=== PATIENT | female | born 1950 | race Caucasian/White ===

== ENCOUNTER 2017-12-04 12:45 | Emergency (ER) | payer OTHER ==
--- OUTSIDE RECORDS SUMMARY | 2017-12-04 12:46 | XMS REPORT ---
:1950 Author Organization eClinicalWorks Care Team Providers Name Role Phone Deann Goodwin Provider Role Unavailable Allergies No Known Allergies Problems Problem Type Condition Code Onset Dates Condition Status Problem Vertigo R42 Active Problem Anxiety F41.9 Active Problem Osteopenia M85.80 Active Problem Hypertension, unspecified type I10 Active Problem Hyperlipidemia, mixed E78.2 Active Problem Restless legs syndrome G25.81 Active Problem Vitamin D insufficiency E55.9 Active Problem Hypertension I10 Active Problem Allergic rhinitis, seasonal J30.2 Active Problem Terminal insomnia F51.09 Active Assessment Restless legs syndrome G25.81 Active Problem Chronic constipation K59.00 Active Problem Gastro-esophageal reflux disease K21.9 Active without esophagitis Assessment Hypertension, unspecified type I10 Active Problem Restless leg syndrome G25.81 Active Problem Gastric ulcer K25.9 Active Problem Macular degeneration H35.30 Active Medications Medication Code Code Instructions Start End Status Dosage System Date Date Amlodipine ND 04504875948 10 MG Orally July 28, Active 1 tablet Besylate Once a day 2017 Ropinirole HCl ND 04564968336 1 MG Orally Once July 28, Active 1 tablet 1 a day 2017 to 3 hours before bedtime Losartan ND 50126979142 25 MG Orally July 28, Active 1 tablet Potassium Once a day 2017 Results No Known Results Summary Purpose eClinicalWorks Submission
--- OUTSIDE RECORDS SUMMARY | 2017-12-04 12:46 | XMS REPORT ---
:1950 Author Organization eClinicalWorks Care Team Providers Name Role Phone Deann Goodwin Provider Role Unavailable Allergies No Known Allergies Problems Problem Type Condition Code Onset Dates Condition Status Problem Gastro-esophageal reflux disease K21.9 Active without esophagitis Problem Macular degeneration H35.30 Active Problem Restless leg syndrome G25.81 Active Problem Restless legs syndrome G25.81 Active Problem Hypertension, unspecified type I10 Active Problem Sinusitis chronic, frontal J32.1 Active Problem Terminal insomnia F51.09 Active Problem Vitamin D insufficiency E55.9 Active Problem Hyperlipidemia, mixed E78.2 Active Problem Allergic rhinitis, seasonal J30.2 Active Problem Anxiety F41.9 Active Problem Hypertension I10 Active Problem Vertigo R42 Active Problem Gastric ulcer K25.9 Active Problem Osteopenia M85.80 Active Problem Chronic constipation K59.00 Active Medications Medication Code Code Instructions Start End Status Dosage System Date Date Atorvastatin [facility] 29265722181 40 MG Orally August 27, Active 1 tablet Calcium Once a day 2018 Results No Known Results Summary Purpose eClinicalWorks Submission
--- OUTSIDE RECORDS SUMMARY | 2017-12-04 12:46 | XMS REPORT ---
:1950 Author Organization eClinicalWorks Care Team Providers Name Role Phone Deann Goodwin Provider Role Unavailable Allergies, Adverse Reactions, Alerts Substance Reaction Event Type Motrin diarrha Drug Allergy Morphine Sulfate tachycardia Drug Allergy Lisinopril leg swelling Drug Allergy Erythromycin rash Drug Allergy Problems Problem Type Condition Code Onset Dates Condition Status Problem Hyperlipidemia, mixed E78.2 Active Problem Chronic constipation K59.00 Active Problem Gastric ulcer K25.9 Active Problem Anxiety F41.9 Active Problem Osteopenia M85.80 Active Problem Hypertension I10 Active Problem Restless leg syndrome G25.81 Active Problem Gastro-esophageal reflux disease K21.9 Active without esophagitis Problem Vertigo R42 Active Problem Macular degeneration H35.30 Active Assessment Foot pain, left M79.672 Active Problem Vitamin D insufficiency E55.9 Active Problem Terminal insomnia F51.09 Active Problem Allergic rhinitis, seasonal J30.2 Active Medications Medication Code Code Instructions Start End Status Dosage System Date Date Singulair [facility] 65028459791 10 MG Orally Active TAKE 1 Once a day TABLET BY MOUTH EVERY DAY Protonix [facility] 03534610882 40 MG Orally Active 1 tablet bid Amitriptyline [facility] 30164232594 25 MG Orally Active 1 tablet HCl Once a day Restasis [facility] 84550513362 0.05 % Active 1 drop into Ophthalmic affected Twice a day eye Losartan [facility] 37147027685 50 MG Orally Active 1 tablet Potassium Once a day Norvasc [facility] 92404928161 10 MG Orally Active 1 tablet Once a day Lipitor [facility] 96732506575 10 MG Orally Active 1 tablet Once a day Linzess [facility] 81189488881 145 MCG Orally Active 1 capsule Once a day Requip [facility] 43263403601 1 MG Orally Active 1 tablet 1 Once a day to 3 hours before bedtime Evoxac [facility] 56666474643 30 MG Orally Active 1 capsule Three times a day Flonase [facility] 19151877211 50 MCG/ACT Active 2 sprays in Nasally Once a each day nostril Pantoprazole [facility] 85858924051 40 MG Orally Jun 04, Active 1 tablet Sodium twice daily 2017 Docusate Sodium ND 36763194881 100 MG Orally Active 1 capsule bid as needed Zofran [facility] 76476801817 4 MG Active TAKE 1 TABLET BY MOUTH THREE TIMES DAILY. Naproxen [facility] 07991484063 500 MG Orally Active 1/2 tablet once a day with food or milk as needed Results No Known Results Summary Purpose eClinicalWorks Submission
--- OUTSIDE RECORDS SUMMARY | 2017-12-04 12:47 | XMS REPORT ---
:1950 Author Organization eClinicalWorks Care Team Providers Name Role Phone Deann Goodwin Provider Role Unavailable Allergies No Known Allergies Problems Problem Type Condition Code Onset Dates Condition Status Problem Macular degeneration H35.30 Active Problem Terminal insomnia F51.09 Active Problem Vitamin D insufficiency E55.9 Active Problem Acute non intractable tension-type G44.209 Active headache Assessment Anxiety F41.9 Active Problem Sinusitis chronic, frontal J32.1 Active Problem Osteoarthritis of cervical spine, M47.812 Active unspecified spinal osteoarthritis complication status Problem Hyperlipidemia, mixed E78.2 Active Problem Allergic rhinitis, seasonal J30.2 Active Problem Hypertension, unspecified type I10 Active Problem Restless legs syndrome G25.81 Active Problem Vertigo R42 Active Problem Osteopenia M85.80 Active Assessment Hypertension I10 Active Problem Gastric ulcer K25.9 Active Problem Chronic constipation K59.00 Active Problem Anxiety F41.9 Active Problem Gastro-esophageal reflux disease K21.9 Active without esophagitis Problem Hypertension I10 Active Problem Restless leg syndrome G25.81 Active Medications Medication Code Code Instructions Start End Status Dosage System Date Date Restasis [facility] 07989035593 0.05 % Active 1 drop into Ophthalmic affected Twice a day eye Naproxen [facility] 05904582526 500 MG Orally Active 1/2 tablet once a day with food or milk as needed Singulair [facility] 89729348077 10 MG Active TAKE 1 TABLET BY MOUTH EVERY DAY Amlodipine [facility] 46469831308 10 MG Orally Active 1 tablet Besylate Once a day HydrOXYzine HCl ND 47186808996 25 MG Orally Dec 02, Active 1 tablet as bid 2018 needed Docusate Sodium ND 66915922646 100 MG Orally Active 1 capsule bid as needed Amitriptyline ND 04749530191 25 MG Orally Active 1 tablet HCl Once a day Ropinirole HCl [facility] 65827708155 1 MG Orally Active 1 tablet 1 Once a day to 3 hours before bedtime Atorvastatin [facility] 29359708097 40 MG Orally August 27, Active 1 tablet Calcium Once a day 2018 Zofran [facility] 54301998222 4 MG Active TAKE 1 TABLET BY MOUTH THREE TIMES DAILY. Losartan [facility] 20423279735 50 MG Orally Active 1 tablet Potassium Once a day Evoxac [facility] 90433806018 30 MG Orally Active 1 capsule Three times a day Pantoprazole [facility] 27916430392 40 MG Orally Jun 04, Active 1 tablet Sodium twice daily 2017 Flonase [facility] 48224455340 50 MCG/ACT Active 2 sprays in Nasally Once a each day nostril Protonix [facility] 24165582160 40 MG Orally Active 1 tablet bid Linzess [facility] 06276449992 145 MCG Orally Active 1 capsule Once a day Results No Known Results Summary Purpose eClinicalWorks Submission
--- OUTSIDE RECORDS SUMMARY | 2017-12-04 12:47 | XMS REPORT ---
:1950 Author Organization eClinicalWorks Care Team Providers Name Role Phone Deann Goodwin Provider Role Unavailable Allergies, Adverse Reactions, Alerts Substance Reaction Event Type Motrin diarrha Drug Allergy Morphine Sulfate tachycardia Drug Allergy Lisinopril leg swelling Drug Allergy Erythromycin rash Drug Allergy Problems Problem Type Condition Code Onset Dates Condition Status Problem Restless leg syndrome G25.81 Active Problem Vitamin D insufficiency E55.9 Active Problem Macular degeneration H35.30 Active Problem Sinusitis chronic, frontal J32.1 Active Assessment Acute non intractable tension-type G44.209 Active headache Problem Hypertension, unspecified type I10 Active Problem Acute non intractable tension-type G44.209 Active headache Problem Allergic rhinitis, seasonal J30.2 Active Problem Terminal insomnia F51.09 Active Problem Restless legs syndrome G25.81 Active Problem Hyperlipidemia, mixed E78.2 Active Problem Vertigo R42 Active Assessment Gastro-esophageal reflux disease K21.9 Active without esophagitis Assessment Radiculopathy affecting upper M54.10 Active extremity Problem Hypertension I10 Active Problem Gastric ulcer K25.9 Active Problem Osteopenia M85.80 Active Problem Chronic constipation K59.00 Active Problem Anxiety F41.9 Active Problem Gastro-esophageal reflux disease K21.9 Active without esophagitis Medications Medication Code Code Instructions Start End Status Dosage System Date Date Docusate Sodium [facility] 70211424855 100 MG Orally Active 1 capsule bid as needed Naproxen [facility] 47507266451 500 MG Orally Active 1/2 tablet once a day with food or milk as needed Losartan [facility] 93685313100 25 MG Orally Active 1 tablet Potassium Once a day Ropinirole HCl [facility] 81775940108 1 MG Orally Active 1 tablet 1 Once a day to 3 hours before bedtime Amlodipine [facility] 42468250498 10 MG Orally Active 1 tablet Besylate Once a day Restasis [facility] 64363342404 0.05 % Active 1 drop into Ophthalmic affected Twice a day eye Amitriptyline [facility] 35403416254 25 MG Orally Active 1 tablet HCl Once a day Singulair [facility] 05196423367 10 MG Active TAKE 1 TABLET BY MOUTH EVERY DAY Linzess [facility] 29707878246 145 MCG Orally Active 1 capsule Once a day Zofran [facility] 24215205568 4 MG Active TAKE 1 TABLET BY MOUTH THREE TIMES DAILY. Atorvastatin [facility] 35049731033 40 MG Orally August 27, Active 1 tablet Calcium Once a day 2017 Pantoprazole [facility] 93758973907 40 MG Orally Jun 04, Active 1 tablet Sodium twice daily 2017 Protonix [facility] 60471874895 40 MG Orally Active 1 tablet bid Flonase [facility] 04897500644 50 MCG/ACT Active 2 sprays in Nasally Once a each day nostril Evoxac [facility] 40661678667 30 MG Orally Active 1 capsule Three times a day Results No Known Results Summary Purpose eClinicalWorks Submission
--- OUTSIDE RECORDS SUMMARY | 2017-12-04 12:47 | XMS REPORT ---
:1950 Author Organization eClinicalWorks Care Team Providers Name Role Phone Deann Goodwin Provider Role Unavailable Allergies No Known Allergies Problems Problem Type Condition Code Onset Dates Condition Status Problem Macular degeneration H35.30 Active Problem Terminal insomnia F51.09 Active Problem Vitamin D insufficiency E55.9 Active Problem Acute non intractable tension-type G44.209 Active headache Assessment Osteoarthritis of cervical spine, M47.812 Active unspecified spinal osteoarthritis complication status Problem Sinusitis chronic, frontal J32.1 Active Problem Osteoarthritis of cervical spine, M47.812 Active unspecified spinal osteoarthritis complication status Problem Hyperlipidemia, mixed E78.2 Active Problem Allergic rhinitis, seasonal J30.2 Active Problem Hypertension, unspecified type I10 Active Problem Restless legs syndrome G25.81 Active Problem Vertigo R42 Active Problem Osteopenia M85.80 Active Assessment Cervical radiculopathy M54.12 Active Problem Gastric ulcer K25.9 Active Problem Chronic constipation K59.00 Active Problem Anxiety F41.9 Active Problem Gastro-esophageal reflux disease K21.9 Active without esophagitis Problem Hypertension I10 Active Problem Restless leg syndrome G25.81 Active Medications No Known Medications Results No Known Results Summary Purpose eClinicalWorks Submission
--- OUTSIDE RECORDS SUMMARY | 2017-12-04 12:47 | XMS REPORT ---
[...] Active Problem Allergic rhinitis, seasonal J30.2 Active Assessment Sinusitis chronic, frontal J32.1 Active Problem Anxiety F41.9 Active Problem Hypertension I10 Active Problem Vertigo R42 Active Problem Gastric ulcer K25.9 Active Problem Osteopenia M85.80 Active Problem Chronic constipation K59.00 Active Medications Medication Code Code Instructions Start End Status Dosage System Date Date Singulair [facility] 71151816972 10 MG Orally Active TAKE 1 Once a day TABLET BY MOUTH EVERY DAY Zofran [facility] 66721042324 4 MG Active TAKE 1 TABLET BY MOUTH THREE TIMES DAILY. Cefdinir ND 62535125675 300 MG Orally August 24September 13, Active 1 capsule every 12 hrs 2017 2017 Naproxen ND 17828763994 500 MG Orally Active 1/2 tablet once a day with food or milk as needed Pantoprazole ND 99873938037 40 MG Orally Jun 04, Active 1 tablet Sodium twice daily 2017 Amitriptyline ND 33777306991 25 MG Orally Active 1 tablet HCl Once a day PredniSONE ND 06926069361 10 MG Orally August 24August 31, Active 1 tablet Once a day 2017 2017 Ropinirole HCl [facility] 35037794840 1 MG Orally July Active 1 tablet 1 Once a day 2017 to 3 hours before bedtime Protonix [facility] 79612399485 40 MG Orally Active 1 tablet bid Losartan [facility] 92192500497 25 MG Orally July Active 1 tablet Potassium Once a day 2017 Losartan [facility] 46515943489 50 MG Orally Active 1 tablet Potassium Once a day Linzess [facility] 06921308765 145 MCG Orally Active 1 capsule Once a day Lipitor [facility] 70294122710 10 MG Orally Active 1 tablet Once a day Norvasc [facility] 06962708965 10 MG Orally Active 1 tablet Once a day Docusate Sodium [facility] 30594556526 100 MG Orally Active 1 capsule bid as needed Requip [facility] 72249599510 1 MG Orally Active 1 tablet 1 Once a day to 3 hours before bedtime Amlodipine [facility] 08358015252 10 MG Orally July Active 1 tablet Besylate Once a day 2017 Flonase [facility] 89665021898 50 MCG/ACT Active 2 sprays in Nasally Once a each day nostril Restasis [facility] 37857377122 0.05 % Active 1 drop into Ophthalmic affected Twice a day eye Evoxac [facility] 20430021175 30 MG Orally Active 1 capsule Three times a day Results No Known Results Summary Purpose eClinicalWorks Submission
[2017-12-04] MEDS ORDERED: PHENYLEPHRINE 0.5% NOSE 15ML NAS ONE (13:28)
[2017-12-04] MEDS ORDERED: NA CHLORIDE 0.9% 1,000 ML ONE (13:59)
[2017-12-04 14:30] LABS: Hematocrit 40.7 % (36.0-45.0); MCH 31.2 pg (27.0-35.0); MCV 92.7 fL (80-100); MPV 9.1 fL (7.6-11.3); RBC Red Blood Cell Count 4.39 M/uL (3.86-4.86)
--- NOTE | 2017-12-04 14:59 | ER ---
Nurse's Notes [facility] Name: Daisy Mcfadden Age: 67 yrs Sex: Female : 1950 Arrival Date: 12/04/2017 Time: 12:46 Bed 15 Private MD: Diagnosis: Epistaxis;Syncope and collapse Presentation: 12/04 12:56 Presenting complaint: Patient states: nose bleed that began at 1200 today from left aa5 nare. Pt denies taking anticoagulants but reports she takes Naproxen. Pt states "It happened last week and they told me to put pressure and take Afrin if it happened again and I tried it but it didn't help". Transition of care: patient was not received from another setting of care. Onset of symptoms was December 04, 2017. Risk Assessment: Do you want to hurt yourself or someone else? Patient reports no desire to harm self or others. Initial Sepsis Screen: Does the patient meet any 2 criteria? No. Patient's initial sepsis screen is negative. Does the patient have a suspected source of infection? No. Patient's initial sepsis screen is negative. Care prior to arrival: Pt holding pressure to nose. 12:56 Method Of Arrival: Ambulatory aa5 12:56 Acuity: SILVANA 3 aa5 Triage Assessment: 13:03 General: Appears in no apparent distress. uncomfortable, Behavior is calm, cooperative, aj appropriate for age. Pain: Denies pain. EENT: Reports nasal discharge that is bloody. Neuro: Level of Consciousness is awake, alert, obeys commands, Oriented to person, place, time, situation, Appropriate for age. Respiratory: Airway is patent Respiratory effort is even, unlabored, Respiratory pattern is regular, symmetrical. Derm: Skin is intact, is healthy with good turgor, Skin is pink, warm \\T\\ dry. normal. Historical: - Allergies: 13:03 Erythromycin; aj 13:03 Ibuprofen; aj 13:03 Morphine; aj 13:03 Demerol; aj - Home Meds: 13:03 amlodipine 10 mg tab 1 tab once daily for Hypertension [Active]; losartan 50 mg oral aj tab 1 tab once daily [Active]; Singulair 10 mg Oral tab 1 tab once daily [Active]; Naproxen Oral [Active]; - PMHx: 13:03 Hypertension; Hyperlipidemia; aj - PSHx: 13:03 Tonsillectomy; Hysterectomy; Colostomy; aj - Immunization history:: Adult Immunizations up to date. - Social history:: Smoking status: Patient/guardian denies using tobacco. - Ebola Screening: : Patient negative for fever greater than or equal to 101.5 degrees Fahrenheit, and additional compatible Ebola Virus Disease symptoms Patient denies exposure to infectious person Patient denies travel to an Ebola-affected area in the 21 days before illness onset No symptoms or risks identified at this time. Screenin:22 Abuse screen: Denies threats or abuse. Nutritional screening: No deficits noted. tl3 Tuberculosis screening: No symptoms or risk factors identified. Fall Risk None identified. Assessment: 13:30 General: Appears uncomfortable, well groomed, well developed, emaciated, Behavior is tl3 calm, cooperative, appropriate for age. Pain: Denies pain. Neuro: Level of Consciousness is awake, alert, obeys commands, Oriented to person, place, time, situation, Appropriate for age. Cardiovascular: Heart tones S1 S2 present Patient's skin is warm and dry. Respiratory: Airway is patent Respiratory effort is even, unlabored, Respiratory pattern is regular, symmetrical. GI: No signs and/or symptoms were reported involving the gastrointestinal system. : No signs and/or symptoms were reported regarding the genitourinary system. EENT: Nares with drainage noted with bleeding noted on left. Derm: Skin is mottled. Musculoskeletal: No signs and/or symptoms reported regarding the musculoskeletal system. 13:35 Reassessment: Patient and/or family updated on plan of care and expected duration. Pain tl3 level reassessed. pt stating that she doesn't feel well, vital signs dropping to 95/58, RR 26, O2sat 90% on RA, assistance button pushed, Dr Ramos to bedside to re-evaluate pt, orders for fluids received. 14:59 Reassessment: Patient and/or family updated on plan of care and expected duration. Pain tl3 level reassessed. Patient is alert, oriented x 3, equal unlabored respirations, skin warm/dry/pink. Dr Ramos at bedside to discuss POC. Vital Signs: 13:03 BP 152 / 79; Pulse 105; Resp 16; Temp 98.1; Pulse Ox 100% on R/A; Weight 77.11 kg; aj Height 5 ft. 5 in. (165.10 cm); 13:30 BP 153 / 65; Pulse 91; Resp 20; Pulse Ox 100% on R/A; tl3 13:45 BP 106 / 65; Pulse 52; Resp 24; Pulse Ox 100% ; tl3 13:51 BP 95 / 58; Pulse 54; Resp 22; Pulse Ox 90% on R/A; tl3 14:00 BP 136 / 68; Pulse 63; Resp 16; Pulse Ox 100% 15 lpm ; tl3 14:35 BP 157 / 57; Pulse 81; Resp 21; Temp 97.6(O); Pulse Ox 100% on R/A; tl3 15:20 BP 138 / 59 Supine; Pulse 63; Resp 16; Pulse Ox 100% ; tl3 15:21 BP 149 / 67 Sitting; Pulse 72; Resp 16; Pulse Ox 100% on R/A; tl3 15:22 BP 145 / 63 Standing; Pulse 72; Resp 18; Pulse Ox 100% on R/A; tl3 13:03 Body Mass Index 28.29 (77.11 kg, 165.10 cm) ED Course: 12:46 Patient arrived in ED. mr 12:50 Arm band placed on Patient placed in an exam room, on a stretcher. aa5 13:00 Triage completed. aa5 13:03 [facility] Salguero F[facility]-C [facility] kb 13:03 Jarvis Ramos MD is Attending Physician. kb 13:03 Patient Nose clamp placed. aj 13:11 Jarvis Ramos MD is Attending Physician. gs 13:30 Inserted saline lock: 20 gauge 22 gauge in right in left antecubital area, using tl3 aseptic technique. wrist, using aseptic technique. Blood collected. 14:08 Deedee Mueller, RN is Primary Nurse. tl3 14:48 EKG done, by ED staff, reviewed by Jarvis Ramos MD. mh5 14:49 Patient has correct armband on for positive identification. Placed in gown. Bed in low mh5 position. Call light in reach. Side rails up X2. Adult w/ patient. Warm blanket given. Pillow given. night monitor on. Pulse ox on. NIBP on. 14:57 Josiane Jose MD is Referral Physician. gs 15:22 No provider procedures requiring assistance completed. IV discontinued, intact, tl3 bleeding controlled, No redness/swelling at site. Pressure dressing applied. Administered Medications: 10:00 Drug: NS 0.9% 1000 ml Route: IV; Rate: 1 bolus; Site: right wrist; Delivery: Primary tl3 tubing; 15:42 Follow up: IV Status: Completed infusion; IV Intake: 1000ml tl3 Intake: 15:42 IV: 1000ml; Total: 1000ml. tl3 Outcome: 14:58 Discharge ordered by MD. rocha 15:22 Discharged to home ambulatory. tl3 15:22 Condition: stable 15:22 Discharge instructions given to patient, family, Instructed on discharge instructions, follow up and referral plans. medication usage, pt ambulated to restroom without distress or dizziness, stated that she was feeling better 15:45 Patient left the ED. tl3 Signatures: Kitty Salguero, BEVELING MACHINE OPERATOR-C BEVELING MACHINE OPERATOR-Ckb Giovana Gunn, RN Shilpa Santamaria JuarezEusebia, RN Shilpa Almanzar Jarvis Alejo MD MD gs Lowrey, Tammy, RN RN tl3 Corrections: (The following items were deleted from the chart) 14:34 13:30 BP 106 / 65; Pulse 52bpm; Resp 24bpm; Pulse Ox 100%; tl3 tl3
--- NOTE | 2017-12-04 14:59 | EDPHYS ---
Physician Documentation [facility] Name: Daisy Mcfadden Age: 67 yrs Sex: Female : 1950 Arrival Date: 12/04/2017 Time: 12:46 Bed 15 Private MD: ED Physician Jarvis Ramos HPI: 12/04 14:46 This 67 yrs old Female presents to ER via Ambulatory with complaints of Nose gs Bleed. 14:46 The patient presents with a nose bleed, that is apparently anterior, that is apparently gs posterior, from the left nare. Onset: The symptoms/episode began/occurred acutely, today. Modifying factors: The symptoms are alleviated by nothing. the symptoms are aggravated by nothing. Associated signs and symptoms: Pertinent negatives: blurred vision, chest pain, lightheadedness. Severity of symptoms: At their worst the symptoms were severe in the emergency department the symptoms are unchanged. The patient has not experienced similar symptoms in the past. Historical: - Allergies: 13:03 Erythromycin; aj 13:03 Ibuprofen; aj 13:03 Morphine; aj 13:03 Demerol; aj - Home Meds: 13:03 amlodipine 10 mg tab 1 tab once daily for Hypertension [Active]; losartan 50 mg oral aj tab 1 tab once daily [Active]; Singulair 10 mg Oral tab 1 tab once daily [Active]; Naproxen Oral [Active]; - PMHx: 13:03 Hypertension; Hyperlipidemia; aj - PSHx: 13:03 Tonsillectomy; Hysterectomy; Colostomy; aj - Immunization history:: Adult Immunizations up to date. - Social history:: Smoking status: Patient/guardian denies using tobacco. - Ebola Screening: : Patient negative for fever greater than or equal to 101.5 degrees Fahrenheit, and additional compatible Ebola Virus Disease symptoms Patient denies exposure to infectious person Patient denies travel to an Ebola-affected area in the 21 days before illness onset No symptoms or risks identified at this time. ROS: 14:46 All other systems are negative. gs Exam: 14:46 Head/Face: Normocephalic, atraumatic. Eyes: Pupils equal round and reactive to light, gs extra-ocular motions intact. Lids and lashes normal. Conjunctiva and sclera are non-icteric and not injected. Cornea within normal limits. Periorbital areas with no swelling, redness, or edema. Neck: Trachea midline, no thyromegaly or masses palpated, and no cervical lymphadenopathy. Supple, full range of motion without nuchal rigidity, or vertebral point tenderness. No Meningismus. Chest/axilla: Normal chest wall appearance and motion. Nontender with no deformity. No lesions are appreciated. Cardiovascular: Regular rate and rhythm with a normal S1 and S2. No gallops, murmurs, or rubs. Normal PMI, no JVD. No pulse deficits. Respiratory: Lungs have equal breath sounds bilaterally, clear to auscultation and percussion. No rales, rhonchi or wheezes noted. No increased work of breathing, no retractions or nasal flaring. Abdomen/GI: Soft, non-tender, with normal bowel sounds. No distension or tympany. No guarding or rebound. No evidence of tenderness throughout. Skin: Warm, dry with normal turgor. Normal color with no rashes, no lesions, and no evidence of cellulitis. MS/ Extremity: Pulses equal, no cyanosis. Neurovascular intact. Full, normal range of motion. Neuro: Awake and alert, GCS 15, oriented to person, place, time, and situation. Cranial nerves II-XII grossly intact. Motor strength 5/5 in all extremities. Sensory grossly intact. Cerebellar exam normal. Normal gait. 14:46 Constitutional: The patient appears alert, awake. 14:46 ENT: Nose: bleeding, is seen from the left nare, and is moderate, clotted blood, posterior pharynx. Vital Signs: 13:03 BP 152 / 79; Pulse 105; Resp 16; Temp 98.1; Pulse Ox 100% on R/A; Weight 77.11 kg; aj Height 5 ft. 5 in. (165.10 cm); 13:30 BP 153 / 65; Pulse 91; Resp 20; Pulse Ox 100% on R/A; tl3 13:45 BP 106 / 65; Pulse 52; Resp 24; Pulse Ox 100% ; tl3 13:51 BP 95 / 58; Pulse 54; Resp 22; Pulse Ox 90% on R/A; tl3 14:00 BP 136 / 68; Pulse 63; Resp 16; Pulse Ox 100% 15 lpm ; tl3 14:35 BP 157 / 57; Pulse 81; Resp 21; Temp 97.6(O); Pulse Ox 100% on R/A; tl3 15:20 BP 138 / 59 Supine; Pulse 63; Resp 16; Pulse Ox 100% ; tl3 15:21 BP 149 / 67 Sitting; Pulse 72; Resp 16; Pulse Ox 100% on R/A; tl3 15:22 BP 145 / 63 Standing; Pulse 72; Resp 18; Pulse Ox 100% on R/A; tl3 13:03 Body Mass Index 28.29 (77.11 kg, 165.10 cm) Procedures: 14:46 Epistaxis treatment: A moderate amount of bleeding noted from Treated using Oxymetazoline sprays, direct pressure, anterior packing, Surgicel left, Bleeding stopped. MDM: 13:03 Patient medically screened. kb 14:46 Differential diagnosis: epistaxis r/t trauma, spontaneous epistaxis. Data reviewed: vital signs, nurses notes. Response to treatment: the patient's symptoms have resolved after treatment, and as a result, I will discharge patient. ED course: pt had near syncopal vasovagal response ekg stable, given fluids vs stabilized will discharge. 12/04 13:39 Order name: CBC w/o diff; Complete Time: 14:45 12/04 13:55 Order name: EKG; Complete Time: 13:56 12/04 13:55 Order name: EKG - Nurse/Tech; Complete Time: 14:15 Administered Medications: 10:00 Drug: NS 0.9% 1000 ml Route: IV; Rate: 1 bolus; Site: right wrist; Delivery: Primary tl3 tubing; 15:42 Follow up: IV Status: Completed infusion; IV Intake: 1000ml tl3 Disposition: 12/04/17 14:58 Discharged to Home. Impression: Epistaxis, Syncope and collapse. - Condition is Stable. - Discharge Instructions: Nosebleed, Adult, Vasovagal Syncope, Adult. - Prescriptions for Keflex 500 mg Oral Capsule - take 1 capsule by ORAL route every 12 hours for 5 days; 10 capsule. - Medication Reconciliation Form, Thank You Letter, Antibiotic Education, Prescription Opioid Use form. - Follow up: Josiane Jose MD; When: 2 - 3 days; Reason: Re-evaluation by your physician. Signatures: Dispatcher [employer] EDKitty Cr, FILLER SHREDDER HELPER-C FILLER SHREDDER HELPER-Giovana Conley RN RN Jarvis Field MD MD Deedee Mueller RN RN tl3 Corrections: (The following items were deleted from the chart) 15:45 14:58 12/04/2017 14:58 Discharged to Home. Impression: Epistaxis; Syncope and collapse. tl3 Condition is Stable. Forms are Medication Reconciliation Form, Thank You Letter, Antibiotic Education, Prescription Opioid Use. Follow up: Josiane Jose; When: 2 - 3 days; Reason: Re-evaluation by your physician. gs
[2017-12-04 16:00] VITALS: O2SAT 100
[2017-12-04 16:01] VITALS: TEMP 97.6
[2017-12-04 16:04] VITALS: BP 145/63
--- NOTE | 2017-12-05 07:47 | EKG ---
Test Date: 2017-12-04 Test Time: 14:01:27 Broadcast Supervisor: JERE MEASUREMENT RESULTS: Intervals: Rate: 62 MT: 138 QRSD: 78 QT: 428 QTc: 434 [place]: P: 42 MT: 138 QRS: 26 T: 73 INTERPRETIVE STATEMENTS: Normal sinus rhythm Nonspecific T wave abnormality Abnormal ECG Compared to ECG 11/26/2015 06:35:59 T-wave abnormality now present Electronically Signed On 12-05-17 07:45:21 CDT by Martín Wallace
== END 2017-12-04 15:45 | disposition home or self-care (01) ==
LOC: ER 12:45
PROC: 2Y41X5Z Packing of Nasal Region using Packing Material (ICD-10-PCS; principal; 2017-12-04)
DX: R04.0 Epistaxis (principal); Z88.6 Allergy status to analgesic agent; Z88.1 Allergy status to other antibiotic agents; Z88.5 Allergy status to narcotic agent; I10 Essential (primary) hypertension; E78.5 Hyperlipidemia, unspecified; R55 Syncope and collapse
CPT/HCPCS: 30901; 36415; 85027; 93005; J7030; 96360; 96361; 99284

== ENCOUNTER 2017-12-07 20:54 | Observation (INO) | payer OTHER ==
--- OUTSIDE RECORDS SUMMARY | 2017-12-07 20:57 | XMS REPORT ---
:1950 Author Organization eClinicalWorks Care Team Providers Name Role Phone Denan Goodwin Provider Role Unavailable Allergies No Known [...] End Status Dosage System Date Date Restasis [facility] 10710486026 0.05 % Active 1 drop into Ophthalmic affected Twice a day eye Naproxen [facility] 86343433045 500 MG Orally Active 1/2 tablet once a day with food or milk as needed Singulair [facility] 88271835669 10 MG Active TAKE 1 TABLET BY MOUTH EVERY DAY Amlodipine [facility] 29258584082 10 MG Orally Active 1 tablet Besylate Once a day HydrOXYzine HCl ND 62717456155 25 MG Orally Dec 02, Active 1 tablet as bid 2018 needed Docusate Sodium ND 29632494769 100 MG Orally Active 1 capsule bid as needed Amitriptyline ND 84299639150 25 MG Orally Active 1 tablet HCl Once a day Ropinirole HCl [facility] 05653874538 1 MG Orally Active 1 tablet 1 Once a day to 3 hours before bedtime Atorvastatin [facility] 22940480817 40 MG Orally August 27, Active 1 tablet Calcium Once a day 2018 Zofran [facility] 57660617649 4 MG Active TAKE 1 TABLET BY MOUTH THREE TIMES DAILY. Losartan [facility] 72958859962 50 MG Orally Active 1 tablet Potassium Once a day Evoxac [facility] 77569945806 30 MG Orally Active 1 capsule Three times a day Pantoprazole [facility] 75317667790 40 MG Orally Jun 04, Active 1 tablet Sodium twice daily 2017 Flonase [facility] 33267337470 50 MCG/ACT Active 2 sprays in Nasally Once a each day nostril Protonix [facility] 04061578225 40 MG Orally Active 1 tablet bid Linzess [facility] 10467118591 145 MCG Orally Active 1 capsule Once a day Results No Known Results Summary Purpose eClinicalWorks Submission
--- OUTSIDE RECORDS SUMMARY | 2017-12-07 20:57 | XMS REPORT ---
[...] End Status Dosage System Date Date Atorvastatin [facility] 99722714067 40 MG Orally August 27, Active 1 tablet Calcium Once a day 2018 Results No Known Results Summary Purpose eClinicalWorks Submission
--- OUTSIDE RECORDS SUMMARY | 2017-12-07 20:57 | XMS REPORT ---
[...] Status Dosage System Date Date Amlodipine ND 58185461307 10 MG Orally July 28, Active 1 tablet Besylate Once a day 2017 Ropinirole HCl ND 18416544089 1 MG Orally Once July 28, Active 1 tablet 1 a day 2017 to 3 hours before bedtime Losartan ND 45273667120 25 MG Orally July 28, Active 1 tablet Potassium Once a day 2017 Results No Known Results Summary Purpose eClinicalWorks Submission
--- OUTSIDE RECORDS SUMMARY | 2017-12-07 20:57 | XMS REPORT ---
[...] End Status Dosage System Date Date Singulair [facility] 76855753600 10 MG Orally Active TAKE 1 Once a day TABLET BY MOUTH EVERY DAY Protonix [facility] 38422211448 40 MG Orally Active 1 tablet bid Amitriptyline [facility] 93886927988 25 MG Orally Active 1 tablet HCl Once a day Restasis [facility] 56422934650 0.05 % Active 1 drop into Ophthalmic affected Twice a day eye Losartan [facility] 28770424490 50 MG Orally Active 1 tablet Potassium Once a day Norvasc [facility] 55546658515 10 MG Orally Active 1 tablet Once a day Lipitor [facility] 50305478297 10 MG Orally Active 1 tablet Once a day Linzess [facility] 90706616076 145 MCG Orally Active 1 capsule Once a day Requip [facility] 03442094403 1 MG Orally Active 1 tablet 1 Once a day to 3 hours before bedtime Evoxac [facility] 36450171285 30 MG Orally Active 1 capsule Three times a day Flonase [facility] 32510539816 50 MCG/ACT Active 2 sprays in Nasally Once a each day nostril Pantoprazole [facility] 27030646136 40 MG Orally Jun 04, Active 1 tablet Sodium twice daily 2017 Docusate Sodium ND 79959194729 100 MG Orally Active 1 capsule bid as needed Zofran [facility] 54570140765 4 MG Active TAKE 1 TABLET BY MOUTH THREE TIMES DAILY. Naproxen [facility] 91736595948 500 MG Orally Active 1/2 tablet once a day with food or milk as needed Results No Known Results Summary Purpose eClinicalWorks Submission
--- OUTSIDE RECORDS SUMMARY | 2017-12-07 20:57 | XMS REPORT ---
[...] End Status Dosage System Date Date Singulair [facility] 25473053455 10 MG Orally Active TAKE 1 Once a day TABLET BY MOUTH EVERY DAY Zofran [facility] 72211122976 4 MG Active TAKE 1 TABLET BY MOUTH THREE TIMES DAILY. Cefdinir ND 03207548971 300 MG Orally August 24September 13, Active 1 capsule every 12 hrs 2017 2017 Naproxen ND 10435782561 500 MG Orally Active 1/2 tablet once a day with food or milk as needed Pantoprazole ND 16752465235 40 MG Orally Jun 04, Active 1 tablet Sodium twice daily 2017 Amitriptyline ND 98650783819 25 MG Orally Active 1 tablet HCl Once a day PredniSONE ND 54882074416 10 MG Orally August 24August 31, Active 1 tablet Once a day [address] [facility] 10187020180 1 MG Orally July Active 1 tablet 1 Once a day 2017 to 3 hours before bedtime Protonix [facility] 20035508539 40 MG Orally Active [address] [facility] 90409493888 25 MG Orally July Active 1 tablet Potassium Once a day [address] [facility] 45688530686 50 MG Orally Active 1 tablet Potassium Once a day Linzess [facility] 75544917566 145 MCG Orally Active 1 capsule Once a day Lipitor [facility] 71347454501 10 MG Orally Active 1 tablet Once a day Norvasc [facility] 97938394267 10 MG Orally Active 1 tablet Once a day Docusate Sodium [facility] 84786219969 100 MG Orally Active 1 capsule bid as needed Requip [facility] 85274950706 1 MG Orally Active 1 tablet 1 Once a day to 3 hours before bedtime Aml[address]ip[address] [facility] 22160341571 10 MG Orally July Active 1 tablet Besylate Once a day [address] [facility] 25123924897 50 MCG/ACT Active 2 sprays in Nasally Once a each day nostril Restasis [facility] 40875848721 0.05 % Active 1 drop into Ophthalmic affected Twice a day eye Evoxac [facility] 21309677068 30 MG Orally Active 1 capsule Three times a day Results No Known Results Summary Purpose eClinicalWorks Submission
--- OUTSIDE RECORDS SUMMARY | 2017-12-07 20:57 | XMS REPORT ---
[...] Date Date Docusate Sodium [facility] 95458549836 100 MG Orally Active 1 capsule bid as needed Naproxen [facility] 46863029223 500 MG Orally Active 1/2 tablet once a day with food or milk as needed Losartan [facility] 02732117697 25 MG Orally Active 1 tablet Potassium Once a day Ropinirole HCl [facility] 74024957186 1 MG Orally Active 1 tablet 1 Once a day to 3 hours before bedtime Amlodipine [facility] 05298713065 10 MG Orally Active 1 tablet Besylate Once a day Restasis [facility] 61087542206 0.05 % Active 1 drop into Ophthalmic affected Twice a day eye Amitriptyline [facility] 02129425421 25 MG Orally Active 1 tablet HCl Once a day Singulair [facility] 76717503613 10 MG Active TAKE 1 TABLET BY MOUTH EVERY DAY Linzess [facility] 39456908841 145 MCG Orally Active 1 capsule Once a day Zofran [facility] 58037382263 4 MG Active TAKE 1 TABLET BY MOUTH THREE TIMES DAILY. Atorvastatin [facility] 23778036010 40 MG Orally August 27, Active 1 tablet Calcium Once a day 2017 Pantoprazole [facility] 61480188053 40 MG Orally Jun 04, Active 1 tablet Sodium twice daily 2017 Protonix [facility] 36296804302 40 MG Orally Active 1 tablet bid Flonase [facility] 10658570253 50 MCG/ACT Active 2 sprays in Nasally Once a each day nostril Evoxac [facility] 14285866545 30 MG Orally Active 1 capsule Three times a day Results No Known Results Summary Purpose eClinicalWorks Submission
--- OUTSIDE RECORDS SUMMARY | 2017-12-07 20:58 | XMS REPORT ---
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 Active [...] Start End Status Dosage System Date Date Ropinirole HCl [facility] 48779600202 1 MG Orally Active 1 tablet 1 Once a day to 3 hours before bedtime Amlodipine [facility] 64752860576 10 MG Orally Active 1 tablet Besylate Once a day Linzess ND 32190737896 145 MCG Orally Active 1 capsule Once a day Pantoprazole ND 54802866405 40 MG Orally Jun 04, Active 1 tablet Sodium twice daily 2017 Losartan ND 41152441276 50 MG Orally Active 1 tablet Potassium Once a day Amitriptyline ND 09758628389 25 MG Orally Active 1 tablet HCl Once a day Flonase ND 46187046305 50 MCG/ACT Active 2 sprays in Nasally Once a each day nostril Atorvastatin ND 67557776457 40 MG Orally August 27, Active 1 tablet Calcium Once a day 2017 Protonix [facility] 64853251566 40 MG Orally Active 1 tablet bid Docusate Sodium [facility] 04124968292 100 MG Orally Active 1 capsule bid as needed Naproxen [facility] 70564699167 500 MG Orally Active 1/2 tablet once a day with food or milk as needed Evoxac [facility] 18978615264 30 MG Orally Active 1 capsule Three times a day Singulair [facility] 40590385867 10 MG Active TAKE 1 TABLET BY MOUTH EVERY DAY Zofran [facility] 59629006525 4 MG Active TAKE 1 TABLET BY MOUTH THREE TIMES DAILY. Restasis [facility] 77764806192 0.05 % Active 1 drop into Ophthalmic affected Twice a day eye Results No Known Results Summary Purpose eClinicalWorks Submission
[2017-12-07 21:27] LABS: Absolute Lymphocytes (CBC) 2.7 K/uL (0.7-4.9); Absolute Monocytes 0.6 K/uL (0.1-1.3); Absolute Neutrophil 3.5 K/uL (1.8-8.0); Basophils % 0.8 % (0-1.3); Hematocrit 37.7 % (36.0-45.0); Lymphocytes % 37.4 % (15.3-44.8); MCH 31.8 pg (27.0-35.0); MCV 94.8 fL (80-100); MPV 8.7 fL (7.6-11.3); RBC Red Blood Cell Count 3.98 M/uL (3.86-4.86)
[2017-12-07] MEDS ORDERED: NITROGLYCERIN 1 GM PKT TD ONE (21:39)
[2017-12-07] MEDS ORDERED: ASPIRIN 81 MG CHEWABLE TABLET ONE (21:39)
[2017-12-07 21:40] LABS: Protime INR 0.87
[2017-12-07 21:47] LABS: ALT/SGPT 26 U/L (12-78); AST/SGOT 25 U/L (15-37); Albumin 3.6 g/dL (3.4-5.0); Alkaline Phosphatase 82 U/L (45-117); BUN Blood Urea Nitrogen 19 mg/dL (7-18); Bicarbonate 27 mmol/L (21-32); Bilirubin Direct < 0.1 mg/dL (0-0.2); Bilirubin Total 0.3 mg/dL (0.2-1.0); CKMB Creatine Kinase MB < 1.0 ng/mL (0.3-3.6); Creatine Phosphokinase 89 U/L (26-192); Glucose Level 124 mg/dL (74-106); Magnesium 2.5 mg/dL (1.8-2.4); NT PRO-BNP 38 pg/mL (<125); Potassium 3.6 mmol/L (3.5-5.1); Protein, Total 7.5 g/dL (6.4-8.2); Sodium Level 141 mmol/L (136-145)
--- NOTE | 2017-12-07 22:29 | ER ---
Nurse's Notes [facility] Name: Daisy Mcfadden Age: 67 yrs Sex: Female : 1950 Arrival Date: 12/07/2017 Time: 20:57 Bed 5 Private MD: Diagnosis: Chest pain, unspecified Presentation: 12/07 21:06 Presenting complaint: Patient states: Chest pain that began 2 hours ago, currently lp1 wearing haulter monitor; told by PCP that she was having runs of A-fib and tachycardia; complaint of shortness of breath and nausea. Transition of care: patient was not received from another setting of care. Onset of symptoms was December 07, 2017 at 19:00. Risk Assessment: Do you want to hurt yourself or someone else? Patient reports no desire to harm self or others. Initial Sepsis Screen: Does the patient meet any 2 criteria? No. Patient's initial sepsis screen is negative. Does the patient have a suspected source of infection? No. Patient's initial sepsis screen is negative. Care prior to arrival: None. 21:06 Method Of Arrival: Wheelchair lp1 21:06 Acuity: SILVANA 2 lp1 Historical: - Allergies: 21:19 Demerol; lp1 21:19 Erythromycin; lp1 21:19 Ibuprofen; lp1 21:19 Morphine; lp1 - Home Meds: 21:19 amlodipine 10 mg tab 1 tab once daily for Hypertension [Active]; losartan 50 mg Oral lp1 tab 1 tab once daily [Active]; Naproxen Oral [Active]; Singulair 10 mg Oral tab 1 tab once daily [Active]; 21:20 atorvastatin oral oral [Active]; Protonix Oral [Active]; lp1 - PMHx: 21:19 Hyperlipidemia; Hypertension; lp1 - PSHx: 21:19 Partial colectomy; Hysterectomy; Tonsillectomy; lp1 - Immunization history:: Adult Immunizations up to date. - Social history:: Smoking status: Patient/guardian denies using tobacco. - Ebola Screening: : No symptoms or risks identified at this time. Screenin:14 Abuse screen: Denies threats or abuse. Denies injuries from another. Nutritional lp1 screening: No deficits noted. Tuberculosis screening: No symptoms or risk factors identified. Fall Risk None identified. Assessment: 21:12 General: Appears in no apparent distress. uncomfortable, obese, Behavior is lp1 cooperative, appropriate for age, anxious. Pain: Complains of pain in chest Pain does not radiate. Pain began 2 hours ago. Neuro: Level of Consciousness is awake, alert, obeys commands, Oriented to person, place, time, situation, Appropriate for age. Cardiovascular: Reports chest pain. Respiratory: Airway is patent Respiratory effort is even, unlabored, Respiratory pattern is regular, symmetrical. GI: No signs and/or symptoms were reported involving the gastrointestinal system. : No signs and/or symptoms were reported regarding the genitourinary system. EENT: No deficits noted. Derm: No deficits noted. Musculoskeletal: Circulation, motion, and sensation intact. Range of motion: intact in all extremities. 21:45 Reassessment: ALL CURRENT ORDERS IN PROCESS, HALTER MONITOR STILL IN PLACE. RESULTS bp PENDING. Vital Signs: 21:07 BP 194 / 74; Pulse 81; Resp 20; Pulse Ox 100% on R/A; lp1 21:45 BP 157 / 87; Pulse 72; Resp 16; Pulse Ox 100% ; bp 22:08 BP 146 / 61; Pulse 72; Resp 14; Pulse Ox 97% ; bp 23:09 BP 152 / 69; Pulse 66; Resp 14; Pulse Ox 98% ; bp 12/08 00:00 BP 145 / 62; Pulse 65; Resp 16; Pulse Ox 97% ; bp ED Course: 12/07 20:57 Patient arrived in ED. al2 21:02 Polo Tan MD is Attending Physician. tw4 21:07 Triage completed. lp1 21:07 Arm band placed on left wrist. lp1 21:12 Layne Lazcano, RN is Primary Nurse. lp1 21:14 Patient has correct armband on for positive identification. Bed in low position. Call lp1 light in reach. Side rails up X2. Adult w/ patient. Pulse ox on. NIBP on. 21:20 Patient maintains SpO2 saturation greater than 95% on room air. lp1 21:24 X-ray completed. Portable x-ray completed in exam room. Patient tolerated procedure bb2 well. 21:25 XRAY Chest (1 view) In Process Unspecified. EDMS 22:28 Adrián Morales MD is Hospitalizing Provider. tw4 22:53 Missed attempt(s): 22 gauge in left antecubital area. mt 23:19 No provider procedures requiring assistance completed. Inserted saline lock: 22 gauge bp in left hand, using aseptic technique. Patient admitted, IV remains in place. Administered Medications: 21:40 Drug: Nitro-Bid Ointment 2 % 0.5 inches Route: Transdermal; Site: anterior chest wall; bp 21:40 Drug: Aspirin Chewable Tablet 324 mg Route: PO; bp 22:00 Follow up: Response: No adverse reaction bp Outcome: 22:28 Decision to Hospitalize by Provider. tw4 23:52 Admitted to Tele accompanied by tech, family with patient, via stretcher, room 430, bp with chart. 23:52 Condition: stable 23:52 Instructed on the need for admit. 12/08 00:27 Patient left the ED. bp Signatures: Dispatcher [employer] EDMS Layne Lazcano, RN RN lp1 Bhavesh, [facility] James Seo RN RN bp Awais, Melissa castillo2 Gabrielle, Polo Sanchez MD MD tw4 Corrections: (The following items were deleted from the chart) 12/07 22:53 22:53 Inserted saline lock: 22 gauge in left antecubital area, using aseptic technique. [facility] 12/08 00:09 12/07 23:52 Instructed on the need for admit, bp bp 12/08 00:09 12/07 23:52 Admitted to Tele accompanied by tech, family with patient, via stretcher, bp room 430, with chart, bp
--- NOTE | 2017-12-07 22:29 | EDPHYS ---
Physician Documentation [facility] Name: Daisy Mcfadden Age: 67 yrs Sex: Female : 1950 Arrival Date: 12/07/2017 Time: 20:57 Bed 5 Private MD: ED Physician Polo Tan HPI: 12/08 04:09 This 67 yrs old Female presents to ER via Wheelchair with complaints of Chest tw4 Pain. 04:09 The patient or guardian reports chest pain that is located primarily in the substernal tw4 area. Onset: today. The pain does not radiate. Associated signs and symptoms: The patient has no apparent associated signs or symptoms. The chest pain is described as dull. Duration: The patient or guardian reports a single episode. Modifying factors: The symptoms are alleviated by nothing. Severity of pain: At its worst the pain was moderate in the emergency department the pain. The patient has not experienced similar symptoms in the past. Historical: - Allergies: 12/07 21:19 Demerol; lp1 21:19 Erythromycin; lp1 21:19 Ibuprofen; lp1 21:19 Morphine; lp1 - Home Meds: 21:19 amlodipine 10 mg tab 1 tab once daily for Hypertension [Active]; losartan 50 mg Oral lp1 tab 1 tab once daily [Active]; Naproxen Oral [Active]; Singulair 10 mg Oral tab 1 tab once daily [Active]; 21:20 atorvastatin oral oral [Active]; Protonix Oral [Active]; lp1 - PMHx: 21:19 Hyperlipidemia; Hypertension; lp1 - PSHx: 21:19 Partial colectomy; Hysterectomy; Tonsillectomy; lp1 - Immunization history:: Adult Immunizations up to date. - Social history:: Smoking status: Patient/guardian denies using tobacco. - Ebola Screening: : No symptoms or risks identified at this time. ROS: 12/08 04:09 Constitutional: Negative for fever, chills, and weight loss, Respiratory: Negative for tw4 shortness of breath, cough, wheezing, and pleuritic chest pain, Abdomen/GI: Negative for abdominal pain, nausea, vomiting, diarrhea, and constipation, Back: Negative for injury and pain, MS/Extremity: Negative for injury and deformity, Skin: Negative for injury, rash, and discoloration, Neuro: Negative for headache, weakness, numbness, tingling, and seizure. Cardiovascular: Positive for chest pain, Negative for edema, orthopnea, palpitations, paroxysmal nocturnal dyspnea. Exam: 04:09 Constitutional: This is a well developed, well nourished patient who is awake, alert, tw4 and in no acute distress. Cardiovascular: Regular rate and rhythm with a normal S1 and S2. No gallops, murmurs, or rubs. Normal PMI, no JVD. No pulse deficits. Respiratory: Lungs have equal breath sounds bilaterally, clear to auscultation and percussion. No rales, rhonchi or wheezes noted. No increased work of breathing, no retractions or nasal flaring. Abdomen/GI: Soft, non-tender, with normal bowel sounds. No distension or tympany. No guarding or rebound. No evidence of tenderness throughout. Back: No spinal tenderness. No costovertebral tenderness. Full range of motion. MS/ Extremity: Pulses equal, no cyanosis. Neurovascular intact. Full, normal range of motion. Neuro: Awake and alert, GCS 15, oriented to person, place, time, and situation. Cranial nerves II-XII grossly intact. Motor strength 5/5 in all extremities. Sensory grossly intact. Cerebellar exam normal. Normal gait. Vital Signs: 12/07 21:07 BP 194 / 74; Pulse 81; Resp 20; Pulse Ox 100% on R/A; lp1 21:45 BP 157 / 87; Pulse 72; Resp 16; Pulse Ox 100% ; bp 22:08 BP 146 / 61; Pulse 72; Resp 14; Pulse Ox 97% ; bp 23:09 BP 152 / 69; Pulse 66; Resp 14; Pulse Ox 98% ; bp 12/08 00:00 BP 145 / 62; Pulse 65; Resp 16; Pulse Ox 97% ; bp MDM: 12/07 21:02 Patient medically screened. tw4 12/08 04:09 Differential diagnosis: pancreatitis, peptic ulcer disease, pulmonary embolus. Data tw4 reviewed: vital signs, nurses notes. Counseling: I had a detailed discussion with the patient and/or guardian regarding: the historical points, exam findings, and any diagnostic results supporting the discharge/admit diagnosis. Physician consultation: Adrián Morales MD was contacted at 22:40, regarding admission, to the telemetry unit. patient's condition, and will see patient in inpatient room. Admission orders: after a detailed discussion of the patient's condition and case, the admit orders are written by me. 12/07 21:03 Order name: Basic Metabolic Panel; Complete Time: :26 tw4 12/07 21:03 Order name: CBC with Diff; Complete Time: :26 tw4 12/07 21:03 Order name: Ckmb; Complete Time: 22: tw4 12/07 21:03 Order name: CPK; Complete Time: : tw4 12/07 21:03 Order name: LFT's; Complete Time: : tw4 12/07 21:03 Order name: Magnesium; Complete Time: : tw4 12/07 21:03 Order name: NT PRO-BNP; Complete Time: : tw4 12/07 21:03 Order name: PT-INR; Complete Time: :26 tw4 12/07 21:03 Order name: Ptt, Activated; Complete Time: : tw4 12/07 21:03 Order name: Troponin (emerg Dept Use Only); Complete Time: :26 tw4 12/07 23:34 Order name: Lipid Profile [facility] 12/07 23:34 Order name: Lipid Profile [facility] 12/07 23:36 Order name: CKMB Creatine Kinase MB [facility] 12/07 23:36 Order name: Creatine Phosphokinase [facility] 12/07 21:03 Order name: XRAY Chest (1 view) tw 12/07 21:03 Order name: EKG; Complete Time: 21:04 tw4 12/07 21:03 Order name: Cardiac monitoring; Complete Time: 21:08 tw4 12/07 21:03 Order name: EKG - Nurse/Tech; Complete Time: 21:08 tw4 12/07 21:03 Order name: IV Saline Lock; Complete Time: 21:08 tw4 12/07 21:03 Order name: Labs collected and sent; Complete Time: 21:08 tw4 12/07 21:03 Order name: O2 Per Protocol; Complete Time: 21:08 tw4 12/07 21:03 Order name: O2 Sat Monitoring; Complete Time: 21:08 tw4 Administered Medications: 12/07 21:40 Drug: Nitro-Bid Ointment 2 % 0.5 inches Route: Transdermal; Site: anterior chest wall; bp 21:40 Drug: Aspirin Chewable Tablet 324 mg Route: PO; bp 22:00 Follow up: Response: No adverse reaction bp Disposition: 12/08 04:09 Co-signature as Attending Physician, Polo Tan MD. Chart complete. tw4 Disposition: 12/07/17 22:28 Hospitalization ordered by Adrián Morales for Observation. Preliminary diagnosis is Chest pain, unspecified. - Bed requested for Telemetry/MedSurg (observation). - Status is Observation. bp - Condition is Stable. - Problem is new. - Symptoms have improved. UTI on Admission? No Signatures: Dispatcher [employer] EDMS Layne Lazcano RN RN lp1 Rosanne Peña RN RN cg James Seo RN RN Polo Douglas MD MD tw4 Corrections: (The following items were deleted from the chart) 12/07 23:49 22:28 Hospitalization Ordered by Adrián Morales MD for Observation. Preliminary diagnosis cg is Chest pain, unspecified. Bed requested for Telemetry/MedSurg (observation). Status is Observation. Condition is Stable. Problem is new. Symptoms have improved. UTI on Admission? No. tw4 12/08 00:27 12/07 23:49 12/07/2017 22:28 Hospitalization Ordered by Adrián Morales MD for bp Observation. Preliminary diagnosis is Chest pain, unspecified. Bed requested for Telemetry/MedSurg (observation). Status is Observation. Condition is Stable. Problem is new. Symptoms have improved. UTI on Admission? No. cg
[2017-12-08 00:42] VITALS: O2SAT 97
[2017-12-08 01:15] VITALS: BMI 28.8
[2017-12-08 01:18] LABS: CKMB Creatine Kinase MB < 1.0 ng/mL (0.3-3.6); Creatine Phosphokinase 76 U/L (26-192)
[2017-12-08] MEDS ORDERED: DIPHENHYDRAMINE 25 MG TAB/CAP PO ONE (02:22)
[2017-12-08] MEDS ORDERED: hydrOXYzine HCl 25 MG TAB PO PRN (06:04)
[2017-12-08] MEDS ORDERED: ROPINIROLE HCL 1 MG TAB PO SCH (06:06)
--- NOTE | 2017-12-08 06:31 | RAD REPORT ---
EXAM DESCRIPTION: RAD - Chest Single View - 12/07/2017 9:28 pm CLINICAL HISTORY: Chest pain COMPARISON: November 2015 TECHNIQUE: AP portable chest image was obtained 2122 hours . FINDINGS: Lungs are clear. Heart and vasculature are normal. No measurable pleural effusion and no p neumothorax. No gross bony abnormality seen. No acute aortic findings suspected. IMPRESSION: No acute cardiopulmonary process. No significant interval change.
--- NOTE | 2017-12-08 07:20 | EKG ---
Test Date: 2017-12-07 Test Time: 21:03:24 Fisher Mussel: ADRIANE MEASUREMENT RESULTS: Intervals: Rate: 76 MO: 140 QRSD: 78 QT: 374 QTc: 420 [place]: P: 78 MO: 140 QRS: 73 T: 71 INTERPRETIVE STATEMENTS: Normal sinus rhythm Normal ECG Compared to ECG 12/06/2017 12:22:47 T-wave abnormality no longer present Electronically Signed On 12-08-17 07:19:36 CDT by Pascual Samson
[2017-12-08] MEDS ORDERED: ONDANSETRON 4 MG (ODT) TAB PO PRN (08:39)
[2017-12-08] MEDS ORDERED: HOME MED 1 EA UNK (Linaclotide [Linzess] 290 MCG) PO SCH (09:00)
[2017-12-08] MEDS ORDERED: PANTOPRAZOLE 40MG TABLET PO SCH (09:00)
[2017-12-08] MEDS ORDERED: MONTELUKAST 10 MG TAB PO SCH (09:00)
[2017-12-08] MEDS ORDERED: NAPROXEN 250 MG TAB PO SCH (09:00)
[2017-12-08] MEDS ORDERED: LOSARTAN POTASSIUM 50 MG TABLET PO SCH (09:00)
[2017-12-08 09:17] VITALS: BP 184/78; TEMP 98.6
--- NOTE | 2017-12-08 09:30 | P.SSS ---
Patient History Date of Service: 12/08/17 Primary Care Provider: Buddy Reason for admission: atrial fib History of Present Illness: Patient of Dionne Goodwin. She has a history of htn, sjorens, restless leg. She was recently placed on a holtor monitor for elevated bp. The patient was found to have runs of atrial fib and svt's. She was called yesterday and told that an appoinment was set up with Dr. Samson on Wednesday. The patient was told to go to the ER if she has any chest pain. She then had chest pain and went to the ER. The patient has negative troponins and a normal sinus rhythm on EKG. Was admitted for observations. Allergies lisinopril Allergy (Intermediate, Verified 12/08/17 01:30) unkown meperidine [From Demerol] Allergy (Verified 12/08/17 01:30) Unknown morphine Adverse Reaction (Severe, Verified 12/08/17 01:30) palpitations ibuprofen Adverse Reaction (Mild, Verified 12/08/17 01:30) diarrhea Erythromycin Allergy (Uncoded 12/08/17 01:30) Itching/Hives/Rash Home Medications: RX: Pantoprazole [Protonix Tab*] 40 mg PO BID 02/01/13 RX: Ropinirole HCl [Requip*] 1 mg PO BEDTIME 02/01/13 Cevimeline 30 mg PO TID 02/07/13 Atorvastatin Calcium [Lipitor] 40 mg PO BEDTIME 12/08/17 Cyclosporine [Restasis] 1 drop EACH EYE BID 12/08/17 Linaclotide [Linzess] 290 mcg PO DAILY 12/08/17 Ondansetron [Zofran (Odt)*] 4 mg PO Q8H PRN 12/08/17 RX: Amlodipine [Norvasc*] 10 mg PO BEDTIME 12/08/17 RX: Aspirin 81 mg PO DAILY #90 tab.chew 12/08/17 RX: Carvedilol [Coreg*] 3.125 mg PO BID #60 tab 12/08/17 RX: Fluticasone [Flonase 50MCG Nasal Reading*] 1 spray .ROUTE DAILY 12/08/17 RX: Hydroxyzine HCl [Atarax] 25 mg PO BID PRN 12/08/17 RX: Losartan Potassium [Cozaar*] 50 mg PO DAILY 12/08/17 RX: Montelukast Sodium 10 mg PO DAILY 12/08/17 RX: Naproxen 250 mg PO DAILY 12/08/17 - Past Medical/Surgical History Has patient received pneumonia vaccine in the past: No Diabetic: No -: HTN -: High Cholesterol -: Sjogren's Syndrome -: GERD -: Osteoarthritis -: Sjogren's Syndrome -: Insomnia -: Restless Leg Syndrome -: Recent Colon resection due to Chronic constipation with post op Ileus. -: Depression with anxiety -: Tonsils -: Hysterectomy -: Right Breast [id number] -: Recent colonoscopy and flex. sig. -: Colectomy x2 Psychosocial/ Personal History: . - Family History Mother -: Other (see notes) Notes: Auto immune disorder Father -: Cancer Notes: Ulcers. Prostate CA - Social History Smoking Status: Never smoker Alcohol use: No CD- Drugs: No Caffeine use: Yes Place of Residence: Home Review of Systems 10-point ROS is otherwise unremarkable Cardiovascular: Palpitations Physical Examination - Vital Signs Temperature: 98.6 F Blood Pressure: 184/78 Pulse: 71 Respirations: 20 Pulse Ox (%): 97 - Physical Exam General: Alert, In no apparent distress HEENT: Atraumatic, PERRLA, Mucous membr. moist/pink, EOMI, Sclerae nonicteric Neck: Supple, 2+ carotid pulse no bruit, No LAD, Without JVD or thyroid abnormality Respiratory: Clear to auscultation bilaterally, Normal air movement Cardiovascular: Regular rate/rhythm, Normal S1 S2 Gastrointestinal: Normal bowel sounds, No tenderness Musculoskeletal: No tenderness Integumentary: No rashes Neurological: Normal gait, Normal speech, Normal strength at 5/5 x4 extr, Normal tone, Normal affect Lymphatics: No axilla or inguinal lymphadenopathy - Studies Laboratory Data (last 24 hrs) 12/07/17 21:15: PT 10.3, INR 0.87, APTT 21.0 L 12/07/17 21:15: WBC 7.1 D, Hgb 12.7, Hct 37.7, Plt Count 273 12/07/17 21:15: Sodium 141, Potassium 3.6, BUN 19 H, Creatinine 1.00, Glucose 124 H, Magnesium 2.5 H, Total Bilirubin 0.3, AST 25, ALT 26, Alkaline Phosphatase 82 - Diagnosis (Problem(s)) (1) Atrial fibrillation Current Visit: Yes Status: Acute Plan: Have discussed the patient with Dr. Wallace. She will be seen on Wednesday. Will start her on a coreg and a low dose asprin. We can do an outpatient work up. With an echo we can determine if she needs anticogulation. Will hold off for now as she recently had a severe nose bleed. Which required packing. She was seen by Dr. Jose for this last week. Qualifiers: Atrial fibrillation type: paroxysmal Qualified Code(s): I48.0 - Paroxysmal atrial fibrillation (2) Hypertensive disorder, systemic arterial Current Visit: No Status: Active Plan: Will restart her home medications. (3) Depressive disorder Current Visit: No Status: Active Plan: restart her hydralazine and requip (4) Sj gren's syndrome Current Visit: No Status: Active Plan: restart her home medications. Treatment Summary: Rolanda admitted acute coronary syndrome ruled out by negative troponins. She already has an office visit scheduled with Dr. Samson. Will have her work up completed at that time - Disposition Discharge Date: 12/08/17 Disposition: ROUTINE DISCHARGE Condition: GOOD Diet: AHA Activity: Ad rae Physician Review: Patient Assessed, Agree with Above Assessment and Plan Critical Care: No Time Spent Managing Pts Care (In Minutes): 45
[2017-12-08] MEDS ORDERED: ATORVASTATIN 40 MG TAB PO SCH (21:00)
[2017-12-08] MEDS ORDERED: AMLODIPINE 10 MG TAB PO SCH (21:00)
== END 2017-12-08 11:10 | disposition home or self-care (01) ==
LOC: ER 20:54 → 4TH 22:28
PROVIDERS: ADMIT Internal Medicine; ATTEND Internal Medicine
DX: I48.0 Paroxysmal atrial fibrillation (principal); I47.1 Supraventricular tachycardia; I10 Essential (primary) hypertension; M35.00 Sjogren syndrome, unspecified; G25.81 Restless legs syndrome; Z88.6 Allergy status to analgesic agent; Z88.1 Allergy status to other antibiotic agents; Z88.5 Allergy status to narcotic agent; Z88.8 Allergy status to other drugs, medicaments and biological substances; Z79.82 Long term (current) use of aspirin; E78.00 Pure hypercholesterolemia, unspecified; K21.9 Gastro-esophageal reflux disease without esophagitis; M19.90 Unspecified osteoarthritis, unspecified site; G47.00 Insomnia, unspecified; F41.8 Other specified anxiety disorders; Z90.49 Acquired absence of other specified parts of digestive tract
CPT/HCPCS: 36415 ×2; 71045; 80048; 80061; 80076; 82550 ×2; 82553 ×2; 83735; 83880; 84484; 85025; 85610; 85730; 93005; 99285; G0378 ×2

== ENCOUNTER 2017-12-10 23:46 | Emergency (ER) | payer OTHER ==
--- OUTSIDE RECORDS SUMMARY | 2017-12-10 23:48 | XMS REPORT ---
[...] End Status Dosage System Date Date Atorvastatin [facility] 97390189489 40 MG Orally August 27, Active 1 tablet Calcium Once a day 2018 Results No Known Results Summary Purpose eClinicalWorks Submission
--- OUTSIDE RECORDS SUMMARY | 2017-12-10 23:48 | XMS REPORT ---
[...] End Status Dosage System Date Date Singulair [facility] 44169399605 10 MG Orally Active TAKE 1 Once a day TABLET BY MOUTH EVERY DAY Protonix [facility] 03384177303 40 MG Orally Active 1 tablet bid Amitriptyline [facility] 56661508186 25 MG Orally Active 1 tablet HCl Once a day Restasis [facility] 66626008076 0.05 % Active 1 drop into Ophthalmic affected Twice a day eye Losartan [facility] 60230725922 50 MG Orally Active 1 tablet Potassium Once a day Norvasc [facility] 72372540178 10 MG Orally Active 1 tablet Once a day Lipitor [facility] 25976556316 10 MG Orally Active 1 tablet Once a day Linzess [facility] 18515562749 145 MCG Orally Active 1 capsule Once a day Requip [facility] 01956925722 1 MG Orally Active 1 tablet 1 Once a day to 3 hours before bedtime Evoxac [facility] 22996717013 30 MG Orally Active 1 capsule Three times a day Flonase [facility] 42768282282 50 MCG/ACT Active 2 sprays in Nasally Once a each day nostril Pantoprazole NDC 40248114884 40 MG Orally Jun 04, Active 1 tablet Sodium twice daily 2017 Docusate Sodium ND 56129367983 100 MG Orally Active 1 capsule bid as needed Zofran [facility] 40668362337 4 MG Active TAKE 1 TABLET BY MOUTH THREE TIMES DAILY. Naproxen [facility] 16721450046 500 MG Orally Active 1/2 tablet once a day with food or milk as needed Results No Known Results Summary Purpose eClinicalWorks Submission
--- OUTSIDE RECORDS SUMMARY | 2017-12-10 23:48 | XMS REPORT ---
[...] Status Dosage System Date Date Amlodipine ND 28349116028 10 MG Orally July 28, Active 1 tablet Besylate Once a day 2017 Ropinirole HCl ND 07729577753 1 MG Orally Once July 28, Active 1 tablet 1 a day 2017 to 3 hours before bedtime Losartan ND 94532278494 25 MG Orally July 28, Active 1 tablet Potassium Once a day 2017 Results No Known Results Summary Purpose eClinicalWorks Submission
--- OUTSIDE RECORDS SUMMARY | 2017-12-10 23:49 | XMS REPORT ---
[...] End Status Dosage System Date Date Restasis [facility] 02817937186 0.05 % Active 1 drop into Ophthalmic affected Twice a day eye Naproxen [facility] 56202082634 500 MG Orally Active 1/2 tablet once a day with food or milk as needed Singulair [facility] 04936438831 10 MG Active TAKE 1 TABLET BY MOUTH EVERY DAY Amlodipine [facility] 35261239646 10 MG Orally Active 1 tablet Besylate Once a day HydrOXYzine HCl ND 14592962945 25 MG Orally Dec 02, Active 1 tablet as bid 2018 needed Docusate Sodium ND 92161298786 100 MG Orally Active 1 capsule bid as needed Amitriptyline ND 96698692110 25 MG Orally Active 1 tablet HCl Once a day Ropinirole HCl [facility] 18281082529 1 MG Orally Active 1 tablet 1 Once a day to 3 hours before bedtime Atorvastatin [facility] 85308050946 40 MG Orally August 27, Active 1 tablet Calcium Once a day 2018 Zofran [facility] 29302949265 4 MG Active TAKE 1 TABLET BY MOUTH THREE TIMES DAILY. Losartan [facility] 75197485454 50 MG Orally Active 1 tablet Potassium Once a day Evoxac [facility] 53629629668 30 MG Orally Active 1 capsule Three times a day Pantoprazole [facility] 72641999764 40 MG Orally Jun 04, Active 1 tablet Sodium twice daily 2017 Flonase [facility] 04969887339 50 MCG/ACT Active 2 sprays in Nasally Once a each day nostril Protonix [facility] 71459070069 40 MG Orally Active 1 tablet bid Linzess [facility] 01523692515 145 MCG Orally Active 1 capsule Once a day Results No Known Results Summary Purpose eClinicalWorks Submission
--- OUTSIDE RECORDS SUMMARY | 2017-12-10 23:49 | XMS REPORT ---
[...] Status Dosage System Date Date Ropinirole HCl [facility] 18380312373 1 MG Orally Active 1 tablet 1 Once a day to 3 hours before bedtime Amlodipine [facility] 84679837733 10 MG Orally Active 1 tablet Besylate Once a day Linzess ND 20079319850 145 MCG Orally Active 1 capsule Once a day Pantoprazole ND 33956537183 40 MG Orally Jun 04, Active 1 tablet Sodium twice daily 2017 Losartan ND 31024476388 50 MG Orally Active 1 tablet Potassium Once a day Amitriptyline ND 26437587248 25 MG Orally Active 1 tablet HCl Once a day Flonase ND 34566813172 50 MCG/ACT Active 2 sprays in Nasally Once a each day nostril Atorvastatin ND 74794075482 40 MG Orally August 27, Active 1 tablet Calcium Once a day [address] [facility] 28295944800 40 MG Orally Active 1 tablet bid Docusate Sodium [facility] 79164228430 100 MG Orally Active 1 capsule bid as needed Naproxen [facility] 77124658423 500 MG Orally Active 1/2 tablet once a day with food or milk as needed Evoxac [facility] 76703583993 30 MG Orally Active 1 capsule Three times a day Singulair [facility] 55806477049 10 MG Active TAKE 1 TABLET BY MOUTH EVERY DAY Zofran [facility] 11178802494 4 MG Active TAKE 1 TABLET BY MOUTH THREE TIMES DAILY. Restasis [facility] 60872145840 0.05 % Active 1 drop into Ophthalmic affected Twice a day eye Results No Known Results Summary Purpose eClinicalWorks Submission
--- OUTSIDE RECORDS SUMMARY | 2017-12-10 23:49 | XMS REPORT ---
[...] End Status Dosage System Date Date Singulair [facility] 27915906540 10 MG Orally Active TAKE 1 Once a day TABLET BY MOUTH EVERY DAY Zofran [facility] 04597336938 4 MG Active TAKE 1 TABLET BY MOUTH THREE TIMES DAILY. Cefdinir ND 47479965068 300 MG Orally August 24September 13, Active 1 capsule every 12 hrs 2017 2017 Naproxen ND 84416053617 500 MG Orally Active 1/2 tablet once a day with food or milk as needed Pantoprazole ND 26062867881 40 MG Orally Jun 04, Active 1 tablet Sodium twice daily 2017 Amitriptyline ND 23236435567 25 MG Orally Active 1 tablet HCl Once a day PredniSONE ND 07860691885 10 MG Orally August 24August 31, Active 1 tablet Once a day 2017 2017 Ropinirole HCl [facility] 33475064461 1 MG Orally July Active 1 tablet 1 Once a day 2017 to 3 hours before bedtime Protonix [facility] 93657283820 40 MG Orally Active 1 tablet bid Losartan [facility] 50065645373 25 MG Orally July Active 1 tablet Potassium Once a day 2017 Losartan [facility] 07012572920 50 MG Orally Active 1 tablet Potassium Once a day Linzess [facility] 94230566794 145 MCG Orally Active 1 capsule Once a day Lipitor [facility] 97521913396 10 MG Orally Active 1 tablet Once a day Norvasc [facility] 09108621737 10 MG Orally Active 1 tablet Once a day Docusate Sodium [facility] 11029408885 100 MG Orally Active 1 capsule bid as needed Requip [facility] 86522520885 1 MG Orally Active 1 tablet 1 Once a day to 3 hours before bedtime Amlodipine [facility] 73065902994 10 MG Orally July Active 1 tablet Besylate Once a day 2017 Flonase [facility] 69296432526 50 MCG/ACT Active 2 sprays in Nasally Once a each day nostril Restasis [facility] 85085721100 0.05 % Active 1 drop into Ophthalmic affected Twice a day eye Evoxac [facility] 84157961384 30 MG Orally Active 1 capsule Three times a day Results No Known Results Summary Purpose eClinicalWorks Submission
--- OUTSIDE RECORDS SUMMARY | 2017-12-10 23:49 | XMS REPORT ---
[...] Status Dosage System Date Date Docusate Sodium [facility] 33211456863 100 MG Orally Active 1 capsule bid as needed Naproxen [facility] 93629722019 500 MG Orally Active 1/2 tablet once a day with food or milk as needed Losartan [facility] 62703045859 25 MG Orally Active 1 tablet Potassium Once a day Ropinirole HCl [facility] 72566899360 1 MG Orally Active 1 tablet 1 Once a day to 3 hours before bedtime Amlodipine [facility] 87629683989 10 MG Orally Active 1 tablet Besylate Once a day Restasis [facility] 34604212580 0.05 % Active 1 drop into Ophthalmic affected Twice a day eye Amitriptyline [facility] 31581602762 25 MG Orally Active 1 tablet HCl Once a day Singulair [facility] 71520519775 10 MG Active TAKE 1 TABLET BY MOUTH EVERY DAY Linzess [facility] 54067426502 145 MCG Orally Active 1 capsule Once a day Zofran [facility] 33905382671 4 MG Active TAKE 1 TABLET BY MOUTH THREE TIMES DAILY. Atorvastatin [facility] 57747151195 40 MG Orally August 27, Active 1 tablet Calcium Once a day 2017 Pantoprazole [facility] 48568613610 40 MG Orally Jun 04, Active 1 tablet Sodium twice daily 2017 Protonix [facility] 31987751702 40 MG Orally Active 1 tablet bid Flonase [facility] 64183496137 50 MCG/ACT Active 2 sprays in Nasally Once a each day nostril Evoxac [facility] 86218450267 30 MG Orally Active 1 capsule Three times a day Results No Known Results Summary Purpose eClinicalWorks Submission
--- OUTSIDE RECORDS SUMMARY | 2017-12-10 23:49 | XMS REPORT ---
:1950 Author Organization eClinicalWorks Care Team Providers Name Role Phone Deann Goodwin Provider Role Unavailable Allergies No Known Allergies Problems Problem Type Condition Code Onset Dates Condition Status Problem Macular degeneration H35.30 Active Problem Terminal insomnia F51.09 Active Problem Vitamin D insufficiency E55.9 Active Problem Acute non intractable tension-type G44.209 Active headache Problem Sinusitis chronic, frontal J32.1 Active Problem Osteoarthritis of cervical spine, M47.812 Active unspecified spinal osteoarthritis complication status Problem Hyperlipidemia, mixed E78.2 Active Problem Allergic rhinitis, seasonal J30.2 Active Problem Hypertension, unspecified type I10 Active Problem Restless legs syndrome G25.81 Active Problem Vertigo R42 Active Problem Osteopenia M85.80 Active Problem Gastric ulcer K25.9 Active Problem Chronic constipation K59.00 Active Problem Anxiety F41.9 Active Problem Gastro-esophageal reflux disease K21.9 Active without esophagitis Problem Hypertension I10 Active Problem Restless leg syndrome G25.81 Active Medications No Known Medications Results No Known Results Summary Purpose eClinicalWorks Submission
[2017-12-11 01:25] LABS: Absolute Lymphocytes (CBC) 2.1 K/uL (0.7-4.9); Absolute Monocytes 0.5 K/uL (0.1-1.3); Absolute Neutrophil 3.3 K/uL (1.8-8.0); Basophils % 0.7 % (0-1.3); Hematocrit 36.1 % (36.0-45.0); Lymphocytes % 33.3 % (15.3-44.8); MCH 31.4 pg (27.0-35.0); MCV 92.4 fL (80-100); MPV 8.8 fL (7.6-11.3); Monocytes % 7.8 % (3.3-12.3); RBC Red Blood Cell Count 3.91 M/uL (3.86-4.86)
[2017-12-11 01:29] LABS: Protime INR 0.88
[2017-12-11 01:35] LABS: Urine Blood NEGATIVE (NEG); Urine Glucose NEGATIVE (NEG); Urine Protein NEGATIVE (NEG); Urine pH 8.5 (5.0-7.0)
[2017-12-11 01:40] LABS: ALT/SGPT 28 U/L (12-78); AST/SGOT 27 U/L (15-37); Albumin 3.5 g/dL (3.4-5.0); Alkaline Phosphatase 87 U/L (45-117); BUN Blood Urea Nitrogen 17 mg/dL (7-18); Bicarbonate 26 mmol/L (21-32); Bilirubin Direct < 0.1 mg/dL (0-0.2); Bilirubin Total 0.2 mg/dL (0.2-1.0); CKMB Creatine Kinase MB 1.1 ng/mL (0.3-3.6); Creatine Phosphokinase 97 U/L (26-192); Glucose Level 116 mg/dL (74-106); Lipase 155 U/L (73-393); Magnesium 2.3 mg/dL (1.8-2.4); NT PRO-BNP 90 pg/mL (<125); Potassium 3.8 mmol/L (3.5-5.1); Sodium Level 142 mmol/L (136-145)
--- NOTE | 2017-12-11 02:28 | EDPHYS ---
Physician Documentation [facility] Name: Daisy Mcfadden Age: 67 yrs Sex: Female : 1950 Arrival Date: 12/10/2017 Time: 23:48 Bed 7 Private MD: Adrián Morales ED Physician Donnie Jackman HPI: 12/11 00:23 This 67 yrs old Female presents to ER via Ambulatory with complaints of High jason Blood Pressure. 00:23 The patient has elevated blood pressure and discovered this at home. Onset: The jason symptoms/episode began/occurred 2 day(s) ago. Modifying factors: The symptoms are aggravated by activity, The symptoms are alleviated by remaining still. Associated signs and symptoms: The patient has no apparent associated signs or symptoms. Severity of symptoms: At its worst the blood pressure was moderate, in the emergency department the blood pressure is unchanged. The patient has experienced similar episodes in the past, multiple times. Historical: - Allergies: 00:06 Demerol; tl2 00:06 Erythromycin; tl2 00:06 Ibuprofen; tl2 00:06 Morphine; tl2 - Home Meds: 00:06 amlodipine 10 mg tab 1 tab once daily for Hypertension [Active]; atorvastatin Oral tl2 [Active]; losartan 50 mg Oral tab 1 tab once daily [Active]; Naproxen Oral [Active]; Protonix Oral [Active]; Singulair 10 mg Oral tab 1 tab once daily [Active]; Coreg 3.125 mg Oral tab 1 tab 2 times per day [Active]; aspirin 81 mg Oral chew 1 tab once daily [Active]; Linzess 290 mcg oral cap 1 cap once daily [Active]; Flonase 50 mcg/actuation Nasal spsn 1 spray 2 times per day [Active]; ropinirole 1 mg oral tab 1 tab [Active]; hydroxyzine HCl 10 mg Oral tab as needed [Active]; - PMHx: 00:06 Hyperlipidemia; Hypertension; sjogrens; tl2 - Immunization history:: Adult Immunizations up to date. - Social history:: Smoking status: Patient/guardian denies using tobacco. - Ebola Screening: : No symptoms or risks identified at this time. - Family history:: not pertinent. ROS: 00:23 Constitutional: Negative for fever, chills, and weight loss, Eyes: Negative for injury, jason pain, redness, and discharge, ENT: Negative for injury, pain, and discharge, Neck: Negative for injury, pain, and swelling, Cardiovascular: Negative for chest pain, palpitations, and edema, Respiratory: Negative for shortness of breath, cough, wheezing, and pleuritic chest pain, Back: Negative for injury and pain, : Negative for injury, bleeding, discharge, and swelling, MS/Extremity: Negative for injury and deformity, Skin: Negative for injury, rash, and discoloration, Neuro: Negative for headache, weakness, numbness, tingling, and seizure, Psych: Negative for depression, anxiety, suicide ideation, homicidal ideation, and hallucinations, Allergy/Immunology: Negative for hives, rash, and allergies, Endocrine: Negative for neck swelling, polydipsia, polyuria, polyphagia, and marked weight changes, Hematologic/Lymphatic: Negative for swollen nodes, abnormal bleeding, and unusual bruising. 00:23 Abdomen/GI: Positive for Exam: 00:23 Constitutional: This is a well developed, well nourished patient who is awake, alert, jason and in no acute distress. Head/Face: Normocephalic, atraumatic. Eyes: Pupils equal round and reactive to light, extra-ocular motions intact. Lids and lashes normal. Conjunctiva and sclera are non-icteric and not injected. Cornea within normal limits. Periorbital areas with no swelling, redness, or edema. ENT: Nares patent. No nasal discharge, no septal abnormalities noted. Tympanic membranes are normal and external auditory canals are clear. Oropharynx with no redness, swelling, or masses, exudates, or evidence of obstruction, uvula midline. Mucous membranes moist. Neck: Trachea midline, no thyromegaly or masses palpated, and no cervical lymphadenopathy. Supple, full range of motion without nuchal rigidity, or vertebral point tenderness. No Meningismus. Chest/axilla: Normal chest wall appearance and motion. Nontender with no deformity. No lesions are appreciated. Cardiovascular: Regular rate and rhythm with a normal S1 and S2. No gallops, murmurs, or rubs. Normal PMI, no JVD. No pulse deficits. Respiratory: Lungs have equal breath sounds bilaterally, clear to auscultation and percussion. No rales, rhonchi or wheezes noted. No increased work of breathing, no retractions or nasal flaring. Abdomen/GI: Soft, non-tender, with normal bowel sounds. No distension or tympany. No guarding or rebound. No evidence of tenderness throughout. Back: No spinal tenderness. No costovertebral tenderness. Full range of motion. Skin: Warm, dry with normal turgor. Normal color with no rashes, no lesions, and no evidence of cellulitis. MS/ Extremity: Pulses equal, no cyanosis. Neurovascular intact. Full, normal range of motion. Neuro: Awake and alert, GCS 15, oriented to person, place, time, and situation. Cranial nerves II-XII grossly intact. Motor strength 5/5 in all extremities. Sensory grossly intact. Cerebellar exam normal. Normal gait. Psych: Awake, alert, with orientation to person, place and time. Behavior, mood, and affect are within normal limits. Vital Signs: 00:06 BP 182 / 96; Pulse 83; Resp 18; Temp 98.2; Pulse Ox 99% on R/A; Weight 77.11 kg; Height tl2 5 ft. 5 in. (165.10 cm); 00:14 BP 160 / 84; Pulse 70; Resp 16; Pulse Ox 97% on R/A; Pain 0/10; aa1 01:10 BP 138 / 67; Pulse 65; Resp 16; Pulse Ox 96% on R/A; Pain 0/10; aa1 02:14 BP 158 / 63; Pulse 61; Resp 16; Pulse Ox 97% on R/A; Pain 0/10; aa1 02:41 BP 137 / 62; Pulse 62; Resp 16; Pulse Ox 97% on R/A; Pain 0/10; aa1 00:06 Body Mass Index 28.29 (77.11 kg, 165.10 cm) tl2 MDM: 00:04 Patient medically screened. [facility] : Data reviewed: vital signs, nurses notes, lab test result(s), EKG, radiologic studies, jason plain films. 12/11 00:05 Order name: Basic Metabolic Panel; Complete Time: 02: [facility] 12/11 00:05 Order name: CBC with Diff; Complete Time: : [facility] 12/11 00:05 Order name: Ckmb; Complete Time: : [facility] 12/11 00:05 Order name: CPK; Complete Time: : [facility] 12/11 00:05 Order name: LFT's; Complete Time: : [facility] 12/11 00:05 Order name: Magnesium; Complete Time: : [facility] 12/11 00:05 Order name: NT PRO-BNP; Complete Time: : [facility] 12/11 00:05 Order name: PT-INR; Complete Time: : [facility] 12/11 00:05 Order name: Ptt, Activated; Complete Time: : [facility] 12/11 00:05 Order name: Troponin (emerg Dept Use Only); Complete Time: : [facility] 12/11 00:05 Order name: XRAY Chest (1 view) [facility] 12/11 01:18 Order name: Urine Dipstick--Ancillary (enter results); Complete Time: mw2 12/11 01:20 Order name: Lipase; Complete Time: EDMS 12/11 00:05 Order name: EKG; Complete Time: 00: [facility] 12/11 00:05 Order name: Cardiac monitoring; Complete Time: : [facility] 12/11 00:05 Order name: EKG - Nurse/Tech; Complete Time: : [facility] 12/11 00:05 Order name: IV Saline Lock; Complete Time: : [facility] 12/11 00:05 Order name: Labs collected and sent; Complete Time: : [facility] 12/11 00:05 Order name: O2 Per Protocol; Complete Time: : [facility] 12/11 00:05 Order name: O2 Sat Monitoring; Complete Time: : [facility] 12/11 00:05 Order name: Urine Dipstick-Ancillary (obtain specimen); Complete Time: 01:10 [facility] Administered Medications: No medications were administered Disposition: 12/11/17 02:28 Discharged to Home. Impression: Essential (primary) hypertension. - Condition is Stable. - Discharge Instructions: Hypertension, Hypertension, Unay-yu-Khnj, How to Take Your Blood Pressure, Cxfr-eh-Yehq, Aspirin and Your Heart, Managing Your Hypertension. - Prescriptions for Xanax 0.5 mg Oral Tablet - take 1 tablet by ORAL route every 8 hours As needed; 20 tablet. - Medication Reconciliation Form, Thank You Letter, Antibiotic Education, Prescription Opioid Use form. - Follow up: Adrián Morales; When: 2 - 3 days; Reason: Recheck today's complaints, Continuance of care, Re-evaluation by your physician. Follow up: Pascual Samson MD; When: 2 - 3 days; Reason: Recheck today's complaints, Re-evaluation by your physician. - Problem is new. - Symptoms have improved. Signatures: Dispatcher [employer] [facility] Gaby Oro RN RN aa1 Donnie Jackman MD MD cha Knox, Taylor RN RN tl2 Corrections: (The following items were deleted from the chart) 01:19 00:23 LIPASE+C.LAB.BRZ ordered. [facility] EDCA 02:43 02:28 12/11/2017 02:28 Discharged to Home. Impression: Essential (primary) aa1 hypertension. Condition is Stable. Discharge Instructions: Hypertension, Hypertension, Fhjl-dt-Eohn, How to Take Your Blood Pressure, Mgbc-cl-Rbrv, Aspirin and Your Heart, Managing Your Hypertension. Prescriptions for Xanax 0.5 mg Oral Tablet - take 1 tablet by ORAL route every 8 hours As needed; 20 tablet. and Forms are Medication Reconciliation Form, Thank You Letter, Antibiotic Education, Prescription Opioid Use. Follow up: Adrián Morales; When: 2 - 3 days; Reason: Recheck today's complaints, Continuance of care, Re-evaluation by your physician. Follow up: Pascual Samson; When: 2 - 3 days; Reason: Recheck today's complaints, Re-evaluation by your physician. Problem is new. Symptoms have improved. jason
--- NOTE | 2017-12-11 02:28 | ER ---
Nurse's Notes [facility] Name: Daisy Mcfadden Age: 67 yrs Sex: Female : 1950 Arrival Date: 12/10/2017 Time: 23:48 Bed 7 Private MD: Adrián Morales Diagnosis: Essential (primary) hypertension Presentation: 12/11 00:01 Presenting complaint: Patient states: "I was just discharged from the hospital tl2 yesterday morning for high BP and it was reading high again tonight." Pt also reports headache and shortness of breath. BP 182/96. Transition of care: patient was not received from another setting of care. Onset of symptoms was December 09, 2017. Risk Assessment: Do you want to hurt yourself or someone else? Patient reports no desire to harm self or others. Initial Sepsis Screen: Does the patient meet any 2 criteria? No. Patient's initial sepsis screen is negative. Does the patient have a suspected source of infection? No. Patient's initial sepsis screen is negative. Care prior to arrival: None. 00:01 Method Of Arrival: Ambulatory tl2 00:01 Acuity: SILVANA 3 tl2 Triage Assessment: 00:06 General: Appears in no apparent distress. uncomfortable, Behavior is cooperative, tl2 appropriate for age, anxious. Pain: Complains of pain in headache. Historical: - Allergies: 00:06 Demerol; tl2 00:06 Erythromycin; tl2 00:06 Ibuprofen; tl2 00:06 Morphine; tl2 - Home Meds: 00:06 amlodipine 10 mg tab 1 tab once daily for Hypertension [Active]; atorvastatin Oral tl2 [Active]; losartan 50 mg Oral tab 1 tab once daily [Active]; Naproxen Oral [Active]; Protonix Oral [Active]; Singulair 10 mg Oral tab 1 tab once daily [Active]; Coreg 3.125 mg Oral tab 1 tab 2 times per day [Active]; aspirin 81 mg Oral chew 1 tab once daily [Active]; Linzess 290 mcg oral cap 1 cap once daily [Active]; Flonase 50 mcg/actuation Nasal spsn 1 spray 2 times per day [Active]; ropinirole 1 mg oral tab 1 tab [Active]; hydroxyzine HCl 10 mg Oral tab as needed [Active]; - PMHx: 00:06 Hyperlipidemia; Hypertension; sjogrens; tl2 - Immunization history:: Adult Immunizations up to date. - Social history:: Smoking status: Patient/guardian denies using tobacco. - Ebola Screening: : No symptoms or risks identified at this time. - Family history:: not pertinent. Screenin:07 Abuse screen: Denies threats or abuse. Nutritional screening: No deficits noted. tl2 Tuberculosis screening: No symptoms or risk factors identified. Fall Risk None identified. Assessment: 00:10 General: Appears in no apparent distress. comfortable, Behavior is calm, cooperative, aa1 appropriate for age. Pain: Denies pain. Neuro: Level of Consciousness is awake, alert, obeys commands, Oriented to person, place, time, situation, Moves all extremities. Full function Gait is steady, Reports headache when laying down. Cardiovascular: Denies chest pain, diaphoresis, palpitations, Heart tones S1 S2 present Rhythm is regular. Respiratory: Airway is patent Respiratory effort is even, unlabored, Respiratory pattern is regular, symmetrical. GI: No signs and/or symptoms were reported involving the gastrointestinal system. : No signs and/or symptoms were reported regarding the genitourinary system. EENT: No signs and/or symptoms were reported regarding the EENT system. Derm: Skin is intact, is healthy with good turgor, Skin is pink, warm \\T\\ dry. Musculoskeletal: Circulation, motion, and sensation intact. Capillary refill < 3 seconds. 02:14 Reassessment: Patient appears in no apparent distress at this time. Patient and/or aa1 family updated on plan of care and expected duration. Pain level reassessed. Patient is alert, oriented x 3, equal unlabored respirations, skin warm/dry/pink. Awaiting provider reassessment. 02:41 Reassessment: Patient appears in no apparent distress at this time. Patient is alert, aa1 oriented x 3, equal unlabored respirations, skin warm/dry/pink. Discussed d/c \\T\\ f/u instructions with pt \\T\\ spouse; denies questions or concerns at this time Patient states feeling better. Vital Signs: 00:06 BP 182 / 96; Pulse 83; Resp 18; Temp 98.2; Pulse Ox 99% on R/A; Weight 77.11 kg; Height tl2 5 ft. 5 in. (165.10 cm); 00:14 BP 160 / 84; Pulse 70; Resp 16; Pulse Ox 97% on R/A; Pain 0/10; aa1 01:10 BP 138 / 67; Pulse 65; Resp 16; Pulse Ox 96% on R/A; Pain 0/10; aa1 02:14 BP 158 / 63; Pulse 61; Resp 16; Pulse Ox 97% on R/A; Pain 0/10; aa1 02:41 BP 137 / 62; Pulse 62; Resp 16; Pulse Ox 97% on R/A; Pain 0/10; aa1 00:06 Body Mass Index 28.29 (77.11 kg, 165.10 cm) tl2 ED Course: 12/10 23:48 Patient arrived in ED. es 23:50 Adrián Morales MD is Private Physician. es 12/11 00:02 Triage completed. tl2 00:04 Donnie Jackman MD is Attending Physician. jason 00:06 Arm band placed on right wrist. tl2 00:08 Patient has correct armband on for positive identification. Bed in low position. Call tl2 light in reach. Side rails up X 1. Adult w/ patient. 00:14 Gaby Oro, RN is Primary Nurse. aa1 00:25 Initial lab(s) drawn, by ED staff, sent to lab. EKG done, by ED staff, reviewed by [email or web address] Donnie Jackman MD. Inserted saline lock: 22 gauge in right forearm, using aseptic technique. ,using aseptic technique. by asiya Alejandro Blood collected. 00:26 X-ray completed. Portable x-ray completed in exam room. Patient tolerated procedure kw well. 00:27 XRAY Chest (1 view) In Process Unspecified. EDMS 02:27 Adrián Morales MD is Referral Physician. jason 02:27 Pascual Samson MD is Referral Physician. jason 02:41 No provider procedures requiring assistance completed. IV discontinued, intact, aa1 bleeding controlled, No redness/swelling at site. Pressure dressing applied. Administered Medications: No medications were administered Outcome: 02:28 Discharge ordered by . jason 02:41 Discharged to home ambulatory, with significant other. aa1 02:41 Condition: good 02:41 Discharge instructions given to patient, significant other, Instructed on discharge instructions, follow up and referral plans. medication usage, Demonstrated understanding of instructions, follow-up care, medications, Prescriptions given X 1. 02:43 Patient left the ED. aa1 Signatures: Dispatcher [employer] Gaby Morris RN RN aa1 Donnie Jackman MD MD cha Salyer, Edna es Whitley, Kimberlee kw Knox, Taylor, RN RN tl2
[2017-12-11 03:11] VITALS: TEMP 98.2
[2017-12-11 03:15] VITALS: O2SAT 97
[2017-12-11 03:16] VITALS: BP 137/62
--- NOTE | 2017-12-11 08:30 | EKG ---
Test Date: 2017-12-11 Test Time: 00:30:51 Voip Engineer: JOAN MEASUREMENT RESULTS: Intervals: Rate: 68 IN: 154 QRSD: 86 QT: 410 QTc: 435 [place]: P: 48 IN: 154 QRS: 17 T: 46 INTERPRETIVE STATEMENTS: Normal sinus rhythm Nonspecific T wave abnormality Abnormal ECG Compared to ECG 12/07/2017 21:03:24 T-wave abnormality now present Electronically Signed On 12-11-17 08:29:51 CDT by Pascual Sasmon
--- NOTE | 2017-12-11 09:52 | RAD REPORT ---
EXAM DESCRIPTION: [place] Single View12/11/2017 12:29 am CLINICAL HISTORY: cough COMPARISON: 2016 FINDINGS: The lungs appear clear of acute infiltrate. The heart is normal size IMPRESSION: No acute abnormalities displayed
== END 2017-12-11 02:43 | disposition home or self-care (01) ==
LOC: ER 23:46
DX: I10 Essential (primary) hypertension (principal); Z88.6 Allergy status to analgesic agent; Z88.1 Allergy status to other antibiotic agents; Z88.5 Allergy status to narcotic agent; Z79.82 Long term (current) use of aspirin; E78.5 Hyperlipidemia, unspecified; M35.00 Sjogren syndrome, unspecified
CPT/HCPCS: 36415; 71045; 80048; 80076; 81003; 82550; 82553; 83690; 83735; 83880; 84484; 85025; 85610; 85730; 93005; 99284

== ENCOUNTER 2019-07-13 18:29 | Emergency (ER) | payer OTHER ==
--- OUTSIDE RECORDS SUMMARY | 2019-07-13 18:31 | XMS REPORT ---
:1950 Author Organization [employer] Care Team Providers Name Role Phone Dionne Goodwin Provider Role Unavailable Allergies, Adverse Reactions, Alerts Substance Reaction Event Type Motrin diarrha Drug Allergy Morphine Sulfate tachycardia Drug Allergy Lisinopril leg swelling Drug Allergy Erythromycin rash Drug Allergy Problems Problem Type Condition Code Onset Dates Condition Status Problem Gastric ulcer K25.9 Active Problem Gastro-esophageal reflux disease K21.9 Active without esophagitis Problem Chronic constipation K59.00 Active Problem Seasonal allergic rhinitis due to J30.1 Active pollen Assessment Asymptomatic menopausal state Z78.0 Active Problem Osteoarthritis of cervical spine, M47.812 Active unspecified spinal osteoarthritis complication status Assessment Encounter for screening mammogram Z12.31 Active for malignant neoplasm of breast Problem Encounter for immunization Z23 Active Problem Macular degeneration H35.30 Active Problem Restless leg syndrome G25.81 Active Problem Acute non intractable tension-type G44.209 Active headache Problem Sinusitis chronic, frontal J32.1 Active Problem Vertigo R42 Active Problem Osteopenia M85.80 Active Assessment Medicare annual wellness visit, Z00.00 Active subsequent Problem Vitamin D insufficiency E55.9 Active Problem Terminal insomnia F51.09 Active Problem Anxiety F41.9 Active Problem Allergic rhinitis, seasonal J30.2 Active Problem Hypertension I10 Active Problem Hyperlipidemia, mixed E78.2 Active Medications Medication Code Code Instructions Start End Status Dosage System Date Date Co Q-10 Maximum ND 33775086231 400 MG Orally Active 1 capsule Strength Once a day with a meal Evoxac ND 19209046492 30 MG Orally Active 1 capsule Three times a day Zofran ND 81896765654 4 MG Active TAKE 1 TABLET BY MOUTH THREE TIMES DAILY. Acidophilus ND 41597379270 - Orally Active as directed Losartan ND 67618133424 50 MG Active TAKE 1 Potassium TABLET BY MOUTH EVERY DAY Ropinirole HCl ND 37212196724 1 MG Active 1 TABLET 1 TO 3 HOURS BEFORE BEDTIME ONCE A DAY ORALLY 30 Restasis ND 33551477339 0.05 % Active 1 drop Ophthalmic into Twice a day affected eye Naproxen [facility] 79105651723 500 MG Orally Active 1/2 tablet once a day with food or milk as needed Calcium NDC 0 75 MG Orally Active 1 tablet Once a day Garlic [facility] [address]-61 100 MG Orally Active as directed Flonase ND 14052799664 50 MCG/ACT Active 2 sprays Nasally Once a in each day nostril Linzess [facility] 20502855015 290 MCG Orally Active 1 capsule Once a day Protonix [facility] 62744066541 40 MG Orally Active 1 tablet bid Docusate Sodium ND 41889555980 100 MG Orally Active 1 capsule bid as needed Amlodipine [facility] 31401696863 10 MG Orally Active 1 tablet Besylate Once a day Fluticasone [facility] 48230604821 50 MCG/ACT Active USE 2 Propionate SPRAYS IN EVERY NOSTRIL DAILY Pantoprazole [facility] 19867667122 40 MG Active TAKE 1 Sodium TABLET BY MOUTH TWICE A DAY Biotin [facility] 72376645653 10 MG Orally Active 1 tablet Once a day HydrOXYzine HCl [facility] 91420311984 25 MG Orally Dec 02, Active 1 tablet bid 2018 as needed Amitriptyline ND 86284514213 25 MG Orally Active 1 tablet HCl Once a day Atorvastatin [facility] 04086047672 40 MG Orally Active 1 tablet Calcium Once a day Vitamin D3 [facility] 30062220296 1000 UNIT Active 1 tablet Orally Once a day Singulair [facility] 40664586834 10 MG Active TAKE 1 TABLET BY MOUTH EVERY DAY Metoprolol [facility] 64189296486 100 MG Orally Active 1 tablet Succinate ER Once a day Results No Known Results Summary Purpose eClinicalWorks Submission
[2019-07-13] MEDS ORDERED: AZITHROMYCIN 250 MG TAB ONE (19:50)
--- NOTE | 2019-07-13 19:56 | RAD REPORT ---
EXAM DESCRIPTION: RAD - Chest Single View - 07/13/2019 7:49 pm CLINICAL HISTORY: CHEST PAIN Chest pain. COMPARISON: Abdomen 1 View (KUB) dated 08/10/2018; Chest Single View dated 12/11/2017; Chest Single Vi ew dated 12/07/2017; Abdomen 1 View (KUB) dated 01/19/2017 FINDINGS: Portable technique limits examination quality. The lungs are grossly clear. The heart is normal in size. No displaced fractures. IMPRESSION: No acute intrathoracic process suspected.
[2019-07-13 20:02] LABS: Absolute Lymphocytes (CBC) 2.4 K/uL (0.7-4.9); Basophils % 0.9 % (0-1.3); Hematocrit 44.6 % (36.0-45.0); Lymphocytes % 31.6 % (15.3-44.8); MPV 9.2 fL (7.6-11.3); Protime INR 1.01; RBC Red Blood Cell Count 4.67 M/uL (3.86-4.86)
[2019-07-13 20:28] LABS: ALT/SGPT 99 U/L (12-78); AST/SGOT 48 U/L (15-37); Albumin 4.1 g/dL (3.4-5.0); Alkaline Phosphatase 83 U/L (45-117); BUN Blood Urea Nitrogen 21 mg/dL (7-18); Bicarbonate 26 mmol/L (21-32); Bilirubin Direct 0.1 mg/dL (0-0.2); Bilirubin Total 0.6 mg/dL (0.2-1.0); Glucose Level 110 mg/dL (74-106); Magnesium 2.5 mg/dL (1.8-2.4); NT PRO-BNP 118 pg/mL (<125); Potassium 4.2 mmol/L (3.5-5.1); Sodium Level 140 mmol/L (136-145); Troponin (Emerg Dept Use Only) < 0.02 ng/mL (0.0-0.045)
--- NOTE | 2019-07-13 20:38 | ER ---
Nurse's Notes [facility] Name: Daisy Mcfadden Age: 69 yrs Sex: Female : 1950 Arrival Date: 07/13/2019 Time: 18:31 Bed 15 Private MD: Diagnosis: Acute frontal sinusitis Presentation: 07/12 18:33 Chief complaint: Patient states: "Sore throat, headache, bodyaches since about 2 weeks ca1 ago. Went to [facility] urgent care on the , diagnosed with the Flu and Sinus infection. They started me on Tamiflu and Augmentin. Went to my provider today, said I was having allergies. But I am still having headaches, my throat stays sore, and I am having this chest tightness and it seems like I cannot take a deep breathe". Denies fever. Coronavirus screen: Surgical mask placed on patient. Patient moved to private room, placed in contact and droplet isolation with eye protection until further assessment. Patient reports a cough. Patient reports shortness of breath or difficulty breathing. Patient denies measured and/or subjective temperature greater than 100.4F. Patient denies travel on a cruise ship or to a country the [facility] currently lists as an affected area. Patient denies contact with known and/or suspected case of COVID-19. Ebola Screen: Patient negative for fever greater than or equal to 101.5 degrees Fahrenheit, and additional compatible Ebola Virus Disease symptoms Patient denies exposure to infectious person. Patient denies travel to an Ebola-affected area in the 21 days before illness onset. No symptoms or risks identified at this time. Initial Sepsis Screen: Does the patient meet any 2 criteria? No. Patient's initial sepsis screen is negative. Does the patient have a suspected source of infection? No. Patient's initial sepsis screen is negative. Risk Assessment: Do you want to hurt yourself or someone else? Patient reports no desire to harm self or others. Onset of symptoms was July 13, 2019. 18:33 Method Of Arrival: Ambulatory ca1 18:33 Acuity: SILVANA 3 ca1 Triage Assessment: 18:45 General: Appears in no apparent distress. uncomfortable, Behavior is calm, cooperative. ls4 18:45 Pain: Denies pain. EENT: Throat is clear Reports sore throat . Neuro: No deficits ls4 noted. Cardiovascular: Denies chest pain, diaphoresis, fatigue, lightheadedness, nausea, palpitations, shortness of breath, syncope, vomiting, Capillary refill < 3 seconds Patient's skin is warm and dry. Respiratory: Reports difficulty getting full breath, but denies shortness of breath Breath sounds are clear bilaterally. GI: No deficits noted. GI: No signs and/or symptoms were reported involving the gastrointestinal system. : No deficits noted. No signs and/or symptoms were reported regarding the genitourinary system. Derm: No deficits noted. No signs and/or symptoms reported regarding the dermatologic system. Musculoskeletal: No deficits noted. No signs and/or symptoms reported regarding the musculoskeletal system. Historical: - Allergies: 18:41 Demerol; ca1 18:41 Erythromycin; ca1 18:41 Ibuprofen; ca1 18:41 Morphine; ca1 - PMHx: 18:41 Hyperlipidemia; Hypertension; Sjogrens; ca1 - PSHx: 18:41 Tonsillectomy; Hysterectomy; Colectomy, colostomy and reversal of the colostomy; ca1 - Immunization history:: Adult Immunizations up to date, Pneumococcal vaccine is up to date, Flu vaccine is up to date. - Social history:: Smoking status: Patient denies any tobacco usage or history of. Patient/guardian denies using alcohol, street drugs, The patient lives with family. - Family history:: not pertinent. Screenin:35 Abuse screen: Denies threats or abuse. Denies injuries from another. Nutritional ls4 screening: No deficits noted. Tuberculosis screening: No symptoms or risk factors identified. Fall Risk None identified. Assessment: 18:45 General: see triage note . ls4 Vital Signs: 18:33 BP 170 / 77; Pulse 67; Resp 17 S; Temp 98.1(TE); Pulse Ox 100% on R/A; Weight 76.2 kg ca1 (R); Height 5 ft. 5 in. (165.10 cm) (R); 21:45 BP 155 / 78; Pulse 62; Resp 18; Temp 98.2(O); Pulse Ox 100% on R/A; Pain 0/10; ls4 18:33 Body Mass Index 27.96 (76.20 kg, 165.10 cm) ca1 ED Course: 18:31 Patient arrived in ED. ag5 18:35 Patient has correct armband on for positive identification. Bed in low position. Call ls4 light in reach. Side rails up X 1. conveyor monitor on. Pulse ox on. NIBP on. Warm blanket given. Verbal reassurance given. 18:35 No provider procedures requiring assistance completed. Inserted saline lock: 20 gauge ls4 in right antecubital area, using aseptic technique. Patient maintains SpO2 saturation greater than 95% on room air. 18:39 Triage completed. ca1 18:41 Arm band placed on right wrist. ca1 18:50 EKG completed in triage. Results shown to MD. ca1 19:02 Tracie Guerra MD is Attending Physician. ma2 19:07 Britta Quiroz, RN is Primary Nurse. ls4 19:52 XRAY Chest (1 view) In Process Unspecified. EDMS 21:20 IV discontinued, intact, bleeding controlled, No redness/swelling at site. Pressure ls4 dressing applied. Administered Medications: 20:10 Drug: AZITHromycin 500 mg Route: PO; ls4 20:40 Follow up: Response: No adverse reaction; Marked relief of symptoms ls4 Outcome: 20:37 Discharge ordered by . ma2 21:20 Patient left the ED. ls4 21:20 Discharged to home ambulatory. ls4 21:20 Condition: stable 21:20 Discharge instructions given to patient, Instructed on discharge instructions, follow up and referral plans. medication usage, safety practices, Demonstrated understanding of instructions, follow-up care, medications, Prescriptions given X 2. Signatures: Dispatcher [employer] EDMS Tracie Guerra MD MD ma2 Britta Quiroz, RN RN ls4 Zoë Castro RN RN ca1 Damien Todd ag5 Corrections: (The following items were deleted from the chart) 22:01 21:38 Patient left the ED. ls4 ls4
--- NOTE | 2019-07-13 20:38 | EDPHYS ---
Physician Documentation [facility] Name: Daisy Mcfadden Age: 69 yrs Sex: Female : 1950 Arrival Date: 07/13/2019 Time: 18:31 Bed 15 Private MD: ED Physician Tracie Guerra HPI: 07/12 20:35 This 69 yrs old Female presents to ER via Ambulatory with complaints of Chest ma2 Pressure, Sore Throat. 20:35 The patient or guardian reports chest pain that is located primarily in the chest ma2 diffusely. Onset: gradually, 1 week(s) ago. Associated signs and symptoms: Pertinent negatives: cough, lower extremity pain, lower extremity swelling, nausea. The chest pain is described as a heaviness. Severity of pain: in the emergency department the pain is unchanged has resolved is actually worse. The patient has not experienced similar symptoms in the past. patient is here with chest pain constant and sinusisitis . Historical: - Allergies: 18:41 Demerol; ca1 18:41 Erythromycin; ca1 18:41 Ibuprofen; ca1 18:41 Morphine; ca1 - PMHx: 18:41 Hyperlipidemia; Hypertension; Sjogrens; ca1 - PSHx: 18:41 Tonsillectomy; Hysterectomy; Colectomy, colostomy and reversal of the colostomy; ca1 - Immunization history:: Adult Immunizations up to date, Pneumococcal vaccine is up to date, Flu vaccine is up to date. - Social history:: Smoking status: Patient denies any tobacco usage or history of. Patient/guardian denies using alcohol, street drugs, The patient lives with family. - Family history:: not pertinent. ROS: 20:35 Constitutional: Negative for fever, chills, and weight loss. ma2 20:35 All other systems are negative. Exam: 20:35 Constitutional: This is a well developed, well nourished patient who is awake, alert, ma2 and in no acute distress. Head/Face: Normocephalic, atraumatic. Eyes: Pupils equal round and reactive to light, extra-ocular motions intact. Lids and lashes normal. Conjunctiva and sclera are non-icteric and not injected. Cornea within normal limits. Periorbital areas with no swelling, redness, or edema. ENT: Nares patent. No nasal discharge, no septal abnormalities noted. Tympanic membranes are normal and external auditory canals are clear. Oropharynx with no redness, swelling, or masses, exudates, or evidence of obstruction, uvula midline. Mucous membranes moist. Neck: Trachea midline, no thyromegaly or masses palpated, and no cervical lymphadenopathy. Supple, full range of motion without nuchal rigidity, or vertebral point tenderness. No Meningismus. Chest/axilla: Normal chest wall appearance and motion. Nontender with no deformity. No lesions are appreciated. Cardiovascular: Regular rate and rhythm with a normal S1 and S2. No gallops, murmurs, or rubs. Normal PMI, no JVD. No pulse deficits. Respiratory: Lungs have equal breath sounds bilaterally, clear to auscultation and percussion. No rales, rhonchi or wheezes noted. No increased work of breathing, no retractions or nasal flaring. Abdomen/GI: Soft, non-tender, with normal bowel sounds. No distension or tympany. No guarding or rebound. No evidence of tenderness throughout. Vital Signs: 18:33 BP 170 / 77; Pulse 67; Resp 17 S; Temp 98.1(TE); Pulse Ox 100% on R/A; Weight 76.2 kg ca1 (R); Height 5 ft. 5 in. (165.10 cm) (R); 21:45 BP 155 / 78; Pulse 62; Resp 18; Temp 98.2(O); Pulse Ox 100% on R/A; Pain 0/10; ls4 18:33 Body Mass Index 27.96 (76.20 kg, 165.10 cm) ca1 MDM: 19:02 Patient medically screened. ma2 20:35 Differential diagnosis: gastritis, gastroesophageal reflux disease (GERD), pneumonia. ma2 REINA Risk Score: not applicable. Data reviewed: vital signs, nurses notes. Counseling: I had a detailed discussion with the patient and/or guardian regarding: the historical points, exam findings, and any diagnostic results supporting the discharge/admit diagnosis, the presence of at least one elevated blood pressure reading (>120/80) during this emergency department visit, the need for outpatient follow up. Response to treatment: the patient's symptoms have mildly improved after treatment. 07/12 19:03 Order name: Basic Metabolic Panel; Complete Time: 20:31 ma2 07/12 19:03 Order name: CBC with Diff; Complete Time: 20:31 nm07/12 19:03 Order name: LFT's; Complete Time: 20:31 nm07/12 19:03 Order name: Magnesium; Complete Time: 20:31 07/12 19:03 Order name: NT PRO-BNP; Complete Time: 20:31 nm07/12 19:03 Order name: PT-INR; Complete Time: 20:31 nm07/12 18:50 Order name: EKG; Complete Time: 18:51 [facility] 07/12 18:50 Order name: EKG - Nurse/Tech; Complete Time: 18:50 [facility] 07/12 19:03 Order name: Troponin (emerg Dept Use Only); Complete Time: 20:31 nm07/12 19:03 Order name: XRAY Chest (1 view); Complete Time: 20:31 nm07/12 19:03 Order name: Cardiac monitoring; Complete Time: 21:38 nm07/12 19:03 Order name: IV Saline Lock; Complete Time: 21:38 nm07/12 19:03 Order name: Labs collected and sent; Complete Time: 21:38 07/12 19:03 Order name: O2 Per Protocol; Complete Time: 21:38 nm07/12 19:03 Order name: O2 Sat Monitoring; Complete Time: 21:38 ma2 Administered Medications: 20:10 Drug: AZITHromycin 500 mg Route: PO; ls4 20:40 Follow up: Response: No adverse reaction; Marked relief of symptoms ls4 Disposition: 07/13/19 20:37 Discharged to Home. Impression: Acute frontal sinusitis. - Condition is Stable. - Discharge Instructions: Sinusitis, Adult, [id number]. - Prescriptions for Zithromax Z- Abel 250 mg Oral Tablet - take 1 tablet by ORAL route as directed for 5 days Day 1 - take two (2) tablets one time. Day 2, 3, 4 , 5 take one (1) tablet once daily.; 6 tablet. Medrol (Abel) 4 mg Oral Tablets, Dose Pack - take 1 tablet by ORAL route as directed - follow package instructions; 1 packet. - Medication Reconciliation Form, Thank You Letter, Antibiotic Education, Prescription Opioid Use form. - Follow up: Private Physician; When: Tomorrow; Reason: Continuance of care. Signatures: Dispatcher [employer] EDTracie Oconnor MD MD ma2 Britta Quiroz, RN RN ls4 Zoë Castro RN RN ca1 Corrections: (The following items were deleted from the chart) 21:38 20:37 07/13/2019 20:37 Discharged to Home. Impression: Acute frontal sinusitis. ls4 Condition is Stable. Prescriptions for Zithromax Z-Abel 250 mg Oral Tablet - take 1 tablet by ORAL route as directed for 5 days Day 1 - take two (2) tablets one time. Day 2, 3, 4 , 5 take one (1) tablet once daily.; 6 tablet, Medrol (Abel) 4 mg Oral Tablets, Dose Pack - take 1 tablet by ORAL route as directed - follow package instructions; 1 packet. and Forms are Medication Reconciliation Form, Thank You Letter, Antibiotic Education, Prescription Opioid Use. Follow up: Private Physician; When: Tomorrow; Reason: Continuance of care. ma2
[2019-07-13 21:45] VITALS: BP 170/77; TEMP 98.1; O2SAT 100
--- NOTE | 2019-07-14 11:21 | EKG ---
Test Date: 2019-07-13 Test Time: 18:44:52 Glass Laminating Operator: JONATHAN MEASUREMENT RESULTS: Intervals: Rate: 65 LA: 148 QRSD: 82 QT: 392 QTc: 407 Cameron: P: 52 LA: 148 QRS: 44 T: 78 INTERPRETIVE STATEMENTS: Normal sinus rhythm Nonspecific T wave abnormality Abnormal ECG Compared to ECG 12/11/2017 00:30:51 No significant changes Electronically Signed On 07-14-19 11:20:17 CDT by Martín Wallace
== END 2019-07-13 21:38 | disposition home or self-care (01) ==
LOC: ER 18:29
DX: J01.10 Acute frontal sinusitis, unspecified (principal); I10 Essential (primary) hypertension; Z88.3 Allergy status to other anti-infective agents; Z88.5 Allergy status to narcotic agent; Z88.6 Allergy status to analgesic agent
CPT/HCPCS: 36415; 71045; 80048; 80076; 83735; 83880; 84484; 85025; 85610; 93005; 99285

== ENCOUNTER 2020-12-20 14:25 | Emergency (ER) | payer OTHER ==
--- OUTSIDE RECORDS SUMMARY | 2020-12-20 14:29 | XMS REPORT | Continuity of Care Document ---
:1950 Author Organization [facility] t Address [address] [place] [address] Dr. Hand. [address] [place] [address] Care Team Providers Name Role Phone Nikkie Basurto Primary Care Physician Alma Trimble MD Attending Clinician Sari MCNEAL Attending Clinician Unavailable Chung Smith DO Attending Clinician Marcos OSUNA, Juanjose Attending Clinician [phone] Alicia OSUNA EAlla Attending Clinician Tracie Garza MD Attending Clinician MD ALICIA E. Attending Clinician Unavailable MARCOS Admitting Clinician Unavailable MD JUANJOSE RODRÍGUEZ Admitting Clinician Unavailable Payers Payer Name Policy Type Policy Number Effective Date Expiration Date S ource Problems Condition Condition Condition Status Onset Resolution Last Treating Co mments Source Name Details Category Date Date Treatment Clinician Date Herpes Herpes Disease Active Methodi zoster zoster 12-27 with with 00:00: Hospita complicati complicati 00 l on on Other Other Disease Active Methodi constipati constipati 12-25 on on 00:00: Hospita 00 l Intractabl Intractabl Disease Active M ethodi e nausea e nausea 9-07 st and and 00:00: Hospita vomiting vomiting 00 l Allergies, Adverse Reactions, Alerts Allergy Allergy Status Severity Reaction(s) Onset Inactive Treating Comm ents Source Name Type Date Date Clinician Erythrom Propensi Active Rash 2018-04 Method i ycin ty to 0-28 st adverse 00:00: Hospita reaction 00 l s to drug Ibuprofe Propensi Active GI 2018-04 Method i n ty to Intolerance 0-28 st adverse 00:00: Hospita reaction 00 l s to drug Lisinopr Propensi Active Other (See 2018-04 Leg Me thodi il ty to Comments) 0-[address] adverse 00:00: Hospita reaction 00 l s to drug Morphine Propensi Active Palpitations 2018-04 Methodi Sulfate ty to 0-28 st adverse 00:00: Hospita reaction 00 l s to drug Motrin Adverse [facility] diarrha [facility] Morphine Adverse Active tachycardia [facility] Sulfate [facility] Lisinopr Adverse Active leg swelling [facility] il Reaction [facility] Erythrom Adverse Active rash [facility] Family History Family Member Diagnosis Comments Start Date Stop Date Source Natural father Dementia [facility] Natural mother Vasculitis [facility] Natural sister Heart disease [facility] Social History Social Habit Start Date Stop Date Quantity Comments Source History SDOR [facility] Alcohol Std Drinks Hospit al History SDOR [facility] Binge Hospital Tobacco use and 2019-12-28 2019-12-28 Never used Shinto exposure 00:00:00 00:00:00 Hospital Alcohol intake 2019-12-28 2019-12-28 Lifetime Shinto 00:00:00 00:00:00 non-drinker Hospital (finding) History SDOH 2019-12-28 2019-12-28 1 Shinto Alcohol Frequency 00:00:00 00:00:00 Hospita l Sex Assigned At [birth year] [facility] 00:00:00 00:00:00 Hospital Smoking Status Start Date Stop Date Source Never smoker [facility] Medications Ordered Filled Start Stop Current Ordering Indication Dosage Frequency Signature Comments Components Source Medication Medication Date Date Medication? Clinician (SIG) Name Name Pregabalin Pregabalin Yes Dionne [address] [facility] [place] [facility] biotin 10 2020-0 Yes 1 tablet Meth carlo mg tablet 12-26 st 21:34: Hospita 15 l coenzyme 2020-0 Yes 1 capsule Meth carlo Q10 (Co 12-[address] Q-10) 200 21:34: meal Hospita mg capsule 15 l rOPINIRole 2020-0 Yes 1 TABLET 1 M ethodi (REQUIP) 1 12-[address] MG tablet 21:34: BEFORE Hospit a 15 BEDTIME l ONCE A DAY ORALLY 30 pantoprazol 2020-0 Yes TAKE 1 Meth carlo e 12-[address] (PROTONIX) 21:34: MOUTH Hospit a 40 MG EC 15 TWICE A l tablet DAY ondansetron 2020-0 Yes TAKE 1 Meth carlo (ZOFRAN) 4 12-[address] MG tablet 21:34: MOUTH Hospita 15 THREE l TIMES DAILY. naproxen 2020-0 Yes 1/2 tablet Met hodi (NAPROSYN) 12-[address] 500 MG 21:34: or milk as Hospi ta tablet 15 needed l montelukast 2020-0 Yes TAKE 1 Meth carlo (SINGULAIR) 12-[address] 10 mg 21:34: MOUTH Hospita tablet 15 EVERY DAY l metoprolol 2020-0 Yes 1 tablet Met hodi succinate 12-26 st XL 21:34: Hospita (TOPROL-XL) 15 l 100 mg 24 hr tablet losartan 2020-0 Yes take 1 Methodi (COZAAR) 50 12-[address] MG tablet 21:34: mouth Hospita 15 every day l linaCLOtide 2020-0 Yes 1 capsule M ethodi (Linzess) 12-26 st 290 mcg 21:34: Hospita capsule 15 l fluticasone 2020-0 Yes USE 2 Metho di propionate 12-[address] (FLONASE) 21:34: EVERY Hospita 50 15 NOSTRIL l mcg/actuati DAILY on nasal spray atorvastati 2020-0 Yes 1 tablet Me thodi n (LIPITOR) 12-26 st 40 mg 21:34: Hospita tablet 15 l amLODIPine 2020-0 Yes 1 tablet Met hodi (NORVASC) 12-26 st 10 mg 21:34: Hospita tablet 15 l ALPRAZolam 2020-0 Yes (Schedule Me odi (XANAX) 1 12-26 IV Drug) st MG tablet 21:34: TAKE 1 Hospit a 15 TABLET (1 l MG) BY ORAL ROUTE DAILY AT BEDTIME NEEDED calcium 2020-0 Yes 2{tbl} Q2D Chew 2 Method i carbonate 12-[address] (TUMS) 200 21:34: every Hospit a mg calcium 15 other day. l (500 mg) chewable tablet therapeutic 2020-0 Yes 1{tbl} QD Take 1 Me thodi multivitami 12-[address] n 21:34: mouth Hospita (THERAGRAN) 15 daily. l tablet cholecalcif 2020-0 Yes 400U QD Take 400 Me thodi shorty, 12-26 Units by vitamin D3, 21:34: mouth Hospi ta 400 unit 15 daily. l tablet Lactobacill 2020-0 Yes 1{packe QD Take 1 M ethodi us 12-26 t} packet by acidoph-L.b 21:34: mouth Hospi ta ulgar 15 daily. l (LACTINEX) 100 million cell tablet aspirin 2020-0 Yes 81mg QD Take 81 mg Meth carlo (ECOTRIN) 12-[address] 81 MG 21:34: daily. Hospita enteric 15 l coated tablet dextrometho 2020-0 Yes 1{tbl} QD Take 1 Me thodi rphan-guaif 12-26 tablet by enesin 21:34: mouth Hospita (MUCINEX DM 15 daily. l REGULAR) 30-600 mg tablet extended release 12 hr cevimeline 2020-0 Yes 30mg Q.[id number] Take 30 mg Methodi (EVOXAC) 30 12-26 [id number] mouth [address] mg capsule 21:34: 3D (three) Hosp isabelle 15 times a l day. polyethylen 2020-0 2020- No 17g QD Take 17 g Methodi e glycol 12-26 10-[address] (MIRALAX) 00:00: 04:59 daily for Ho spita 17 gram 00 :00 30 days. l packet HYDROcodone 2020-0 2020- No [id number] 1{tbl} Q6H Take 1 Methodi -acetaminop 12-26 09-15 tablet by hen (NORCO) 00:00: 04:59 mouth Hosp isabelle 5-325 mg 00 :00 every 6 l per tablet (six) hours as needed for moderate pain for up to 5 days .acute pain. Max Daily Amount: 4 tablets Immunizations Ordered Filled Immunization Date Status Comments Sour e Immunization Name Name FLUZONE HIGH DOSE FLUZONE HIGH DOSE 2019-02-08 Completed [facility] - OVER 65 OVER 65 00:00:00 [facility] Pneumovax Pneumovax 2019-02-08 Completed [facility] - 00:00:00 [facility] Vital Signs Vital Name Observation Time Observation Value Comments Source Systolic blood 2019-12-28 21:09:00 142 mm[Hg] [facility] pressure Diastolic blood 2019-12-28 21:09:00 61 mm[Hg] [facility] pressure Heart rate 2019-12-28 21:09:00 55 /min [facility] Body temperature 2019-12-28 21:09:00 36.5 Elda [facility] Respiratory rate 2019-12-28 21:09:00 17 /min [facility] Oxygen saturation in 2019-12-28 21:09:00 100 /min [facility] Arterial blood by Pulse oximetry Body height 2019-12-28 18:20:00 165.1 cm [facility] Body weight 2019-12-28 18:20:00 77.111 kg [facility] BMI 2019-12-28 18:20:00 28.29 kg/m2 [facility] Procedures Procedure Date / Time Performing Clinician Source Performed XR ABDOMEN 1 VW 2019-12-27 15:41:22 Poly Garza [facility] XR ABDOMEN 2 VW AP W 2019-12-26 23:13:11 Aziza Peter [facility] UPRIGHT AND/OR DECUBITUS [facility] COMPLETE BLD COUNT 2019-12-26 11:34:00 Leonel Yousif [facility] W/AUTO DIFF COMPREHENSIVE METABOLIC 2019-12-26 10:03:00 [facility] PANEL MAGNESIUM LEVEL 2019-12-26 10:03:00 Lexi Bustamante [facility] ESTIMATED GFR 2019-12-26 10:03:00 Lexi Bustamante [facility] US RENAL 2019-12-26 01:33:59 Lexi Bustamante [facility] URINALYSIS SCREEN AND 2019-12-26 01:17:00 Lexi Bustamante [facility] MICROSCOPY, WITH REFLEX TO CULTURE COVID-19 QUALITATIVE 2019-12-25 21:49:00 Anjel Smith [facility] RT-PCR CT ABDOMEN PELVIS W 2019-12-25 20:53:04 Anjel Smith [facility] CONTRAST URINALYSIS 2019-12-25 19:35:00 [facility]OL[facility] 2019-12-25 19:35:00 Anjel [facility] PANEL ESTIMATED GFR 2019-12-25 19:35:00 [facility] HC COMPLETE BLD COUNT 2019-12-25 19:35:00 [facility]jel [facility] W/AUTO DIFF Plan of Care Planned Activity Planned Date Details Comments Source Future Scheduled Test COVID-19 VACCINE (1) [facility] [code = COVID-19 VACCINE (1)] Future Scheduled Test Hepatitis C screening [facility] (procedure) [code = 649363904] Future Scheduled Test BREAST CANCER SCREENING [facility] [code = BREAST CANCER SCREENING] Future Scheduled Test COLONOSCOPY SCREENING [facility] [code = COLONOSCOPY SCREENING] Future Scheduled Test SHINGLES VACCINES (#1) [facility] [code = SHINGLES VACCINES (#1)] Future Scheduled Test INFLUENZA VACCINE [code [facility] = INFLUENZA VACCINE] Encounters Start End Encounter Admission Attending Care Care Encounter Source Date/Time Date/Time Type Type Clinicians Facility Department ID 2020-12-12 2020-12-12 Outpatient [facility] [id number] [facility] 2020-12-12 2020-12-12 Outpatient [facility] [id number] [facility] 2020-11-07 2020-11-07 Outpatient [facility] [id number] [facility] 2020-07-23 2020-07-23 Outpatient [facility] [id number] [facility] 2020-07-16 2020-07-16 Out[facility] [id number] [facility] 2020-07-08 2020-07-08 Out[facility] [id number] [facility] 2020-07-04 2020-07-04 [facility] [id number] [facility] 2020-05-27 2020-05-27 Out[facility] [id number] [facility] 2020-02-02 2020-02-02 [facility] [id number] [facility] 2020-02-01 2020-02-01 [facility] [id number] [facility] 2020-01-09 2020-01-09 Out[facility] [id number] [facility] 2020-01-04 2020-01-04 [facility] [id number] [address] 17:58:00 17:58:00 [facility] l Medicine Outpati ent Clinics 2020-01-02 2020-01-02 [facility] [id number] 14:18:00 14:18:00 [facility] l Medicine Outpati ent Clinics 2020-01-02 2020-01-02 [facility] [id number] 10:40:00 10:40:[address] [facility] Medicine l Medicine Outpati ent Clinics 2019-12-28 2019-12-28 Emergency Atilio, 1.2.840.1 [id number] Methodi 16:08:46 16:10:[address] [facility] 3.430.2.7 Hospi ta .3.020385 l .8 2019-12-28 2019-12-28 Patient Kailee Guo 1.2.840.1 [id number] [facility]i 00:00:00 00:00:[id number] 3.430.2.7 Hospit a .3.781469 l .8 2019-12-28 2019-12-28 Travel 1.2.840.1 [id number] [facility] 00:00:00 00:00:[address] 3.430.2.7 0.2.7.3.698 Ho spita .3.714737 084.8 l .8 2019-12-28 2019-12-28 Emergency [place] [id number] 6[address] [place] 00:00:00 00:00:[address] PRAD[address] 2019-12-25 2019-12-27 Hospital Anjel Smith 1.2.840.1 [id number] Methodi 14:14:32 16:34:00 Encounter Dimitrios Rodríguez [id number] Leonel Yousif E. 3.430.2.7 Hospita Poly Garza .3.773066 l .8 2019-12-25 2019-12-27 Inpatient [place] [id number] [address] [place] 00:00:00 00:00:00 POLY [address] 2019-08-23 2019-08-23 [facility] [id number] 13:00:00 13:00:00 [facility] 2019-07-13 2019-07-13 [facility] [id number] 13:00:00 13:00:00 t [facility] 2019-07-12 2019-07-12 [facility] [id number] 15:58:00 15:58:00 t [facility] Medicine Outpati ent Clinics 2019-02-13 2019-02-13 [facility] [id number] 13:00:00 13:00:00 t [facility] Medicine Outpati ent Clinics 2019-02-08 2019-02-08 [facility] [id number] 13:00:00 13:00:00 t [facility] Medicine Outpati ent Clinics 2019-01-23 2019-01-23 [facility] [id number] 11:20:00 11:20:00 t [facility] Medicine Outpati ent Clinics 2018-08-11 2018-08-11 [facility] [id number] 09:01:00 09:01:00 [facility] Medicine Outpati ent Clinics 2018-08-10 2018-08-10 [facility] [id number] 13:00:00 13:00:00 [facility] Medicine Outpati ent Clinics 2018-06-21 2018-06-21 [facility] [id number] 10:00:00 10:00:00 [facility] Medicine Outpati ent Clinics 2018-05-24 2018-05-24 [facility] [id number] 14:30:00 14:30:00 t [facility] Medicine Medicine Outpati ent Clinics 2018-04-08 2018-04-08 [facility] [id number] 10:00:00 10:00:00 [facility] Medicine Outpati ent Clinics 2017-12-07 2017-12-07 [facility] [id number] 15:50:00 15:50:00 t [facility] Medicine Outpati ent Clinics 2017-12-02 2017-12-02 [facility] [id number] 14:00:00 14:00:00 [facility] Medicine Outpati ent Clinics 2017-12-01 2017-12-01 [facility] [id number] 10:15:00 10:15:00 t [facility] Medicine Outpati ent Clinics 2017-11-22 2017-11-22 [facility] [id number] 16:47:00 16:47:00 [facility] Medicine Outpati ent Clinics 2017-11-16 2017-11-16 [facility] [id number] 13:00:00 13:00:00 [facility] Medicine Outpati ent Clinics 2017-08-27 2017-08-27 [facility] [id number] 11:54:00 11:54:00 [facility] Medicine Outpati ent Clinics 2017-08-24 2017-08-24 [facility] [id number] 10:00:00 10:00:00 [facility] Medicine Outpati ent Clinics 2017-07-28 2017-07-28 [facility] [id number] 09:21:00 09:21:00 [facility] Outpati ent Clinics 2017-07-07 2017-07-07 [facility] [id number] 15:00:00 15:00:00 [facility] Out[facility]i ent Clinics Results Test Description Test Time Test Comments Results Result Sour e Comments XR Abdomen 1 Vw EXAM: XR ABDOMEN 1 VW Shinto 9 CLINICAL: Hospital 15:43:52 constipation COMPARISON: 12/26/2019 IMPRESSION: 1.Gaseous distention of loops of small bowel and colon similar to prior exam, nonspecific, possible ileus.2.Degenerative changes in the lower lumbar spine. [id number] Interface, Radiology Results Incoming - 12/27/2019 10:47 AM CDT EXAM: XR ABDOMEN 1 VWCLINICAL: constipationCOMPARISON : 12/26/2019IMPRESSION: 1.Gaseous distention of loops of small bowel and colon similar to prior exam, nonspecific, possible ileus.2.Degenerative changes in the lower lumbar spine.[id number] XR Abdomen 2 Vw EXAMINATION: XR Met hodist Ap W Upright 8 ABDOMEN 2 VW AP W Hospi sven And/Or Decubitus 23:18:30 UPRIGHT AND OR DECUBITUS CLINICAL HISTORY: 69 years Female constipation nausea hx obstruction COMPARISON: August 08, 2013 IMPRESSION: Loops of minimally distended air-filled small bowel in the left lower quadrant. Ileus cannot be excluded. Air is present in the colon. . There are no suspicious calcifications overlying the kidneys or expected course of the ureters The osseous structures are within normal limits The lung bases are clear . Interface, Radiology Results - 12/26/2019 6:21 PM CDT EXAMINATION: XR ABDOMEN 2 VW AP W UPRIGHT AND OR DECUBITUSCLINICAL HISTORY: 69 years Female constipation nausea hx obstructionCOMPARISON: August 08, 2013IMPRESSION: Loops of minimally distended air-filled small bowel in the left lower quadrant. Ileus cannot be excluded. Air is present in the colon. .There are no suspicious calcifications overlying the kidneys or expected course of the uretersThe osseous structures are within normal limitsThe lung bases are clear. SARS-CoV-2 (COVID-19) RNA [Presence] in Respiratory sp ecimen by 2019-12-26 03:05:35 NEHAL with probe detection Test Item Value Reference Range Interpretation Comme nts SARS-CoV-2 (COVID-19) RNA [Presence] in Respiratory Not detected No t-Detected specimen by NEHAL with probe detection (test code = 81354-8) [id number] 01:49:31EXAMINATION: US RENAL CLINICAL HISTORY: Flank pain stone disease suspected COMPARISON: CT dated 12/25/2019 IMPRESSION: 1. The right kidney measures 9.6 cm in length. 2. The left kidney measures 10.2 cm in length. 3. Cysts: No cysts are identified. 4. Hydronephrosis: There is no hydronephrosis. 5. Masses: No suspicious masses. 6. Calculi: No calculi visualized by ultrasound 7. Bladder: Limited distention of the bladder. No definite abnormalities. 8. Renal echogenicity: Within normal limits. 9. Other Findings:None [facility]-[id number], Radiology Results - 12/25/2019 8:52 PM CDT EXAMINATION: US RENALCLINICAL HISTORY: Flank pain stone disease suspectedCOMPARISON: CT dated 12/25/2019IMPRESSION:1. The right kidney measures 9.6 cm in length.2. The left kidney measures 10.2 cm in length.3. Cysts: No cysts are identified.4.Hydronephrosis: There is no hydronephrosis.5. Masses: No suspicious masses.6. Calculi: No calculi visualized by ultrasound7. Bladder: Limited distention of the bladder. No definite abnormalities.8. Renal echogenicity: Within normal limits.9. Other Findings:None[facility][id number] [id number] 21:01:55EXAMINATION: CT ABDOMEN PELVIS W CONTRAST CLINICAL HISTORY: 69 yearsFemale RLQ pain history of colectomy x 2 history of bowel obstruction TECHNIQUE: Multiple axial images of the abdomen and pelvis were obtained following intravenous administration of iodinated contrast. Sagittal and coronal computerized reformatted images were also obtained. CT imaging was performed with iterative reconstruction techniques and/or automated exposure control to reduce radiation dose. COMPARISON: CT abdomen pelvis06/24/2013 IMPRESSION: LUNG BASES:The lung bases are free of acute disease. ABDOMEN:Liver: Normal in size and contours. Segment 2 simple hypodensities with the largest measuring up to 1.8 cm with simple fluid attenuation. Additional smaller subcentimeter hypodensities throughout the lungs but likely simple cysts as well..Gallbladder/Biliary: The gallbladder is normal. There is no evidence of intra or extrahepatic biliary ductal dilatation.Spleen: The spleen is not enlarged.Pancreas: The pancreas is unr emarkable.Adrenal Glands: The adrenal glands are unremarkable.Kidneys: Normal in size and shape. No hydronephrosis. Streak contrast renal collecting system limits evaluation for calculi without discrete stone identified. A few subcentimeter hypodensities are too small characterize but favored represent simple cysts.Vascular: Abdominal aorta is nonaneurysmal scattered calcified plaques.Nodes: No retroperitoneal or mesenteric lymphadenopathy.Bowel: Status post sigmoid resection-and anastomotic changeswithout obstruction. Moderate to large stool burden throughout the colon compatible with constipation. No bowel inflammatory changes. Small sliding hiatal hernia. Mild wall thickening of the gastroduodenal junction favored to represent underdistention rather than gastroduodenitisPeritoneum: No ascitesor fluid collections. PELVIS:Urinary bladder is distended with layering excreted contrast. No focal wall thickening or discrete intraluminal stone. Uterus has been removed. Left ovary is not well delineated and right ovary is grossly normal in appearance on this limited exam. MUSCULOSKELETAL: No aggressive osseous lesions. Multilevel thoracolumbar degenerative disc disease. Suspected intraosseous hemangioma formation within the L1 vertebral body is similar appearance. SUMMARY: 1.Status post sigmoid resection-anastomotic changes without bowel obstruction.2.Moderate to large stool burden throughout the colon compatible constipation.3.Other findings as described above. [facility]-[id number] Interface, Radiology Results Incoming - 12/25/2019 4:04 PM CDTFormatting of this note might be differentfrom the original.EXAMINATION: CT ABDOMEN PELVIS W CONTRASTCLINICAL HISTORY: 69 yearsFemale RLQ pain history of colectomy x 2 history of bowel obstructionTECHNIQUE: Multiple axial images of the abdomen and pelvis were obtained following intravenous administration of iodinated contrast. Sagittal andcoronal computerized reformatted images were also obtained. CT imaging was performed with iterative reconstruction techniques and/or automated exposure control to reduce radiation dose. COMPARISON: CTabdomen pelvis 06/24/2013IMPRESSION:LUNG BASES:The lung bases are free of acute disease.ABDOMEN:Liver:Normal in size and contours. Segment 2 simple hypodensities with the largest measuring up to 1.8 cm with simple fluid attenuation. Additional smaller subcentimeter hypodensities throughout the lungs but likely simple cysts as well..Gallbladder/Biliary: The gallbladder is normal. There is no evidence of intra or extrahepatic biliary ductal dilatation.Spleen: The spleen is not enlarged.Pancreas: The pancreas is unremarkable.Adrenal Glands: The adrenal glands are unremarkable.Kidneys: Normal in size and shape. No hydronephrosis. Streak contrast renal collecting system limits evaluation for calculi without discrete stone identified. A few subcentimeter hypodensities are too small characterize but favored represent simple cysts.Vascular: Abdominal aorta is nonaneurysmal scattered calcified plaques.Nodes: No retroperitoneal or mesenteric lymphadenopathy.Bowel: Status post sigmoid resection-and anastomotic changes without obstruction. Moderate to large stool burden throughout the colon compatible withconstipation. No bowel inflammatory changes. Small sliding hiatal hernia. Mild wall thickening of the gastroduodenal junction favored to represent underdistention rather than gastroduodenitisPeritoneum: No ascites or fluid collections.PELVIS:Urinary bladder is distended with layering excreted contrast. No focal wall thickening or discrete intraluminal stone. Uterus has been removed. Left ovary is notwell delineated and right ovary is grossly normal in appearance on this limited exam.MUSCULOSKELETAL: No aggressive osseous lesions. Multilevel thoracolumbar degenerative disc disease. Suspected intraosseous hemangioma formation within the L1 vertebral body is similar appearance. SUMMARY:1.Status postsigmoid resection-anastomotic changes without bowel obstruction.2.Moderate to large stool burden throughout the colon compatible constipation.3.Other findings as described above. [id number]
[2020-12-20 15:38] LABS: SARS-COV-2 RT PCR NEGATIVE (NEGATIVE)
--- NOTE | 2020-12-20 15:56 | RAD REPORT ---
EXAM DESCRIPTION: Douglas Hernandez (2 Views)12/20/2020 3:27 pm CLINICAL HISTORY: Cough COMPARISON: 2019 FINDINGS: The lungs appear clear of acute infiltrate. The heart is normal size IMPRESSION: No acute abnormalities displayed
[2020-12-20] MEDS ORDERED: BENZONATATE 100 MG CAP PO ONE (17:56)
[2020-12-20 18:14] LABS: Absolute Lymphocytes (CBC) 1.7 K/uL (0.7-4.9); BUN Blood Urea Nitrogen 24 mg/dL (7-18); Basophils % 0.6 % (0-1.3); Bicarbonate 30 mmol/L (21-32); Glucose Level 89 mg/dL (74-106); Hematocrit 42.8 % (36.0-45.0); Lymphocytes % 23.8 % (15.3-44.8); MPV 8.9 fL (7.6-11.3); NT PRO-BNP 133 pg/mL (<125); Potassium 4.1 mmol/L (3.5-5.1); RBC Red Blood Cell Count 4.48 M/uL (3.86-4.86); Sodium Level 141 mmol/L (136-145); Troponin (Emerg Dept Use Only) < 0.02 ng/mL (0.0-0.045)
--- NOTE | 2020-12-20 20:33 | ER ---
Nurse's Notes [facility] Name: Daisy Mcfadden Age: 70 yrs Sex: Female : 1950 Arrival Date: 12/20/2020 Time: 14:28 Bed 9 Private MD: Diagnosis: Acute bronchitis, unspecified Presentation: 12/20 14:35 Chief complaint: Patient states: headache, sore throat, cough x 1 week ago. Pt reports aa5 she got prescribed "steroid pack, augmentin, and albuterol inhaler" via telemedicine. Also reports negative covid-19 1 week ago. Coronavirus screen: The client reports previous COVID testing was negative. Ebola Screen: Patient negative for fever greater than or equal to 101.5 degrees Fahrenheit, and additional compatible Ebola Virus Disease symptoms. Initial Sepsis Screen: Does the patient meet any 2 criteria? No. Patient's initial sepsis screen is negative. Does the patient have a suspected source of infection? No. Patient's initial sepsis screen is negative. Risk Assessment: Do you want to hurt yourself or someone else? Patient reports no desire to harm self or others. Onset of symptoms was November 2020. 14:35 Method Of Arrival: Ambulatory aa5 14:35 Acuity: SILVANA 3 aa5 Historical: - Allergies: 14:39 Erythromycin; aa5 14:39 Ibuprofen; aa5 14:39 Morphine; aa5 - PMHx: 14:39 Hyperlipidemia; Hypertension; Sjogrens; aa5 - Immunization history:: Client reports receiving the 2nd dose of the Covid vaccine. - Social history:: Smoking status: Patient denies any tobacco usage or history of. Assessment: 19:38 Reassessment: Patient is alert, oriented x 3, equal unlabored respirations, skin bb warm/dry/pink. pt seen by this RN at discharge, pt verbalized understanding of and agrees to plan of care discharge instructions given pt ambulated with steady gait to exit. Vital Signs: 14:35 BP 157 / 83; Pulse 65; Resp 16 S; Temp 98.5(O); Pulse Ox 100% on R/A; Weight 78.02 kg aa5 (R); Height 5 ft. 4 in. (162.56 cm) (R); 14:35 Body Mass Index 29.52 (78.02 kg, 162.56 cm) aa5 ED Course: 14:28 Patient arrived in ED. as 14:35 Arm band placed on. aa5 14:39 Triage completed. aa5 15:27 Chest Pa And Lat (2 Views) XRAY In Process Unspecified. EDMS 16:43 James Seo, RN is Primary Nurse. bp 16:44 Donnie Chang PA is PHCP. cp 16:44 Tracie Guerra MD is Attending Physician. cp 17:34 Venecia Beard, RN is Primary Nurse. kg 17:35 Troponin (Emerg Dept Use Only) Sent. kg 17:35 D-Dimer Sent. kg 17:35 BNP Sent. kg 17:35 BMP Sent. kg 17:35 CBC with Diff Sent. kg 19:38 No provider procedures requiring assistance completed. Patient did not have IV access bb during this emergency room visit. Administered Medications: 17:35 Drug: Tessalon Perle (benzonatate) 200 mg Route: PO; kg 18:06 Follow up: Response: No adverse reaction kg Outcome: 19:38 Discharged to home ambulatory. bb 19:38 Condition: stable 19:38 Discharge instructions given to patient, Instructed on discharge instructions, follow up and referral plans. medication usage, Demonstrated understanding of instructions, follow-up care, medications, Prescriptions given X 1. 20:31 Discharge ordered by MD. cp 20:33 Patient left the ED. bb Signatures: Dispatcher [employer] EDMS Yamel Win Brenda RN RN bb Eusebia Juarez RN RN aa5 Donnie Chang PA PA cp James Seo, RN FREDIS bp Venecia Beard, FREDIS RN kg Corrections: (The following items were deleted from the chart) 14:40 14:39 Allergies: Demerol; aa5 aa5 17:35 17:35 TROPONIN (EMERG DEPT USE ONLY)+C.LAB.BRZ drawn and sent. kg EDMS
--- NOTE | 2020-12-20 20:33 | EDPHYS ---
Physician Documentation [facility] Name: Daisy Mcfadden Age: 70 yrs Sex: Female : 1950 Arrival Date: 12/20/2020 Time: 14:28 Bed 9 Private MD: ED Physician Tracie Guerra HPI: 12/20 18:05 This 70 yrs old Female presents to ER via Ambulatory with complaints of cp Headache, Congestion, Sore Throat, Chest Pressure. 18:05 The patient complains of pain to the top of head. cp 18:05 The patient describes the headache as aching. Associated signs and symptoms: Pertinent cp positives: cough, congestion, chest pressure. Historical: - Allergies: 14:39 Erythromycin; aa5 14:39 Ibuprofen; aa5 14:39 Morphine; aa5 - PMHx: 14:39 Hyperlipidemia; Hypertension; Sjogrens; aa5 - Immunization history:: Client reports receiving the 2nd dose of the Covid vaccine. - Social history:: Smoking status: Patient denies any tobacco usage or history of. Exam: 18:03 ECG was reviewed by the Attending Physician. cp Vital Signs: 14:35 BP 157 / 83; Pulse 65; Resp 16 S; Temp 98.5(O); Pulse Ox 100% on R/A; Weight 78.02 kg aa5 (R); Height 5 ft. 4 in. (162.56 cm) (R); 14:35 Body Mass Index 29.52 (78.02 kg, 162.56 cm) aa5 MDM: 16:46 Patient medically screened. 12/20 14:41 Order name: Strep; Complete Time: 15:55 kb 12/20 15:23 Order name: Throat Culture EDIL 12/20 15:38 Order name: COVID-19/FLU A+B; Complete Time: 15:55 EDIL 12/20 14:41 Order name: Chest Pa And Lat (2 Views) XRAY; Complete Time: 16:47 kb 12/20 16:47 Interpretation: Report reviewed. 12/20 16:56 Order name: EKG; Complete Time: 16:56 12/20 16:56 Order name: CBC with Diff; Complete Time: 18:30 12/20 18:30 Interpretation: Normal except: EOSINOPHIL % 4.6. 12/20 16:56 Order name: BMP; Complete Time: 18:30 cp 12/20 18:30 Interpretation: Normal except: BUN 24; GFR 64. cp 12/20 16:56 Order name: BNP; Complete Time: 18:30 cp 12/20 16:56 Order name: D-Dimer; Complete Time: 18:30 cp 12/20 16:57 Order name: Troponin (Emerg Dept Use Only); Complete Time: 18:30 EDMS 12/20 16:56 Order name: EKG - Nurse/Tech; Complete Time: 18:06 cp 12/20 16:56 Order name: IV cp EC:03 Rate is 50 beats/min. Rhythm is regular. TX interval is normal. QRS interval is normal. cp QT interval is normal. T waves are Inverted in lead V2. Interpreted by me. Reviewed by me. Administered Medications: 17:35 Drug: Tessalon Perle (benzonatate) 200 mg Route: PO; kg 18:06 Follow up: Response: No adverse reaction kg Disposition Summary: 12/20/20 20:31 Discharge Ordered Location: Home cp Problem: an ongoing problem cp Symptoms: have improved cp Condition: Stable cp Diagnosis - Acute bronchitis, unspecified cp Followup: cp - With: Private Physician - When: 2 - 3 days - Reason: Worsening of condition Discharge Instructions: - Discharge Summary Sheet cp - Acute Bronchitis, Adult cp Forms: - Medication Reconciliation Form cp - Thank You Letter cp - Antibiotic Education cp - Prescription Opioid Use cp Prescriptions: - Tessalon Perles 100 mg Oral Capsule - take 2 capsules by ORAL route every 8 hours As needed; 30 capsule; Refills: 0, cp Product Selection Permitted Signatures: Dispatcher [employer] EDIL Kitty Salguero, ED PHYSICIANS-C ED PHYSICIANS-Eusebia Raines, RN RN aa5 Donnie Chang PA PA cp Venecia Beard, RN RN kg Corrections: (The following items were deleted from the chart) 14:40 14:39 Allergies: Demerol; aa5 aa5 14:59 14:42 CORONAVIRUS+MR.LAB.BRZ ordered. EDMS EDMS 15:00 14:42 Influenza Screen (A \T\ B)+BA.LAB.BRZ ordered. EDMS EDMS 17:35 16:57 TROPONIN (EMERG DEPT USE ONLY)+C.LAB.BRZ ordered. EDMS EDMS
[2020-12-20 21:21] VITALS: BP 157/83; TEMP 98.5; O2SAT 100
--- NOTE | 2020-12-21 15:12 | EKG ---
Test Date: 2020-12-20 Test Time: 17:55:04 Chief Controller Center: [facility] MEASUREMENT RESULTS: Intervals: Rate: 50 ME: 156 QRSD: 74 QT: 446 QTc: 406 [place]: P: 67 ME: 156 QRS: 60 T: 96 INTERPRETIVE STATEMENTS: Sinus bradycardia Nonspecific ST and T wave abnormality Abnormal ECG Compared to ECG 07/13/2019 18:44:52 ST (T wave) deviation now present Sinus rhythm no longer present T-wave abnormality no longer present Electronically Signed On 12-21-20 15:10:52 CDT by Martín Wallace
== END 2020-12-20 20:33 | disposition home or self-care (01) ==
LOC: ER 14:25
DX: J20.9 Acute bronchitis, unspecified (principal); I10 Essential (primary) hypertension; E78.5 Hyperlipidemia, unspecified; Z88.1 Allergy status to other antibiotic agents; Z88.5 Allergy status to narcotic agent; Z88.6 Allergy status to analgesic agent; Z20.822 Contact with and (suspected) exposure to COVID-19
CPT/HCPCS: 93005; 87070; 85025; 80048; 36415; 85379; 87081; 84484; 83880; 0240U; 71046; 99284

== ENCOUNTER 2021-10-04 17:02 | Emergency (ER) | payer OTHER ==
--- OUTSIDE RECORDS SUMMARY | 2021-10-04 17:05 | XMS REPORT | Continuity of Care Document ---
:1950 Author Organization [facility] t Address [address] [place] [address] [address]. [address] [place] [address] Care Team Providers Name Role Phone Nikkie Goodwin Primary Care Physician Buddy Attending Clinician Unavailable Therapy, Covid Infusion Attending Clinician Unavailable Kyle Riojas MD Attending Clinician Alma Trimble MD Attending Clinician Sari MCNEAL Attending Clinician Unavailable Chung Smith DO Attending Clinician Penelope Rodríguez MD Attending Clinician [phone] Rich Olson MD Attending Clinician Tracie Garza MD Attending Clinician NIEL Admitting Clinician Unavailable Payers Payer Name Policy [...] Hospita reaction 00 l s to drug Erythrom Propensi Active Rash 2018-04 Univer s ycin ty to 0-28 ity of adverse 00:00: [place] reaction 00 [facility] Ibuprofe Propensi Active Nausea 2018-04 Univer s n ty to and/or 0-28 ity of adverse Vomiting 00:00: [place] reaction 00 [facility] Morphine Propensi Active Palpitations 2018-04 Univers Sulfate ty to 0-28 ity of adverse 00:00: [place] reaction 00 [facility] Motrin Adverse Active diarrha Common Reaction [facility] Morphine Adverse Active tachycardia Co mmon Sulfate Reaction [facility] Lisinopr Adverse Active leg swelling C ommon il Reaction [facility] Erythrom Adverse Active rash Common ycin Reaction [facility] Family History Family Member Diagnosis Comments Start Date Stop Date Source Natural mother Vasculitis [facility] Natural sister Heart disease [facility] Natural father Dementia [facility] Social History Social Habit Start Date Stop Date Quantity Comments Source History [facility] Alcohol Std Drinks [facility] Alcohol Binge Tobacco use and 2019-12-28 2019-12-28 Never used [facility] exposure 00:00:00 00:00:00 Alcohol intake 2019-12-28 2019-12-28 Lifetime [facility] 00:00:00 00:00:00 non-drinker (finding) History [facility] 2019-12-28 2019-12-28 1 [facility] Alcohol Frequency 00:00:00 00:00:00 Sex Assigned At [address] [facility] y of 00:00:00 00:00:00 [facility] Smoking Status Start Date Stop Date Source Unknown if ever smoked [facility] Never smoker [facility] Medications Ordered Filled Start Stop Current Ordering Indication Dosage Frequency Signature Comments Components Source Medication Medication Date Date Medication? Clinician (SIG) Name Name Pregabalin Pregabalin 2020-0 Yes Dionne 1 capsule Common 01-03 [facility] 00:00: - [facility] 00 [facility] biotin 10 2020-0 Yes 1 tablet Meth [...] 15 l ALPRAZolam 2020-0 Yes (Schedule Me [facility] (XANAX) 1 12-26 IV Drug) st MG [...] 1 Me thodi multivitami 12-26 tablet by n 21:34: mouth Hospita (THERAGRAN) 15 daily. [...] release 12 hr cevimeline 2020-0 Yes 30mg Q.[id number] Take 30 mg [facility] (EVOXAC) 30 12-26 [id number] mouth [address] mg capsule 21:34: 3D (three) [facility]osp [facility] 15 times a l day. polyethylen 2020-0 2020- No 17g QD Take 17 g [facility] e glycol 12-[address] (MIRALAX) 00:00: 04:59 daily for Ho spita 17 gram 00 :00 30 days. l packet HYDROcodone 2019- No [id number] 1{tbl} Q6H Take 1 [facility] -acetaminop 12-[address] hen (NORCO) 00:00: 04:59 mouth [facility] 5-325 mg 00 :00 every 6 l per tablet (six) hours as needed for moderate pain for up to 5 days .acute pain. Max Daily Amount: 4 tablets Immunizations Ordered Filled Immunization Date Status Comments Sour e Immunization Name Name JAY 2021-09-27 Completed [facility] f 00:00:00 [facility] FLUZONE HIGH DOSE FLUZONE HIGH DOSE 2019-02-08 Completed [facility] - OVER 65 OVER 65 00:00:00 [facility] Pneumovax Pneumovax 2019-02-08 Completed [facility] - 00:00:00 [facility] Vital Signs Vital Name Observation Time Observation Value Comments Source Diastolic blood 2021-09-27 14:31:00 48 mm[Hg] [facility] Heart rate 2021-09-27 14:31:00 60 /min [facility] Body temperature 2021-09-27 14:31:00 36.56 Elda [facility] Oxygen saturation in 2021-09-27 14:31:00 97 /min [facility] Arterial blood by [facility] Pulse oximetry Branch Systolic blood 2021-09-27 14:31:00 133 mm[Hg] [facility] height 2021-09-27 13:27:00 161.3 cm [facility] Body weight 2021-09-27 13:27:00 77.111 kg [facility] BMI 2021-09-27 13:27:00 29.64 kg/m2 [facility] Systolic blood 2019-12-28 21:09:00 142 mm[Hg] [facility] pressure Diastolic blood 2019-12-28 21:09:00 61 mm[Hg] [facility] pressure Heart rate 2019-12-28 21:09:00 55 /min [facility] Body temperature 2019-12-28 21:09:00 36.5 Elda [facility] Respiratory rate 2019-12-28 21:09:00 17 /min [facility] Oxygen saturation in 2019-12-28 21:09:00 100 /min [facility] Arterial blood by Pulse oximetry Body height 2019-12-28 18:20:00 165.1 cm [facility] Body weight 2019-12-28 18:20:00 77.111 kg [facility] BMI 2019-12-28 18:20:00 28.29 kg/m2 [facility] Procedures Procedure Date / Time Performing Clinician Source Performed XR ABDOMEN 1 VW 2019-12-27 15:41:22 Poly Garza [facility] XR ABDOMEN 2 VW AP W 2019-12-26 23:13:11 Aziza Peter [facility] UPRIGHT AND/OR DECUBITUS [facility] COMPLETE BLD COUNT 2019-12-26 11:34:00 Leonel Yousif [facility] W/AUTO DIFF MAGNESIUM LEVEL 2019-12-26 10:03:00 [facility] ESTIMATED GFR 2019-12-26 10:03:00 [facility] METABOLIC 2019-12-26 10:03:00 [facility] PANEL US RENAL 2019-12-26 01:33:59 [facility] URINALYSIS SCREEN AND 2019-12-26 01:17:00 [facility] MICROSCOPY, WITH REFLEX TO CULTURE COVID-19 QUALITATIVE 2019-12-25 21:49:00 Anjel Smith [facility] RT-PCR CT ABDOMEN PELVIS W 2019-12-25 20:53:04 Anjel Smith [facility] CONTRAST URINALYSIS 2019-12-25 19:35:[address] [facility] METABOLIC 2019-12-25 19:35:00 Anjel Smith [facility] PANEL ESTIMATED GFR 2019-12-25 19:35:00 Anjel Smith [facility] HC COMPLETE BLD COUNT 2019-12-25 19:35:00 Anjel Smith [facility] W/AUTO DIFF Plan of Care Planned Activity Planned Date Details Comments Source Future Scheduled Test COVID-19 VACCINE (1) [facility] [code = COVID-19 VACCINE (1)] Future Scheduled Test Hepatitis C screening [facility] (procedure) [code = 107041820] Future Scheduled Test BREAST CANCER SCREENING [facility] [code = BREAST CANCER SCREENING] Future Scheduled Test COLONOSCOPY SCREENING [facility] [code = COLONOSCOPY SCREENING] Future Scheduled Test SHINGLES VACCINES (#1) [facility] [code = SHINGLES VACCINES (#1)] Future Scheduled Test INFLUENZA VACCINE [code [facility] = INFLUENZA VACCINE] Encounters Start End Encounter Admission Attending Care Care Encounter Source Date/Time Date/Time Type Type Clinicians Facility Department ID 2021-07-30 Outpatient [facility] [id number] [place] 12:20:24 [id number] [facility] 2021-05-14 Outpatient Buddy, STLMLC STLMLC [id number] Common 14:26:43 Dionne 01852 [facility] 2021-05-14 Outpatient Buddy, STLMLC STLMLC [id number] Common 13:46:40 Dionne [id number] [facility] 2021-09-30 2021-09-30 ambulatory STLMLC STLMLC [id number] Common 00:00:00 00:00:00 [facility] 2021-09-27 2021-09-27 Nurse Therapy, Adc Covid Infusion [facility] [id number] [facility] 08:00:00 09:00:00 Visit Wan [id number] [facility] [id number] [facility] s SURGICAL [id number] [facility] CENTER [address] 2021-06-30 2021-06-30 ambulatory STLMLC STLMLC [id number] Common 00:00:00 00:00:00 [facility] 2021-05-07 2021-05-07 ambulatory STLMLC STLMLC [id number] Common 00:00:00 00:00:00 [facility] 2021-05-06 2021-05-06 ambulatory STLMLC STLMLC [id number] Common 00:00:00 00:00:00 [facility] 2021-04-10 2021-04-10 ambulatory STLMLC STLMLC [id number] Common 00:00:00 00:00:00 [facility] 2021-04-09 2021-04-09 ambulatory STLMLC STLMLC [id number] Common 00:00:00 00:00:00 [facility] 2021-04-04 2021-04-04 ambulatory STLMLC STLMLC [id number] Common 00:00:00 00:00:00 [facility] 2021-04-02 2021-04-02 ambulatory STLMLC STLMLC [id number] Common 00:00:00 00:00:00 [facility] 2021-02-19 2021-02-19 ambulatory STLMLC STLMLC [id number] Common 00:00:00 00:00:00 [facility] 2021-01-08 2021-01-08 Outpatient STLMLC STLMLC [id number] Common 00:00:00 00:00:00 [facility] 2021-01-02 2021-01-02 Outpatient STLMLC STLMLC [id number] Common 00:00:00 00:00:00 [facility] 2020-12-27 2020-12-27 Outpatient STLMLC STLMLC [id number] Common 00:00:00 00:00:00 [facility] 2020-12-19 2020-12-19 Outpatient STLMLC STLMLC [id number] Common 00:00:00 00:00:00 [facility] 2020-12-17 2020-12-17 Outpatient STLMLC STLMLC [id number] Common 00:00:00 00:00:00 [facility] 2020-12-12 2020-12-12 Outpatient STLMLC STLMLC [id number] Common 00:00:00 00:00:00 [facility] 2020-12-12 2020-12-12 Outpatient STLMLC STLMLC [id number] Common 00:00:00 00:00:00 [facility] 2020-11-07 2020-11-07 Outpatient STLMLC STLMLC [id number] Common 00:00:00 00:00:00 [facility] 2020-07-23 2020-07-23 Outpatient STLMLC STLMLC [id number] Common 00:00:00 00:00:00 [facility] 2020-07-16 2020-07-16 Outpatient STLMLC STLMLC [id number] Common 00:00:00 00:00:00 [facility] 2020-07-08 2020-07-08 Outpatient STLMLC STLMLC [id number] Common 00:00:00 00:00:00 [facility] 2020-07-04 2020-07-04 Outpatient STLMLC STLMLC [id number] Common 00:00:00 00:00:00 [facility] 2020-05-27 2020-05-27 Outpatient STLMLC STLMLC [id number] Common 00:00:00 00:00:00 [facility] 2020-02-02 2020-02-02 Outpatient STLMLC STLMLC [id number] Common 00:00:00 00:00:00 [facility] 2020-02-01 2020-02-01 Outpatient STLMLC STLMLC [id number] Common 00:00:00 00:00:00 [facility] 2020-01-09 2020-01-09 Outpatient STLMLC STLMLC [id number] Common 00:00:00 00:00:00 [facility] 2020-01-04 2020-01-04 [facility] [id number] Common 17:58:00 17:58:00 [facility] it Road [facility] 2020-01-02 2020-01-02 [facility] [id number] Common 14:18:00 14:18:00 [facility] it Road [facility] 2020-01-02 2020-01-02 [facility] [id number] Common 10:40:00 10:40:00 [facility] it Road [facility] 2019-12-28 2019-12-28 Emergency Atilio, 1.2.840.1 [id number] [facility] 16:08:46 16:10:00 Maria G [id number] [place]ma 3.430.2.7 Hospi ta .3.479825 l .8 2019-12-28 2019-12-28 Patient Kailee Guo 1.2.840.1 [id number] [facility] 00:00:00 00:00:[id number] 3.430.2.7 Hospit a .3.081643 l .8 2019-12-28 2019-12-28 Travel 1.2.840.1 [id number] [facility] 00:00:00 00:00:[address] 3.430.2.7 0.2.7.3.698 [facility] sp[facility] .3.496474 084.8 l .8 2019-12-25 2019-12-27 Hospital [facility]othy Anjel Chung 1.2.840.1 [id number] [facility] 14:14:32 16:34:00 Encounter Dimitrios Rodríguez [id number] BenjaKikeLeonel E. 3.430.2.7 Hospita Poly Garza .3.153076 l .8 2019-08-23 2019-08-23 [facility] [id number] Common 13:00:00 13:00:00 [facility] it Road [facility] 2019-07-13 2019-07-13 [facility] [id number] Common 13:00:00 13:00:00 [facility] [address] [facility] 2019-07-12 2019-07-12 [facility] [id number] Common 15:58:00 15:58:00 [address] [facility] [address] [facility] 2019-02-13 2019-02-13 [facility] [id number] Common 13:00:00 13:00:00 [address] [facility] 2019-02-08 2019-02-08 [facility] [id number] Common 13:00:00 13:00:00 t [address] [facility] 2019-01-23 2019-01-23 [facility] [id number] Common 11:20:00 11:20:00 t [address] [facility] 2018-08-11 2018-08-11 [facility] [id number] Common 09:01:00 09:01:00 t [address] [facility] 2018-08-10 2018-08-10 [facility] [id number] Common 13:00:00 13:00:00 t [address] [facility] 2018-06-21 2018-06-21 [facility] [id number] Common 10:00:00 10:00:00 [address] [facility] 2018-05-24 2018-05-24 [facility] [id number] Common 14:30:00 14:30:00 [address] [facility] 2018-04-08 2018-04-08 [facility] [id number] Common 10:00:00 10:00:00 [address] [facility] 2017-12-07 2017-12-07 [facility] [id number] Common 15:50:00 15:50:00 [address] [facility] 2017-12-02 2017-12-02 [facility] [id number] Common 14:00:00 14:00:00 [address] [facility] 2017-12-01 2017-12-01 [facility] [id number] Common 10:15:00 10:15:00 [address] [facility] 2017-11-22 2017-11-22 [facility] [id number] Common 16:47:00 16:47:00 [address] [facility] 2017-11-16 2017-11-16 [facility] [id number] Common 13:00:00 13:00:00 [address] [facility] 2017-08-27 2017-08-27 [facility] [id number] Common 11:54:00 11:54:00 [address] [facility] 2017-08-24 2017-08-24 [facility] [id number] Common 10:00:00 10:00:00 [address] [facility] 2017-07-28 2017-07-28 [facility] [id number] Common 09:21:00 09:21:00 [address] [facility] 2017-07-07 2017-07-07 [facility] [id number] Common 15:00:00 15:00:[address] [facility] [address] [facility] Results Test Description Test Time Test Comments Results Result Sour e Comments XR Abdomen 1 Vw EXAM: XR ABDOMEN 1 VW [facility] 9 CLINICAL: Hospital 15:43:52 constipation COMPARISON: 12/26/2019 IMPRESSION: 1.Gaseous distention of loops of small bowel and colon similar to prior exam, nonspecific, possible ileus.2.Degenerative changes in the lower lumbar spine. [id number] Interface, Radiology Results - 12/27/2019 10:47 AM CDT EXAM: XR ABDOMEN 1 VWCLINICAL: constipationCOMPARISON : 12/26/2019IMPRESSION: 1.Gaseous distention of loops of small bowel and colon similar to prior exam, nonspecific, possible ileus.2.Degenerative changes in the lower lumbar spine.[id number] XR Abdomen 2 Vw EXAMINATION: XR Met [...] bases are clear . Interface, Radiology Results 12/26/2019 6:21 PM CDT EXAMINATION: XR ABDOMEN [...] within normal limitsThe lung bases are clear. US Renal EXAMINATION: US RENAL Me thodist 8 CLINICAL HISTORY: Hospita l 01:49:31 Flank pain stone disease suspected COMPARISON: CT [...] echogenicity: Within normal limits. 9. Other Findings:None [facility]-[id number] Interface, Radiology Results 12/25/2019 8:52 PM CDT EXAMINATION: US RENALCLINICAL HISTORY: Flank pain stone disease suspectedCOMPARISON: CT dated 12/25/2019IMPRESSION:1. The right kidney measures 9.6 cm in length.2. The left kidney measures 10.2 cm in length.3. Cysts: No cysts are identified.4. Hydronephrosis: There is no hydronephrosis.5. Masses: No suspicious masses.6. Calculi: No calculi visualized by ultrasound7. Bladder: Limited distention of the bladder. No definite abnormalities.8. Renal echogenicity: Within normal limits.9. Other Findings:[facility][id number] CT Abdomen EXAMINATION: CT Methodis t Pelvis W 7 ABDOMEN PELVIS W Hospital Contrast 21:01:55 CONTRAST CLINICAL HISTORY: 69 yearsFemale RLQ pain history of colectomy x 2 history of bowel obstruction TECHNIQUE: Multiple axial images of the abdomen and pelvis were obtained following intravenous administration of iodinated contrast. Sagittal and coronal computerized reformatted images were also obtained. CT imaging was performed with iterative reconstruction techniques and/or automated exposure control to reduce radiation dose. COMPARISON: CT abdomen pelvis 06/24/2013 IMPRESSION: LUNG BASES:The lung bases are free of acute disease. ABDOMEN:Liver: Normal in size and contours. Segment 2 simple hypodensities with the largest measuring up to 1.8 cm with simple fluid attenuation. Additional smaller subcentimeter hypodensities throughout the lungs but likely simple cysts as well..Gallbladder/Bili siena: The gallbladder is normal. There is no [...] junction favored to represent underdistention rather than gastroduodenitisPerito neum: No ascites or fluid collections. PELVIS:Urinary bladder is distended with [...] colon compatible constipation.3.Other findings as described above. [facility]-[id number] Interface, Radiology Results Incoming - 12/25/2019 4:04 PM CDT EXAMINATION: CT ABDOMEN PELVIS W CONTRASTCLINICAL HISTORY: 69 yearsFemale RLQ pain history of colectomy x 2 history of bowel obstructionTECHNIQUE: Multiple axial images of the abdomen and pelvis were obtained following intravenous administration of iodinated contrast. Sagittal and coronal computerized reformatted images were also obtained. CT imaging was performed with iterative reconstruction techniques and/or automated exposure control to reduce radiation dose. COMPARISON: CT abdomen pelvis 06/24/2013IMPRESSION:ROOPA G BASES:The lung bases are free of acute disease.ABDOMEN:Liver: Normal in size and contours. Segment 2 simple hypodensities with the largest measuring up to 1.8 cm with simple fluid attenuation. Additional smaller subcentimeter hypodensities throughout the lungs but likely simple cysts as well..Gallbladder/Bili siena: The gallbladder is normal. There is no [...] junction favored to represent underdistention rather than gastroduodenitisPerito neum: No ascites or fluid collections.PELVIS:Uri nary bladder is distended with layering excreted contrast. No focal wall thickening or discrete intraluminal stone. Uterus has been removed. Left ovary is not well delineated and right ovary is grossly normal in appearance on this limited exam.MUSCULOSKELETAL: No aggressive osseous lesions. Multilevel thoracolumbar degenerative disc disease. Suspected intraosseous hemangioma formation within the L1 vertebral body is similar appearance. SUMMARY:1.Status post sigmoid resection-anastomotic changes without bowel obstruction.2.Moderate to large stool burden throughout the colon compatible constipation.3.Other findings as described above. [facility]-[id number]
--- NOTE | 2021-10-04 18:06 | RAD REPORT ---
EXAM DESCRIPTION: RAD - Chest Single View - 10/04/2021 6:00 pm CLINICAL HISTORY: SOB Chest pain. COMPARISON: Chest Pa And Lat (2 Views) dated 12/20/2020; Chest Single View dated 07/13/2019; Abdomen 1 View (KUB) dated 08/10/2018; Chest Single View dated 12/11/2017 FINDINGS: Portable technique limits examination quality. The lungs are mildly emphysematous but grossly clear. The heart is normal in size. No displaced fract ures. IMPRESSION: No acute intrathoracic process suspected.
[2021-10-04] MEDS ORDERED: dexAMETHasone 10 MG/ML VIAL ONE ×2 (18:08→20:52)
[2021-10-04] MEDS ORDERED: LEVALBUTEROL 1.25 MG/3 ML NEB ONE (18:09)
[2021-10-04] MEDS ORDERED: Magnesium Sulfate 2gm IVPB 2 G/50 ML BAG IV ONE (18:20)
[2021-10-04 18:43] LABS: Absolute Lymphocytes (CBC) 2.3 K/uL (0.7-4.9); Hematocrit 42.7 % (36.0-45.0); Lymphocytes % 29.7 % (15.3-44.8); MPV 8.5 fL (7.6-11.3); RBC Red Blood Cell Count 4.55 M/uL (3.86-4.86)
[2021-10-04 19:06] LABS: Potassium 4.1 mmol/L (3.5-5.1)
--- NOTE | 2021-10-04 20:44 | ER ---
Nurse's Notes [facility] Name: Daisy Mcfadden Age: 71 yrs Sex: Female : 1950 Arrival Date: 10/04/2021 Time: 17:04 Bed 4 Private MD: Diagnosis: Coronavirus infection, unspecified Presentation: 10/04 17:22 Chief complaint: Patient states: "I was seen at [facility] last Wednesday 1 week ago and I aa5 tested positive for COVID-19 and this I tested negative but I am still having a hard time breathing and coughing". Onset of symptoms was September 2021. 17:22 Acuity: SILVANA 3 aa5 17:23 Coronavirus screen: congestion, cough unrelated to allergies, shortness of breath. aa5 Ebola Screen: No symptoms or risks identified at this time. Initial Sepsis Screen: Does the patient meet any 2 criteria? No. Patient's initial sepsis screen is negative. Does the patient have a suspected source of infection? Yes:. Risk Assessment: Do you want to hurt yourself or someone else? Patient reports no desire to harm self or others. 17:23 Method Of Arrival: Ambulatory aa5 Triage Assessment: 19:31 General: Appears uncomfortable. Respiratory: Reports shortness of breath cough that is kd3 Onset: The symptoms/episode began/occurred the patient has moderate shortness of breath. Historical: - Allergies: 17:23 Erythromycin; aa5 17:23 Ibuprofen; aa5 17:23 Morphine; aa5 - Home Meds: 19:31 amlodipine 10 mg tab 1 tab once daily for Hypertension [Active]; aspirin 81 mg Oral kd3 chew 1 tab once daily [Active]; atorvastatin Oral [Active]; Coreg 3.125 mg Oral tab 1 tab 2 times per day [Active]; Flonase 50 mcg/actuation Nasal spsn 1 spray 2 times per day [Active]; hydroxyzine HCl 10 mg Oral tab as needed [Active]; Linzess 290 mcg Oral cap 1 cap once daily [Active]; losartan 50 mg Oral tab 1 tab once daily [Active]; Naproxen Oral [Active]; Protonix Oral [Active]; ropinirole 1 mg Oral tab 1 tab [Active]; Singulair 10 mg Oral tab 1 tab once daily [Active]; - PMHx: 17:23 Hyperlipidemia; Hypertension; Sjogrens; aa5 - Immunization history:: Adult Immunizations unknown. - Social history:: Smoking status: Patient denies any tobacco usage or history of. Screenin:31 Abuse screen: Denies threats or abuse. Denies injuries from another. Nutritional kd3 screening: No deficits noted. Tuberculosis screening: No symptoms or risk factors identified. Fall Risk IV access (20 points). Assessment: 19:27 General: Appears uncomfortable, Behavior is calm, cooperative. Pain: Complains of pain kd3 in chest aching due to congestion. Neuro: Level of Consciousness is awake, alert, obeys commands, Oriented to person, place, time, situation. Cardiovascular: Rhythm is regular. Respiratory: Airway is patent Trachea midline Respiratory effort is even, unlabored, Respiratory pattern is regular, symmetrical, Breath sounds are clear. 19:30 Reassessment: pt complaining of trembling. likely due to breathing treatment. will kd3 notify provider. Vital Signs: 17:23 BP 151 / 68; Pulse 68; Resp 18 S; Temp 98.5(O); Pulse Ox 100% on R/A; Weight 77.11 kg aa5 (R); Height 5 ft. 3 in. (160.02 cm) (R); 19:32 Pulse 92; Pulse Ox 100% ; kd3 20:39 BP 134 / 68; Pulse 83; Resp 18; Pulse Ox 100% on R/A; kd3 21:17 BP 127 / 57; Pulse 82; Resp 18; Pulse Ox 100% on R/A; kd3 17:23 Body Mass Index 30.11 (77.11 kg, 160.02 cm) aa5 ED Course: 17:04 Patient arrived in ED. mr 17:22 Arm band placed on. aa5 17:23 Triage completed. aa5 17:26 Nba Joshua PA is PHCP. [facility] 17:26 Tracie Guerra MD is Attending Physician. jmm 17:55 Mae Degroot, RN is Primary Nurse. lynn 18:02 XRAY Chest (1 view) In Process Unspecified. EDMS 19:09 Primary Nurse role handed off by Mae Degroot, FREDIS as6 19:09 Marbin Doshi, FREDIS is Primary Nurse. as6 19:31 Patient has correct armband on for positive identification. kd3 19:31 No provider procedures requiring assistance completed. kd3 21:17 IV discontinued, intact, bleeding controlled, No redness/swelling at site. Pressure kd3 dressing applied. Administered Medications: 18:33 Drug: Xopenex (levalbuterol) (3) 1.25 mg Route: Inhalation; lynn 20:48 Follow up: Response: No adverse reaction as6 21:18 Follow up: Response: No adverse reaction kd3 18:33 Not Given (Patient Refused): Decadron - Dexamethasone 10 mg IVP once lynn 20:45 Drug: Decadron - Dexamethasone 10 mg Route: IVP; Site: right hand; kd3 20:49 Follow up: Response: No adverse reaction as6 21:18 Follow up: Response: No adverse reaction kd3 20:54 Drug: Zofran (Ondansetron) 4 mg Route: IVP; Site: right hand; kd3 21:18 Follow up: Response: No adverse reaction; Nausea is decreased kd3 Medication: 19:32 VIS not applicable for this client. kd3 Outcome: 20:44 Discharge ordered by . rodrick 21:17 Discharged to home ambulatory, with family. kd3 21:17 Condition: stable 21:17 Discharge instructions given to patient, family, Instructed on discharge instructions, follow up and referral plans. medication usage, Demonstrated understanding of instructions, follow-up care, medications, Prescriptions given X 1. 21:33 Patient left the ED. kd3 Signatures: Dispatcher [employer] EDMS Nba Joshua PA PA jmm RiveraChristy mr JuarezEusbeia RN RN aa5 Marbin Doshi RN RN as6 Yuni Chappell RN RN kd3 Mae Degroot RN RN lynn Corrections: (The following items were deleted from the chart) 17:25 17:23 Pulse 68bpm; Resp 18bpm; Spontaneous; Pulse Ox 100% RA; Temp 98.5F Oral; 77.11 kg aa5 Reported; Height 5 ft. 3 in. Reported; BMI: 30.1; aa5
--- NOTE | 2021-10-04 20:45 | EDPHYS ---
Physician Documentation [facility] Name: Daisy Mcfadden Age: 71 yrs Sex: Female : 1950 Arrival Date: 10/04/2021 Time: 17:04 Bed 4 Private MD: ED Physician Tracie Guerra HPI: 10/04 17:52 This 71 yrs old Female presents to ER via Ambulatory with complaints of Chest jmm Congestion, Shortness Of Breath. 17:52 This is a 71-year-old female with a history of hyperlipidemia, hypertension, Sjogren's jmm the presents emerged department with complaints of progressive worsening shortness of breath, cough and wheezing symptoms initially began approximately 9 days ago when the patient was diagnosed with COVID. Patient was given injection of monoclonal antibodies. Patient did not take Paxlovidshe was prescribed. Historical: - Allergies: 17:23 Erythromycin; aa5 17:23 Ibuprofen; aa5 17:23 Morphine; aa5 - Home Meds: 19:31 amlodipine 10 mg tab 1 tab once daily for Hypertension [Active]; aspirin 81 mg Oral kd3 chew 1 tab once daily [Active]; atorvastatin Oral [Active]; Coreg 3.125 mg Oral tab 1 tab 2 times per day [Active]; Flonase 50 mcg/actuation Nasal spsn 1 spray 2 times per day [Active]; hydroxyzine HCl 10 mg Oral tab as needed [Active]; Linzess 290 mcg Oral cap 1 cap once daily [Active]; losartan 50 mg Oral tab 1 tab once daily [Active]; Naproxen Oral [Active]; Protonix Oral [Active]; ropinirole 1 mg Oral tab 1 tab [Active]; Singulair 10 mg Oral tab 1 tab once daily [Active]; - PMHx: 17:23 Hyperlipidemia; Hypertension; Sjogrens; aa5 - Immunization history:: Adult Immunizations unknown. - Social history:: Smoking status: Patient denies any tobacco usage or history of. ROS: 17:52 Constitutional: Positive for body aches, chills. jmm 17:52 Respiratory: Positive for cough, wheezing. 17:52 All other systems are negative. Exam: 17:52 Constitutional: This is a well developed, well nourished patient who is awake, alert, jmm and in no acute distress. Head/Face: atraumatic. Eyes: EOMI, no conjunctival erythema appreciated ENT: Moist Mucus Membranes Neck: Trachea midline, Supple Chest/axilla: Normal chest wall appearance and motion. Cardiovascular: Regular rate and rhythm. No edema appreciated 17:52 Back: Normal ROM Skin: General appearance color normal MS/ Extremity: Moves all extremities, no obvious deformities appreciated, no edema noted to the lower extremities Neuro: Awake and alert Psych: Behavior is normal, Mood is normal, Patient is cooperative and pleasant 17:52 Respiratory: the patient does not display signs of respiratory distress, Respirations: normal, Breath sounds: wheezing: that is moderate, is heard diffusely. Vital Signs: 17:23 BP 151 / 68; Pulse 68; Resp 18 S; Temp 98.5(O); Pulse Ox 100% on R/A; Weight 77.11 kg aa5 (R); Height 5 ft. 3 in. (160.02 cm) (R); 19:32 Pulse 92; Pulse Ox 100% ; kd3 20:39 BP 134 / 68; Pulse 83; Resp 18; Pulse Ox 100% on R/A; kd3 21:17 BP 127 / 57; Pulse 82; Resp 18; Pulse Ox 100% on R/A; kd3 17:23 Body Mass Index 30.11 (77.11 kg, 160.02 cm) aa5 MDM: 17:42 Patient medically screened. [facility] 20:43 Data reviewed: vital signs, nurses notes. Counseling: I had a detailed discussion with rodrick the patient and/or guardian regarding: the historical points, exam findings, and any diagnostic results supporting the discharge/admit diagnosis, lab results, radiology results, the need for outpatient follow up, to return to the emergency department if symptoms worsen or persist or if there are any questions or concerns that arise at home. ED course: No wheezing on reevaluation. Patient states feeling much better. Patient vies follow-up PCP and otherwise given strict return precautions. Patient understood and agrees to plan of care.. 10/04 17:43 Order name: Basic Metabolic Panel; Complete Time: 19:[address] [facility] 10/04 17:43 Order name: CBC with Diff; Complete Time: 18:[address] [facility] 10/04 17:43 Order name: Troponin HS; Complete Time: 19:[address] [facility] 10/04 17:43 Order name: XRAY Chest (1 view); Complete Time: 18:[address] [facility] 10/04 17:45 Order name: SARS-COV-2 RT PCR (Document "Date of Onset" if Symptomatic); Complete Time: [facility] 20:10/04 17:43 Order name: EKG; Complete Time: 17:[address] [facility] 10/04 17:43 Order name: IV Saline Lock; Complete Time: 18:[address] [facility] 10/04 17:43 Order name: Labs collected and sent; Complete Time: 18:[address] [facility] 10/04 17:43 Order name: O2 Per Protocol; Complete Time: 18:[address] [facility] 10/04 17:43 Order name: O2 Sat Monitoring; Complete Time: 18:[address] [facility] Administered Medications: 18:33 Drug: Xopenex (levalbuterol) (3) 1.25 mg Route: Inhalation; lynn 20:48 Follow up: Response: No adverse reaction as6 21:18 Follow up: Response: No adverse reaction kd3 18:33 Not Given (Patient Refused): Decadron - Dexamethasone 10 mg IVP once lynn 20:45 Drug: Decadron - Dexamethasone 10 mg Route: IVP; Site: right hand; kd3 20:49 Follow up: Response: No adverse reaction as6 21:18 Follow up: Response: No adverse reaction kd3 20:54 Drug: Zofran (Ondansetron) 4 mg Route: IVP; Site: right hand; kd3 21:18 Follow up: Response: No adverse reaction; Nausea is decreased kd3 Disposition Summary: 10/04/21 20:44 Discharge Ordered Location: Home [facility] Condition: Stable [facility] Diagnosis - Coronavirus infection, unspecified [facility] Followup: [facility] - With: Private Physician - When: 2 - 3 days - Reason: Recheck today's complaints, Continuance of care, Re-evaluation by your physician Discharge Instructions: - Discharge Summary Sheet [facility] - COVID-[address] [facility] Forms: - Medication Reconciliation Form [facility] - Thank You Letter [facility] - Antibiotic Education [facility] - Prescription Opioid Use [facility] Prescriptions: - Advair Diskus 500-50 mcg/Dose Inhalation Disk with Device - inhale 1 puff by INHALATION route every 12 hours; 1 packet; Refills: 0, Product [facility] Selection Permitted Signatures: Dispatcher [employer] EDNba Crane PA PA jmm Calderon, Eusebia, RN RN aa5 Yuni Chappell, RN RN kd3 Mae Degroot RN RN lynn Marbin Doshi RN as6
[2021-10-04] MEDS ORDERED: ONDANSETRON 4 MG/2 ML VIAL ONE (20:58)
[2021-10-04 21:55] VITALS: TEMP 98.5; O2SAT 100
[2021-10-04 21:59] VITALS: BP 127/57
== END 2021-10-04 21:33 | disposition home or self-care (01) ==
LOC: ER 17:02
DX: U07.1 COVID-19 (principal); Z88.6 Allergy status to analgesic agent; Z88.3 Allergy status to other anti-infective agents; E78.5 Hyperlipidemia, unspecified; I10 Essential (primary) hypertension; M35.00 Sjogren syndrome, unspecified
CPT/HCPCS: 85025; 80048; 36415; 84484; 71045; 96375; 96374; 99284; U0003; J1100 ×2; J3475; J2405

== ENCOUNTER 2021-10-26 14:00 | Emergency (ER) | payer OTHER ==
[2021-10-26 15:02] LABS: Urine Blood Negative (Negative); Urine Glucose Negative (Negative); Urine Protein Negative (Negative); Urine pH 6.5 (5.0-7.0)
[2021-10-26 15:25] LABS: Urine Bacteria <20 /HPF (<20); Urine RBC NONE SEEN /HPF (NONE SEEN)
--- NOTE | 2021-10-26 15:33 | RAD REPORT ---
EXAM DESCRIPTION: RAD - Chest Single View - 10/26/2021 3:07 pm CLINICAL HISTORY: subjective sob Chest pain. COMPARISON: Chest Single View dated 10/04/2021; Chest Pa And Lat (2 Views) dated 12/20/2020; Chest Sing le View dated 07/13/2019; Abdomen 1 View (KUB) dated 08/10/2018 FINDINGS: Portable technique limits examination quality. The lungs are grossly clear. The heart is normal in size. No displaced fractures. IMPRESSION: No acute intrathoracic process suspected.
[2021-10-26 15:34] LABS: Absolute Lymphocytes (CBC) 2.1 K/uL (0.7-4.9); Hematocrit 40.4 % (36.0-45.0); Lymphocytes % 25.9 % (15.3-44.8); MCV 95.3 fL (80-100); MPV 8.9 fL (7.6-11.3); RBC Red Blood Cell Count 4.23 M/uL (3.86-4.86)
[2021-10-26] MEDS ORDERED: ONDANSETRON 4 MG/2 ML VIAL ONE (15:38)
[2021-10-26] MEDS ORDERED: NA CHLORIDE 0.9% 500 ML ONE (15:38)
[2021-10-26 15:44] LABS: Albumin 3.8 g/dL (3.4-5.0); Bilirubin Total 0.9 mg/dL (0.2-1.0); Potassium 3.4 mmol/L (3.5-5.1); Protein, Total 7.1 g/dL (6.4-8.2); Troponin High Sensitivity 4.7 pg/mL (<58.9)
--- NOTE | 2021-10-26 17:02 | RAD REPORT ---
EXAM DESCRIPTION: CT - Head Brain Wo Cont - 10/26/2021 4:54 pm CLINICAL HISTORY: dizzy, near syncope Headache, drowsiness COMPARISON: Sinus Wo Cont dated 09/03/2021; HEAD BRAIN W O CONTRAST dated 07/20/2013 TECHNIQUE: All CT scans are performed using dose optimization technique as appropriate and may inclu de automated exposure control or mA/KV adjustment according to patient size. FINDINGS: No intracranial hemorrhage, hydrocephalus or extra-axial fluid collection.Mild generalized brain atrophy is present with moderate periventricular and deep white matter chronic microvascular i schemic changes.No areas of brain edema or evidence of midline shift. The paranasal sinuses and mastoids are clear. The calvarium is intact. IMPRESSION: No acute intracranial abnormality.
--- NOTE | 2021-10-26 17:16 | RAD REPORT ---
EXAM DESCRIPTION: CT - Abdomen Pelvis Wo Contrast - 10/26/2021 5:03 pm CLINICAL HISTORY: Abdominal pain. nausea, hx of bowel obstruction COMPARISON: Sinus Wo Cont dated 09/03/2021; Abdomen Pelvis W Contrast dated 01/08/2017 TECHNIQUE: CT imaging of the abdomen and pelvis was performed without contrast. Solid organ, bowel a nd vascular assessment is limited due to lack of IV and oral contrast. All CT scans are performed using dose optimization technique as appropriate and may include automated exposure control or mA/KV adjustment according to patient size. FINDINGS: The lower lung diaz are clear. The liver, spleen, pancreas, adrenal glands and kidneys are within normal limits for a limited non-co ntrast examination. No bowel obstruction, free air, free fluid or abscess. Moderate stool is present throughout the colon . Appendectomy. The osseous structures are within normal limits. IMPRESSION: No acute intra-abdominal or pelvic findings. Moderate stool retention. A limited non-contrast examination was performed as detailed.
[2021-10-26] MEDS ORDERED: ACETAMINOPHEN 500 MG TAB ONE (17:58)
--- NOTE | 2021-10-26 18:03 | EDPHYS ---
Physician Documentation [facility] Name: Daisy Mcfadden Age: 71 yrs Sex: Female : 1950 Arrival Date: 10/26/2021 Time: 14:01 Bed 20 Private MD: Dionne Goodwin ED Physician Yoni Denise HPI: 10/26 15:19 This 71 yrs old Female presents to ER via Ambulatory with complaints of Near Syncope, rn lightheaded. 15:19 The patient has experienced near-syncope. Onset: The symptoms/episode began/occurred rn today. Duration: This was a single episode. Context: occurred at home, occurred while the patient was at rest, standing. Associated injury: The patient did not suffer any apparent associated injury. Current symptoms: nausea. The patient has not experienced similar symptoms in the past. The patient has been recently seen by a physician:. Pt reports generalized weakness, malaise, fatigue. Earlier felt near syncope, no fall or LOC. Reports diagnosed with COVID last month and doesn't feel like weakness ever completely improved. Has not been eating or drinking normal for last month due to GI symptoms, her PCP thinks may be gastroparesis, started her on reglan recently. No vomiting or diarrhea. NO blood in stool. NO cough or sob. . Historical: - Allergies: 14:25 Erythromycin; iw 14:25 Ibuprofen; iw 14:25 Morphine; iw - Home Meds: 14:25 amlodipine 10 mg tab 1 tab once daily for Hypertension [Active]; aspirin 81 mg Oral iw chew 1 tab once daily [Active]; atorvastatin Oral [Active]; Coreg 3.125 mg Oral tab 1 tab 2 times per day [Active]; Flonase 50 mcg/actuation Nasal spsn 1 spray 2 times per day [Active]; hydroxyzine HCl 10 mg Oral tab as needed [Active]; Linzess 290 mcg Oral cap 1 cap once daily [Active]; losartan 50 mg Oral tab 1 tab once daily [Active]; Naproxen Oral [Active]; Protonix Oral [Active]; ropinirole 1 mg Oral tab 1 tab [Active]; Singulair 10 mg Oral tab 1 tab once daily [Active]; - PMHx: 14:25 Hyperlipidemia; Hypertension; Sjogrens; iw - Immunization history:: Adult Immunizations. - Family history:: not pertinent. - Social history:: Smoking status: . - Hospitalizations: : No recent hospitalization is reported. ROS: 15:19 Constitutional: Negative for fever, chills, and weight loss, Eyes: Negative for injury, rn pain, redness, and discharge, ENT: Negative for injury, pain, and discharge, Neck: Negative for injury, pain, and swelling, Cardiovascular: Negative for chest pain, palpitations, and edema, Respiratory: Negative for shortness of breath, cough, wheezing, and pleuritic chest pain, Abdomen/GI: Negative for abdominal pain, vomiting, diarrhea, and constipation, Back: Negative for injury and pain, MS/Extremity: Negative for injury and deformity, Skin: Negative for injury, rash, and discoloration, Neuro: Negative for headache, numbness, tingling, and seizure. Exam: 15:19 Constitutional: This is a well developed, well nourished patient who is awake, alert, rn and in no acute distress. Ambulatory to triage without assistance. Head/Face: Normocephalic, atraumatic. Eyes: Periorbital areas with no swelling, redness, or edema. ENT: dry MM Cardiovascular: Regular rate and rhythm. No pulse deficits. Respiratory: No increased work of breathing, no retractions or nasal flaring. Abdomen/GI: Soft, non-tender, no masses Skin: Warm, dry MS/ Extremity: Pulses equal, no cyanosis. Neurovascular intact. Full, normal range of motion. Equal circumference. Neuro: Awake and alert, GCS 15, oriented to person, place, time, and situation. Cranial nerves II-XII grossly intact. Motor strength 5/5 in all extremities. Sensory grossly intact. Cerebellar exam normal. Normal gait. Vital Signs: 14:21 BP 153 / 67; Pulse 59; Resp 16; Temp 97.9; Pulse Ox 100% on R/A; iw 17:55 BP 140 / 55; Pulse 56; Resp 17; Pulse Ox 100% on R/A; tw2 MDM: 14:27 Patient medically screened. rn 18:01 Differential Diagnosis: cardiac arrhythmia, anemia, viral syndrome, dehydration, UTI, rn COVID sequela. Data reviewed: vital signs, nurses notes, lab test result(s), EKG, radiologic studies, CT scan, plain films, and as a result, I will discharge patient. Counseling: I had a detailed discussion with the patient and/or guardian regarding: the historical points, exam findings, and any diagnostic results supporting the discharge/admit diagnosis, lab results, radiology results, the need for outpatient follow up, to return to the emergency department if symptoms worsen or persist or if there are any questions or concerns that arise at home. Response to treatment: the patient's symptoms have mildly improved after treatment, and as a result, I will discharge patient. Special discussion: I discussed with the patient/guardian in detail that at this point there is no indication for admission to the hospital. It is understood, however, that if the symptoms persist or worsen the patient needs to return immediately for re-evaluation. 10/26 14:39 Order name: CBC with Diff; Complete Time: 15:48 10/26 14:39 Order name: CMP; Complete Time: 15:48 10/26 14:39 Order name: Troponin High Sensitivity; Complete Time: 15:48 10/26 14:39 Order name: Lipase; Complete Time: 15:48 10/26 14:39 Order name: Urine Microscopic Only; Complete Time: 15:48 10/26 15:02 Order name: Urine Dipstick-Ancillary; Complete Time: 15:48 EDAZ 10/26 14:39 Order name: XRAY Chest (1 view); Complete Time: 15:48 10/26 14:42 Order name: CT Head Brain wo Cont; Complete Time: 18:00 10/26 14:42 Order name: CT Abd/Pelvis - IV Contrast Only 10/26 16:47 Order name: Abdomen ; Complete Time: 18:00 [facility] 10/26 14:39 Order name: IV Start; Complete Time: 15:19 10/26 14:39 Order name: EKG; Complete Time: 14:39 10/26 14:39 Order name: EKG - Nurse/Tech; Complete Time: 18:02 10/26 14:39 Order name: Urine Dipstick-Ancillary (obtain specimen); Complete Time: 15:02 rn Administered Medications: 15:30 Drug: Zofran (Ondansetron) 4 mg Route: IVP; Site: left antecubital; iw 16:00 Follow up: Response: No adverse reaction; Nausea is decreased tw2 17:54 Drug: Tylenol 500 mg Route: PO; tw2 18:10 Follow up: Response: No adverse reaction tw2 17:55 Not Given (if infiltratedd): NS 0.9% 500 ml IV at bolus once tw2 Disposition Summary: 10/26/21 18:02 Discharge Ordered Location: Home rn Problem: new rn Symptoms: have improved rn Condition: Stable rn Diagnosis - Other malaise and fatigue rn - Dizziness and giddiness rn - Dehydration rn Followup: rn - With: Private Physician - When: As needed - Reason: Recheck today's complaints, Re-evaluation by your physician Discharge Instructions: - Discharge Summary Sheet rn - Dehydration, Adult rn - Dizziness rn Forms: - Medication Reconciliation Form rn - Thank You Letter rn - Antibiotic metal 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 [facility] ELSIAZ
--- NOTE | 2021-10-26 18:03 | ER ---
Nurse's Notes [facility] Name: Daisy Mcfadden Age: 71 yrs Sex: Female : 1950 Arrival Date: 10/26/2021 Time: 14:01 Bed 20 Private MD: Dionne Goodwin Diagnosis: Other malaise and fatigue;Dizziness and giddiness;Dehydration Presentation: 10/26 14:21 Chief complaint: Patient states: today she felt faint, flushed, got dizzy , has been iw dealing with nausea and cramping after she eats for about a month, her doctor thinks it might be gastroparesis, has changed her eating habits and was started on Reglan on , has been on zofran for past month. Coronavirus screen: Client presents with at least one sign or symptom that may indicate coronavirus-19. At this time, the client does not indicate any symptoms associated with coronavirus-19. Ebola Screen: Patient negative for fever greater than or equal to 101.5 degrees Fahrenheit, and additional compatible Ebola Virus Disease symptoms Patient denies exposure to infectious person. Patient denies travel to an Ebola-affected area in the 21 days before illness onset. No symptoms or risks identified at this time. Initial Sepsis Screen: Does the patient meet any 2 criteria? No. Patient's initial sepsis screen is negative. Does the patient have a suspected source of infection? No. Patient's initial sepsis screen is negative. Risk Assessment: Do you want to hurt yourself or someone else? Patient reports no desire to harm self or others. Onset of symptoms was October 26, 2021. 14:21 Method Of Arrival: Ambulatory iw 14:21 Acuity: SILVANA 3 iw 14:26 Chief complaint: Patient states: is currently on clindamycin for sinus infection, is iw due to have sinus surgery. Historical: - Allergies: 14:25 Erythromycin; iw 14:25 Ibuprofen; iw 14:25 Morphine; iw - Home Meds: 14:25 amlodipine 10 mg tab 1 tab once daily for Hypertension [Active]; aspirin 81 mg Oral iw chew 1 tab once daily [Active]; atorvastatin Oral [Active]; Coreg 3.125 mg Oral tab 1 tab 2 times per day [Active]; Flonase 50 mcg/actuation Nasal spsn 1 spray 2 times per day [Active]; hydroxyzine HCl 10 mg Oral tab as needed [Active]; Linzess 290 mcg Oral cap 1 cap once daily [Active]; losartan 50 mg Oral tab 1 tab once daily [Active]; Naproxen Oral [Active]; Protonix Oral [Active]; ropinirole 1 mg Oral tab 1 tab [Active]; Singulair 10 mg Oral tab 1 tab once daily [Active]; - PMHx: 14:25 Hyperlipidemia; Hypertension; Sjogrens; iw - Immunization history:: Adult Immunizations. - Family history:: not pertinent. - Social history:: Smoking status: . - Hospitalizations: : No recent hospitalization is reported. Screenin:19 Abuse screen: Denies threats or abuse. Denies injuries from another. Nutritional iw screening: No deficits noted. Tuberculosis screening: No symptoms or risk factors identified. Fall Risk IV access (20 points). Assessment: 15:19 Reassessment: Patient appears in no apparent distress at this time. Patient and/or iw family updated on plan of care and expected duration. Pain level reassessed. Patient is alert, oriented x 3, equal unlabored respirations, skin warm/dry/pink. 16:09 Reassessment: notified FREDIS Carrilloconveyor line battery charger nurse of need for IV, FREDIS Ramirez at bedside at tw2 this time attempting IV. 16:42 Reassessment: Dr. Denise notified of unsuccessful attempts x3 US guided iv's at this tw2 time. Dr. Denise to change study to non contrast study. Jose Stein at [place] notified of change. 17:47 Reassessment: Patient appears in no apparent distress at this time. Patient and/or tw2 family updated on plan of care and expected duration. Pain level reassessed. pt c/o "headache" requesting "tylenol" at this time. provider notified. 18:05 Reassessment: provider at bedside at this time going over results. tw2 18:10 Reassessment: Patient appears in no apparent distress at this time. Patient and/or tw2 family updated on plan of care and expected duration. Pain level reassessed. Patient is alert, oriented x 3, equal unlabored respirations, skin warm/dry/pink. Vital Signs: 14:21 BP 153 / 67; Pulse 59; Resp 16; Temp 97.9; Pulse Ox 100% on R/A; iw 17:55 BP 140 / 55; Pulse 56; Resp 17; Pulse Ox 100% on R/A; tw2 ED Course: 14:01 Patient arrived in ED. am2 14:02 Dionne Goodwin FNP-C is Private Physician. am2 14:24 Triage completed. iw 14:27 Yoni Denise MD is Attending Physician. rn 14:27 Arm band placed on. iw 15:02 Urine Microscopic Only Sent. mb7 15:09 XRAY Chest (1 view) In Process Unspecified. EDMS 15:19 Initial lab(s) drawn, by al, sent to lab. Inserted saline lock: 22 gauge in left iw antecubital area, using aseptic technique. Blood collected. 15:35 Aleksandra Bingham RN is Primary Nurse. tw2 15:35 Bed in low position. Call light in reach. tw2 16:00 IV discontinued, intact, bleeding controlled, Pressure dressing applied, infiltration tw2 and swelling noted to LEFT ac. IV fluids discontinued at this time. iv attempts in process. 16:08 Missed attempt(s): 22 gauge in right antecubital area. Bleeding controlled, band aid tw2 applied, catheter tip intact. 16:35 Missed attempt(s): 20 gauge in right upper arm. by FREDIS Ramirez using US guided technique tw2 x2., Dr. Denise notified of unsuccessful attempts.. Bleeding controlled, band aid applied, catheter tip intact. 16:55 CT Head Brain wo Cont In Process Unspecified. EDMS 17:05 Abdomen In Process Unspecified. EDMS 18:05 No provider procedures requiring assistance completed. tw2 Administered Medications: 15:30 Drug: Zofran (Ondansetron) 4 mg Route: IVP; Site: left antecubital; iw 16:00 Follow up: Response: No adverse reaction; Nausea is decreased tw2 17:54 Drug: Tylenol 500 mg Route: PO; tw2 18:10 Follow up: Response: No adverse reaction tw2 17:55 Not Given (if infiltratedd): NS 0.9% 500 ml IV at bolus once tw2 Medication: 18:05 VIS not applicable for this client. tw2 Outcome: 18:02 Discharge ordered by . rn 18:10 Discharged to home ambulatory. tw2 18:10 Condition: stable 18:10 Discharge instructions given to patient, Instructed on discharge instructions, follow up and referral plans. Demonstrated understanding of instructions, follow-up care. 18:16 Patient left the ED. tw2 Signatures: Dispatcher [employer] Lorena Mata RN RN iw Nieto, Roman, MD MD rn Wise, Tara, RN RN 2 Giovana Kelly am Christy Arnett 7
[2021-10-26 18:37] VITALS: TEMP 97.9; O2SAT 100
[2021-10-26 18:42] VITALS: BP 140/55
--- NOTE | 2021-10-27 13:48 | EKG ---
Test Date: 2021-10-26 Test Time: 16:00:49 Churn Operator Margarine: JILLIAN MEASUREMENT RESULTS: Intervals: Rate: 61 [place]: 150 QRSD: 84 QT: 426 QTc: 428 [place]: P: 51 [place]: 150 QRS: 26 T: 32 INTERPRETIVE STATEMENTS: Normal sinus rhythm Normal ECG Compared to ECG 12/20/2020 17:55:04 Sinus bradycardia no longer present ST (T wave) deviation no longer present Electronically Signed On 10-27-21 13:45:47 CDT by Ashwin Araujo
== END 2021-10-26 18:16 | disposition home or self-care (01) ==
LOC: ER 14:00
DX: E86.0 Dehydration (principal); R53.81 Other malaise; R53.83 Other fatigue; R11.0 Nausea; Z86.16 Personal history of COVID-19; I10 Essential (primary) hypertension; E78.5 Hyperlipidemia, unspecified; M35.00 Sjogren syndrome, unspecified; Z79.82 Long term (current) use of aspirin; Z88.3 Allergy status to other anti-infective agents; Z88.5 Allergy status to narcotic agent; Z88.6 Allergy status to analgesic agent
CPT/HCPCS: 93005; 85025; 36415; 84484; 83690; 80053; 70450; 74176; 71045; J7040; J2405; 81003; 81015; 96374; 99284

== ENCOUNTER 2022-08-12 10:05 | Observation (INO) | payer OTHER ==
--- OUTSIDE RECORDS SUMMARY | 2022-08-12 10:14 | XMS REPORT | Continuity of Care Document ---
:1950 Author Organization [facility] t Address [address] [place] [address] [place] [id number] Care Team Providers Name Role Phone Dionne Goodwin Primary Care Physician Dionne Goodwin Attending Clinician Unavailable Jose D OSUNA, Levi Vaughn Attending Clinician [phone] Stefanie De Jesus Attending Clinician Unavailable Josiane Hidalgo MA Attending Clinician Unavailable Dane OSUNA, Nehemias Dent Attending Clinician Fam OSUNA, Herb Springer Attending Clinician Marcos OSUNA, Lauren Bauman Attending Clinician Juliana Graf MD Attending Clinician Kathy Benedict MD Attending Clinician Therapy, [facility] Attending Clinician Unavailable Wan Riojas MD Attending Clinician WAN RIOJAS Attending Clinician Unavailable Doctor Unassigned, [place] Attending Clinician Unavailable EDDIE HI Attending Clinician Unavailable Maria G Trimble MD Attending Clinician [phone] Sari MCNEAL, Kailee Attending Clinician Unavailable Anjel Smith DO Attending Clinician Benja OSUNA, Leonel Villanueva Attending Clinician Kayla OSUNA, Poly Hodges Attending Clinician KATHY BENEDICT Admitting Clinician Unavailable MD LAUREN RODRÍGUEZ Admitting Clinician Unavailable Payers Payer Name Policy Type Policy Number Effective Date Expiration Date S narciso MEDICARE MB [id number] 2013 [facility] NOVITAS 00:00:00 [facility] AETNA C1 [id number] [facility] MEDICARE MB [id number] 2013 [facility] NOVITAS 00:00:00 [facility] AETNA C1 [id number] [facility] MEDICARE MB [id number] 2013 [facility] NOVITAS 00:00:00 [facility] AETNA C1 [id number] [facility] MEDICARE MB [id number] 2013 [facility] NOVITAS 00:00:00 [facility] AETNA C1 [id number] [facility] AETNA C1 [id number] [facility] MEDICARE MB [id number] 2013 [facility] NOVITAS 00:00:00 [facility] AETNA C1 [id number] [facility] MEDICARE MB [id number] 2013 [facility] NOVITAS 00:00:00 [facility] MEDICARE MB [id number] 2013 [facility] NOVITAS 00:00:00 [facility] AETNA C1 [id number] [facility] AETNA C1 [id number] [facility] MEDICARE MB [id number] 2013 [facility] NOVITAS 00:00:00 - [facility] Problems Condition Condition Condition Status Onset Resolution Last Treating Co mments Source Name Details Category Date Date Treatment Clinician Date Colitis Colitis Disease Active Methodi 12-08 [facility] 00:00: Hospita 00 l Epigastric Epigastric Disease Active M ethodi pain pain 12-07 00:00: Hospita 00 l Herpes Herpes Disease Active [facility] zoster zoster 12-27 with with 00:00: Hospita complicati complicati 00 l on on Other Other Disease Active Methodi constipati constipati 12-25 on on 00:00: Hospita 00 l Intractabl Intractabl Disease Active M ethodi e nausea e nausea 12-24 and and 00:00: Hospita vomiting vomiting 00 l [id number] Bronchitis Problem Com mon [facility] [id number] Slow Problem Common transit [facility] constipati - [facility] on [facility] [id number] Sjogren Problem Common syndrome [facility] with - [facility] dental [facility] [id number] Nondiabeti Problem Com mon c [facility] gastropare - [facility] sis [facility] [id number] Post Problem 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 Terminal Terminal Problem Commo n insomnia insomnia Spirit [facility] Anxiety Anxiety Problem [facility] Osteopenia Osteopenia Problem C ommon [facility] Seasonal Allergic Problem Commo n allergic rhinitis, Spiri t rhinitis seasonal - [facility] Hypertensi Hypertensi Problem C ommon on on Spirit [facility] Gastro-eso Gastro-eso Problem C ommon phageal phageal Spirit reflux reflux - CHI disease disease [facility] Rest[facility] Problem Commo n legs leg Spirit syndrome syndrome - [facility] Degenerati Macular Problem Comm on ve degenerati Spirit disorder on - [facility]I of macula [facility] [id number] Abnormal Problem Comm on laboratory [facility] test - [facility] result [facility] [id number] Nausea Problem Common alone Spirit [facility] Chronic Chronic Problem Common constipati constipati Sp tung on on - CHI [facility] [id number] Other Problem Common chronic [facility] pain - [facility] Mixed Hyperlipid Problem Commo n hyperlipid emia, Spirit emia mixed - [facility] [id number] Sinusitis Problem Comm on chronic, [facility] frontal [facility] [id number] Osteoarthr Problem Co mmon itis of [facility] cervical [facility] itis complicati on status [id number] Seasonal Problem Commo n allergic [facility] rhinitis - [facility]I due to [facility] [id number] Disseminat Problem Com mon ed herpes [facility] zoster [facility] Allergies, Adverse Reactions, Alerts Allergy Allergy Status Severity Reaction(s) Onset Inactive Treating Comm ents Source Name Type Date Date Clinician Metoclop Propensi Active Palpitations Methodi ramide ty to 8 st Hcl adverse 00:00: Hospita reaction 00 l s to drug Erythrom Propensi Active Rash 2018-04 Method i [...] 00:00: [place] reaction 00 [facility] erythrom erythrom Active rash Common ycin ycin [facility] 6335 Drug Active diarrha Common allergy [facility] morphine morphine Active tachycardia C ommon [facility] 8102 Drug Active leg swelling Comm on allergy [facility] Family History Family Member Diagnosis Comments Start Date Stop Date Source Natural father Dementia [facility] Natural mother Vasculitis [facility] Natural sister Heart disease [facility] Social History Social Habit Start Date Stop Date Quantity Comments Source [facility] Sexual orientation [facility] History SDOH [facility] al History SDOH [facility] History of Tobacco Common [facility] - Use [facility] Alcohol intake 2022-08-04 2022-08-04 Lifetime [facility] 00:00:00 00:00:00 non-drinker Hospital (finding) History of Social 2022-08-04 2022-08-[address] function 00:00:00 00:00:00 Hospital Tobacco use and 2021-12-07 2021-12-07 Smokeless [facility] exposure 00:00:00 00:00:00 tobacco non-user Hospital History [facility] 2019-12-28 2019-12-28 1 [facility] Alcohol Frequency 00:00:00 00:00:00 Hospita l Sex Assigned At [birth year] [facility] 00[facility]00 Hospital Smoking Status Start Date Stop Date Source Unknown if ever smoked [facility] Never Smoker [facility] Ex-smoker 2021-12-07 00:00:00 2021-12[facility] Ordered Filled Start Stop Current Ordering Indication Dosage Frequency Signature Comments Components Source Medication Medication Date Date Medication? Clinician (SIG) Name Name coenzyme Yes 1 capsule Meth carlo Q10 200 mg 4-[address] capsule 09:50: meal Hospita 48 l pantoprazol Yes TAKE 1 Meth carlo e 4-[address] (PROTONIX) 09:50: MOUTH Hospit a 40 MG EC 48 TWICE A l tablet DAY ondansetron Yes Q8H every 8 Met hodi (ZOFRAN) 4 4-18 (eight) st MG tablet 09:50: hours as Hosp isabelle 48 needed. l naproxen 0 Yes 500mg 1 tablet Meth carlo (NAPROSYN) 4-18 ([address] 500 MG 09:50: total). Hospita tablet 48 l montelukast Yes TAKE 1 Meth carlo (SINGULAIR) 4-[address] 10 mg 09:50: MOUTH Hospita tablet 48 EVERY DAY l metoprolol 0 Yes 1 tablet Met hodi succinate 4-18 st XL 09:50: Hospita (TOPROL-XL) 48 l 100 mg 24 hr tablet losartan Yes take 1 Methodi (COZAAR) 50 4-[address] MG tablet 09:50: mouth Hospita 48 every day l fluticasone Yes USE 2 Metho di propionate 4-[address] (FLONASE) 09:50: EVERY Hospita 50 48 NOSTRIL l mcg/actuati DAILY on nasal spray atorvastati Yes 10mg QD 1 tablet Me thodi n (LIPITOR) 4-18 ([address] 10 mg 09:50: total) Hospita tablet 48 daily. l amLODIPine Yes 1 tablet Met hodi (NORVASC) 4-18 st 10 mg 09:50: Hospita tablet 48 l ALPRAZolam Yes (Schedule Me thodi (XANAX) 1 4-18 IV Drug) st MG tablet 09:50: TAKE 1 Hospit a 48 TABLET (1 l MG) BY ORAL ROUTE DAILY AT BEDTIME NEEDED calcium 0 Yes Q2D Chew 2 Methodi carbonate 4-[address] (TUMS) 200 09:50: (1,000 mg Ho spita mg calcium 48 of Calcium l (500 mg) Carbonate chewable total) tablet every other day. Alternate days of 1 pill then 2 pills daily therapeutic Yes 1{tbl} QD Take 1 Me thodi multivitami 4-[address] n 09:50: mouth Hospita (THERAGRAN) 48 daily. l tablet cholecalcif 0 Yes 1000U QD Take 1 Met hodi shorty, 4-[address] vitamin D3, 09:50: (1,000 Hosp isabelle 25 mcg 48 Units l (1,000 total) by unit) mouth capsule daily. aspirin 0 Yes 81mg QD Take 1 Methodi (ECOTRIN) 4-18 tablet (81 st 81 MG 09:50: mg total) Hospita enteric 48 by mouth l coated daily. tablet dextrometho 0 Yes 1{tbl} QD Take 1 Me thodi rphan-guaif 4-[address] enesin 09:50: mouth Hospita (MUCINEX DM 48 daily. l REGULAR) 30-600 mg tablet extended release 12 hr cevimeline 0 Yes 30mg Q.[id number] Take 1 Methodi (EVOXAC) 30 -[id number] mg capsule 09:50: 3D (30 mg Hospi ta 48 total) by l mouth 3 (three) times a day. vit 2022-0 Yes Q.5D Take by Methodi C/E/Zn/chino -[address] r/lutein/ze 09:50: (two) Hospi ta axan 48 times a l (PRESERVISI day. ON AREDS-2 ORAL) rOPINIRole 0 Yes 1mg Take 1 Metho di (REQUIP) 1 18 tablet (1 st MG tablet 09:50: mg total) Hos sara 48 by mouth l as needed. Lactobacill 2022-0 2022- No 1g QD Take 1 Met hodi us 08-[address] acidoph-L.b 09:42: 00:00 mouth Hosp isabelle ulgar 42 :00 daily. l (LACTINEX) 100 million cell tablet garlic 2022-0 202- No 2000mg QD Take 2,000 Me thodi 1,000 mg 18 04-[address] capsule 09:42: 00:00 mouth Hospita 38 :00 daily. l sulfamethox 2022-0 202- Yes [id number] 1{tbl} Q.5D Take 1 Methodi azole-trime -18 -[address] thoprim 00:00: 04:59 mouth 2 Hospit a (Bactrim 00 :00 (two) l DS) 800-160 times a mg per day for 10 tablet days. riFAXimin 2022-0 2022- No [id number] 550mg Q.51416961 Take 1 Methodi (XIFAXAN) 3-06 03-21 [id number] tablet s t 550 mg 00:00: 04:59 3D (550 mg Hospita tablet 00 :00 total) by l mouth 3 (three) times a day for 14 days. sodium,pota 2022- No [id number] Use as Methodi ssium,mag 12 04-[address] sulfates 00:00: 00:00 Hospita (Suprep 00 :00 l Bowel Prep Kit) 17.5-3.13-1 .6 gram recon soln linaCLOtide Yes QD daily. Meth carlo (Linzess) 12-12 st 290 mcg 15:18: Hospita capsule 44 l sucralfate 2021- No 1g Q.25D Take 1 Met hodi (CARAFATE) 12-12 tablet (1 st 1 gram 00:00: 04:59 g total) Hospit a tablet 00 :00 by mouth 4 l (four) times a day with meals and nightly for 30 days. ondansetron 2021- No 4mg Q8H Take 1 Met hodi (Zofran) 4 12-12 tablet (4 st MG tablet 00:00: 04:59 mg total) Ho spita 00 :00 by mouth l every 8 (eight) hours as needed for nausea or vomiting for up to 30 days. ciprofloxac 2021- No 500mg Q.5D Take 1 Me thodi in (Cipro) 12-[address] 500 MG 00:00: 04:59 (500 mg Hospita tablet 00 :00 total) by l mouth 2 (two) times a day for 5 days. metroNIDAZO 2021- No 500mg Q.[id number] Take 1 Methodi LE (FlagyL) 12-[id number] 500 MG 00:00: 04:59 3D (500 mg Hospita tablet 00 :00 total) by l mouth 3 (three) times a day for 5 days. ALPRAZolam 2021- No .5mg Q.[id number] Take 1 Methodi (Xanax) 0.5 12-[id number] MG tablet 00:00: 04:59 3D (0.5 mg Hosp isabelle 00 :00 total) by l mouth 3 (three) times a day as needed for anxiety for up to 5 days. rOPINIRole 2021- No 1 TABLET 1 Methodi (REQUIP) 1 12-[address] MG tablet 09:48: 00:00 BEFORE Hospi ta 11 :00 BEDTIME l ONCE A DAY ORALLY 30 biotin 10 2021- No 1 tablet Met hodi mg tablet 12-07 st 09:46: 00:00 Hospita 38 :00 l Metoclopram Metoclopram 0 No 1{table TID Metoclopra gennaro HCl 5 gennaro HCl 5 7-07 t_befor mide HCl 5 MG MG 00:00: e_meals MG 00 } Metoclopram Metoclopram 0 No 1{table TID Metoclopra gennaro HCl 5 gennaro HCl 5 7-07 t_befor mide HCl 5 MG MG 00:00: e_meals MG 00 } Metoclopram Metoclopram 2021-0 No 1{table TID Metoclopra gennaro HCl 5 gennaro HCl 5 7-07 t_befor mide HCl 5 MG MG 00:00: e_meals MG 00 } Metoclopram Metoclopram 2021-0 No 1{table TID Metoclopra gennaro HCl 5 gennaro HCl 5 7-07 t_befor mide HCl 5 MG MG 00:00: e_meals MG 00 } Metoclopram Metoclopram 2021-0 No 1{table TID Metoclopra gennaro HCl 5 gennaro HCl 5 7-07 t_befor mide HCl 5 MG MG 00:00: e_meals MG 00 } Amoxicillin Amoxicillin 2021- No 1{table BID Amoxicilli -Pot -Pot 05-07 t} n-Pot Clavulanate Clavulanate 00:00: 00:00 Clavulanat 875-125 MG 875-125 MG 00 :00 e 875-125 MG Amoxicillin Amoxicillin 2021- No 1{table BID Amoxicilli -Pot -Pot 05-07 t} n-Pot Clavulanate Clavulanate 00:00: 00:00 Clavulanat 875-125 MG 875-125 MG 00 :00 e 875-125 MG Ipratropium Ipratropium 0 No 3{ml_as QID Ipratropiu -Albuterol -Albuterol 9-10 _needed m-Albutero 0.5-2.5 (3) 0.5-2.5 (3) 00:00: } l 0.5-2.5 MG/3ML MG/3ML 00 (3) MG/3ML Albuterol Albuterol No 1{puff_ 6xD Albuterol Sulfate HFA Sulfate HFA 8-26 as_need Sulfate 108 (90 108 (90 00:00: ed} HFA 108 Base) Base) 00 (90 Base) MCG/ACT MCG/ACT MCG/ACT Albuterol Albuterol No 1{puff_ 6xD Albuterol Sulfate HFA Sulfate HFA 8-26 as_need Sulfate 108 ( 108 ( 00:00: ed} HFA 108 Base) Base) 00 (90 Base) MCG/ACT MCG/ACT MCG/ACT Albuterol Albuterol No 1{puff_ 6xD Albuterol Sulfate HFA Sulfate HFA 8-26 as_need Sulfate 108 (90 108 (90 00:00: ed} HFA 108 Base) Base) 00 (90 Base) MCG/ACT MCG/ACT MCG/ACT Albuterol Albuterol 0 No 1{puff_ 6xD Albuterol Sulfate HFA Sulfate HFA 8-26 as_need Sulfate 108 (90 108 ( 00:00: ed} HFA 108 Base) Base) 00 (90 Base) MCG/ACT MCG/ACT MCG/ACT Albuterol Albuterol 0 No 1{puff_ 6xD Albuterol Sulfate HFA Sulfate HFA 8-26 as_need Sulfate 108 ( 108 ( 00:00: ed} HFA 108 Base) Base) 00 (90 Base) MCG/ACT MCG/ACT MCG/ACT Albuterol Albuterol 0 No 1{puff_ 6xD Albuterol Sulfate HFA Sulfate HFA 8-26 as_need Sulfate 108 (90 108 ( 00:00: ed} HFA 108 Base) Base) 00 (90 Base) MCG/ACT MCG/ACT MCG/ACT Amoxicillin Amoxicillin 2020- No 1{table BID Amoxicilli -Pot -Pot 12-12 t} n-Pot Clavulanate Clavulanate 00:00: 00:00 Clavulanat 875-125 MG 875-125 MG 00 :00 e 875-125 MG Amoxicillin Amoxicillin 2020- No 1{table BID Amoxicilli -Pot -Pot 12-12 t} n-Pot Clavulanate Clavulanate 00:00: 00:00 Clavulanat 875-125 MG 875-125 MG 00 :00 e 875-125 MG methylPREDN methylPREDN 2020- No methylPRED ISolone 4 ISolone 4 12-12 NISolone 4 MG MG 00:00: 00:00 MG 00 :00 methylPREDN methylPREDN 2020- No methylPRED ISolone 4 ISolone 4 12-12 NISolone 4 MG MG 00:00: 00:00 MG 00 :00 Pregabalin Pregabalin 2020-0 Yes Dionne 1 capsule Common 01-03 [place] [facility] 00:00: - [facility] 00 [facility] biotin 10 2019-0 Yes 1 tablet Meth carlo mg tablet [...] 15 TWICE A l tablet DAY ondansetron 2019-0 Yes TAKE 1 Meth carlo (ZOFRAN) 4 [...] 2020-0 Yes 1{tbl} QD Take 1 Me nahomy ovideo-ernieaif 12-[address] enesin 21:34: mouth Hospita (MUCINEX DM 15 daily. l REGULAR) 30-600 mg tablet extended release 12 hr cevimeline 2019-0 Yes 30mg Q.[id number] Take 30 mg Methodi (EVOXAC) 30 12-26 [id number] by mouth [address] mg capsule 21:34: 3D (three) Hosp isabelle 15 times a l day. polyethylen 2019-0 2020- No 17g QD Take 17 g Methodi e glycol 12-[address] (MIRALAX) 00:00: 04:59 daily for Ho spita 17 gram 00 :00 30 days. l packet HYDROcodone 0 2020- No [id number] 1{tbl} Q6H Take 1 Methodi -acetaminop 12-[address] hen (NORCO) 00:00: 04:59 mouth Hosp isabelle 5-325 mg 00 :00 every 6 l per tablet (six) hours as needed for moderate pain for up to 5 days .acute pain. Max Daily Amount: 4 tablets rOPINIRole rOPINIRole No rOPINIRole HCl 1 MG HCl 1 MG HCl 1 MG amLODIPine amLODIPine No 1{table QD amLODIPine Besylate 10 Besylate 10 t} Besylate MG MG 10 MG ALPRAZolam ALPRAZolam No ALPRAZolam 1 MG 1 MG 1 MG Garlic 100 Garlic 100 No Garlic 100 MG MG MG Linzess 290 Linzess 290 No 1{capsu QD Linzess MCG MCG le} 290 MCG Mucinex 600 Mucinex 600 No 1{table BID Mucinex MG MG t_as_ne 600 MG eded} Losartan Losartan No Losartan Potassium Potassium Potassium 50 MG 50 MG 50 MG Singulair Singulair No Singulair 10 MG 10 MG 10 MG Vitamin D3 Vitamin D3 No 1{table QD Vitamin D3 1000 UNIT 1000 UNIT t} 1000 UNIT Zofran 4 MG Zofran 4 MG No Zofran 4 MG Metoprolol Metoprolol No 1{table QD Metoprolol Succinate Succinate t} Succinate ER 100 MG ER 100 MG ER 100 MG Atorvastati Atorvastati No 1{table QD Atorvastat n Calcium n Calcium t} in Calcium 40 MG 40 MG 40 MG amLODIPine amLODIPine No 1{table QD amLODIPine Besylate 10 Besylate 10 t} Besylate MG MG 10 MG Singulair Singulair No Singulair 10 MG 10 MG 10 MG Aspir-81 Aspir-81 No Aspir-81 Garlic 100 Garlic 100 No Garlic 100 MG MG MG Mucinex 600 Mucinex 600 No 1{table BID Mucinex MG MG t_as_ne 600 MG eded} rOPINIRole rOPINIRole No rOPINIRole HCl 1 MG HCl 1 MG HCl 1 MG Co Q-10 200 Co Q-10 200 No 1{capsu QD Co Q-10 MG MG le_with 200 MG _a_meal } Docusate Docusate No 1{capsu BID Docusate Sodium 100 Sodium 100 le_as_n Sodium 100 MG MG eeded} MG Evoxac 30 Evoxac 30 No 1{capsu TID Evoxac 30 MG MG le} MG Fluticasone Fluticasone No Fluticason Propionate Propionate e 50 MCG/ACT 50 MCG/ACT Propionate 50 MCG/ACT Acidophilus Acidophilus No Acidophilu - - s - Pantoprazol Pantoprazol No Pantoprazo e Sodium 40 e Sodium 40 le Sodium MG MG 40 MG ALPRAZolam ALPRAZolam No ALPRAZolam 1 MG 1 MG 1 MG Vitamin D3 Vitamin D3 No 1{table QD Vitamin D3 1000 UNIT 1000 UNIT t} 1000 UNIT Losartan Losartan No Losartan Potassium Potassium Potassium 50 MG 50 MG 50 MG Linzess 290 Linzess 290 No 1{capsu QD Linzess MCG MCG le} 290 MCG Mucinex 600 Mucinex 600 No 1{table BID Mucinex MG MG t_as_ne 600 MG eded} Pantoprazol Pantoprazol No Pantoprazo e Sodium 40 e Sodium 40 le Sodium MG MG 40 MG Aspir-81 Aspir-81 No Aspir-81 Atorvastati Atorvastati No 1{table QD Atorvastat n Calcium n Calcium t} in Calcium 40 MG 40 MG 40 MG Docusate Docusate No 1{capsu BID Docusate Sodium 100 Sodium 100 le_as_n Sodium 100 MG MG eeded} MG ALPRAZolam ALPRAZolam No ALPRAZolam 1 MG 1 MG 1 MG Metoprolol Metoprolol No 1{table QD Metoprolol Succinate Succinate t} Succinate ER 100 MG ER 100 MG ER 100 MG Zofran 4 MG Zofran 4 MG No Zofran 4 MG Linzess 290 Linzess 290 No 1{capsu QD Linzess MCG MCG le} 290 MCG rOPINIRole rOPINIRole No rOPINIRole HCl 1 MG HCl 1 MG HCl 1 MG Garlic 100 Garlic 100 No Garlic 100 MG MG MG Fluticasone Fluticasone No Fluticason Propionate Propionate e 50 MCG/ACT 50 MCG/ACT Propionate 50 MCG/ACT Singulair Singulair No Singulair 10 MG 10 MG 10 MG Losartan Losartan No Losartan Potassium Potassium Potassium 50 MG 50 MG 50 MG Vitamin D3 Vitamin D3 No 1{table QD Vitamin D3 1000 UNIT 1000 UNIT t} 1000 UNIT Acidophilus Acidophilus No Acidophilu - - s - Evoxac 30 Evoxac 30 No 1{capsu TID Evoxac 30 MG MG le} MG amLODIPine amLODIPine No amLODIPine Besylate 10 Besylate 10 Besylate MG MG 10 MG Co Q-10 200 Co Q-10 200 No 1{capsu QD Co Q-10 MG MG le_with 200 MG _a_meal } Docusate Docusate No 1{capsu BID Docusate Sodium 100 Sodium 100 le_as_n Sodium 100 MG MG eeded} MG Mucinex 600 Mucinex 600 No 1{table BID Mucinex MG MG t_as_ne 600 MG eded} Garlic 100 Garlic 100 No Garlic 100 MG MG MG Aspir-81 Aspir-81 No Aspir-81 ALPRAZolam ALPRAZolam No ALPRAZolam 1 MG 1 MG 1 MG Metoprolol Metoprolol No 1{table QD Metoprolol Succinate Succinate t} Succinate ER 100 MG ER 100 MG ER 100 MG Zofran 4 MG Zofran 4 MG No Zofran 4 MG Linzess 290 Linzess 290 No 1{capsu QD Linzess MCG MCG le} 290 MCG Acidophilus Acidophilus No Acidophilu - - s - rOPINIRole rOPINIRole No rOPINIRole HCl 1 MG HCl 1 MG HCl 1 MG amLODIPine amLODIPine No amLODIPine Besylate 10 Besylate 10 Besylate MG MG 10 MG Co Q-10 200 Co Q-10 200 No 1{capsu QD Co Q-10 MG MG le_with 200 MG _a_meal } Fluticasone Fluticasone No Fluticason Propionate Propionate e 50 MCG/ACT 50 MCG/ACT Propionate 50 MCG/ACT Atorvastati Atorvastati No 1{table QD Atorvastat n Calcium n Calcium t} in Calcium 40 MG 40 MG 40 MG Singulair Singulair No Singulair 10 MG 10 MG 10 MG Losartan Losartan No Losartan Potassium Potassium Potassium 50 MG 50 MG 50 MG Evoxac 30 Evoxac 30 No 1{capsu TID Evoxac 30 MG MG le} MG Vitamin D3 Vitamin D3 No 1{table QD Vitamin D3 1000 UNIT 1000 UNIT t} 1000 UNIT Pantoprazol Pantoprazol No Pantoprazo e Sodium 40 e Sodium 40 le Sodium MG MG 40 MG Linzess 290 Linzess 290 No 1{capsu QD Linzess MCG MCG le} 290 MCG Losartan Losartan No Losartan Potassium Potassium Potassium 50 MG 50 MG 50 MG Singulair Singulair No Singulair 10 MG 10 MG 10 MG Aspir-81 Aspir-81 No Aspir-81 Metoprolol Metoprolol No 1{table QD Metoprolol Succinate Succinate t} Succinate ER 100 MG ER 100 MG ER 100 MG Docusate Docusate No 1{capsu BID Docusate Sodium 100 Sodium 100 le_as_n Sodium 100 MG MG eeded} MG amLODIPine amLODIPine No amLODIPine Besylate 10 Besylate 10 Besylate MG MG 10 MG rOPINIRole rOPINIRole No rOPINIRole HCl 1 MG HCl 1 MG HCl 1 MG ALPRAZolam ALPRAZolam No ALPRAZolam 1 MG 1 MG 1 MG Mucinex 600 Mucinex 600 No 1{table BID Mucinex MG MG t_as_ne 600 MG eded} Garlic 100 Garlic 100 No Garlic 100 MG MG MG Evoxac 30 Evoxac 30 No 1{capsu TID Evoxac 30 MG MG le} MG Vitamin D3 Vitamin D3 No 1{table QD Vitamin D3 1000 UNIT 1000 UNIT t} 1000 UNIT Acidophilus Acidophilus No Acidophilu - - s - Atorvastati Atorvastati No 1{table QD Atorvastat n Calcium n Calcium t} in Calcium 40 MG 40 MG 40 MG Zofran 4 MG Zofran 4 MG No Zofran 4 MG Co Q-10 200 Co Q-10 200 No 1{capsu QD Co Q-10 MG MG le_with 200 MG _a_meal } Fluticasone Fluticasone No Fluticason Propionate Propionate e 50 MCG/ACT 50 MCG/ACT Propionate 50 MCG/ACT Pantoprazol Pantoprazol No Pantoprazo e Sodium 40 e Sodium 40 le Sodium MG MG 40 MG Zofran 4 MG Zofran 4 MG No Zofran 4 MG Losartan Losartan No Losartan Potassium Potassium Potassium 50 MG 50 MG 50 MG Atorvastati Atorvastati No 1{table QD Atorvastat n Calcium n Calcium t} in Calcium 40 MG 40 MG 40 MG Vitamin D3 Vitamin D3 No 1{table QD Vitamin D3 1000 UNIT 1000 UNIT t} 1000 UNIT Evoxac 30 Evoxac 30 No 1{capsu TID Evoxac 30 MG MG le} MG Mucinex 600 Mucinex 600 No 1{table BID Mucinex MG MG t_as_ne 600 MG eded} Aspir-81 Aspir-81 No Aspir-81 Ipratropium Ipratropium No 2.5{ml} TID Ipratropiu Wautoma Wautoma m Wautoma 0.02 % 0.02 % 0.02 % Co Q-10 200 Co Q-10 200 No 1{capsu QD Co Q-10 MG MG le_with 200 MG _a_meal } Fluticasone Fluticasone No Fluticason Propionate Propionate e 50 MCG/ACT 50 MCG/ACT Propionate 50 MCG/ACT Pantoprazol Pantoprazol No Pantoprazo e Sodium 40 e Sodium 40 le Sodium MG MG 40 MG Metoprolol Metoprolol No 1{table QD Metoprolol Succinate Succinate t} Succinate ER 100 MG ER 100 MG ER 100 MG Garlic 100 Garlic 100 No Garlic 100 MG MG MG rOPINIRole rOPINIRole No rOPINIRole HCl 1 MG HCl 1 MG HCl 1 MG Linzess 290 Linzess 290 No 1{capsu QD Linzess MCG MCG le} 290 MCG ALPRAZolam ALPRAZolam No ALPRAZolam 1 MG 1 MG 1 MG amLODIPine amLODIPine No amLODIPine Besylate 10 Besylate 10 Besylate MG MG 10 MG Docusate Docusate No 1{capsu BID Docusate Sodium 100 Sodium 100 le_as_n Sodium 100 MG MG eeded} MG Acidophilus Acidophilus No Acidophilu - - s - Singulair Singulair No Singulair 10 MG 10 MG 10 MG Pantoprazol Pantoprazol No Pantoprazo e Sodium 40 e Sodium 40 le Sodium MG MG 40 MG amLODIPine amLODIPine No amLODIPine Besylate 10 Besylate 10 Besylate MG MG 10 MG Ondansetron Ondansetron No Ondansetro HCl 4 MG HCl 4 MG n HCl 4 MG Garlic 100 Garlic 100 No Garlic 100 MG MG MG Singulair Singulair No Singulair 10 MG 10 MG 10 MG Albuterol Albuterol No Albuterol Sulfate HFA Sulfate HFA Sulfate 108 (90 108 (90 HFA 108 Base) Base) (90 Base) MCG/ACT MCG/ACT MCG/ACT Evoxac 30 Evoxac 30 No 1{capsu TID Evoxac 30 MG MG le} MG Docusate Docusate No 1{capsu BID Docusate Sodium 100 Sodium 100 le_as_n Sodium 100 MG MG eeded} MG Fluticasone Fluticasone No Fluticason Propionate Propionate e 50 MCG/ACT 50 MCG/ACT Propionate 50 MCG/ACT rOPINIRole rOPINIRole No rOPINIRole HCl 1 MG HCl 1 MG HCl 1 MG ALPRAZolam ALPRAZolam No ALPRAZolam 1 MG 1 MG 1 MG Acidophilus Acidophilus No Acidophilu - - s - Losartan Losartan No 1{table QD Losartan Potassium Potassium t} Potassium 50 MG 50 MG 50 MG Metoprolol Metoprolol No 1{table QD Metoprolol Succinate Succinate t} Succinate ER 100 MG ER 100 MG ER 100 MG Linzess 290 Linzess 290 No 1{capsu QD Linzess MCG MCG le} 290 MCG Mucinex 600 Mucinex 600 No 1{table BID Mucinex MG MG t_as_ne 600 MG eded} Vitamin D3 Vitamin D3 No 1{table QD Vitamin D3 1000 UNIT 1000 UNIT t} 1000 UNIT Aspir-81 Aspir-81 No Aspir-81 Ipratropium Ipratropium No Ipratropiu -Albuterol -Albuterol m-Albutero 0.5-2.5 (3) 0.5-2.5 (3) l 0.5-2.5 MG/3ML MG/3ML (3) MG/3ML Co Q-10 200 Co Q-10 200 No 1{capsu QD Co Q-10 MG MG le_with 200 MG _a_meal } Atorvastati Atorvastati No Atorvastat n Calcium n Calcium in Calcium 40 MG 40 MG 40 MG ALPRAZolam ALPRAZolam No ALPRAZolam 1 MG 1 MG 1 MG Ondansetron Ondansetron No QD Ondansetro HCl 4 MG HCl 4 MG n HCl 4 MG Fluticasone Fluticasone No Fluticason Propionate Propionate e 50 MCG/ACT 50 MCG/ACT Propionate 50 MCG/ACT Ipratropium Ipratropium No Ipratropiu -Albuterol -Albuterol m-Albutero 0.5-2.5 (3) 0.5-2.5 (3) l 0.5-2.5 MG/3ML MG/3ML (3) MG/3ML Metoprolol Metoprolol No 1{table QD Metoprolol Succinate Succinate t} Succinate ER 100 MG ER 100 MG ER 100 MG Pantoprazol Pantoprazol No Pantoprazo e Sodium 40 e Sodium 40 le Sodium MG MG 40 MG Evoxac 30 Evoxac 30 No 1{capsu TID Evoxac 30 MG MG le} MG Atorvastati Atorvastati No Atorvastat n Calcium n Calcium in Calcium 40 MG 40 MG 40 MG Mucinex 600 Mucinex 600 No 1{table BID Mucinex MG MG t_as_ne 600 MG eded} Aspir-81 Aspir-81 No Aspir-81 Albuterol Albuterol No Albuterol Sulfate HFA Sulfate HFA Sulfate 108 (90 108 (90 HFA 108 Base) Base) (90 Base) MCG/ACT MCG/ACT MCG/ACT Garlic 100 Garlic 100 No Garlic 100 MG MG MG Co Q-10 200 Co Q-10 200 No 1{capsu QD Co Q-10 MG MG le_with 200 MG _a_meal } Losartan Losartan No 1{table QD Losartan Potassium Potassium t} Potassium 50 MG 50 MG 50 MG Singulair Singulair No Singulair 10 MG 10 MG 10 MG Acidophilus Acidophilus No Acidophilu - - s - Vitamin D3 Vitamin D3 No 1{table QD Vitamin D3 1000 UNIT 1000 UNIT t} 1000 UNIT amLODIPine amLODIPine No amLODIPine Besylate 10 Besylate 10 Besylate MG MG 10 MG Linzess 290 Linzess 290 No 1{capsu QD Linzess MCG MCG le} 290 MCG rOPINIRole rOPINIRole No rOPINIRole HCl 1 MG HCl 1 MG HCl 1 MG Docusate Docusate No 1{capsu BID Docusate Sodium 100 Sodium 100 le_as_n Sodium 100 MG MG eeded} MG Linzess 290 Linzess 290 No Linzess MCG MCG 290 MCG amLODIPine amLODIPine No amLODIPine Besylate 10 Besylate 10 Besylate MG MG 10 MG ALPRAZolam ALPRAZolam No ALPRAZolam 1 MG 1 MG 1 MG Ipratropium Ipratropium No Ipratropiu -Albuterol -Albuterol m-Albutero 0.5-2.5 (3) 0.5-2.5 (3) l 0.5-2.5 MG/3ML MG/3ML (3) MG/3ML Ondansetron Ondansetron No QD Ondansetro HCl 4 MG HCl 4 MG n HCl 4 MG Pantoprazol Pantoprazol No Pantoprazo e Sodium 40 e Sodium 40 le Sodium MG MG 40 MG Metoprolol Metoprolol No 1{table QD Metoprolol Succinate Succinate t} Succinate ER 100 MG ER 100 MG ER 100 MG Losartan Losartan No Losartan Potassium Potassium Potassium 50 MG 50 MG 50 MG Mucinex 600 Mucinex 600 No 1{table BID Mucinex MG MG t_as_ne 600 MG eded} Atorvastati Atorvastati No Atorvastat n Calcium n Calcium in Calcium 40 MG 40 MG 40 MG Albuterol Albuterol No Albuterol Sulfate HFA Sulfate HFA Sulfate 108 (90 108 (90 HFA 108 Base) Base) (90 Base) MCG/ACT MCG/ACT MCG/ACT Garlic 100 Garlic 100 No Garlic 100 MG MG MG Co Q-10 200 Co Q-10 200 No 1{capsu QD Co Q-10 MG MG le_with 200 MG _a_meal } Docusate Docusate No 1{capsu BID Docusate Sodium 100 Sodium 100 le_as_n Sodium 100 MG MG eeded} MG Singulair Singulair No Singulair 10 MG 10 MG 10 MG Acidophilus Acidophilus No Acidophilu - - s - Vitamin D3 Vitamin D3 No 1{table QD Vitamin D3 1000 UNIT 1000 UNIT t} 1000 UNIT Evoxac 30 Evoxac 30 No 1{capsu TID Evoxac 30 MG MG le} MG Aspir-81 Aspir-81 No Aspir-81 rOPINIRole rOPINIRole No rOPINIRole HCl 1 MG HCl 1 MG HCl 1 MG Fluticasone Fluticasone No Fluticason Propionate Propionate e 50 MCG/ACT 50 MCG/ACT Propionate 50 MCG/ACT Linzess 290 Linzess 290 No Linzess MCG MCG 290 MCG amLODIPine amLODIPine No amLODIPine Besylate 10 Besylate 10 Besylate MG MG 10 MG ALPRAZolam ALPRAZolam No ALPRAZolam 1 MG 1 MG 1 MG Ipratropium Ipratropium No Ipratropiu -Albuterol -Albuterol m-Albutero 0.5-2.5 (3) 0.5-2.5 (3) l 0.5-2.5 MG/3ML MG/3ML (3) MG/3ML Ondansetron Ondansetron No QD Ondansetro HCl 4 MG HCl 4 MG n HCl 4 MG Pantoprazol Pantoprazol No Pantoprazo e Sodium 40 e Sodium 40 le Sodium MG MG 40 MG Metoprolol Metoprolol No 1{table QD Metoprolol Succinate Succinate t} Succinate ER 100 MG ER 100 MG ER 100 MG Losartan Losartan No Losartan Potassium Potassium Potassium 50 MG 50 MG 50 MG Mucinex 600 Mucinex 600 No 1{table BID Mucinex MG MG t_as_ne 600 MG eded} Atorvastati Atorvastati No Atorvastat n Calcium n Calcium in Calcium 40 MG 40 MG 40 MG Albuterol Albuterol No Albuterol Sulfate HFA Sulfate HFA Sulfate 108 (90 108 (90 HFA 108 Base) Base) (90 Base) MCG/ACT MCG/ACT MCG/ACT Garlic 100 Garlic 100 No Garlic 100 MG MG MG Co Q-10 200 Co Q-10 200 No 1{capsu QD Co Q-10 MG MG le_with 200 MG _a_meal } Docusate Docusate No 1{capsu BID Docusate Sodium 100 Sodium 100 le_as_n Sodium 100 MG MG eeded} MG Singulair Singulair No Singulair 10 MG 10 MG 10 MG Acidophilus Acidophilus No Acidophilu - - s - Vitamin D3 Vitamin D3 No 1{table QD Vitamin D3 1000 UNIT 1000 UNIT t} 1000 UNIT Evoxac 30 Evoxac 30 No 1{capsu TID Evoxac 30 MG MG le} MG Aspir-81 Aspir-81 No Aspir-81 rOPINIRole rOPINIRole No rOPINIRole HCl 1 MG HCl 1 MG HCl 1 MG Fluticasone Fluticasone No Fluticason Propionate Propionate e 50 MCG/ACT 50 MCG/ACT Propionate 50 MCG/ACT Ondansetron Ondansetron No QD Ondansetro HCl 4 MG HCl 4 MG n HCl 4 MG Albuterol Albuterol No Albuterol Sulfate HFA Sulfate HFA Sulfate 108 (90 108 (90 HFA 108 Base) Base) (90 Base) MCG/ACT MCG/ACT MCG/ACT ALPRAZolam ALPRAZolam No ALPRAZolam 1 MG 1 MG 1 MG Pantoprazol Pantoprazol No Pantoprazo e Sodium 40 e Sodium 40 le Sodium MG MG 40 MG Docusate Docusate No 1{capsu BID Docusate Sodium 100 Sodium 100 le_as_n Sodium 100 MG MG eeded} MG Singulair Singulair No Singulair 10 MG 10 MG 10 MG rOPINIRole rOPINIRole No rOPINIRole HCl 1 MG HCl 1 MG HCl 1 MG Mucinex 600 Mucinex 600 No 1{table BID Mucinex MG MG t_as_ne 600 MG eded} Linzess 290 Linzess 290 No Linzess MCG MCG 290 MCG Losartan Losartan No Losartan Potassium Potassium Potassium 50 MG 50 MG 50 MG amLODIPine amLODIPine No amLODIPine Besylate 10 Besylate 10 Besylate MG MG 10 MG Co Q-10 200 Co Q-10 200 No 1{capsu QD Co Q-10 MG MG le_with 200 MG _a_meal } Garlic 100 Garlic 100 No Garlic 100 MG MG MG Fluticasone Fluticasone No Fluticason Propionate Propionate e 50 MCG/ACT 50 MCG/ACT Propionate 50 MCG/ACT Ipratropium Ipratropium No Ipratropiu -Albuterol -Albuterol m-Albutero 0.5-2.5 (3) 0.5-2.5 (3) l 0.5-2.5 MG/3ML MG/3ML (3) MG/3ML Vitamin D3 Vitamin D3 No 1{table QD Vitamin D3 1000 UNIT 1000 UNIT t} 1000 UNIT Acidophilus Acidophilus No Acidophilu - - s - Metoprolol Metoprolol No 1{table QD Metoprolol Succinate Succinate t} Succinate ER 100 MG ER 100 MG ER 100 MG Aspir-81 Aspir-81 No Aspir-81 Atorvastati Atorvastati No Atorvastat n Calcium n Calcium in Calcium 40 MG 40 MG 40 MG Evoxac 30 Evoxac 30 No 1{capsu TID Evoxac 30 MG MG le} MG Ondansetron Ondansetron No QD HCl 4 MG HCl 4 MG Albuterol Albuterol No Sulfate HFA Sulfate HFA 108 (90 108 (90 Base) Base) MCG/ACT MCG/ACT ALPRAZolam ALPRAZolam No 1 MG 1 MG Pantoprazol Pantoprazol No e Sodium 40 e Sodium 40 MG MG Docusate Docusate No 1{capsu BID Sodium 100 Sodium 100 le_as_n MG MG eeded} Singulair Singulair No 10 MG 10 MG rOPINIRole rOPINIRole No HCl 1 MG HCl 1 MG Mucinex 600 Mucinex 600 No 1{table BID MG MG t_as_ne eded} Linzess 290 Linzess 290 No MCG MCG Losartan Losartan No Potassium Potassium 50 MG 50 MG amLODIPine amLODIPine No Besylate 10 Besylate 10 MG MG Co Q-10 200 Co Q-10 200 No 1{capsu QD MG MG le_with _a_meal } Garlic 100 Garlic 100 No MG MG Fluticasone Fluticasone No Propionate Propionate 50 MCG/ACT 50 MCG/ACT Ipratropium Ipratropium No -Albuterol -Albuterol 0.5-2.5 (3) 0.5-2.5 (3) MG/3ML MG/3ML Vitamin D3 Vitamin D3 No 1{table QD 1000 UNIT 1000 UNIT t} Acidophilus Acidophilus No - - Metoprolol Metoprolol No 1{table QD Succinate Succinate t} ER 100 MG ER 100 MG Aspir-81 Aspir-81 No Atorvastati Atorvastati No n Calcium n Calcium 40 MG 40 MG Evoxac 30 Evoxac 30 No 1{capsu TID MG MG le} Pantoprazol Pantoprazol No Pantoprazo e Sodium 40 e Sodium 40 le Sodium MG MG 40 MG Montelukast Montelukast No Montelukas Sodium 10 Sodium 10 t Sodium MG MG 10 MG Linzess 290 Linzess 290 No Linzess MCG MCG 290 MCG Aspir-81 Aspir-81 No Aspir-81 Fluticasone Fluticasone No Fluticason Propionate Propionate e 50 MCG/ACT 50 MCG/ACT Propionate 50 MCG/ACT Docusate Docusate No 1{capsu BID Docusate Sodium 100 Sodium 100 le_as_n Sodium 100 MG MG eeded} MG rOPINIRole rOPINIRole No rOPINIRole HCl 1 MG HCl 1 MG HCl 1 MG ALPRAZolam ALPRAZolam No ALPRAZolam 1 MG 1 MG 1 MG Metoprolol Metoprolol No 1{table QD Metoprolol Succinate Succinate t} Succinate ER 100 MG ER 100 MG ER 100 MG Losartan Losartan No Losartan Potassium Potassium Potassium 50 MG 50 MG 50 MG Acidophilus Acidophilus No Acidophilu - - s - Vitamin D3 Vitamin D3 No 1{table QD Vitamin D3 1000 UNIT 1000 UNIT t} 1000 UNIT Atorvastati Atorvastati No Atorvastat n Calcium n Calcium in Calcium 40 MG 40 MG 40 MG Albuterol Albuterol No Albuterol Sulfate HFA Sulfate HFA Sulfate 108 (90 108 (90 HFA 108 Base) Base) (90 Base) MCG/ACT MCG/ACT MCG/ACT Garlic 100 Garlic 100 No Garlic 100 MG MG MG Co Q-10 200 Co Q-10 200 No 1{capsu QD Co Q-10 MG MG le_with 200 MG _a_meal } Ondansetron Ondansetron No QD Ondansetro HCl 4 MG HCl 4 MG n HCl 4 MG Evoxac 30 Evoxac 30 No 1{capsu TID Evoxac 30 MG MG le} MG Ipratropium Ipratropium No Ipratropiu -Albuterol -Albuterol m-Albutero 0.5-2.5 (3) 0.5-2.5 (3) l 0.5-2.5 MG/3ML MG/3ML (3) MG/3ML amLODIPine amLODIPine No amLODIPine Besylate 10 Besylate 10 Besylate MG MG 10 MG Mucinex 600 Mucinex 600 No 1{table BID Mucinex MG MG t_as_ne 600 MG eded} Pantoprazol Pantoprazol No Pantoprazo e Sodium 40 e Sodium 40 le Sodium MG MG 40 MG Montelukast Montelukast No Montelukas Sodium 10 Sodium 10 t Sodium MG MG 10 MG Linzess 290 Linzess 290 No Linzess MCG MCG 290 MCG Aspir-81 Aspir-81 No Aspir-81 Fluticasone Fluticasone No Fluticason Propionate Propionate e 50 MCG/ACT 50 MCG/ACT Propionate 50 MCG/ACT Docusate Docusate No 1{capsu BID Docusate Sodium 100 Sodium 100 le_as_n Sodium 100 MG MG eeded} MG rOPINIRole rOPINIRole No rOPINIRole HCl 1 MG HCl 1 MG HCl 1 MG ALPRAZolam ALPRAZolam No ALPRAZolam 1 MG 1 MG 1 MG Metoprolol Metoprolol No 1{table QD Metoprolol Succinate Succinate t} Succinate ER 100 MG ER 100 MG ER 100 MG Losartan Losartan No Losartan Potassium Potassium Potassium 50 MG 50 MG 50 MG Acidophilus Acidophilus No Acidophilu - - s - Vitamin D3 Vitamin D3 No 1{table QD Vitamin D3 1000 UNIT 1000 UNIT t} 1000 UNIT Atorvastati Atorvastati No Atorvastat n Calcium n Calcium in Calcium 40 MG 40 MG 40 MG Albuterol Albuterol No Albuterol Sulfate HFA Sulfate HFA Sulfate 108 (90 108 (90 HFA 108 Base) Base) (90 Base) MCG/ACT MCG/ACT MCG/ACT Garlic 100 Garlic 100 No Garlic 100 MG MG MG Co Q-10 200 Co Q-10 200 No 1{capsu QD Co Q-10 MG MG le_with 200 MG _a_meal } Ondansetron Ondansetron No QD Ondansetro HCl 4 MG HCl 4 MG n HCl 4 MG Evoxac 30 Evoxac 30 No 1{capsu TID Evoxac 30 MG MG le} MG Ipratropium Ipratropium No Ipratropiu -Albuterol -Albuterol m-Albutero 0.5-2.5 (3) 0.5-2.5 (3) l 0.5-2.5 MG/3ML MG/3ML (3) MG/3ML amLODIPine amLODIPine No amLODIPine Besylate 10 Besylate 10 Besylate MG MG 10 MG Mucinex 600 Mucinex 600 No 1{table BID Mucinex MG MG t_as_ne 600 MG eded} Co Q-10 200 Co Q-10 200 No 1{capsu QD Co Q-10 MG MG le_with 200 MG _a_meal } Ondansetron Ondansetron No Ondansetro HCl 4 MG HCl 4 MG n HCl 4 MG Losartan Losartan No Losartan Potassium Potassium Potassium 50 MG 50 MG 50 MG Aspir-81 Aspir-81 No Aspir-81 Garlic 100 Garlic 100 No Garlic 100 MG MG MG Evoxac 30 Evoxac 30 No 1{capsu TID Evoxac 30 MG MG le} MG Acidophilus Acidophilus No Acidophilu - - s - Vitamin D3 Vitamin D3 No 1{table QD Vitamin D3 1000 UNIT 1000 UNIT t} 1000 UNIT Linzess 290 Linzess 290 No Linzess MCG MCG 290 MCG rOPINIRole rOPINIRole No rOPINIRole HCl 1 MG HCl 1 MG HCl 1 MG Docusate Docusate No 1{capsu BID Docusate Sodium 100 Sodium 100 le_as_n Sodium 100 MG MG eeded} MG amLODIPine amLODIPine No QD amLODIPine Besylate 10 Besylate 10 Besylate MG MG 10 MG Albuterol Albuterol No Albuterol Sulfate HFA Sulfate HFA Sulfate 108 (90 108 (90 HFA 108 Base) Base) (90 Base) MCG/ACT MCG/ACT MCG/ACT Montelukast Montelukast No Montelukas Sodium 10 Sodium 10 t Sodium MG MG 10 MG Pantoprazol Pantoprazol No Pantoprazo e Sodium 40 e Sodium 40 le Sodium MG MG 40 MG Ipratropium Ipratropium No Ipratropiu -Albuterol -Albuterol m-Albutero 0.5-2.5 (3) 0.5-2.5 (3) l 0.5-2.5 MG/3ML MG/3ML (3) MG/3ML Fluticasone Fluticasone No Fluticason Propionate Propionate e 50 MCG/ACT 50 MCG/ACT Propionate 50 MCG/ACT Atorvastati Atorvastati No Atorvastat n Calcium n Calcium in Calcium 40 MG 40 MG 40 MG ALPRAZolam ALPRAZolam No ALPRAZolam 1 MG 1 MG 1 MG Metoprolol Metoprolol No 1{table QD Metoprolol Succinate Succinate t} Succinate ER 100 MG ER 100 MG ER 100 MG Mucinex 600 Mucinex 600 No 1{table BID Mucinex MG MG t_as_ne 600 MG eded} Co Q-10 200 Co Q-10 200 No 1{capsu QD Co Q-10 MG MG le_with 200 MG _a_meal } amLODIPine amLODIPine No 1{table QD amLODIPine Besylate 10 Besylate 10 t} Besylate MG MG 10 MG Acidophilus Acidophilus No Acidophilu - - s - Aspir-81 Aspir-81 No Aspir-81 Garlic 100 Garlic 100 No Garlic 100 MG MG MG Evoxac 30 Evoxac 30 No 1{capsu TID Evoxac 30 MG MG le} MG Atorvastati Atorvastati No Atorvastat n Calcium n Calcium in Calcium 40 MG 40 MG 40 MG Vitamin D3 Vitamin D3 No 1{table QD Vitamin D3 1000 UNIT 1000 UNIT t} 1000 UNIT Linzess 290 Linzess 290 No Linzess MCG MCG 290 MCG rOPINIRole rOPINIRole No rOPINIRole HCl 1 MG HCl 1 MG HCl 1 MG Ondansetron Ondansetron No QD Ondansetro HCl 4 MG HCl 4 MG n HCl 4 MG Docusate Docusate No 1{capsu BID Docusate Sodium 100 Sodium 100 le_as_n Sodium 100 MG MG eeded} MG Albuterol Albuterol No Albuterol Sulfate HFA Sulfate HFA Sulfate 108 (90 108 (90 HFA 108 Base) Base) (90 Base) MCG/ACT MCG/ACT MCG/ACT Mucinex 600 Mucinex 600 No 1{table BID Mucinex MG MG t_as_ne 600 MG eded} Losartan Losartan No Losartan Potassium Potassium Potassium 50 MG 50 MG 50 MG Ipratropium Ipratropium No Ipratropiu -Albuterol -Albuterol m-Albutero 0.5-2.5 (3) 0.5-2.5 (3) l 0.5-2.5 MG/3ML MG/3ML (3) MG/3ML Montelukast Montelukast No Montelukas Sodium 10 Sodium 10 t Sodium MG MG 10 MG Pantoprazol Pantoprazol No Pantoprazo e Sodium 40 e Sodium 40 le Sodium MG MG 40 MG Fluticasone Fluticasone No Fluticason Propionate Propionate e 50 MCG/ACT 50 MCG/ACT Propionate 50 MCG/ACT ALPRAZolam ALPRAZolam No ALPRAZolam 1 MG 1 MG 1 MG Metoprolol Metoprolol No 1{table QD Metoprolol Succinate Succinate t} Succinate ER 100 MG ER 100 MG ER 100 MG Naproxen Naproxen No Naproxen 500 MG 500 MG 500 MG Co Q-10 200 Co Q-10 200 No 1{capsu QD Co Q-10 MG MG le_with 200 MG _a_meal } amLODIPine amLODIPine No 1{table QD amLODIPine Besylate 10 Besylate 10 t} Besylate MG MG 10 MG Acidophilus Acidophilus No Acidophilu - - s - Aspir-81 Aspir-81 No Aspir-81 Garlic 100 Garlic 100 No Garlic 100 MG MG MG Evoxac 30 Evoxac 30 No 1{capsu TID Evoxac 30 MG MG le} MG Atorvastati Atorvastati No Atorvastat n Calcium n Calcium in Calcium 40 MG 40 MG 40 MG Vitamin D3 Vitamin D3 No 1{table QD Vitamin D3 1000 UNIT 1000 UNIT t} 1000 UNIT Linzess 290 Linzess 290 No Linzess MCG MCG 290 MCG rOPINIRole rOPINIRole No rOPINIRole HCl 1 MG HCl 1 MG HCl 1 MG Ondansetron Ondansetron No QD Ondansetro HCl 4 MG HCl 4 MG n HCl 4 MG Docusate Docusate No 1{capsu BID Docusate Sodium 100 Sodium 100 le_as_n Sodium 100 MG MG eeded} MG Albuterol Albuterol No Albuterol Sulfate HFA Sulfate HFA Sulfate 108 (90 108 (90 HFA 108 Base) Base) (90 Base) MCG/ACT MCG/ACT MCG/ACT Mucinex 600 Mucinex 600 No 1{table BID Mucinex MG MG t_as_ne 600 MG eded} Losartan Losartan No Losartan Potassium Potassium Potassium 50 MG 50 MG 50 MG Ipratropium Ipratropium No Ipratropiu -Albuterol -Albuterol m-Albutero 0.5-2.5 (3) 0.5-2.5 (3) l 0.5-2.5 MG/3ML MG/3ML (3) MG/3ML Montelukast Montelukast No Montelukas Sodium 10 Sodium 10 t Sodium MG MG 10 MG Pantoprazol Pantoprazol No Pantoprazo e Sodium 40 e Sodium 40 le Sodium MG MG 40 MG Fluticasone Fluticasone No Fluticason Propionate Propionate e 50 MCG/ACT 50 MCG/ACT Propionate 50 MCG/ACT ALPRAZolam ALPRAZolam No ALPRAZolam 1 MG 1 MG 1 MG Metoprolol Metoprolol No 1{table QD Metoprolol Succinate Succinate t} Succinate ER 100 MG ER 100 MG ER 100 MG Naproxen Naproxen No Naproxen 500 MG 500 MG 500 MG Naproxen Naproxen No Naproxen 500 MG 500 MG 500 MG Aspir-81 Aspir-81 No Aspir-81 Ondansetron Ondansetron No 1{table QD Ondansetro HCl 4 MG HCl 4 MG t} n HCl 4 MG Montelukast Montelukast No Montelukas Sodium 10 Sodium 10 t Sodium MG MG 10 MG Mucinex 600 Mucinex 600 No 1{table BID Mucinex MG MG t_as_ne 600 MG eded} Albuterol Albuterol No Albuterol Sulfate HFA Sulfate HFA Sulfate 108 (90 108 (90 HFA 108 Base) Base) (90 Base) MCG/ACT MCG/ACT MCG/ACT Acidophilus Acidophilus No Acidophilu - - s - Evoxac 30 Evoxac 30 No 1{capsu TID Evoxac 30 MG MG le} MG ALPRAZolam ALPRAZolam No ALPRAZolam 1 MG 1 MG 1 MG Linzess 290 Linzess 290 No Linzess MCG MCG 290 MCG Pantoprazol Pantoprazol No Pantoprazo e Sodium 40 e Sodium 40 le Sodium MG MG 40 MG Losartan Losartan No Losartan Potassium Potassium Potassium 50 MG 50 MG 50 MG amLODIPine amLODIPine No 1{table QD amLODIPine Besylate 10 Besylate 10 t} Besylate MG MG 10 MG Fluticasone Fluticasone No Fluticason Propionate Propionate e 50 MCG/ACT 50 MCG/ACT Propionate 50 MCG/ACT rOPINIRole rOPINIRole No rOPINIRole HCl 1 MG HCl 1 MG HCl 1 MG Atorvastati Atorvastati No Atorvastat n Calcium n Calcium in Calcium 40 MG 40 MG 40 MG Co Q-10 200 Co Q-10 200 No 1{capsu QD Co Q-10 MG MG le_with 200 MG _a_meal } Metoprolol Metoprolol No 1{table QD Metoprolol Succinate Succinate t} Succinate ER 100 MG ER 100 MG ER 100 MG Ipratropium Ipratropium No Ipratropiu -Albuterol -Albuterol m-Albutero 0.5-2.5 (3) 0.5-2.5 (3) l 0.5-2.5 MG/3ML MG/3ML (3) MG/3ML Vitamin D3 Vitamin D3 No 1{table QD Vitamin D3 1000 UNIT 1000 UNIT t} 1000 UNIT Garlic 100 Garlic 100 No Garlic 100 MG MG MG Docusate Docusate No 1{capsu BID Docusate Sodium 100 Sodium 100 le_as_n Sodium 100 MG MG eeded} MG Metoprolol Metoprolol No 1{table QD Metoprolol Succinate Succinate t} Succinate ER 100 MG ER 100 MG ER 100 MG Ondansetron Ondansetron No 1{table QD Ondansetro HCl 4 MG HCl 4 MG t} n HCl 4 MG Metoclopram Metoclopram No 1{table TID Metoclopra gennaro HCl 5 gennaro HCl 5 t_befor mide HCl 5 MG MG e_meals MG } ALPRAZolam ALPRAZolam No ALPRAZolam 1 MG 1 MG 1 MG Naproxen Naproxen No Naproxen 500 MG 500 MG 500 MG rOPINIRole rOPINIRole No rOPINIRole HCl 1 MG HCl 1 MG HCl 1 MG Fluticasone Fluticasone No Fluticason Propionate Propionate e 50 MCG/ACT 50 MCG/ACT Propionate 50 MCG/ACT Linzess 290 Linzess 290 No Linzess MCG MCG 290 MCG amLODIPine amLODIPine No 1{table QD amLODIPine Besylate 10 Besylate 10 t} Besylate MG MG 10 MG Co Q-10 200 Co Q-10 200 No 1{capsu QD Co Q-10 MG MG le_with 200 MG _a_meal } Acidophilus Acidophilus No Acidophilu - - s - Evoxac 30 Evoxac 30 No 1{capsu TID Evoxac 30 MG MG le} MG Docusate Docusate No 1{capsu BID Docusate Sodium 100 Sodium 100 le_as_n Sodium 100 MG MG eeded} MG Mucinex 600 Mucinex 600 No 1{table BID Mucinex MG MG t_as_ne 600 MG eded} Montelukast Montelukast No Montelukas Sodium 10 Sodium 10 t Sodium MG MG 10 MG Pantoprazol Pantoprazol No Pantoprazo e Sodium 40 e Sodium 40 le Sodium MG MG 40 MG Aspir-81 Aspir-81 No Aspir-81 Albuterol Albuterol No Albuterol Sulfate HFA Sulfate HFA Sulfate 108 (90 108 (90 HFA 108 Base) Base) (90 Base) MCG/ACT MCG/ACT MCG/ACT Vitamin D3 Vitamin D3 No 1{table QD Vitamin D3 1000 UNIT 1000 UNIT t} 1000 UNIT Garlic 100 Garlic 100 No Garlic 100 MG MG MG Atorvastati Atorvastati No Atorvastat n Calcium n Calcium in Calcium 40 MG 40 MG 40 MG Losartan Losartan No Losartan Potassium Potassium Potassium 50 MG 50 MG 50 MG Ipratropium Ipratropium No Ipratropiu -Albuterol -Albuterol m-Albutero 0.5-2.5 (3) 0.5-2.5 (3) l 0.5-2.5 MG/3ML MG/3ML (3) MG/3ML Metoprolol Metoprolol No 1{table QD Metoprolol Succinate Succinate t} Succinate ER 100 MG ER 100 MG ER 100 MG Ondansetron Ondansetron No 1{table QD Ondansetro HCl 4 MG HCl 4 MG t} n HCl 4 MG Metoclopram Metoclopram No 1{table TID Metoclopra gennaro HCl 5 gennaro HCl 5 t_befor mide HCl 5 MG MG e_meals MG } ALPRAZolam ALPRAZolam No ALPRAZolam 1 MG 1 MG 1 MG Naproxen Naproxen No Naproxen 500 MG 500 MG 500 MG rOPINIRole rOPINIRole No rOPINIRole HCl 1 MG HCl 1 MG HCl 1 MG Fluticasone Fluticasone No Fluticason Propionate Propionate e 50 MCG/ACT 50 MCG/ACT Propionate 50 MCG/ACT Linzess 290 Linzess 290 No Linzess MCG MCG 290 MCG amLODIPine amLODIPine No 1{table QD amLODIPine Besylate 10 Besylate 10 t} Besylate MG MG 10 MG Co Q-10 200 Co Q-10 200 No 1{capsu QD Co Q-10 MG MG le_with 200 MG _a_meal } Acidophilus Acidophilus No Acidophilu - - s - Evoxac 30 Evoxac 30 No 1{capsu TID Evoxac 30 MG MG le} MG Docusate Docusate No 1{capsu BID Docusate Sodium 100 Sodium 100 le_as_n Sodium 100 MG MG eeded} MG Mucinex 600 Mucinex 600 No 1{table BID Mucinex MG MG t_as_ne 600 MG eded} Montelukast Montelukast No Montelukas Sodium 10 Sodium 10 t Sodium MG MG 10 MG Pantoprazol Pantoprazol No Pantoprazo e Sodium 40 e Sodium 40 le Sodium MG MG 40 MG Aspir-81 Aspir-81 No Aspir-81 Albuterol Albuterol No Albuterol Sulfate HFA Sulfate HFA Sulfate 108 (90 108 (90 HFA 108 Base) Base) (90 Base) MCG/ACT MCG/ACT MCG/ACT Vitamin D3 Vitamin D3 No 1{table QD Vitamin D3 1000 UNIT 1000 UNIT t} 1000 UNIT Garlic 100 Garlic 100 No Garlic 100 MG MG MG Atorvastati Atorvastati No Atorvastat n Calcium n Calcium in Calcium 40 MG 40 MG 40 MG Losartan Losartan No Losartan Potassium Potassium Potassium 50 MG 50 MG 50 MG Ipratropium Ipratropium No Ipratropiu -Albuterol -Albuterol m-Albutero 0.5-2.5 (3) 0.5-2.5 (3) l 0.5-2.5 MG/3ML MG/3ML (3) MG/3ML Metoprolol Metoprolol No 1{table QD Metoprolol Succinate Succinate t} Succinate ER 100 MG ER 100 MG ER 100 MG Ondansetron Ondansetron No 1{table QD Ondansetro HCl 4 MG HCl 4 MG t} n HCl 4 MG Garlic 100 Garlic 100 No Garlic 100 MG MG MG Naproxen Naproxen No Naproxen 500 MG 500 MG 500 MG rOPINIRole rOPINIRole No rOPINIRole HCl 1 MG HCl 1 MG HCl 1 MG Fluticasone Fluticasone No Fluticason Propionate Propionate e 50 MCG/ACT 50 MCG/ACT Propionate 50 MCG/ACT ALPRAZolam ALPRAZolam No ALPRAZolam 1 MG 1 MG 1 MG amLODIPine amLODIPine No 1{table QD amLODIPine Besylate 10 Besylate 10 t} Besylate MG MG 10 MG Co Q-10 200 Co Q-10 200 No 1{capsu QD Co Q-10 MG MG le_with 200 MG _a_meal } Acidophilus Acidophilus No Acidophilu - - s - Evoxac 30 Evoxac 30 No 1{capsu TID Evoxac 30 MG MG le} MG Docusate Docusate No 1{capsu BID Docusate Sodium 100 Sodium 100 le_as_n Sodium 100 MG MG eeded} MG Mucinex 600 Mucinex 600 No 1{table BID Mucinex MG MG t_as_ne 600 MG eded} Montelukast Montelukast No Montelukas Sodium 10 Sodium 10 t Sodium MG MG 10 MG Vitamin D3 Vitamin D3 No 1{table QD Vitamin D3 1000 UNIT 1000 UNIT t} 1000 UNIT Aspir-81 Aspir-81 No Aspir-81 Albuterol Albuterol No Albuterol Sulfate HFA Sulfate HFA Sulfate 108 (90 108 (90 HFA 108 Base) Base) (90 Base) MCG/ACT MCG/ACT MCG/ACT Linzess 290 Linzess 290 No Linzess MCG MCG 290 MCG Pantoprazol Pantoprazol No Pantoprazo e Sodium 40 e Sodium 40 le Sodium MG MG 40 MG Atorvastati Atorvastati No Atorvastat n Calcium n Calcium in Calcium 40 MG 40 MG 40 MG Losartan Losartan No Losartan Potassium Potassium Potassium 50 MG 50 MG 50 MG Ipratropium Ipratropium No Ipratropiu -Albuterol -Albuterol m-Albutero 0.5-2.5 (3) 0.5-2.5 (3) l 0.5-2.5 MG/3ML MG/3ML (3) MG/3ML Albuterol Albuterol No Albuterol Sulfate HFA Sulfate HFA Sulfate 108 (90 108 (90 HFA 108 Base) Base) (90 Base) MCG/ACT MCG/ACT MCG/ACT Ipratropium Ipratropium No Ipratropiu -Albuterol -Albuterol m-Albutero 0.5-2.5 (3) 0.5-2.5 (3) l 0.5-2.5 MG/3ML MG/3ML (3) MG/3ML Fluticasone Fluticasone No Fluticason Propionate Propionate e 50 MCG/ACT 50 MCG/ACT Propionate 50 MCG/ACT Docusate Docusate No 1{capsu BID Docusate Sodium 100 Sodium 100 le_as_n Sodium 100 MG MG eeded} MG Vitamin D3 Vitamin D3 No 1{table QD Vitamin D3 1000 UNIT 1000 UNIT t} 1000 UNIT Ondansetron Ondansetron No 1{table QD Ondansetro HCl 4 MG HCl 4 MG t} n HCl 4 MG Pantoprazol Pantoprazol No 1{table BID Pantoprazo e Sodium 40 e Sodium 40 t} le Sodium MG MG 40 MG Aspir-81 Aspir-81 No Aspir-81 amLODIPine amLODIPine No 1{table QD amLODIPine Besylate 10 Besylate 10 t} Besylate MG MG 10 MG Losartan Losartan No QD Losartan Potassium Potassium Potassium 50 MG 50 MG 50 MG Montelukast Montelukast No Montelukas Sodium 10 Sodium 10 t Sodium MG MG 10 MG ALPRAZolam ALPRAZolam No ALPRAZolam 1 MG 1 MG 1 MG rOPINIRole rOPINIRole No rOPINIRole HCl 1 MG HCl 1 MG HCl 1 MG Co Q-10 200 Co Q-10 200 No 1{capsu QD Co Q-10 MG MG le_with 200 MG _a_meal } Linzess 290 Linzess 290 No Linzess MCG MCG 290 MCG Metoprolol Metoprolol No 1{table QD Metoprolol Succinate Succinate t} Succinate ER 100 MG ER 100 MG ER 100 MG Mucinex 600 Mucinex 600 No 1{table BID Mucinex MG MG t_as_ne 600 MG eded} Acidophilus Acidophilus No Acidophilu - - s - Atorvastati Atorvastati No 1{table QD Atorvastat n Calcium n Calcium t} in Calcium 40 MG 40 MG 40 MG Garlic 100 Garlic 100 No Garlic 100 MG MG MG Evoxac 30 Evoxac 30 No 1{capsu TID Evoxac 30 MG MG le} MG Ipratropium Ipratropium No Ipratropiu -Albuterol -Albuterol m-Albutero 0.5-2.5 (3) 0.5-2.5 (3) l 0.5-2.5 MG/3ML MG/3ML (3) MG/3ML Evoxac 30 Evoxac 30 No 1{capsu TID Evoxac 30 MG MG le} MG Acidophilus Acidophilus No Acidophilu - - s - Ondansetron Ondansetron No 1{table QD Ondansetro HCl 4 MG HCl 4 MG t} n HCl 4 MG Linzess 290 Linzess 290 No Linzess MCG MCG 290 MCG Albuterol Albuterol No Albuterol Sulfate HFA Sulfate HFA Sulfate 108 (90 108 (90 HFA 108 Base) Base) (90 Base) MCG/ACT MCG/ACT MCG/ACT Pantoprazol Pantoprazol No 1{table BID Pantoprazo e Sodium 40 e Sodium 40 t} le Sodium MG MG 40 MG Docusate Docusate No 1{capsu BID Docusate Sodium 100 Sodium 100 le_as_n Sodium 100 MG MG eeded} MG amLODIPine amLODIPine No 1{table QD amLODIPine Besylate 10 Besylate 10 t} Besylate MG MG 10 MG Losartan Losartan No QD Losartan Potassium Potassium Potassium 50 MG 50 MG 50 MG Montelukast Montelukast No Montelukas Sodium 10 Sodium 10 t Sodium MG MG 10 MG Vitamin D3 Vitamin D3 No 1{table QD Vitamin D3 1000 UNIT 1000 UNIT t} 1000 UNIT ALPRAZolam ALPRAZolam No ALPRAZolam 1 MG 1 MG 1 MG Metoprolol Metoprolol No 1{table QD Metoprolol Succinate Succinate t} Succinate ER 100 MG ER 100 MG ER 100 MG Mucinex 600 Mucinex 600 No 1{table BID Mucinex MG MG t_as_ne 600 MG eded} Garlic 100 Garlic 100 No Garlic 100 MG MG MG Aspir-81 Aspir-81 No Aspir-81 Co Q-10 200 Co Q-10 200 No 1{capsu QD Co Q-10 MG MG le_with 200 MG _a_meal } Atorvastati Atorvastati No 1{table QD Atorvastat n Calcium n Calcium t} in Calcium 40 MG 40 MG 40 MG Fluticasone Fluticasone No Fluticason Propionate Propionate e 50 MCG/ACT 50 MCG/ACT Propionate 50 MCG/ACT rOPINIRole rOPINIRole No rOPINIRole HCl 1 MG HCl 1 MG HCl 1 MG Garlic 100 Garlic 100 No Garlic 100 MG MG MG Evoxac 30 Evoxac 30 No 1{capsu TID Evoxac 30 MG MG le} MG Montelukast Montelukast No Montelukas Sodium 10 Sodium 10 t Sodium MG MG 10 MG rOPINIRole rOPINIRole No rOPINIRole HCl 1 MG HCl 1 MG HCl 1 MG Fluticasone Fluticasone No Fluticason Propionate Propionate e 50 MCG/ACT 50 MCG/ACT Propionate 50 MCG/ACT Losartan Losartan No QD Losartan Potassium Potassium Potassium 50 MG 50 MG 50 MG Ondansetron Ondansetron No 1{table QD Ondansetro HCl 4 MG HCl 4 MG t} n HCl 4 MG Atorvastati Atorvastati No 1{table QD Atorvastat n Calcium n Calcium t} in Calcium 40 MG 40 MG 40 MG Vitamin D3 Vitamin D3 No 1{table QD Vitamin D3 1000 UNIT 1000 UNIT t} 1000 UNIT Metoprolol Metoprolol No 1{table QD Metoprolol Succinate Succinate t} Succinate ER 100 MG ER 100 MG ER 100 MG Mucinex 600 Mucinex 600 No 1{table BID Mucinex MG MG t_as_ne 600 MG eded} Aspir-81 Aspir-81 No Aspir-81 Albuterol Albuterol No Albuterol Sulfate HFA Sulfate HFA Sulfate 108 (90 108 (90 HFA 108 Base) Base) (90 Base) MCG/ACT MCG/ACT MCG/ACT Ipratropium Ipratropium No Ipratropiu -Albuterol -Albuterol m-Albutero 0.5-2.5 (3) 0.5-2.5 (3) l 0.5-2.5 MG/3ML MG/3ML (3) MG/3ML Famotidine Famotidine No 1{table QD Famotidine 20 MG 20 MG t_at_be 20 MG dtime_a s_neede d} amLODIPine amLODIPine No 1{table QD amLODIPine Besylate 10 Besylate 10 t} Besylate MG MG 10 MG Pantoprazol Pantoprazol No 1{table BID Pantoprazo e Sodium 40 e Sodium 40 t} le Sodium MG MG 40 MG Co Q-10 200 Co Q-10 200 No 1{capsu QD Co Q-10 MG MG le_with 200 MG _a_meal } Acidophilus Acidophilus No Acidophilu - - s - Linzess 290 Linzess 290 No Linzess MCG MCG 290 MCG ALPRAZolam ALPRAZolam No ALPRAZolam 1 MG 1 MG 1 MG Docusate Docusate No 1{capsu BID Docusate Sodium 100 Sodium 100 le_as_n Sodium 100 MG MG eeded} MG Atorvastati Atorvastati No 1{table QD Atorvastat n Calcium n Calcium t} in Calcium 40 MG 40 MG 40 MG Pantoprazol Pantoprazol No Pantoprazo e Sodium 40 e Sodium 40 le Sodium MG MG 40 MG Docusate Docusate No 1{capsu BID Docusate Sodium 100 Sodium 100 le_as_n Sodium 100 MG MG eeded} MG Fluticasone Fluticasone No Fluticason Propionate Propionate e 50 MCG/ACT 50 MCG/ACT Propionate 50 MCG/ACT Aspir-81 Aspir-81 No Aspir-81 Co Q-10 200 Co Q-10 200 No 1{capsu QD Co Q-10 MG MG le_with 200 MG _a_meal } Evoxac 30 Evoxac 30 No 1{capsu TID Evoxac 30 MG MG le} MG Zofran 4 MG Zofran 4 MG No Zofran 4 MG Metoprolol Metoprolol No 1{table QD Metoprolol Succinate Succinate t} Succinate ER 100 MG ER 100 MG ER 100 MG Acidophilus Acidophilus No Acidophilu - - s - Naproxen Naproxen 2022- No QD Naproxen 500 MG 500 MG 07-28 500 MG 00:00 :00 Naproxen Naproxen 2022- No QD Naproxen 500 MG 500 MG 07-28 500 MG 00:00 :00 Naproxen Naproxen 2022- No QD Naproxen 500 MG 500 MG 07-28 500 MG 00:00 :00 Naproxen Naproxen 2020- No QD Naproxen 500 MG 500 MG 12-31 500 MG 00:00 :00 Naproxen Naproxen 2020- No QD Naproxen 500 MG 500 MG 12-31 500 MG 00:00 :00 Naproxen Naproxen 2020- No QD Naproxen 500 MG 500 MG 12-31 500 MG 00:00 :00 Naproxen Naproxen 2020- No QD Naproxen 500 MG 500 MG 12-31 500 MG 00:00 :00 Naproxen Naproxen 2020- No QD Naproxen 500 MG 500 MG 12-31 500 MG 00:00 :00 Immunizations Ordered Immunization Filled Immunization Date Status Commen ts Source Name Name FLUZONE HIGH DOSE FLUZONE HIGH DOSE 2022-01-29 Completed [facility] - OVER 65 OVER 65 15:08:00 [facility] FLUZONE HIGH DOSE FLUZONE HIGH DOSE 2022-01-29 Completed [facility] - OVER 65 OVER 65 15:08:00 [facility] FLUZONE HIGH DOSE FLUZONE HIGH DOSE 2022-01-29 Completed [facility] - OVER 65 OVER 65 15:08:00 [facility] Bebtelovimab 2021-09-27 [facility] 2021-09-27 [facility] BEBTELOVIMAB 2021-09-27 [facility] FLUZONE HIGH DOSE FLUZONE HIGH DOSE 2021-06-30 Completed [facility] - OVER 65 OVER 65 14:47:00 [facility] FLUZONE HIGH DOSE FLUZONE HIGH DOSE 2021-06-30 Completed [facility] - OVER 65 OVER 65 14:47:00 [facility] FLUZONE HIGH DOSE FLUZONE HIGH DOSE 2021-06-30 Completed [facility] - OVER 65 OVER 65 14:47:00 [facility] FLUZONE HIGH DOSE FLUZONE HIGH DOSE 2021-06-30 Completed [facility] - OVER 65 OVER 65 14:47:00 [facility] FLUZONE HIGH DOSE FLUZONE HIGH DOSE 2021-06-30 Completed [facility] - OVER 65 OVER 65 14:47:00 [facility] FLUZONE HIGH DOSE FLUZONE HIGH DOSE 2021-06-30 Completed [facility] - OVER 65 OVER 65 14:47:00 [facility] FLUZONE HIGH DOSE FLUZONE HIGH DOSE 2021-06-30 Completed [facility] - OVER 65 OVER 65 14:47:00 [facility] FLUZONE HIGH DOSE FLUZONE HIGH DOSE 2021-06-30 Completed [facility] - OVER 65 OVER 65 14:47:00 [facility] FLUZONE HIGH DOSE FLUZONE HIGH DOSE 2021-06-30 Completed [facility] - OVER 65 OVER 65 14:47:00 [facility] FLUZONE HIGH DOSE FLUZONE HIGH DOSE 2021-06-30 Completed [facility] - OVER 65 OVER 65 14:47:00 [facility] FLUZONE HIGH-DOSE PF 2021-06-30 Completed [facility] COVID-19 MRNA 2021-02-21 Completed [facility]:00 [facility] Zoster Vaccine 2020-09-07 [facility] Prevnar 13 (PCV13) Prevnar 13 (PCV13) 2020-07-08 Completed [facility] - 10:18:00 [facility] Prevnar 13 (PCV13) Prevnar 13 (PCV13) 2020-07-08 Completed [facility] - 10:18:00 [facility] Prevnar 13 (PCV13) Prevnar 13 (PCV13) 2020-07-08 Completed [facility] - 10:18:00 [facility] Prevnar 13 (PCV13) Prevnar 13 (PCV13) 2020-07-08 Completed [facility] - 10:18:00 [facility] Prevnar 13 (PCV13) Prevnar 13 (PCV13) 2020-07-08 Completed [facility] - 10:18:00 [facility] Prevnar 13 (PCV13) Prevnar 13 (PCV13) 2020-07-08 Completed [facility] - 10:18:00 [facility] Prevnar 13 (PCV13) Prevnar 13 (PCV13) 2020-07-08 Completed [facility] - 10:18:00 [facility] Prevnar 13 (PCV13) Prevnar 13 (PCV13) 2020-07-08 Completed [facility] - 10:18:00 [facility] Prevnar 13 (PCV13) Prevnar 13 (PCV13) 2020-07-08 Completed [facility] - 10:18:00 [facility] Prevnar 13 (PCV13) Prevnar 13 (PCV13) 2020-07-08 Completed [facility] - 10:18:00 [facility] Prevnar 13 (PCV13) Prevnar 13 (PCV13) 2020-07-08 Completed [facility] - 10:18:00 [facility] Prevnar 13 (PCV13) Prevnar 13 (PCV13) 2020-07-08 Completed [facility] - 10:18:00 [facility] Prevnar 13 (PCV13) Prevnar 13 (PCV13) 2020-07-08 Completed [facility] - 10:18:00 [facility] Prevnar 13 (PCV13) Prevnar 13 (PCV13) 2020-07-08 Completed [facility] - 10:18:00 [facility] Prevnar 13 (PCV13) Prevnar 13 (PCV13) 2020-07-08 Completed [facility] - 10:18:00 [facility] Prevnar 13 (PCV13) Prevnar 13 (PCV13) 2020-07-08 Completed [facility] - 10:18:00 [facility] Prevnar 13 (PCV13) Prevnar 13 (PCV13) 2020-07-08 Completed [facility] - 10:18:00 [facility] Prevnar 13 (PCV13) Prevnar 13 (PCV13) 2020-07-08 Completed [facility] - 10:18:00 [facility] Prevnar 13 (PCV13) Prevnar 13 (PCV13) 2020-07-08 Completed [facility] - 10:18:00 [facility] Prevnar 13 (PCV13) Prevnar 13 (PCV13) 2020-07-08 Completed [facility] - 10:18:00 [facility] Prevnar 13 (PCV13) Prevnar 13 (PCV13) 2020-07-08 Completed [facility] - 10:18:00 [facility] Prevnar 13 (PCV13) Prevnar 13 (PCV13) 2020-07-08 Completed [facility] - 10:18:00 [facility] Prevnar 13 (PCV13) Prevnar 13 (PCV13) 2020-07-08 Completed [facility] - 10:18:00 [facility] Prevnar 13 (PCV13) Prevnar 13 (PCV13) 2020-07-08 Completed [facility] 10:18:00 [facility] Pneumococcal 2020-07-08 Completed [facility] Conjug[facility] 13-Valent 00:00:00 [facility] Moderna COVID-19 Moderna COVID-19 2020-05-28 [facility] 13:15:00 [facility] Moderna COVID-19 Moderna COVID-19 2020-05-28 Completed [facility] Vacc[facility] 13:15:00 [facility] Moderna COVID-19 Moderna COVID-19 2020-05-28 Completed [facility] 13:15:00 [facility] Moderna COVID-19 Moderna COVID-19 2020-05-28 Completed [facility] Vacc[facility] 13:15:00 [facility] Moderna COVID-19 Moderna COVID-19 2020-05-28 Completed [facility] 13:15:00 [facility] Moderna COVID-19 Moderna COVID-19 2020-05-28 Completed [facility] Vacc[facility] 13:15:00 [facility] Moderna COVID-19 Moderna COVID-19 2020-05-28 Completed [facility] 13:15:00 [facility] Moderna COVID-19 Moderna COVID-19 2020-05-28 Completed [facility] Vacc[facility] 13:15:00 [facility] Moderna COVID-19 Moderna COVID-19 2020-05-28 Completed [facility] Vacc[facility] 13:15:00 [facility] Moderna COVID-19 Moderna COVID-19 2020-05-28 Completed [facility] Vacc[facility] 13:15:00 [facility] Moderna COVID-19 Moderna COVID-19 2020-05-28 Completed [facility] Vaccine 13:15:00 [facility] Moderna COVID-19 Moderna COVID-19 2020-05-28 Completed [facility] Vacc[facility] 13:15:00 [facility] Moderna COVID-19 Moderna COVID-19 2020-05-28 Completed [facility] Vacc[facility] 13:15:00 [facility] Moderna COVID-19 Moderna COVID-19 2020-05-28 Completed [facility] 13:15:00 [facility] Moderna COVID-19 Moderna COVID-19 2020-05-28 Completed [facility] Vacc[facility] 13:15:00 [facility] Moderna COVID-19 Moderna COVID-19 2020-05-28 Completed [facility] Vaccine 13:15:00 [facility] Moderna COVID-19 Moderna COVID-19 2020-05-28 Completed [facility] Vaccine 13:15:00 [facility] Moderna COVID-19 Moderna COVID-19 2020-05-28 Completed [facility] Vacc[facility] 13:15:00 [facility] Moderna COVID-19 Moderna COVID-19 2020-05-28 Completed [facility] 13:15:00 [facility] Moderna COVID-19 Moderna COVID-19 2020-05-28 Completed [facility] Vacc[facility] 13:15:00 [facility] Moderna COVID-19 Moderna COVID-19 2020-05-28 Completed [facility] Vaccine 13:15:00 [facility] Moderna COVID-19 Moderna COVID-19 2020-05-28 Completed [facility] Vaccine 13:15:00 [facility] Moderna COVID-19 Moderna COVID-19 2020-05-28 Completed [facility] Vaccine 13:15:00 [facility] Moderna COVID-19 Moderna COVID-19 2020-05-28 Completed [facility] 13:15:00 [facility] MODERNA COVID-19 MRNA 2020-05-28 Completed [facility] 00:00:00 [facility] Shingrix Shingrix 2020-05-20 Completed [facility] - 15:33:00 [facility] Shingrix Shingrix 2020-05-20 Completed [facility] - 15:33:00 [facility] Shingrix Shingrix 2020-05-20 Completed [facility] - 15:33:00 [facility] Shingrix Shingrix 2020-05-20 Completed [facility] - 15:33:00 [facility] Shingrix Shingrix 2020-05-20 Completed [facility] - 15:33:00 [facility] Shingrix Shingrix 2020-05-20 Completed [facility] - 15:33:00 [facility] Shingrix Shingrix 2020-05-20 Completed [facility] - 15:33:00 [facility] Shingrix Shingrix 2020-05-20 Completed [facility] - 15:33:00 [facility] Shingrix Shingrix 2020-05-20 Completed [facility] - 15:33:00 [facility] Shingrix Shingrix 2020-05-20 Completed [facility] - 15:33:00 [facility] Shingrix Shingrix 2020-05-20 Completed [facility] - 15:33:00 [facility] Shingrix Shingrix 2020-05-20 Completed [facility] - 15:33:00 [facility] Shingrix Shingrix 2020-05-20 Completed [facility] - 15:33:00 [facility] Shingrix Shingrix 2020-05-20 Completed [facility] - 15:33:00 [facility] Zoster Vaccine 2020-05-20 Completed [facility]:00 [facility] Moderna COVID-19 Moderna COVID-19 2020-05-01 Completed [facility] Vacc[facility] 13:15:00 [facility] Moderna COVID-19 Moderna COVID-19 2020-05-01 Completed [facility] Vacc[facility] 13:15:00 [facility] Moderna COVID-19 Moderna COVID-19 2020-05-01 Completed [facility] Vacc[facility] 13:15:00 [facility] Moderna COVID-19 Moderna COVID-19 2020-05-01 Completed [facility] Vacc[facility] 13:15:00 [facility] Moderna COVID-19 Moderna COVID-19 2020-05-01 Completed [facility] Vacc[facility] 13:15:00 [facility] Moderna COVID-19 Moderna COVID-19 2020-05-01 Completed [facility] Vaccine 13:15:00 [facility] Moderna COVID-19 Moderna COVID-19 2020-05-01 Completed [facility] Vaccine 13:15:00 [facility] Moderna COVID-19 Moderna COVID-19 2020-05-01 Completed [facility] Vaccine 13:15:00 [facility] Moderna COVID-19 Moderna COVID-19 2020-05-01 Completed [facility] Vaccine 13:15:00 [facility] Moderna COVID-19 Moderna COVID-19 2020-05-01 Completed [facility] Vaccine 13:15:00 [facility] Moderna COVID-19 Moderna COVID-19 2020-05-01 Completed [facility] Vaccine 13:15:00 [facility] Moderna COVID-19 Moderna COVID-19 2020-05-01 Completed [facility] Vaccine 13:15:00 [facility] Moderna COVID-19 Moderna COVID-19 2020-05-01 Completed [facility] Vacc[facility] 13:15:00 [facility] Moderna COVID-19 Moderna COVID-19 2020-05-01 Completed [facility] Vaccine 13:15:00 [facility] Moderna COVID-19 Moderna COVID-19 2020-05-01 Completed [facility] Vaccine 13:15:00 [facility] Moderna COVID-19 Moderna COVID-19 2020-05-01 Completed [facility] Vaccine 13:15:00 [facility] Moderna COVID-19 Moderna COVID-19 2020-05-01 Completed [facility] Vaccine 13:15:00 [facility] Moderna COVID-19 Moderna COVID-19 2020-05-01 Completed [facility] Vacc[facility] Vaccine 13:15:00 [facility] Moderna COVID-19 Moderna COVID-19 2020-05-01 Completed [facility] - Vacc[facility] Vaccine 13:15:00 [facility] Moderna COVID-19 Moderna COVID-19 2020-05-01 Completed [facility] Vaccine 13:15:00 [facility] Moderna COVID-19 Moderna COVID-19 2020-05-01 Completed [facility] Vacc[facility] Vaccine 13:15:00 [facility] Moderna COVID-19 Moderna COVID-19 2020-05-01 Completed [facility] Vaccine 13:15:00 [facility] Moderna COVID-19 Moderna COVID-19 2020-05-01 Completed [facility] Vaccine 13:15:00 [facility] Moderna COVID-19 Moderna COVID-19 2020-05-01 Completed [facility] 13:15:00 [facility] MODERNA COVID-19 MRNA 2020-05-01 Completed [facility]:00 Hospital Pneumovax (PPSV23) Pneumovax (PPSV23) 2019-02-08 Completed [facility] - 13:50:00 [facility] FLUZONE HIGH DOSE FLUZONE HIGH DOSE 2019-02-08 Completed [facility] - OVER 65 OVER 65 13:50:00 [facility] Pneumovax (PPSV23) Pneumovax (PPSV23) 2019-02-08 Completed [facility] - 13:50:00 [facility] FLUZONE HIGH DOSE FLUZONE HIGH DOSE 2019-02-08 Completed [facility] - OVER 65 OVER 65 13:50:00 [facility] Pneumovax (PPSV23) Pneumovax (PPSV23) 2019-02-08 Completed [facility] - 13:50:00 [facility] FLUZONE HIGH DOSE FLUZONE HIGH DOSE 2019-02-08 Completed [facility] - OVER 65 OVER 65 13:50:00 [facility] Pneumovax (PPSV23) Pneumovax (PPSV23) 2019-02-08 Completed [facility] - 13:50:00 [facility] FLUZONE HIGH DOSE FLUZONE HIGH DOSE 2019-02-08 Completed [facility] - OVER 65 OVER 65 13:50:00 [facility] Pneumovax (PPSV23) Pneumovax (PPSV23) 2019-02-08 Completed [facility] - 13:50:00 [facility] FLUZONE HIGH DOSE FLUZONE HIGH DOSE 2019-02-08 Completed [facility] - OVER 65 OVER 65 13:50:00 [facility] Pneumovax (PPSV23) Pneumovax (PPSV23) 2019-02-08 Completed [facility] - 13:50:00 [facility] FLUZONE HIGH DOSE FLUZONE HIGH DOSE 2019-02-08 Completed [facility] - OVER 65 OVER 65 13:50:00 [facility] Pneumovax (PPSV23) Pneumovax (PPSV23) 2019-02-08 Completed [facility] - 13:50:00 [facility] FLUZONE HIGH DOSE FLUZONE HIGH DOSE 2019-02-08 Completed [facility] - OVER 65 OVER 65 13:50:00 [facility] Pneumovax (PPSV23) Pneumovax (PPSV23) 2019-02-08 Completed [facility] - 13:50:00 [facility] FLUZONE HIGH DOSE FLUZONE HIGH DOSE 2019-02-08 Completed [facility] - OVER 65 OVER 65 13:50:00 [facility] Pneumovax (PPSV23) Pneumovax (PPSV23) 2019-02-08 Completed [facility] - 13:50:00 [facility] FLUZONE HIGH DOSE FLUZONE HIGH DOSE 2019-02-08 Completed [facility] - OVER 65 OVER 65 13:50:00 [facility] Pneumovax (PPSV23) Pneumovax (PPSV23) 2019-02-08 Completed [facility] - 13:50:00 [facility] FLUZONE HIGH DOSE FLUZONE HIGH DOSE 2019-02-08 Completed [facility] - OVER 65 OVER 65 13:50:00 [facility] Pneumovax (PPSV23) Pneumovax (PPSV23) 2019-02-08 Completed [facility] - 13:50:00 [facility] FLUZONE HIGH DOSE FLUZONE HIGH DOSE 2019-02-08 Completed [facility] - OVER 65 OVER 65 13:50:00 [facility] Pneumovax (PPSV23) Pneumovax (PPSV23) 2019-02-08 Completed [facility] - 13:50:00 [facility] FLUZONE HIGH DOSE FLUZONE HIGH DOSE 2019-02-08 Completed [facility] - OVER 65 OVER 65 13:50:00 [facility] Pneumovax (PPSV23) Pneumovax (PPSV23) 2019-02-08 Completed [facility] - 13:50:00 [facility] FLUZONE HIGH DOSE FLUZONE HIGH DOSE 2019-02-08 Completed [facility] - OVER 65 OVER 65 13:50:00 [facility] Pneumovax (PPSV23) Pneumovax (PPSV23) 2019-02-08 Completed [facility] - 13:50:00 [facility] FLUZONE HIGH DOSE FLUZONE HIGH DOSE 2019-02-08 Completed [facility] - OVER 65 OVER 65 13:50:00 [facility] Pneumovax (PPSV23) Pneumovax (PPSV23) 2019-02-08 Completed [facility] - 13:50:00 [facility] FLUZONE HIGH DOSE FLUZONE HIGH DOSE 2019-02-08 Completed [facility] - OVER 65 OVER 65 13:50:00 [facility] Pneumovax (PPSV23) Pneumovax (PPSV23) 2019-02-08 Completed [facility] - 13:50:00 [facility] FLUZONE HIGH DOSE FLUZONE HIGH DOSE 2019-02-08 Completed [facility] - OVER 65 OVER 65 13:50:00 [facility] Pneumovax (PPSV23) Pneumovax (PPSV23) 2019-02-08 Completed [facility] - 13:50:00 [facility] FLUZONE HIGH DOSE FLUZONE HIGH DOSE 2019-02-08 Completed [facility] - OVER 65 OVER 65 13:50:00 [facility] Pneumovax (PPSV23) Pneumovax (PPSV23) 2019-02-08 Completed [facility] - 13:50:00 [facility] FLUZONE HIGH DOSE FLUZONE HIGH DOSE 2019-02-08 Completed [facility] - OVER 65 OVER 65 13:50:00 [facility] Pneumovax (PPSV23) Pneumovax (PPSV23) 2019-02-08 Completed [facility] - 13:50:00 [facility] FLUZONE HIGH DOSE FLUZONE HIGH DOSE 2019-02-08 Completed [facility] - OVER 65 OVER 65 13:50:00 [facility] Pneumovax (PPSV23) Pneumovax (PPSV23) 2019-02-08 Completed [facility] - 13:50:00 [facility] FLUZONE HIGH DOSE FLUZONE HIGH DOSE 2019-02-08 Completed [facility] - OVER 65 OVER 65 13:50:00 [facility] Pneumovax (PPSV23) Pneumovax (PPSV23) 2019-02-08 Completed [facility] - 13:50:00 [facility] FLUZONE HIGH DOSE FLUZONE HIGH DOSE 2019-02-08 Completed [facility] - OVER 65 OVER 65 13:50:00 [facility] Pneumovax (PPSV23) Pneumovax (PPSV23) 2019-02-08 Completed [facility] - 13:50:00 [facility] FLUZONE HIGH DOSE FLUZONE HIGH DOSE 2019-02-08 Completed [facility] - OVER 65 OVER 65 13:50:00 [facility] Pneumovax (PPSV23) Pneumovax (PPSV23) 2019-02-08 Completed [facility] - 13:50:00 [facility] FLUZONE HIGH DOSE FLUZONE HIGH DOSE 2019-02-08 Completed [facility] - OVER 65 OVER 65 13:50:00 [facility] Pneumovax (PPSV23) Pneumovax (PPSV23) 2019-02-08 Completed [facility] - 13:50:00 [facility] FLUZONE HIGH DOSE FLUZONE HIGH DOSE 2019-02-08 Completed [facility] Spirit - OVER 65 OVER 65 13:50:00 [facility] FLUZONE HIGH DOSE FLUZONE HIGH DOSE 2019-02-08 Completed [facility] - OVER 65 OVER 65 00:00:00 [facility] Pneumovax Pneumovax 2019-02-08 Completed [facility] - 00:00:00 [facility] FLUZONE HIGH-DOSE PF 2019-02-08 Completed Meth odist 00:00:00 Hospital Pneumococcal 2019-02-08 Completed [facility] Vital Signs Vital Name Observation Time Observation Value Comments Source height 2022-04-27 13:00:00 63.5 [in_i] Common S pirit - [facility] weight 2022-04-27 13:00:00 159.6 [lb_av] [facility] - [facility] temperature 2022-04-27 13:00:00 98.0 [degF] Common S pirit - [facility] bmi 2022-04-27 13:00:00 27.83 kg/m2 Common [facility] oximetry 2022-04-27 13:00:00 99 % [facility] respiratory rate 2022-04-27 13:00:00 16 /min Comm on [facility] blood pressure 2022-04-27 13:00:00 138 mm[Hg] Common [facility] - systolic [facility] blood pressure 2022-04-27 13:00:00 58 mm[Hg] Common [facility] - diastolic [facility] height 2022-01-29 14:40:00 63.5 [in_i] Common [facility] weight 2022-01-29 14:40:00 161.2 [lb_av] [facility] temperature 2022-01-29 14:40:00 97.2 [degF] [facility] bmi 2022-01-29 14:40:00 28.1 kg/m2 [facility] oximetry 2022-01-29 14:40:00 98 % [facility] respiratory rate 2022-01-29 14:40:00 16 /min Comm on [facility] blood pressure 2022-01-29 14:40:00 130 mm[Hg] Common [facility] - systolic [facility] blood pressure 2022-01-29 14:40:00 60 mm[Hg] Common [facility] - diastolic [facility] height 2021-10-30 14:20:00 63.5 [in_i] Common [facility] weight 2021-10-30 14:20:00 171.6 [lb_av] [facility] temperature 2021-10-30 14:20:00 98.6 [degF] [facility] bmi 2021-10-30 14:20:00 29.92 kg/m2 [facility] oximetry 2021-10-30 14:20:00 98 % [facility] respiratory rate 2021-10-30 14:20:00 16 /min Comm on [facility] blood pressure 2021-10-30 14:20:00 136 mm[Hg] Common [facility] - systolic [facility] blood pressure 2021-10-30 14:20:00 63 mm[Hg] Common [facility] - diastolic [facility] height 2021-10-23 11:00:00 63.5 [in_i] [facility] weight 2021-10-23 11:00:00 172.6 [lb_av] [facility] temperature 2021-10-23 11:00:00 97.2 [degF] [facility] bmi 2021-10-23 11:00:00 30.09 kg/m2 [facility] oximetry 2021-10-23 11:00:00 99 % [facility] blood pressure 2021-10-23 11:00:00 138 mm[Hg] Common [facility] - systolic [facility] blood pressure 2021-10-23 11:00:00 58 mm[Hg] Common [facility] - diastolic [facility] Systolic blood 2021-09-27 14:31:00 133 mm[Hg] [facility] Diastolic blood 2021-09-27 14:31:00 48 mm[Hg] [facility] Heart rate 2021-09-27 14:31:00 60 /min [facility] Body temperature 2021-09-27 14:31:00 36.56 [facility] in 2021-09-27 14:31:00 97 /min [facility] Arterial blood by [facility] Pulse oximetry Branch Body height 2021-09-27 13:27:00 161.3 cm [facility] Body weight 2021-09-27 13:27:00 77.111 kg [facility] BMI 2021-09-27 13:27:00 29.64 kg/m2 [facility] height 2021-06-30 14:00:00 63.5 [in_i] [facility] weight 2021-06-30 14:00:00 178 [lb_av] [facility] temperature 2021-06-30 14:00:00 97.2 [degF] [facility] bmi 2021-06-30 14:00:00 31.03 kg/m2 [facility] oximetry 2021-06-30 14:00:00 98 % [facility] respiratory rate 2021-06-30 14:00:00 16 /min Comm on Spirit [facility] blood pressure 2021-06-30 14:00:00 136 mm[Hg] [facility] - systolic [facility] blood pressure 2021-06-30 14:00:00 73 mm[Hg] [facility] - diastolic [facility] height 2021-05-07 14:20:00 63.5 [in_i] Common [facility] weight 2021-05-07 14:20:00 165 [lb_av] [facility] temperature 2021-05-07 14:20:00 97.1 [degF] [facility] bmi 2021-05-07 14:20:00 28.77 kg/m2 [facility] height 2021-04-09 13:00:00 63.5 [in_i] Common S pirit [facility] weight 2021-04-09 13:00:00 165 [lb_av] Common S [facility] bmi 2021-04-09 13:00:00 28.77 kg/m2 [facility] pirit [facility] height 2021-02-19 16:20:00 63.5 [in_i] Common pirit [facility] weight 2021-02-19 16:20:00 173 [lb_av] [facility] pirit [facility] bmi 2021-02-19 16:20:00 30.16 kg/m2 [facility] height 2021-01-02 13:00:00 63.5 [in_i] [facility] weight 2021-01-02 13:00:00 177.2 [lb_av] [facility] temperature 2021-01-02 13:00:00 97.0 [degF] [facility] bmi 2021-01-02 13:00:00 30.89 kg/m2 [facility] oximetry 2021-01-02 13:00:00 97 % [facility] respiratory rate 2021-01-02 13:00:00 16 /min Comm on [facility] blood pressure 2021-01-02 13:00:00 139 mm[Hg] [facility] - systolic [facility] blood pressure 2021-01-02 13:00:00 56 mm[Hg] [facility] diastolic [facility] height 2020-12-12 15:00:00 63.5 [in_i] [facility] weight 2020-12-12 15:00:00 170 [lb_av] [facility] temperature 2020-12-12 15:00:00 96.8 [degF] [facility] bmi 2020-12-12 15:00:00 29.64 kg/m2 [facility] Systolic blood 2022-08-04 14:48:00 152 mm[Hg] Method [facility] pressure Diastolic blood 2022-08-04 14:48:00 83 mm[Hg] [facility] pressure Heart rate 2022-08-04 14:48:00 53 /min [facility] Body temperature 2022-08-04 14:48:00 36.72 Elda [facility] Respiratory rate 2022-08-04 14:48:00 12 /min [facility] Body height 2022-08-04 14:48:00 160 cm [facility] Body weight 2022-08-04 14:48:00 73.029 kg [facility] BMI 2022-08-04 14:48:00 28.52 kg/m2 [facility] Oxygen saturation in 2021-12-12 11:00:00 97 /min [facility] Arterial blood by Pulse oximetry Systolic blood 2019-12-28 21:09:00 142 mm[Hg] [facility] pressure Diastolic blood 2019-12-28 21:09:00 61 mm[Hg] [facility] pressure Heart rate 2019-12-28 21:09:00 55 /min [facility] Body temperature 2019-12-28 21:09:00 36.5 Elda [facility] Respiratory rate 2019-12-28 21:09:00 17 /min [facility] Oxygen saturation in 2019-12-28 21:09:00 100 /min [facility] Arterial blood by Pulse oximetry Body height 2019-12-28 18:20:00 165.1 cm [facility] Body weight 2019-12-28 18:20:00 77.111 kg [facility] BMI 2019-12-28 18:20:00 28.29 kg/m2 [facility] Procedures Procedure Date / Time Performing Clinician Source Performed SURGICAL PATHOLOGY 2022-05-18 21:04:00 Levi Jeffery [facility] REQUEST Johana COLONOSCOPY AND EGD 2022-05-18 20:07:29 [facility] Johana BASIC METABOLIC PANEL 2021-12-11 09:07[facility] WITH PLATELET AND 2021-12-11 09:07:00 [facility] DIFFERENTIAL ESTIMATED GFR 2021-12-11 09:07:00 Markel Balderas Ho spital CBC WITH PLATELET AND 2021-12-10 09:06:00 [facility] DIFFERENTIAL BASIC METABOLIC PANEL 2021-12-10 09:06:00 Juliana Graf [facility] ESTIMATED GFR 2021-12-10 09:06:00 Juliana Graf Ho spital MAGNESIUM LEVEL 2021-12-09 14:56:00 Kathy Benedict Ho spital ZZCOVID-19 ANTI-SPIKE 2021-12-09 08:56:00 Konstantin Lancaster [facility] IGG ANTIBODY TITER Alexys CBC WITH PLATELET AND 2021-12-09 08:56:00 [facility] DIFFERENTIAL BASIC METABOLIC PANEL 2021-12-09 08:56:00 [facility] ZZCOVID-19 SEROLOGY 2021-12-09 08:56:[address] [facility] [place] PATIENT SURVEILLANCE Alexys ESTIMATED GFR 2021-12-09 08:56:00 [facility] VENIPUNC NEED PHYS 2021-12-08 23:57:47 Deondre Agee [facility] SKILL,DX OR RX CBC WITH PLATELET AND 2021-12-08 11:34:00 [facility] DIFFERENTIAL BASIC METABOLIC PANEL 2021-12-08 11:34:00 [facility] ESTIMATED GFR 2021-12-08 11:34:00 Juliana Graf spital BLOOD CULTURE, AEROBIC & 2021-12-08 11:32:00 [facility] ANAEROBIC OCCULT BLOOD, STOOL 2021-12-08 08:44:00 [facility] BLOOD CULTURE, AEROBIC & 2021-12-08 00:53:00 [facility] ANAEROBIC COVID-19 QUALITATIVE 2021-12-07 17:58:00 [facility] ABDOMEN PELVIS W 2021-12-07 15:35:35 [facility] CONTRAST CBC WITH PLATELET AND 2021-12-07 14:48:00 [facility] Herb [facility] DIFFERENTIAL COMPREHENSIVE METABOLIC 2021-12-07 14:48:[address] [facility] PANEL URINALYSIS 2021-12-07 14:48:00 [facility] ESTIMATED GFR 2021-12-07 14:48:00 [facility] CONSENT/REFUSAL FOR 2021-09-27 05:01:00 [facility]igned, [facility] Name Medical Branch XR ABDOMEN 1 VW 2019-12-27 15:41:22 Kayla Polyranulfo Hodges [facility] XR ABDOMEN 2 VW AP W 2019-12-26 23:13:11 Aziza Peter [facility] UPRIGHT AND/OR DECUBITUS [facility] COMPLETE BLD COUNT 2019-12-26 11:34:00 Leonel Yousif [facility] W/AUTO DIFF COMPREHENSIVE METABOLIC 2019-12-26 10:03:00 [facility] PANEL MAGNESIUM LEVEL 2019-12-26 10:03:00 [facility] ESTIMATED GFR 2019-12-26 10:03:00 [facility] US RENAL 2019-12-26 01:33:59 [facility] URINALYSIS SCREEN AND 2019-12-26 01:17:00 [facility] MICROSCOPY, WITH REFLEX TO CULTURE COVID-19 QUALITATIVE 2019-12-25 21:49:00 Anjel Smith [facility] RT-PCR CT ABDOMEN PELVIS W 2019-12-25 20:53:04 Anjel Smith [facility] CONTRAST URINALYSIS 2019-12-25 19:35:00 Anjel Smith [facility] 2019-12-25 19:35:[address] [facility] PANEL ESTIMATED GFR 2019-12-25 19:35:00 Anjel Smith [facility] HC COMPLETE BLD COUNT 2019-12-25 19:35:00 Anjel Smith [facility] W/AUTO DIFF Plan of Care Planned Activity Planned Date Details Comments Source Future Scheduled 2022-08-[address] [facility] Test 10:08:23 (procedure) [code = 304479211] Future Scheduled 2022-08-12 BREAST CANCER [facility] Test 10:08:23 SCREENING [code = BREAST CANCER SCREENING] Future Scheduled 2022-08-[address] [facility] Test 10:08:23 [code = COLONOSCOPY SCREENING] Future Scheduled 2022-08-12 COVID-19 VACCINE (4 - [facility] Test 10:08:23 Booster for Moderna series) [code = COVID-19 VACCINE (4 - Booster for Moderna series)] Future Scheduled 2022-08-12 [facility]ZA [facility]ACCINE [facility] 10:08:23 [code = INFLUENZA VACCINE] Future Scheduled COVID-19 VACCINE (1) [facility] Test [code = COVID-19 VACCINE (1)] Future Scheduled Hepatitis C screening [facility] Test (procedure) [code = 520690721] Future Scheduled BREAST CANC[facility] Test SCREENING [code = BREAST CANCER SCREENING] Future Scheduled COLONOSCOPY SCREENING [facility] Test [code = COLONOSCOPY SCREENING] Future Scheduled SHINGLES VACCINES [facility] (#1) [code = SHINGLES VACCINES (#1)] Future Scheduled INFLUENZA VACCINE [facility] Test [code = INFLUENZA VACCINE] Encounters Start End Encounter Admission Attending Care Care Encounter Source Date/Time Date/Time Type Type Clinicians Facility Department ID 2022-01-27 [facility] [id number] Common 09:50:01 Dionne [id number] [facility] 2021-12-29 Outpatient Buddy, [facility] [id number] Common 11:41:00 Dionne [id number] [facility] 2021-07-30 Outpatient [facility] [id number] [place] 12:20:24 [id number] [facility] 2021-05-[address] [facility] [id number] Common 14:26:43 Dionne 23212 [facility] 2021-05-14 Outpatient Buddy, [facility] [id number] Common 13:46:40 Dionne [id number] [facility] 2022-08-10 2022-08-10 Telephone Schamieser, 1.2.840.1 [id number] Methodi 00:00:00 00:00:00 Levi Vaughn 03915.1.1 943 3.430.2.7 Hospit a .3.333751 l .8 2022-08-04 2022-08-04 Office Jose D, 1.2.840.1 [id number] Methodi 09:45:00 10:19:12 Visit Levi Vaughn 84506.1.[address] 3.430.2.7 Hospit a .3.747390 l .8 2022-08-04 2022-08-04 Travel 1.2.840.1 1.2.441.234 [id number] Methodi 00:00:00 00:00:[address] 3.430.2.7 0.2.7.3.698 Ho spita .3.515010 084.8 l .8 2022-08-04 2022-08-04 [facility] [id number] [place] 00:00:00 00:00:00 LEVI Garcia[address] [facility] 2022-06-23 2022-06-23 Telephone Jose D, 1.2.840.1 [id number] Methodi 00:00:00 00:00:00 Levi Vaughn 06189.1.[address] 3.430.2.7 Hospit a .3.339999 l .8 2022-06-22 2022-06-22 Telephone De Jesus, 1.2.840.1 [id number] Methodi 00:00:00 00:00:[address] 3.430.2.7 Hospit a .3.310819 l .8 2022-06-22 2022-06-22 Orders Rocky, 1.2.840.1 [id number] Methodi 00:00:00 00:00:00 Only Josiane 38917.1.[address] 3.430.2.7 Hospit a .3.476329 l .8 2022-06-12 2022-06-12 Office Dane, 1.2.840.1 [id number] Methodi 08:30:00 12:43:07 Visit Nehemias Dent 59075.1.[address] 3.430.2.7 Hospit a .3.331266 l .8 2022-06-12 2022-06-12 Travel 1.2.840.1 1.2.242.765 [id number] Methodi 00:00:00 00:00:[address] 3.430.2.7 0.2.7.3.698 Ho spita .3.719464 084.8 l .8 2022-06-12 2022-06-12 Outpatient [facility] [id number] [place] 00:00:00 00:00:[address] 2022-05-18 2022-05-18 Lab Schiesser, 1.2.840.1 [id number] Methodi 14:55:00 15:00:00 Levi Vaughn 27396.1.[address] 3.430.2.7 Hospit a .3.125986 l .8 2022-05-18 2022-05-18 [facility] [id number] [place] 00:00:00 00:00:00 LEVI Garcia [facility] 2022-05-08 2022-05-08 Telephone Schiesser, 1.2.840.1 [id number] Methodi 00:00:00 00:00:00 Levi Vaughn [address]117.1.[address] 3.430.2.7 Hospit a .3.938813 l .8 2022-05-06 2022-05-06 Telephone Schiesser, 1.2.840.1 [id number] 2 [id number] Methodi 00:00:00 00:00:00 Levi Vaughn [address]265.1.[address] 3.430.2.7 Hospit a .3.592416 l .8 2022-04-30 2022-04-30 Office Schiesser, 1.2.840.1 [id number] Methodi 14:45:00 15:58:52 Visit Levi Vaughn 96713.1.[address] 3.430.2.7 Hospit a .3.878062 l .8 2022-04-30 2022-04-30 Travel 1.2.840.1 1.2.404.503 [id number] Methodi 00:00:00 00:00:[address] 3.430.2.7 0.2.7.3.698 aminta .3.345286 084.8 l .8 2022-04-30 2022-04-30 Outpatient JOSE D [facility] [id number] [place] 00:00:00 00:00:00 LEVI Pierre[address] [facility] [address] 2022-04-27 2022-04-27 SUB ANNUAL STLMLC STLMLC [id number] Common 00:00:00 00:00:00 MCR Spirit WELLNESS - CHI VISIT [facility] 2022-04-07 2022-04-07 (TEL) STLMLC STLMLC [id number] Co mmon 00:00:00 00:00:00 Spirit - [facility] 2022-01-29 2022-01-29 OFFICE STLMLC STLMLC [id number] Co mmon 00:00:00 00:00:00 VISIT Spirit ESTAB PT - CHI LEVEL 4 [facility] 2021-12-07 2021-12-12 [facility]. 1.2.840.1 [id number] Methodi 09:28:00 15:18:00 Encounter Lauren Rodríguez 22033.1.[address] Juliana Graf 3.430.2.7 Hospita Kathy Benedict .3.429403 l .8 2021-12-07 2021-12-12 Inpatient JANEY CHANNINGDEVIN [facility] [id number] [place] 00:00:00 00:00:[address] 2021-11-05 2021-11-05 (TEL) STLMLC STLMLC [id number] Co mmon 00:00:00 00:00:00 Spirit - [facility] 2021-10-30 2021-10-30 OFFICE STLMLC STLMLC [id number] Co mmon 00:00:00 00:00:00 VISIT EST Spir it PT LEVEL 3 - CHI [facility] 2021-10-23 2021-10-23 OFFICE STLMLC STLMLC [id number] Co mmon 00:00:00 00:00:00 VISIT EST Spir it PT LEVEL 3 - CHI [facility] 2021-10-21 2021-10-21 (TEL) STLMLC STLMLC [id number] Co mmon 00:00:00 00:00:00 Spirit - [facility] 2021-10-13 2021-10-13 (TEL) STLMLC STLMLC [id number] Co mmon 00:00:00 00:00:00 Spirit - [facility] 2021-09-30 2021-09-30 (TEL) STLMLC STLMLC [id number] Co mmon 00:00:00 00:00:00 [facility] 2021-09-27 2021-09-27 Nurse Therapy, Adc Covid Infusion [facility] 1.2.840.114 [id number] Univers 08:00:00 09:00:00 Visit Wan Riojas 350.1.13.10 ity [facility] 4.2.7.2.[phone] [place] [address] Branch 2021-09-27 2021-09-27 Outpatient Brian RIOJAS [facility] [id number] Univers 08:00:00 08:00:00 WAN hennessy [facility] 2021-09-27 2021-09-27 Orders Doctor GARY 1.2.840.114 [id number] Univers 00:00:00 00:00:00 Only Unassigned, VON 350.1.13.10 ity of [place] [facility] 4.2.7.2.686 Jesse as [id number] [address] 2021-09-09 2021-09-09 Outpatient Brian HI [facility] [id number] Univers 13:30:00 13:30:00 EDDIE hennessy [facility] 2021-06-30 2021-06-30 OFFICE STLMLC STLMLC [id number] Co mmon 00:00:00 00:00:00 VISIT Spirit ESTAB PT - CHI LEVEL 4 [facility] 2021-05-07 2021-05-07 OFFICE STLMLC STLMLC [id number] Co mmon 00:00:00 00:00:00 VISIT EST Spir it PT LEVEL 3 - CHI [facility] 2021-05-06 2021-05-06 (TEL) STLMLC STLMLC [id number] Co mmon 00:00:00 00:00:00 [facility] 2021-04-10 2021-04-10 (TEL) STLMLC STLMLC [id number] Co mmon 00:00:00 00:00:00 [facility] 2021-04-09 2021-04-09 SUB ANNUAL STLMLC STLMLC [id number] Common 00:00:00 00:00:00 MCR [facility] VISIT [facility] 2021-04-04 2021-04-04 (TEL) STLMLC STLMLC [id number] Co mmon 00:00:00 00:00:00 [facility] 2021-04-02 2021-04-02 (TEL) STLMLC STLMLC [id number] Co mmon 00:00:00 00:00:00 [facility] 2021-02-19 2021-02-19 OFFICE STLMLC STLMLC [id number] Co mmon 00:00:00 00:00:00 VISIT EST Spir it PT LEVEL 3 - [facility] 2021-01-08 2021-01-08 (TEL) STLMLC STLMLC [id number] Co mmon 00:00:00 00:00:00 [facility] 2021-01-02 2021-01-02 OFFICE STLMLC STLMLC [id number] Co mmon 00:00:00 00:00:00 VISIT [facility] ESTAB PT - CHI LEVEL 4 [facility] 2020-12-27 2020-12-27 (TEL) STLMLC STLMLC [id number] Co mmon 00:00:00 00:00:00 [facility] 2020-12-19 2020-12-19 OFFICE STLMLC STLMLC [id number] Co mmon 00:00:00 00:00:00 VISIT Spirit ESTAB PT - CHI LEVEL 1 [facility] 2020-12-17 2020-12-17 (TEL) STLMLC STLMLC [id number] Co mmon 00:00:00 00:00:00 [facility] 2020-12-12 2020-12-12 (TEL) STLMLC STLMLC [id number] Co mmon 00:00:00 00:00:00 [facility] 2020-12-12 2020-12-12 OFFICE STLMLC STLMLC [id number] Co mmon 00:00:00 00:00:00 VISIT EST Spir it PT LEVEL 3 [facility] 2020-11-07 2020-11-07 Outpatient STLMLC STLMLC [id number] Common 00:00:00 00:00:00 [facility] 2020-07-23 2020-07-23 Outpatient STLMLC STLMLC [id number] Common 00:00:00 00:00:00 [facility] 2020-07-16 2020-07-16 Outpatient STLMLC STLMLC [id number] Common 00:00:00 00:00:00 [facility] 2020-07-08 2020-07-08 Outpatient STLMLC STLMLC [id number] Common 00:00:00 00:00:00 [facility] 2020-07-04 2020-07-04 Outpatient STLMLC STLMLC [id number] Common 00:00:00 00:00:00 [facility] 2020-05-27 2020-05-27 Outpatient STLMLC STLMLC [id number] Common 00:00:00 00:00:00 [facility] 2020-02-02 2020-02-02 Outpatient STLMLC STLMLC [id number] Common 00:00:00 00:00:00 [facility] 2020-02-01 2020-02-01 Outpatient STLMLC STLMLC [id number] Common 00:00:00 00:00:00 [facility] 2020-01-09 2020-01-09 Outpatient STLMLC STLMLC [id number] Common 00:00:00 00:00:00 [facility] 2020-01-04 2020-01-04 Out[facility] [id number] Common 17:58:00 17:58:00 [address] [facility] 2020-01-02 2020-01-02 Outpatient [facility] [id number] Common 14:18:00 14:18:00 t [facility] Spir [address] Road [facility] 2020-01-02 2020-01-02 Outpatient [facility] [id number] Common 10:40:00 10:40:00 t [facility] Spir [address] [facility] 2019-12-28 2019-12-28 Emergency Atilio, 1.2.840.1 [id number] Methodi 16:08:46 16:10:00 Maria G 93613.1.[address] [facility] 3.430.2.7 Hospi ta .3.411180 l .8 2019-12-28 2019-12-28 Patient Kailee Guo 1.2.840.1 [id number] Methodi 00:00:00 00:00:[address] 3.430.2.7 Hospit a .3.268190 l .8 2019-12-28 2019-12-28 Travel 1.2.840.1 1.2.988.052 [id number] Methodi 00:00:00 00:00:[address] 3.430.2.7 0.2.7.3.698 Ho spita .3.544072 084.8 l .8 2019-12-25 2019-12-27 [facility] Anjel Smith 1.2.840.1 2020 [id number] Methodi 14:14:32 16:34:00 Encounter Lauren Rodríguez 61809.1.[address] Benja, Leonel E. 3.430.2.7 Hospita Poly Garza .3.689363 l .8 2019-08-23 2019-08-23 Outpatient [facility] [id number] Common 13:00:00 13:00:00 t [facility] Spir [address] [facility] 2019-07-13 2019-07-13 Outpatient [facility] [id number] Common 13:00:00 13:00:00 t [address] Sp[address] Road [facility] 2019-07-12 2019-07-12 Outpatient [facility] [id number] Common 15:58:00 15:58:00 t [address] Sp[address] Road [facility] 2019-02-13 2019-02-13 Outpatient [facility] [id number] Common 13:00:00 13:00:00 [address] [facility] 2019-02-08 2019-02-08 [facility] [id number] Common 13:00:00 13:00:00 [address] [facility] 2019-01-23 2019-01-23 [facility] [id number] Common 11:20:00 11:20:00 [address] [facility] 2018-08-11 2018-08-11 [facility] [id number] Common 09:01:00 09:01:00 [address] [place] [facility]10 2018-08-10 [id number] Common 13:00:00 13:00:00 [address] [facility] 2018-06-21 2018-06-21 [facility] [id number] Common 10:00:00 10:00:00 [address] [facility] 2018-05-24 2018-05-24 [facility] [id number] Common 14:30:00 14:30:00 [address] [facility] 2018-04-08 2018-04-08 [facility] [id number] Common 10:00:00 10:00:00 [address] [facility] 2017-12-07 2017-12-07 [facility] [id number] Common 15:50:00 15:50:00 [address] [facility] 2017-12-02 2017-12-02 [facility] [id number] Common 14:00:00 14:00:00 [address] [facility] 2017-12-01 2017-12-01 [facility] [id number] Common 10:15:00 10:15:00 [address] [facility] 2017-11-22 2017-11-22 [facility] [id number] Common 16:47:00 16:47:00 [address] [facility] 2017-11-16 2017-11-16 [facility] [id number] Common 13:00:00 13:00:00 [address] [facility] 2017-08-27 2017-08-27 [facility] [id number] Common 11:54:00 11:54:00 [address] [facility] 2017-08-24 2017-08-24 [facility] [id number] Common 10:00:00 10:00:00 [address] [facility] 2017-07-28 2017-07-28 [facility] [id number] Common 09:21:00 09:21:00 [address] [facility] 2017-07-07 2017-07-07 [facility] [id number] Common 15:00:00 15:00:00 [address] [facility] Results Test Description Test Time Test Comments Results Result Comments Source Surgical pathology request 2022-05-20 01:03:44 Test Item Value Reference Range Interpretation Comme nts Case number (test code = 6410526) [id number] Surgical pathology report (test code = See link below for PDF Lab R eport 7928) Result status (test code = 0164994) This is Final Report for [id number] 3809-2 [facility] NwogxruzXELA-KcN-1 (COVID-19) RNA [Presence] in Respiratory specimen by NEHAL with probe [id number] 19:11:48 Test Item Value Reference Range Interpretation Comments SARS-CoV-2 (COVID-19) RNA Not detected [Presence] in Respiratory specimen by NEHAL with probe detection (test code = 29492-8) Whether patient is employed in a Unknown healthcare setting (test code = 84597-2) Whether the patient has symptoms Unknown related to condition of interest (test code = 78572-0) Whether the patient was Unknown hospitalized for condition of interest (test code = 39271-0) Whether the patient was admitted Unknown to intensive care unit (ICU) for condition of interest (test code = 91029-1) Whether patient resides in a Unknown congregate care setting (test code = 53928-1) status (test code = Unknown 91227-4) Date and time of symptom onset Unknown (test code = 98415-0) Miguelangel Wu [facility]-COV-2(COVID19),[id number] 00:00:00 Test Item Value Reference Range Interpretation Comments SARS-CoV-2 INTERPRETATION (test NEGATIVE SEE NOTE code = 67279-3) SOURCE (test code = 52614-9) NOT SPECIFIED XR Abdomen 1 [id number] 15:43:52EXAM: XR ABDOMEN 1 VW CLINICAL: constipation COMPARISON: 12/26/2019 IMPRESSION: 1.Gaseous distention of loops of small bowel and colon similar to prior exam, nonspecific, possible ileus.2.Degenerative jason nges in the lower lumbar spine. [facility]-[id number] Interface, Radiology Results Incoming - 12/27/201910:47 AM CDT EXAM: XR ABDOMEN 1 VWCLINICAL: constipationCOMPARISON: 12/26/2019IMPRESSION: 1.Gaseous distention of loops of small bowel and colon similar to prior exam, nonspecific, possible ileus.2.Degenerative changes in the lower lumbar spine.[id number] HospitalXR Abdomen 2 Vw Ap W Upright And/Or [id number] 23:18:30EXAMINATION: XR ABDOMEN 2 VW AP W UPRIGHT AND OR DECUBITUS CLINICAL HISTORY: 69 [...] normal limits The lung bases are clear .[facility], Radiology ResultsIncoming 12/26/2019 6:21 PM CDT EXAMINATION: XR ABDOMEN 2 VW AP W UPRIGHT AND OR DECUBITUSCLINICAL HISTORY: 69 years Female constipation nausea hx obstructionCOMPARISON: August 08, 2013IMPRESSION: Loops of minimally distended air-filled small bowel in the left lower quadrant. Ileus cannot be excluded. Air is present in the colon. .There areno suspicious calcifications overlying the kidneys or expected course of the uretersThe osseous structures are within normal limitsThe lung bases are clear.[facility] [id number] 01:49:31EXAMINATION: US RENAL CLINICAL HISTORY: Flank pain [...] echogenicity: Within normal limits. 9. Other Findings:None [facility]-[id number] [facility], Radiology Results Incoming 12/25/2019 8:52 PM CDT EXAMINATION: US RENALCLINICAL HISTORY: Flank painstone disease suspectedCOMPARISON: CT dated 12/25/2019IMPRESSION:1. The right kidney measures 9.6 cm in length.2. The left kidney measures 10.2 cm in length.3. Cysts: No cysts are identified.4. Hydronephrosis: There is no hydronephrosis.5. Masses: No suspicious masses.6. Calculi: No calculi visualized by ultrasound7. Bladder: Limited distention of the bladder. No definite abnormalities.8. Renal echogenicity: Within normal limits.9. Other Findings:None[facility]-[id number] HospitalCT Abdomen Pelvis W [id number] 21:01:55EXAMINATION: CT ABDOMEN PELVIS W CONTRAST CLINICAL [...] measuring up to 1.8 cm with simple fluidattenuation. Additional smaller subcentimeter hypodensities throughout the lungs [...] burden throughout the colon compatible with constipation. Nobowel inflammatory changes. Small sliding hiatal hernia. Mild wall thickening of the gastroduodenal junction favored to represent underdistention rather than gastroduodenitisPeritoneum: No ascites or fluid collections. PELVIS:Urinary bladder is distended with layering excreted contrast. No focal wall thickening or discrete intraluminal stone. Uterus has been removed. Left ovary is not well delineatedand right ovary is grossly normal in appearance on this limited exam. MUSCULOSKELETAL: No aggressiveosseous lesions. Multilevel thoracolumbar degenerative disc disease. Suspected intraosseous hemangioma formation within the L1 vertebral body is similar appearance. SUMMARY: 1.Status post sigmoid resection-anastomotic changes without bowel obstruction.2.Moderate to large stool burden throughout the colon compatible constipation.3.Other findings as described above. [facility]-[id number] Interface, Radiology Results Incoming - 12/25/2019 4:04 PM CDT EXAMINATION: CT ABDOMEN PELVIS W CONTRASTCLINICAL HISTORY: 69 yearsFemale RLQ pain history of colectomy x 2 history of bowel obstructionTECHNIQUE: Multiple axial images of the abdomen and pelvis were obtained following intravenous administration of iodinated contrast. Sagittal and coronal computerizedreformatted images were also obtained. CT imaging was performed with iterative reconstruction techniques and/or automated exposure control to reduce radiation dose. COMPARISON: CT abdomen pelvis 4IMPRESSION:LUNG BASES:The lung bases are free of acute [...] aorta is nonaneurysmal scattered calcified plaques.Nodes: No retroperitonealor mesenteric lymphadenopathy.Bowel: Status post sigmoid resection-and anastomotic [...] to large stool burden throughout the colon ksenia tible constipation.3.Other findings as described above. [facility]-[id number] HospitalARS-COV 2 AntigenSARS-COV 2 Antigen
[2022-08-12] MEDS ORDERED: NA CHLORIDE 0.9% 1,000 ML ONE (11:15)
[2022-08-12] MEDS ORDERED: ONDANSETRON 4 MG/2 ML VIAL ONE (11:15)
[2022-08-12 12:06] LABS: Absolute Lymphocytes (CBC) 2.1 K/uL (0.7-4.9); Hematocrit 41.8 % (36.0-45.0); Lymphocytes % 24.3 % (15.3-44.8); MCV 94.4 fL (80-100); MPV 8.8 fL (7.6-11.3); RBC Red Blood Cell Count 4.43 M/uL (3.86-4.86)
[2022-08-12 12:35] LABS: Bilirubin Total 1.1 mg/dL (0.2-1.0); Potassium 4.2 mEq/L (3.5-5.1); Protein, Total 7.7 g/dL (6.4-8.2)
--- NOTE | 2022-08-12 13:08 | RAD REPORT ---
EXAM DESCRIPTION: CT - Abdomen Pelvis W Contrast - 08/12/2022 12:50 pm CLINICAL HISTORY: Abdominal pain COMPARISON: none. TECHNIQUE: Computed axial tomography of the abdomen pelvis was obtained. 100 cc Isovue-300 was admin istered intravenously. Oral contrast was not requested which limits evaluation of bowel and appendix All CT scans are performed using dose optimization technique as appropriate and may include automated exposure control or mA/KV adjustment according to patient size. FINDINGS: The liver, spleen, pancreas, adrenal and kidneys appear unremarkable. Sigmoidectomy. Mild rectal distention. Mild dilatation of ascending, transverse and descending colon. No evidence diverticulitis. Hysterectomy. No adnexal mass IMPRESSION: Mild colonic dilatation containing moderate to large amount of stool. A mechanical obstr uction not visualized.
[2022-08-12 14:02] LABS: Specific Gravity 1.016 (1.005-1.030); Urine Bacteria <20 /HPF (<20); Urine Bilirubin NEGATIVE (Negative); Urine Blood Negative (Negative); Urine Clarity Clear (Clear); Urine Color Colorless (Yellow); Urine Glucose NEGATIVE (Negative); Urine Mucus Slight /HPF (None Seen); Urine Protein NEGATIVE (Negative); Urine RBC <5 /HPF (None Seen); Urine Urobilinogen Normal (Normal)
--- NOTE | 2022-08-12 14:08 | EDPHYS ---
Physician Documentation [facility] Name: Daisy Mcfadden Age: 72 yrs Sex: Female : 1950 Arrival Date: 08/12/2022 Time: 10:05 Bed 8 Private MD: Dionne Goodwin ED Physician Yoni Denise HPI: 08/12 12:43 This 72 yrs old Female presents to ER via Ambulatory with complaints of Abdominal Pain. rn 12:43 The patient presents with abdominal pain in the left lower quadrant. Onset: The rn symptoms/episode began/occurred 3 day(s) ago. The symptoms do not radiate. Associated signs and symptoms: Pertinent positives: nausea, Pertinent negatives: blood in stools, chest pain, constipation, diarrhea, dysuria, fever. The symptoms are described as intermittent, sharp, stabbing. 12:44 Modifying factors: The symptoms are alleviated by nothing, the symptoms are aggravated rn by touching the area. Severity of pain: At its worst the pain was moderate in the emergency department the pain is unchanged. The patient has not experienced similar symptoms in the past. Historical: - Allergies: 10:26 Erythromycin; ap3 10:26 Ibuprofen; ap3 10:26 Morphine; ap3 10:26 Reglan; ap3 - PMHx: 10:26 Hyperlipidemia; Hypertension; Sjogrens; ap3 - Immunization history:: Client reports receiving the 2nd dose of the Covid vaccine. - Social history:: Smoking status: Patient denies any tobacco usage or history of. - Family history:: not pertinent. - Hospitalizations: : No recent hospitalization is reported. ROS: 12:44 Constitutional: Negative for fever, chills, and weight loss, Cardiovascular: Negative rn for chest pain, palpitations, and edema, Respiratory: Negative for shortness of breath, cough, wheezing, and pleuritic chest pain, Abdomen/GI: Negative for vomiting, diarrhea, and constipation, Back: Negative for injury MS/Extremity: Negative for injury and deformity, Skin: Negative for injury, rash, and discoloration, Neuro: Negative for headache, weakness, numbness, tingling, and seizure. Exam: 12:47 Constitutional: This is a well developed, well nourished patient who is awake, alert, rn appears anxious and in pain Head/Face: Normocephalic, atraumatic. Cardiovascular: Bradycardic. No pulse deficits. Respiratory: No increased work of breathing, no retractions or nasal flaring. Abdomen/GI: Soft, + mild LLQ tenderness, no rebound Back: No spinal tenderness. No costovertebral tenderness. Full range of motion. Skin: Warm, dry MS/ Extremity: Pulses equal, no cyanosis. Neuro: Awake and alert, GCS 15 Vital Signs: 10:22 BP 129 / 62; Pulse 61; Resp 17; Temp 97.8; Pulse Ox 100% ; Weight 71.67 kg; Pain 7/10; ap3 11:32 BP 131 / 108; Pulse 56; Resp 18; Pulse Ox 100% on R/A; Pain 9/10; ld1 12:22 Pulse 52; Resp 18; Pulse Ox 100% on R/A; Pain 8/10; ld1 13:31 BP 117 / 47; Pulse 55; Resp 18; Pulse Ox 99% on R/A; ld1 16:45 BP 144 / 78; Pulse 59; Resp 18; Pulse Ox 99% on R/A; ld1 19:46 BP 137 / 66; Pulse 68; Resp 17 S; Pulse Ox 98% on R/A; lg3 10:22 Pain Scale: Adult ap3 11:32 Pain Scale: Adult ld1 12:22 Pain Scale: Adult ld1 MDM: 10:26 Patient medically screened. rn 14:04 Differential diagnosis: bowel obstruction, diverticulitis, non-specific abd pain, rn Ureterolithiasis, urinary tract infection, colitis. Data reviewed: vital signs, nurses notes, lab test result(s), radiologic studies, CT scan, and as a result, I will discharge patient. Counseling: I had a detailed discussion with the patient and/or guardian regarding: the historical points, exam findings, and any diagnostic results supporting the discharge/admit diagnosis, lab results, radiology results, the need for outpatient follow up, to return to the emergency department if symptoms worsen or persist or if there are any questions or concerns that arise at home. Response to treatment: There is no appreciated change of the patient's symptoms at this time, and as a result, I will admit patient. 08/12 10:35 Order name: CBC with Diff; Complete Time: 12:43 rn 08/12 10:35 Order name: CMP; Complete Time: 12:43 rn 08/12 10:35 Order name: Lipase; Complete Time: 12:43 rn 08/12 13:21 Order name: Urinalysis w/ reflexes; Complete Time: 14:03 db 08/12 14:04 Order name: Stool Culture rn 08/12 14:04 Order name: CDIFF rn 08/12 16:32 Order name: Magnesium EDCT 08/12 16:32 Order name: NT PRO-BNP EDCT 08/12 16:32 Order name: Phosphorus EDCT 08/12 16:32 Order name: T4 Free [facility] 08/12 16:32 Order name: Thyroid Stimulating Hormone [facility] 08/12 16:32 Order name: Urinalysis w/ reflexes EDCT 08/12 16:32 Order name: CBC with Automated Diff EDCT 08/12 16:32 Order name: CBC with Automated Diff [facility] 08/12 16:32 Order name: Comprehensive Metabolic Panel [facility] 08/12 16:32 Order name: Comprehensive Metabolic Panel [facility] 08/12 10:35 Order name: CT Abd/Pelvis - IV Contrast Only; Complete Time: 13:09 rn 08/12 16:32 Order name: Clear Liquid [facility] 08/12 10:35 Order name: IV Saline Lock; Complete Time: 12:22 rn 08/12 10:35 Order name: Labs collected and sent; Complete Time: 12:22 rn Administered Medications: 12:22 Drug: NS 0.9% IV 1000 ml Route: IV; Rate: 1 bolus; Site: left antecubital; ld1 12:22 Drug: Ondansetron IVP 4 mg Route: IVP; Site: left antecubital; ld1 Disposition Summary: 08/12/22 14:07 Hospitalization Ordered Hospitalization Status: Observation rn Provider: Bg Man rn Location: Telemetry/MedSurg (observation)(08/12/22 14:07) rn Condition: Stable(08/12/22 14:07) rn Problem: new(08/12/22 14:07) rn Symptoms: are unchanged(08/12/22 14:07) rn Bed/Room Type: Standard rn Room Assignment: 229(08/12/22 21:02) eb1 Diagnosis - Dilatation of colon rn - Constipation rn - Abdominal pain, unspecified rn Forms: - Medication Reconciliation Form rn - SBAR form rn Signatures: Dispatcher [employer] EDYoni Olivarez MD MD rn Philip, Giovana, RN RN ap3 Christine Mckee, RN RN eb1 Maria G Rubio, RN RN ld1 Corrections: (The following items were deleted from the chart) 14: Home rn rn 14: new rn rn 14: are unchanged rn rn 14: Stable rn rn 14: Constipation, unspecified rn rn 14: Abdominal pain, Generalized rn rn 14: Colonic dilatation rn rn 21:02 14: rn eb1
--- NOTE | 2022-08-12 14:08 | ER ---
Nurse's Notes [facility] Name: Daisy Mcfadden Age: 72 yrs Sex: Female : 1950 Arrival Date: 08/12/2022 Time: 10:05 Bed 8 Private MD: Dionne Goodwin Diagnosis: Dilatation of colon;Constipation;Abdominal pain, unspecified Presentation: 08/12 10:22 Chief complaint: Patient states: she started having abdominal pain this morning that ap3 made her sweaty, and she was able to have a normal bowel movement. patient states that after her BM she started having left lower quadrant pain. patient rates her pain between a 7-10 on the pain scale at this time. Patient also reports nausea associated with the abdominal pain. Coronavirus screen: At this time, the client does not indicate any symptoms associated with coronavirus-19. Ebola Screen: No symptoms or risks identified at this time. Initial Sepsis Screen: Does the patient meet any 2 criteria? No. Patient's initial sepsis screen is negative. Does the patient have a suspected source of infection? Yes: Acute abdominal pain. Risk Assessment: Do you want to hurt yourself or someone else? Patient reports no desire to harm self or others. Onset of symptoms is unknown. 10:22 Method Of Arrival: Ambulatory ap3 10:22 Acuity: SILVANA 3 ap3 Triage Assessment: 10:27 General: Appears uncomfortable, Behavior is calm, cooperative, appropriate for age. ap3 Pain: Complains of pain in left lower quadrant Pain currently is 7 out of 10 on a pain scale. at worst was 10 out of 10 on a pain scale. Also complains of nausea. Neuro: Level of Consciousness is awake, alert, obeys commands, Oriented to person, place, time, situation, Speech is normal. Cardiovascular: Patient's skin is warm and dry. Respiratory: Airway is patent Respiratory effort is even, unlabored. GI: Reports lower abdominal pain, nausea. Historical: - Allergies: 10:26 Erythromycin; ap3 10:26 Ibuprofen; ap3 10:26 Morphine; ap3 10:26 Reglan; ap3 - PMHx: 10:26 Hyperlipidemia; Hypertension; Sjogrens; ap3 - Immunization history:: Client reports receiving the 2nd dose of the Covid vaccine. - Social history:: Smoking status: Patient denies any tobacco usage or history of. - Family history:: not pertinent. - Hospitalizations: : No recent hospitalization is reported. Screenin:27 Abuse screen: Denies threats or abuse. Nutritional screening: No deficits noted. ap3 Tuberculosis screening: No symptoms or risk factors identified. 11:[address] [facility] ED Fall Risk Assessment (Adult) History of falling in the last 3 months, ld1 including since admission No falls in past 3 months (0 pts). Assessment: 11:32 General: Appears in no apparent distress. uncomfortable, Behavior is calm, cooperative, ld1 appropriate for age. Pain: Complains of pain in abdomen and left lower quadrant Pain does not radiate. Pain currently is 9 out of 10 on a pain scale. Quality of pain is described as sharp, shooting, throbbing, Is continuous. Neuro: Level of Consciousness is awake, alert, obeys commands, Oriented to person, place, time, situation. Cardiovascular: Capillary refill < 3 seconds Patient's skin is warm and dry. Rhythm is sinus rhythm. Respiratory: Airway is patent Respiratory effort is even, unlabored. GI: Abdomen is round non-distended, Bowel sounds present X 4 quads. Abd is soft Abdomen is tender to palpation in left lower quadrant. : No signs and/or symptoms were reported regarding the genitourinary system. EENT: No signs and/or symptoms were reported regarding the EENT system. Derm: No signs and/or symptoms reported regarding the dermatologic system. Musculoskeletal: No signs and/or symptoms reported regarding the musculoskeletal system. 12:22 Reassessment: Patient appears in no apparent distress at this time. No changes from ld1 previously documented assessment. Patient and/or family updated on plan of care and expected duration. Pain level reassessed. Patient is alert, oriented x 3, equal unlabored respirations, skin warm/dry/pink. 13:15 Reassessment: patient assisted to the restroom via wheelchair. db 15:30 Reassessment: Patient appears in no apparent distress at this time. No changes from ld1 previously documented assessment. Patient and/or family updated on plan of care and expected duration. Pain level reassessed. Patient is alert, oriented x 3, equal unlabored respirations, skin warm/dry/pink. 16:45 Reassessment: No changes from previously documented assessment. Patient and/or family ld1 updated on plan of care and expected duration. Pain level reassessed. 18:43 Reassessment: Daughter to patient - Darlene - [phone]. ld1 19:53 General: Appears in no apparent distress. comfortable, Behavior is calm, cooperative. lg3 Pain: Complains of pain in abdomen Pain currently is 3 out of 10 on a pain scale. Neuro: No deficits noted. Level of Consciousness is awake, alert, obeys commands, Oriented to person, place, time, situation. Cardiovascular: No deficits noted. Capillary refill < 3 seconds Clubbing of nail beds is absent Patient's skin is warm and dry. Respiratory: No deficits noted. Airway is patent Respiratory effort is even, unlabored, Respiratory pattern is regular, symmetrical. GI: Abdomen is round non-distended, Bowel sounds present X 4 quads. Abd is soft X 4 quads Abdomen is tender to palpation in left lower quadrant. : No deficits noted. No signs and/or symptoms were reported regarding the genitourinary system. EENT: No deficits noted. No signs and/or symptoms were reported regarding the EENT system. Derm: No deficits noted. No signs and/or symptoms reported regarding the dermatologic system. Skin is intact, is healthy with good turgor, Skin is dry, Skin is normal, Skin temperature is warm. Musculoskeletal: No deficits noted. No signs and/or symptoms reported regarding the musculoskeletal system. Circulation, motion, and sensation intact. Range of motion: intact in all extremities. Vital Signs: 10:22 BP 129 / 62; Pulse 61; Resp 17; Temp 97.8; Pulse Ox 100% ; Weight 71.67 kg; Pain 7/10; ap3 11:32 BP 131 / 108; Pulse 56; Resp 18; Pulse Ox 100% on R/A; Pain 9/10; ld1 12:22 Pulse 52; Resp 18; Pulse Ox 100% on R/A; Pain 8/10; ld1 13:31 BP 117 / 47; Pulse 55; Resp 18; Pulse Ox 99% on R/A; ld1 16:45 BP 144 / 78; Pulse 59; Resp 18; Pulse Ox 99% on R/A; ld1 19:46 BP 137 / 66; Pulse 68; Resp 17 S; Pulse Ox 98% on R/A; lg3 10:22 Pain Scale: Adult ap3 11:32 Pain Scale: Adult ld1 12:22 Pain Scale: Adult ld1 ED Course: 10:09 Patient arrived in ED. mr 10:09 Dionne Goodwin is Private Physician. mr 10:26 Yoni Denise MD is Attending Physician. rn 10:26 Triage completed. ap3 10:28 Arm band placed on left wrist. ap3 11:06 Maria G Rubio RN is Primary Nurse. ld1 11:32 Patient has correct armband on for positive identification. Placed in gown. Bed in low ld1 position. Call light in reach. Side rails up X2. media monitor on. Pulse ox on. NIBP on. Door closed. Noise minimized. Warm blanket given. 11:32 No provider procedures requiring assistance completed. ld1 12:22 Inserted saline lock: 20 gauge in left antecubital area, using aseptic technique. Blood ld1 collected. 12:51 CT Abd/Pelvis - IV Contrast Only In Process Unspecified. EDMS 14:06 Bg Man MD is Hospitalizing Provider. rn 15:09 Primary Nurse role handed off by Maria G Rubio RN ld1 17:42 Stool Culture Sent. os 17:42 CDIFF Sent. os 18:54 Maria G Rubio RN is Primary Nurse. ld1 19:18 Primary Nurse role handed off by Maria G Rubio RN em1 21:12 Patient admitted, IV remains in place. intact, No redness/swelling at site. lg3 Administered Medications: 12:22 Drug: NS 0.9% IV 1000 ml Route: IV; Rate: 1 bolus; Site: left antecubital; ld1 12:22 Drug: Ondansetron IVP 4 mg Route: IVP; Site: left antecubital; ld1 Medication: 21:12 VIS not applicable for this client. lg3 Outcome: 14:06 Discharge ordered by . rn 14:07 Decision to Hospitalize by Provider. rn 21:12 Admitted to Med/surg accompanied by nurse, via wheelchair, room 229, with chart, Report lg3 called to Tawanna 21:12 Condition: stable 21:12 Instructed on the need for admit, Demonstrated understanding of instructions. 22:40 Patient left the ED. lg3 Signatures: Dispatcher [employer] [facility] Christy Lee mr Yoni Denise MD MD rn Martinez, Eric em1 Giovana Palacios, RN RN ap3 Bethany Velazquez, RN RN lg3 Maria G Rubio, RN RN ld1 Lynda Hinton, RN RN db Carolyn Andrade, RN RN os
[2022-08-12] MEDS ORDERED: ACETAMINOPHEN 325 MG TABLET PO PRN ×2 (16:25→16:37)
[2022-08-12] MEDS ORDERED: ONDANSETRON 4 MG/2 ML VIAL IV PRN (16:27)
--- NOTE | 2022-08-12 16:38 | P.HP ---
Certification for Inpatient Patient admitted to: Observation With expected LOS: <2 Midnights Patient will require the following post-hospital care: None Practitioner: I am a practitioner with admitting privileges, knowledge of patient current condition, hospital course, and medical plan of care. Services: Services provided to patient in accordance with Admission requirements found in Title 42 Section 412.3 of the Code of Federal Regulations Patient History Date of Service: 08/12/22 Reason for admission: Abdominal pain History of Present Illness: Patient is a 72-year-old female with a past medical history significant for HLD, hypertension, Sojourn's syndrome who presents with complaint of abdominal pain located in the left lower quadrant that has been ongoing for the past 3 days. Patient rated pain as 10/10 in severity and described pain as throbbing in quality. Patient reported associated signs and symptoms of nausea, headache, abdominal distention, poor appetite and generalized malaise. Patient denies any other signs and symptoms. Symptoms are aggravated or relieved by nothing. Patient decided to present to the hospital due to worsening symptoms. Allergies lisinopril Allergy (Verified 11/04/21 12:13) Leg Swelling ibuprofen Adverse Reaction (Verified 11/04/21 12:13) diarrhea metoclopramide [From Reglan] Adverse Reaction (Verified 11/04/21 12:13) Nervous/Tremors/Fatigue morphine Adverse Reaction (Verified 11/04/21 12:13) Flushed/Dizziness/Palpitations Erythromycin Allergy (Uncoded 11/04/21 12:13) Redness all over Home Medications: ALPRAZolam [Xanax] 1 mg PO BEDTIME 11/04/21 Acetaminophen [Tylenol Extra Strength] 500 mg PO PRN PRN 11/04/21 Amlodipine Besylate 10 mg PO BEDTIME 11/04/21 Aspirin [Aspirin EC 81 MG] 81 mg PO DAILY 11/04/21 Atorvastatin Calcium [Lipitor] 10 mg PO BEDTIME 11/04/21 Calcium Carbonate [Tums Regular] 1,000 mg PO TIDP PRN 11/04/21 Cevimeline HCl 30 mg PO TID 11/04/21 Cholecalciferol (Vitamin D3) [Vitamin D3] 25 mcg PO DAILY 11/04/21 Docusate [Colace Cap] 100 mg PO DAILY 11/04/21 Famotidine [Pepcid] 20 mg PO BEDTIME 11/04/21 Fluticasone [Flonase 50mcg Nasal Gaines] 2 sprays NS DAILY 11/04/21 Garlic 2,000 mg PO DAILY 11/04/21 Guaifenesin [Mucinex] 600 mg PO DAILY 11/04/21 Lactobacillus Acidophilus [Acidophilus Probiotic] 1 each PO DAILY 11/04/21 Linaclotide [Linzess] 290 mcg PO DAILY 11/04/21 Losartan Potassium [Cozaar] 50 mg PO DAILY 11/04/21 Metoclopramide [Reglan] 2.5 mg PO BID 11/04/21 Metoprolol Succinate [Toprol Xl] 100 mg PO BEDTIME 11/04/21 Montelukast [Singulair] 10 mg PO DAILY 11/04/21 Multivitamin 1 each PO DAILY 11/04/21 Naproxen 250 mg PO DAILY 11/04/21 Ondansetron [Zofran] 4 mg PO Q6H PRN 11/04/21 Pantoprazole [Protonix Tab] 40 mg PO BID 11/04/21 Ropinirole HCl [Requip] 1 mg PO PRN PRN 11/04/21 Simethicone [Gas-X] 125 mg PO PRN PRN 11/04/21 Ubidecarenone [Co Q-10] 200 mg PO DAILY 11/04/21 Vit C/E/Zn/Coppr/Lutein/Zeaxan [Preservision Areds 2 Softgel] 1 each PO DAILY 11/04/21 - Past Medical/Surgical History Diabetic: No -: HTN -: High Cholesterol -: Sjogren's Syndrome -: GERD -: Osteoarthritis -: Sjogren's Syndrome -: Insomnia -: Restless Leg Syndrome -: Recent Colon resection due to Chronic constipation with post op Ileus. -: Depression with anxiety -: Tonsils -: Hysterectomy -: Right Breast [id number] -: Recent colonoscopy and flex. sig. -: Colectomy x2 Psychosocial/ Personal History: . - Family History Mother -: Other (see notes) Notes: Auto immune disorder Father -: Cancer Notes: Ulcers. Prostate CA - Social History Smoking Status: Never smoker Alcohol use: No CD- Drugs: No Caffeine use: Yes Place of Residence: Home Review of Systems General: Malaise, Other (Poor appetite ) Eyes: Unremarkable ENT: Unremarkable Respiratory: Unremarkable Cardiovascular: Unremarkable Gastrointestinal: Nausea, Abdominal Pain, Distention, Constipation Genitourinary: Unremarkable Musculoskeletal: Unremarkable Integumentary: Unremarkable Neurological: Other (GELLER) Lymphatics: Unremarkable Physical Examination - Physical Exam General: Alert, Oriented x3, Mild distress HEENT: Atraumatic, PERRLA, Mucous membr. moist/pink, EOMI, Sclerae nonicteric Neck: Supple, 2+ carotid pulse no bruit, No LAD, Without JVD or thyroid abnormality Respiratory: Clear to auscultation bilaterally, Normal air movement Cardiovascular: No edema, Regular rate/rhythm, Normal S1 S2 Capillary refill: <2 Seconds Gastrointestinal: Normal bowel sounds, Distended, Tenderness Musculoskeletal: No clubbing, No tenderness Integumentary: No rashes, No breakdown Neurological: Normal gait, Normal speech, Normal strength at 5/5 x4 extr, Normal tone, Normal affect Lymphatics: No axilla or inguinal lymphadenopathy - Studies Laboratory Data (last 24 hrs) 08/12/22 11:45: Sodium 132 L, Potassium 4.2, BUN 24 H, Creatinine 1.35 H, Glucose 108 H, Total Bilirubin 1.1 H, AST 41 H, ALT 44, Alkaline Phosphatase 101, Lipase 39 08/12/22 11:45: WBC 8.80, Hgb 14.4, Hct 41.8, Plt Count 228 Assessment and Plan - Plan --Constipation. CT imaging indicates "Mild colonic dilatation containing moderate to large amount of stool. A mechanical obstruction not visualized." Gastroenterology consulted. Patient has a history of constipationOn home laxatives. Patient placed on laxatives. Will await further recommendation. --Acute pain\\OA. We will manage pain with current pain medication regimen. --History of Sjogren's syndrome. Stable. Continue supportive care. -- Headache. Tylenol as needed. --Nausea. Antiemetics on board. --LIZY. Likely prerenal secondary to dehydration. Continue IV hydration. We will continue to monitor renal functions. --Anxiety disorder. Continue home medications. --Hyperlipidemia. Continue statin. --Hypertension. Stable. Continue home medications. --RLS. Continue home medication. --GERD. Continue home medications. -- DVT prophylaxis with Lovenox subQ. Discharge Plan: Home Plan to discharge in: 48 Hours - Advance Directives Does patient have a Living Will: Yes Does patient have a Durable POA for Healthcare: Yes - Code Status/Comfort Care Code Status Assessed: Yes Physician Review: Patient Assessed, Agree with Above Assessment and Plan Critical Care: No
[2022-08-12] MEDS ORDERED: ACETAMINOPHEN 325 MG TABLET ONE (17:30)
[2022-08-12 17:49] LABS: Magnesium 2.2 mg/dL (1.6-2.4); Phosphorus 3.2 mg/dL (2.5-4.9); Thyroid Stimulating Hormone 1.38 uIU/mL (0.358-3.740)
[2022-08-12] MEDS: DOCUSATE NA 100 MG CAP PO SCH ×2 (21:00→23:36)
[2022-08-12 23:08] VITALS: BMI 27.4
[2022-08-12] MEDS ORDERED: ALPRAZOLAM 1 MG TABLET PO ONE (23:14)
[2022-08-12] MEDS: POLYETHYL GLY 3350 17 GM/DOSE PO SCH (23:36)
[2022-08-12] MEDS: ENOXAPARIN 40 MG/0.4 ML SQ SCH (23:36)
[2022-08-13 02:57] LABS: Hematocrit 38.1 % (36.0-45.0); MCV 94.8 fL (80-100); MPV 9.1 fL (7.6-11.3); RBC Red Blood Cell Count 4.01 M/uL (3.86-4.86)
[2022-08-13 02:58] LABS: Albumin 3.2 g/dL (3.4-5.0); Bilirubin Total 0.6 mg/dL (0.2-1.0); Potassium 3.6 mEq/L (3.5-5.1); Protein, Total 6.2 g/dL (6.4-8.2)
[2022-08-13] MEDS ORDERED: ASPIRIN 81 MG CHEWABLE TABLET PO SCH (09:00)
[2022-08-13 09:21] VITALS: O2SAT 95
--- NOTE | 2022-08-13 09:26 | RAD REPORT ---
EXAM DESCRIPTION: RAD - Abdomen 1 View (KUB) - 08/13/2022 9:15 am CLINICAL HISTORY: follow-up Pain COMPARISON: Abdomen 1 View (KUB) dated 08/10/2018; Abdomen 1 View (KUB) dated 01/19/2017; Abdomen 1 Vi ew (KUB) dated 01/12/2017; ABDOMEN 1 VIEW KUB dated 03/16/2013; Abdomen Pelvis W Contrast dated 08/12 FINDINGS: A few mildly prominent left lower quadrant small bowel loops are seen, appearing nonobstru cted. Mild fecal retention. No suspicious calcifications. No free air seen.
[2022-08-13] MEDS: DOCUSATE NA 100 MG CAP PO SCH (09:41)
[2022-08-13] MEDS: POLYETHYL GLY 3350 17 GM/DOSE PO SCH (09:41)
[2022-08-13] MEDS: ENOXAPARIN 40 MG/0.4 ML SQ SCH (09:41)
--- NOTE | 2022-08-13 15:28 | P.DS ---
Admission Date: 08/12/22 Discharge Date: 08/13/22 Disposition: ROUTINE DISCHARGE Discharge Condition: GOOD Reason for Admission: Abdominal pain Consultations: 1. Gastroenterology Hospital Course: DIAGNOSES: # Abdominal Pain likely secondary to Moderate-Large Stool [place] - improved # KDIGO Stage I Acute Kidney Injury - resolved # Irritable Bowel Syndrome with Constipation # Sjogren's Syndrome # Hypertension # Hyperlipidemia # Restless Leg Syndrome # Anxiety # Gastroesophageal Reflux Disease HOSPITAL COURSE: Ms. Daisy Mcfadden is a pleasant 72-year-old female with a past medical history significant for Sjogren's syndrome, hypertension, hyperlipidemia, anxiety, restless leg syndrome, and gastroesophageal reflux disease who was admitted to the [facility] on 08/12/2022 for abdominal pain. She was admitted to the Medicine service. Upon further evaluation, her CT abdomen/pelvis revealed, "mild colonic dilatation containing moderate to large amount of stool. A mechanical obstruction not visualized." She was treated with stool softeners and laxatives, with significant improvement of her symptoms. She was able to to pass several bowel movements and reported improvement in her abdominal pain. A repeat KUB this morning revealed, "a few mildly prominent left lower quadrant small bowel loops are seen, appearing nonobstructed. Mild fecal retention. No suspicious calcifications. No free air seen." Gastroenterology was consulted and I reviewed her case with Dr. Stewart. He has cleared her for discharge and instructed her to follow-up at his clinic tomorrow morning for further evaluation. I spoke with her and her daughter (Ms. Ramsey), who were in agreement with this plan. On 08/13/2022, she was seen on rounds and deemed medically stable for discharge. She was discharged with instructions to schedule follow-up appointments with her PCP (JANES Goodwin) and with Gastroenterology (Dr. Stewart). She was advised to consider reducing her calcium supplement from daily to every other day as well as to discontinue ondansetron and dicylcomine as these medications may precipitate constipation. She and her family members were given the opportunity to ask questions and reported no further questions. Furthermore, all questions were answered to the best of my ability. A copy of this discharge summary will be sent to the above providers to facilitate continuity of care. Today, I personally spent 25 minutes on her case, of which greater than 50% of the time was spent in patient education, counseling, and coordination of care as described above. Vital Signs/Physical Exam: Temp Pulse Resp BP Pulse Ox 98.0 F 63 16 134/72 99 08/13/22 12:00 08/13/22 12:00 08/13/22 12:00 08/13/22 12:00 08/13/22 12:00 General: Alert, In no apparent distress, Oriented x3 HEENT: Atraumatic, Mucous membr. moist/pink, Sclerae nonicteric Neck: JVD not distended Respiratory: Clear to auscultation bilaterally, Normal air movement Cardiovascular: No edema, Regular rate/rhythm, Normal S1 S2, No gallops, No rubs, No murmurs Gastrointestinal: Normal bowel sounds, Soft and benign, Non-distended, No tenderness, No rebound, No guarding Musculoskeletal: No clubbing Integumentary: No rashes Neurological: Normal speech, Normal affect Laboratory Data at Discharge: WBC 6.60 thou/uL (4.3-10.9) 08/13/22 02:17 Hgb 12.8 g/dL (12.0-15.0) D 08/13/22 02:17 Hct 38.1 % (36.0-45.0) 08/13/22 02:17 Plt Count 176 thou/uL (152-406) 08/13/22 02:17 Sodium 137 mEq/L (136-145) D 08/13/22 02:17 Potassium 3.6 mEq/L (3.5-5.1) D 08/13/22 02:17 BUN 18 mg/dL (7-18) 08/13/22 02:17 Creatinine 0.85 mg/dL (0.55-1.02) 08/13/22 02:17 Glucose 104 mg/dL (74-106) 08/13/22 02:17 Phosphorus 3.2 mg/dL (2.5-4.9) 08/12/22 17:05 Magnesium 2.2 mg/dL (1.6-2.4) 08/12/22 17:05 Total Bilirubin 0.6 mg/dL (0.2-1.0) 08/13/22 02:17 AST 24 U/L (15-37) 08/13/22 02:17 ALT 33 U/L (13-56) 08/13/22 02:17 Alkaline Phosphatase 80 U/L (45-117) D 08/13/22 02:17 Triglycerides Cancelled 08/12/22 16:36 Cholesterol Cancelled 08/12/22 16:36 HDL Cholesterol Cancelled 08/12/22 16:36 Cholesterol/HDL Ratio Cancelled 08/12/22 16:36 Lipase 39 U/L (13-75) 08/12/22 11:45 Home Medications: ALPRAZolam [Xanax*] 1 mg PO BEDTIME 11/04/21 Acetaminophen [Tylenol Extra Strength] 500 mg PO PRN PRN 11/04/21 Amlodipine Besylate 10 mg PO DAILY 11/04/21 Atorvastatin Calcium [Lipitor*] 10 mg PO BEDTIME 11/04/21 Cevimeline HCl 30 mg PO TID 11/04/21 Famotidine [Pepcid*] 20 mg PO BEDTIME 11/04/21 Losartan Potassium [Cozaar*] 50 mg PO DAILY 11/04/21 Montelukast [Singulair*] 10 mg PO DAILY 11/04/21 Multivitamin 1 each PO DAILY 11/04/21 Pantoprazole [Protonix Tab*] 40 mg PO BID 11/04/21 Ropinirole HCl [Requip*] 1 mg PO PRN PRN 11/04/21 Simethicone [Gas-X] 250 mg PO BID PRN 11/04/21 Docusate [Colace Cap*] 100 mg PO BID cap 08/13/22 Polyethyl Gly 3350 [Glycolax*] 17 gm PO DAILY PRN udbot 08/13/22 Physician Discharge Instructions: 1. Please call and schedule a follow-up appointment with your PCP (JANES Goodwin) in 3-5 days 2. Please follow-up with Gastroenterology (Dr. Stewart) tomorrow morning Diet: AHA Activity: Ad rae Followup: Dionne Goodwin NP [Primary Care Provider] - Alexys Stewart MD [ASSOCIATE-ACTIVE - CAN ADMIT] - Time spent managing pt's care (in minutes): 25
[2022-08-13 16:44] VITALS: BP 174/74; TEMP 98.2
== END 2022-08-13 17:17 | disposition home or self-care (01) ==
LOC: ER 10:05 → ERHOLD 16:26 → INTOOBSV 16:26 → 2ND 21:13
PROVIDERS: ADMIT Internal Medicine; ATTEND Internal Medicine
DX: R10.32 Left lower quadrant pain (principal); K58.1 Irritable bowel syndrome with constipation; N17.9 Acute kidney failure, unspecified; E86.0 Dehydration; I10 Essential (primary) hypertension; R51.9 Headache, unspecified; R11.0 Nausea; E78.5 Hyperlipidemia, unspecified; K21.9 Gastro-esophageal reflux disease without esophagitis; G25.81 Restless legs syndrome; M35.00 Sjogren syndrome, unspecified; F41.9 Anxiety disorder, unspecified
CPT/HCPCS: 87045; 85025 ×2; 81001; 36415 ×2; 83735; 84100; 87046; 84443; 84439; 83690; 80053 ×2; 83880; 74177; 74018; 96374; 99285; Q9967; J1650 ×2; J2405; J7030; G0378 ×4; 87324

== ENCOUNTER 2022-10-08 15:19 | Emergency (ER) | payer OTHER ==
--- OUTSIDE RECORDS SUMMARY | 2022-10-08 15:28 | XMS REPORT | Continuity of Care Document ---
:1950 Author Organization [facility] t Address [address] [place] [address] [place] [id number] Care Team Providers Name Role Phone Dionne Goodwin Primary Care Physician Dionne Goodwin Attending Clinician Unavailable Jose D OSUNA, Marie Vaughn Attending Clinician [phone] Stefanie De Jesus Attending Clinician Unavailable Josiane Hidalgo MA Attending Clinician Unavailable Nehemias Vela MD Attending Clinician Fam OSUNA, Herb Springer Attending Clinician Marcos OSUNA, Lauren Bauman Attending Clinician Juliana Graf MD Attending Clinician Noemy Benedict MD Attending Clinician Therapy, Adc Covid Infusion Attending Clinician Unavailable Harry Riojas MD Attending Clinician HARRY RIOJAS Attending Clinician Unavailable Doctor Unassigned, Antelope Attending Clinician Unavailable EDDIE HI Attending Clinician Unavailable Atilio OSUNA, Maria G Marquez Attending Clinician [phone] Sari MCNEAL, Kailee Attending Clinician Unavailable Anjel Smith DO Attending Clinician Benja OSUNA, Leonel Villanueva Attending Clinician Kayla OSUNA, Poly Hodges Attending Clinician NOEMY BENEDICT Admitting Clinician Unavailable MD LAUREN RODRÍGUEZ Admitting Clinician Unavailable Payers Payer Name Policy Type Policy Number Effective Date Expiration Date S narciso MEDICARE MB [id number] 2013 [facility] NOVITAS 00:00:00 [facility] AETNA C1 [id number] [facility] MEDICARE MB [id number] 2013 [facility] NOVITAS 00:00:00 [facility] AETNA C1 [id number] [facility] MEDICARE MB [id number] 2013 [facility] NOVITAS 00:00:00 [facility] AETNA C1 [id number] [facility] MEDICARE MB [id number] 2013 [facility] NOVITAS 00:00:00 [facility] AETNA C1 [id number] [facility] AETNA C1 [id number] [facility] MEDICARE MB [id number] 2013 [facility] NOVITAS 00:00:00 - [facility] AETNA C1 [id number] [facility] MEDICARE MB [id number] 2013 [facility] NOVITAS 00:00:00 [facility] MEDICARE MB [id number] 2013 [facility] NOVITAS 00:00:00 [facility] AETNA C1 [id number] [facility] AETNA C1 [id number] [facility] MEDICARE MB [id number] 2013 [facility] NOVITAS 00:00:00 - [facility] Problems Condition Condition Condition Status Onset Resolution [...] and 00:00: Hospita vomiting vomiting 00 l [id number] Bronchitis Problem Com mon [facility] - [facility] [id number] Slow Problem Common transit [facility] constipati - [facility] on [facility] [id number] Sjogren Problem Common syndrome [facility] with - [facility] dental [facility] [id number] Nondiabeti Problem Com mon c Spirit gastropare - [facility] sis [facility] [id number] Post Problem Common COVID-19 Spirit condition, - [facility] unspecifie [facility] [id number] Stage 2 Problem Commo n chronic Spirit kidney - [facility] disease [facility] Vitamin D Vitamin D Problem Com mon deficiency insufficie Sp tung ncy - [facility] Terminal Terminal Problem Commo n insomnia insomnia Spirit [facility] Anxiety Anxiety Problem [facility] Osteopenia Osteopenia Problem C ommon [facility] - [facility] Seasonal Allergic Problem Commo n allergic rhinitis, Spiri t rhinitis seasonal - [facility] Hypertensi Hypertensi Problem C ommon on on [facility] Gastro-eso Gastro-eso Problem C ommon phageal phageal Spirit reflux reflux - CHI disease disease [facility] esophagiti esophagiti [facility] Restless Restless Problem Commo n legs leg Spirit syndrome syndrome - [facility] Degenerati Macular Problem Comm on ve degenerati Spirit disorder on - [facility]I of macula [facility] [id number] Abnormal Problem Comm on laboratory Spirit test - [facility] result [facility] [id number] Nausea Problem Common alone [facility] - [facility] Chronic Chronic Problem Common constipati constipati Sp tung on on - [facility] [id number] Other Problem Common chronic [facility] pain - [facility] Mixed Hyperlipid Problem Commo n hyperlipid emia, Spirit emia mixed - [facility] [id number] Sinusitis Problem Comm on chronic, Spirit frontal - [facility] [id number] Osteoarthr Problem Co mmon itis of [facility] cervical - [facility] itis complicati on status [id number] Seasonal Problem Commo n allergic [facility] rhinitis - [facility]I due to [facility] [id number] Disseminat Problem Com mon ed herpes [facility] zoster - [facility] Allergies, Adverse Reactions, Alerts Allergy Allergy Status Severity Reaction(s) Onset Inactive Treating Comm ents Source Name Type Date Date Clinician Metoclop Propensi Active Palpitations Methodi ramide ty to 8-21 st Hcl adverse 00:00: Hospita reaction 00 [...] erythrom erythrom Active rash Common ycin ycin [facility] 6335 Drug Active diarrha Common allergy [facility] morphine morphine Active tachycardia C ommon [facility] 8102 Drug Active leg swelling Comm on allergy [facility] Family History Family Member Diagnosis Comments Start Date Stop Date Source Natural father Dementia [facility] Natural mother Vasculitis [facility] Natural sister Heart disease [facility] Social History Social Habit Start Date Stop Date Quantity Comments Source History of Tobacco Common [facility] - Use [facility] History SDOH [facility] Alcohol Std Drinks Hospit al History SDOH [facility] Alcohol Binge [facility] Alcohol intake 2022-08-04 2022-08-04 Lif[facility] 00:[facility]:00 00:00:00 non-drinker Hospital (finding) History of Social 2022-08-04 2022-08-[address] function 00:00:00 00:00:00 Hospital Tobacco use and 2021-12-07 2021-12-07 Smokeless [facility] exposure 00:00:00 00:00:00 tobacco non-user Hospital History SDOH 2019-12-28 2019-12-28 1 [facility] Alcohol Frequency 00:00:00 00:00:00 Hospita l Sex Assigned At [birth year] [facility] 00:00:00 00:00:00 Hospital Smoking Status Start Date Stop Date Source Unknown if ever smoked [facility] Never Smoker [facility] nter Ex-smoker 2021-12-07 00:00:00 2021-12-07 [facility]00:[facility]ations Ordered Filled Start Stop Current Ordering [...] 09:50: total). Hospita tablet 48 l montelukast 0 Yes TAKE 1 Meth carlo (SINGULAIR) 4-[address] 10 mg 09:50: MOUTH Hospita tablet 48 EVERY DAY l metoprolol 0 Yes 1 tablet Met hodi succinate 4-18 st XL 09:50: Hospita (TOPROL-XL) 48 l 100 mg 24 hr tablet losartan 0 Yes take 1 Methodi (COZAAR) 50 4-[address] MG tablet 09:50: mouth Hospita 48 every day l fluticasone Yes USE 2 Metho di propionate 4-[address] (FLONASE) 09:50: EVERY Hospita 50 48 NOSTRIL l mcg/actuati DAILY on nasal spray atorvastati 0 Yes 10mg QD 1 tablet Me thodi n (LIPITOR) 4-18 ([address] 10 mg 09:50: total) Hospita tablet 48 daily. l amLODIPine 0 Yes 1 tablet Met hodi (NORVASC) 4-18 st 10 mg 09:50: Hospita tablet 48 l ALPRAZolam Yes (Schedule Me thodi (XANAX) 1 4-18 IV Drug) st MG tablet 09:50: TAKE 1 Hospit a 48 TABLET (1 l MG) BY ORAL ROUTE DAILY AT BEDTIME NEEDED calcium 2022-0 Yes Q2D Chew 2 Methodi carbonate 4-[address] (TUMS) 200 09:50: (1,000 mg Ho spita mg calcium 48 of Calcium l (500 mg) Carbonate chewable total) tablet every other day. Alternate days of 1 pill then 2 pills daily therapeutic 2022-0 Yes 1{tbl} QD Take 1 Me thodi multivitami 4-[address] n 09:50: mouth Hospita (THERAGRAN) 48 daily. l tablet cholecalcif 0 Yes 1000U QD Take 1 Met hodi shorty, 4-[address] vitamin D3, 09:50: (1,000 Hosp isabelle 25 mcg 48 Units l (1,000 total) by unit) mouth capsule daily. aspirin 2022-0 Yes 81mg QD Take 1 Methodi (ECOTRIN) 4-18 tablet (81 st 81 MG 09:50: mg total) Hospita enteric 48 by mouth l coated daily. tablet dextrometho 2022-0 Yes 1{tbl} QD Take 1 Me thodi rphan-guaif 4-[address] enesin 09:50: mouth Hospita (MUCINEX DM 48 daily. l REGULAR) 30-600 mg tablet extended release 12 hr cevimeline 2022-0 Yes 30mg Q.[id number] Take 1 [facility] (EVOXAC) 30 4-[id number] mg capsule 09:50: 3D (30 mg Hospi ta 48 total) by l mouth 3 (three) times a day. vit 2022-0 Yes Q.5D Take by Methodi C/E/Zn/chino 4-[address] r/lutein/ze 09:50: (two) Hospi ta axan 48 times a l (PRESERVISI day. ON AREDS-2 ORAL) rOPINIRole 0 Yes 1mg Take 1 Metho di (REQUIP) 1 4-18 tablet (1 st MG tablet 09:50: mg total) Hos sara 48 by mouth l as needed. coenzyme 2022-0 Yes 1 capsule Meth carlo Q10 200 mg [address] capsule 09:50: meal Hospita 48 l pantoprazol 2022-0 Yes TAKE 1 Meth carlo e 4-[address] (PROTONIX) 09:50: MOUTH Hospit a 40 MG EC 48 TWICE A l tablet DAY ondansetron 2022-0 Yes Q8H every 8 Met hodi (ZOFRAN) 4 4-18 (eight) st MG tablet 09:50: hours as Hosp isabelle 48 needed. l naproxen 2022-0 Yes 500mg 1 tablet Meth carlo (NAPROSYN) 4-18 ([address] 500 MG 09:50: total). Hospita tablet 48 l montelukast 2022-0 Yes TAKE 1 Meth carlo (SINGULAIR) 4-[address] 10 mg 09:50: MOUTH Hospita tablet 48 EVERY DAY l metoprolol 2022-0 Yes 1 tablet Met hodi succinate 4-18 st XL 09:50: Hospita (TOPROL-XL) 48 l 100 mg 24 hr tablet losartan Yes take 1 Methodi (COZAAR) 50 4-[address] MG tablet 09:50: mouth Hospita 48 every day l fluticasone 0 Yes USE 2 Metho di propionate 4-[address] (FLONASE) 09:50: EVERY Hospita 50 48 NOSTRIL l mcg/actuati DAILY on nasal spray atorvastati 0 Yes 10mg QD 1 tablet Me thodi n (LIPITOR) 4-18 ([address] 10 mg 09:50: total) Hospita tablet 48 daily. l amLODIPine 0 Yes 1 tablet Met hodi (NORVASC) 4-18 st 10 mg 09:50: Hospita tablet 48 l ALPRAZolam 0 Yes (Schedule Me thodi (XANAX) 1 4-18 IV Drug) st MG tablet 09:50: TAKE 1 Hospit a 48 TABLET (1 l MG) BY ORAL ROUTE DAILY AT BEDTIME NEEDED calcium 2022-0 Yes Q2D Chew 2 Methodi carbonate 4-[address] (TUMS) 200 09:50: (1,000 mg Ho spita mg calcium 48 of Calcium l (500 mg) Carbonate chewable total) tablet every other day. Alternate days of 1 pill then 2 pills daily therapeutic 2022-0 Yes 1{tbl} QD Take 1 Me thodi multivitami 4-[address] n 09:50: mouth Hospita (THERAGRAN) 48 daily. l tablet cholecalcif 0 Yes 1000U QD Take 1 Met hodi shorty, 4-[address] vitamin D3, 09:50: (1,000 Hosp isabelle 25 mcg 48 Units l (1,000 total) by unit) mouth capsule daily. aspirin 2022-0 Yes 81mg QD Take 1 [facility] (ECOTRIN) 4-18 tablet (81 st 81 MG 09:50: mg total) Hospita enteric 48 by mouth l coated daily. tablet dextrometho 0 Yes 1{tbl} QD Take 1 Me thodi rphan-guaif 4-[address] enesin 09:50: mouth Hospita (MUCINEX DM 48 daily. l REGULAR) 30-600 mg tablet extended release 12 hr cevimeline 0 Yes 30mg Q.[id number] Take 1 [facility] (EVOXAC) 30 4-[id number] mg capsule 09:50: 3D (30 mg Hospi ta 48 total) by l mouth 3 (three) times a day. vit 2022-0 Yes Q.5D Take by Methodi C/E/Zn/chino 4-[address] r/lutein/ze 09:50: (two) Hospi ta axan 48 times a l (PRESERVISI day. ON AREDS-2 ORAL) rOPINIRole 2022-0 Yes 1mg Take 1 Metho di (REQUIP) 1 4-18 tablet (1 st MG tablet 09:50: mg total) Hos sara 48 by mouth l as needed. Lactobacill 2022-0 2022- No 1g QD Take 1 Met hodi us -18 -[address] acidoph-L.b 09:42: 00:00 mouth Hosp isabelle ulgar 42 :00 daily. l (LACTINEX) 100 million cell tablet Lactobacill 2022-0 2022- No 1g QD Take 1 Met hodi us -18 -[address] acidoph-L.b 09:42: 00:00 mouth Hosp isabelle ulgar 42 :00 daily. l (LACTINEX) 100 million cell tablet garlic 2022-0 2022- No 2000mg QD Take 2,000 Me thodi 1,000 mg 4-18 04-[address] capsule 09:42: 00:00 mouth Hospita 38 :00 daily. l garlic 2022-0 2022- No 2000mg QD Take 2,000 Me thodi 1,000 mg 4-18 04-[address] capsule 09:42: 00:00 mouth Hospita 38 :00 daily. l sulfamethox 2022-0 2022- No [id number] 1{tbl} Q.5D Take 1 Methodi azole-trime 4-18 04-[address] thoprim 00:00: 04:59 mouth 2 Hospit a (Bactrim 00 :00 (two) l DS) 800-160 times a mg per day for 10 tablet days. sulfamethox 2022-0 202- Yes [id number] 1{tbl} Q.5D Take 1 Methodi azole-trime -18 - tablet by st thoprim 00:00: 04:59 mouth 2 Hospit a (Bactrim 00 :00 (two) l DS) 800-160 times a mg per day for 10 tablet days. riFAXimin 2022- No [id number] 550mg Q.[id number] Take 1 [facility] (XIFAXAN) 06-22 [id number] tablet s t 550 mg 00:00: 04:59 3D (550 mg Hospita tablet 00 :00 total) by l mouth 3 (three) times a day for 14 days. riFAXimin 2022- No [id number] 550mg Q.83179312 Take 1 [facility] (XIFAXAN) 06-22 [id number] tablet s t 550 mg 00:00: 04:59 3D (550 mg Hospita tablet 00 :00 total) by l mouth 3 (three) times a day for 14 days. sodium,pota 2022- No [id number] Use as Methodi ssium,mag 04-[address] sulfates 00:00: 00:00 Hospita (Suprep 00 :00 l Bowel Prep Kit) 17.5-3.13-1 .6 gram recon soln sodium,pota 2022- No [id number] Use as Methodi ssium,mag 04-[address] sulfates 00:00: 00:00 Hospita (Suprep 00 :00 l Bowel Prep Kit) 17.5-3.13-1 .6 gram recon soln linaCLOtide 2-0 Yes QD daily. Meth carlo (Linzess) 12-12 st 290 mcg 15:18: Hospita capsule 44 l linaCLOtide 2-0 Yes QD daily. Meth carlo (Linzess) 8 st 290 mcg 15:18: Hospita capsule 44 l sucralfate 2021-0 2021- No 1g Q.25D Take 1 Met hodi (CARAFATE) 12-12- tablet (1 st 1 gram 00:00: 04:59 g total) Hospit a tablet 00 :00 by mouth 4 l (four) times a day with meals and nightly for 30 days. ondansetron 2021-0 2- No 4mg Q8H Take 1 Met hodi (Zofran) 4 12-12 tablet (4 st MG tablet 00:00: 04:59 mg total) Ho spita 00 :00 by mouth l every 8 (eight) hours as needed for nausea or vomiting for up to 30 days. sucralfate 2021-0 2021- No 1g Q.25D Take 1 Met hodi (CARAFATE) 12-12 tablet (1 st 1 gram 00:00: 04:59 g total) Hospit a tablet 00 :00 by mouth 4 l (four) times a day with meals and nightly for 30 days. ondansetron 2021-0 2021- No 4mg Q8H Take 1 Met hodi (Zofran) 4 12-12 tablet (4 st MG tablet 00:00: 04:59 mg total) Ho spita 00 :00 by mouth l every 8 (eight) hours as needed for nausea or vomiting for up to 30 days. ciprofloxac 2021-0 2021- No 500mg Q.5D Take 1 Me thodi in (Cipro) 12-[address] 500 MG 00:00: 04:59 (500 mg Hospita tablet 00 :00 total) by l mouth 2 (two) times a day for 5 days. metroNIDAZO 2021-0 2021- No 500mg Q.[id number] Take 1 Methodi LE (FlagyL) 12-[id number] 500 MG 00:00: 04:59 3D (500 mg Hospita tablet 00 :00 total) by l mouth 3 (three) times a day for 5 days. ALPRAZolam 2021-0 2021- No .5mg Q.[id number] Take 1 [facility] (Xanax) 0.5 12-[id number] MG tablet 00:00: 04:59 3D (0.5 mg Hosp isabelle 00 :00 total) by l mouth 3 (three) times a day as needed for anxiety for up to 5 days. ciprofloxac 2021-0 2- No 500mg Q.5D Take 1 Me thodi in (Cipro) 12-[address] 500 MG 00:00: 04:59 (500 mg Hospita tablet 00 :00 total) by l mouth 2 (two) times a day for 5 days. metroNIDAZO No 500mg Q.[id number] Take 1 [facility] LE (FlagyL) 12-[id number] 500 MG 00:00: 04:59 3D (500 mg Hospita tablet 00 :00 total) by l mouth 3 (three) times a day for 5 days. ALPRAZolam No .5mg Q.[id number] Take 1 [facility] (Xanax) 0.5 12-[id number] MG tablet 00:00: 04:59 3D (0.5 mg Hosp isabelle 00 :00 total) by l mouth 3 (three) times a day as needed for anxiety for up to 5 days. rOPINIRole 2021- No 1 TABLET 1 [facility] (REQUIP) 1 12-[address] MG tablet 09:48: 00:00 BEFORE Hospi ta 11 :00 BEDTIME l ONCE A DAY ORALLY 30 rOPINIRole 2021- No 1 TABLET 1 [facility] (REQUIP) 1 12-[address] MG tablet 09:48: 00:00 BEFORE Hospi ta 11 :00 BEDTIME l ONCE A DAY ORALLY 30 biotin 10 2021- No 1 tablet Met hodi mg tablet 12-07 st 09:46: 00:00 Hospita 38 :00 l biotin 10 2021- No 1 tablet Met hodi mg tablet 12-07 st 09:46: 00:00 Hospita 38 :00 l Metoclopram Metoclopram No 1{table TID Metoclopra gennaro HCl 5 gennaro HCl 5 7-07 t_befor mide HCl 5 MG MG 00:00: e_meals MG 00 } Metoclopram Metoclopram 2021- No 1{table TID Metoclopra gennaro HCl 5 gennaro HCl 5 7-07 t_befor mide HCl 5 MG MG 00:00: e_meals MG 00 } Metoclopram Metoclopram No 1{table TID Metoclopra gennaro [...] 00 :00 e 875-125 MG Ipratropium Ipratropium No 3{ml_as QID Ipratropiu -Albuterol -Albuterol 9-10 [...] (90 Base) MCG/ACT MCG/ACT MCG/ACT Albuterol Albuterol 2020-0 No 1{puff_ 6xD Albuterol Sulfate HFA Sulfate HFA 8-26 as_need Sulfate 108 (90 108 (90 00:00: ed} HFA 108 Base) Base) 00 (90 Base) MCG/ACT MCG/ACT MCG/ACT Amoxicillin Amoxicillin 0 2020- No 1{table BID Amoxicilli -Pot -Pot 12-12 t} n-Pot Clavulanate Clavulanate 00:00: 00:00 Clavulanat 875-125 MG 875-125 MG 00 :00 e 875-125 MG Amoxicillin Amoxicillin 0 2020- No 1{table BID Amoxicilli -Pot -Pot [...] 00:00: 00:00 MG 00 :00 Pregabalin Pregabalin 0 Yes Dionne 1 capsule Common 01-03 [facility] 00:00: - [facility] 00 [facility] biotin 10 2020-0 Yes 1 [...] DAY ondansetron 2020-0 Yes TAKE 1 Meth acrlo (ZOFRAN) 4 12-[address] MG [...] 2020-0 Yes 1 tablet Met hodi (NORVASC) 9-09 st 10 mg 21:34: Hospita tablet 15 [...] release 12 hr cevimeline 2020-0 Yes 30mg Q.[id number] Take 30 mg Methodi (EVOXAC) 30 12-26 [id number] by mouth 3 st mg capsule 21:34: 3D (three) Hosp isabelle 15 times a l day. polyethylen 2020-0 2020- No 17g QD Take 17 g Methodi e glycol 12-26 10-10 by mouth (MIRALAX) 00:00: 04:59 daily for Ho spita 17 gram 00 :00 30 days. l packet HYDROcodone 2020-0 2020- No [id number] 1{tbl} Q6H Take 1 Methodi -acetaminop 12-26-15 tablet by hen (NORCO) 00:00: 04:59 mouth [...] Aspir-81 Ipratropium Ipratropium No 2.5{ml} TID Ipratropiu Ingraham Ingraham m Ingraham 0.02 % 0.02 % 0.02 % Co [...] 10 t Sodium MG MG 10 MG Naproxen Naproxen 2022- No QD Naproxen 500 [...] Spirit - OVER 65 OVER 65 15:08:00 [facility] FLUZONE HIGH DOSE FLUZONE HIGH DOSE 2022-01-29 Completed [facility] - OVER 65 OVER 65 15:08:00 [facility] FLUZONE HIGH DOSE FLUZONE HIGH DOSE 2022-01-29 Completed [facility] - OVER 65 OVER 65 15:08:00 [facility] Bebteloviidb 2021-09-27 Completed [facility] 00:00:00 [facility] 2021-09-27 Com[facility] 00:[facility]:00 [facility] BEBTELOVIMAB 2021-09-27 Completed [facility] o f 00:00:00 [facility] FLUZONE HIGH DOSE FLUZONE HIGH DOSE 2021-06-30 Completed [facility] - OVER 65 OVER 65 14:47:00 [facility] FLUZONE HIGH DOSE FLUZONE HIGH DOSE 2021-06-30 Completed [facility] - OVER 65 OVER 65 14:47:00 [facility] FLUZONE HIGH DOSE FLUZONE HIGH DOSE 2021-06-30 Completed [facility] - OVER 65 OVER 65 14:47:00 [facility] FLUZONE HIGH DOSE FLUZONE HIGH DOSE 2021-06-30 Completed [facility] - OVER 65 OVER 65 14:47:00 [facility] FLUZONE HIGH DOSE FLUZONE HIGH DOSE 2021-06-30 Completed [facility] - OVER 65 OVER 65 14:47:00 [facility] FLUZONE HIGH DOSE FLUZONE HIGH DOSE 2021-06-30 Completed [facility] - OVER 65 OVER 65 14:47:00 [facility] FLUZONE HIGH DOSE FLUZONE HIGH DOSE 2021-06-30 Completed [facility] - OVER 65 OVER 65 14:47:00 [facility] FLUZONE HIGH DOSE FLUZONE HIGH DOSE 2021-06-30 Completed [facility] - OVER 65 OVER 65 14:47:00 [facility] FLUZONE HIGH DOSE FLUZONE HIGH DOSE 2021-06-30 Completed [facility] - OVER 65 OVER 65 14:47:00 [facility] FLUZONE HIGH DOSE FLUZONE HIGH DOSE 2021-06-30 Completed [facility] - OVER 65 OVER 65 14:47:00 [facility] FLUZONE HIGH-DOSE PF 2021-06-30 Completed Meth odist 00:00:00 [facility] FLUZONE HIGH-DOSE PF 2021-06-30 Completed Meth odist 00:00:00 [facility] MODERNA COVID-19 MRNA 2021-02-21 Completed [facility] 2021-02-21 Completed Met hodist VACCINATION 00:00:00 [facility] Zoster Vaccine 2020-09-07 Completed [facility] Recombinant 00:00:00 [facility] Zoster Vaccine 2020-09-07 Completed [facility] Recombinant 00:00:00 [facility] Prevnar 13 (PCV13) Prevnar 13 (PCV13) 2020-07-08 Completed [facility] - 10:18:00 [facility] Prevnar 13 (PCV13) Prevnar 13 (PCV13) 2020-07-08 Completed [facility] - 10:18:00 [facility] Prevnar 13 (PCV13) Prevnar 13 (PCV13) 2020-07-08 Completed [facility] - 10:18:00 [facility] Prevnar 13 (PCV13) Prevnar 13 (PCV13) 2020-07-08 Completed [facility] - 10:18:00 [facility] Prevnar 13 (PCV13) Prevnar 13 (PCV13) 2020-07-08 Completed [facility] - 10:18:00 [facility] Prevnar 13 (PCV13) Prevnar 13 (PCV13) 2020-07-08 Completed [facility] - 10:18:00 [facility] Prevnar 13 (PCV13) Prevnar 13 (PCV13) 2020-07-08 Completed [facility] - 10:18:00 [facility] Prevnar 13 (PCV13) Prevnar 13 (PCV13) 2020-07-08 Completed [facility] - 10:18:00 [facility] Prevnar 13 (PCV13) Prevnar 13 (PCV13) 2020-07-08 Completed [facility] - 10:18:00 [facility] Prevnar 13 (PCV13) Prevnar 13 (PCV13) 2020-07-08 Completed [facility] - 10:18:00 [facility] Prevnar 13 (PCV13) Prevnar 13 (PCV13) 2020-07-08 Completed [facility] - 10:18:00 [facility] Prevnar 13 (PCV13) Prevnar 13 (PCV13) 2020-07-08 Completed [facility] - 10:18:00 [facility] Prevnar 13 (PCV13) Prevnar 13 (PCV13) 2020-07-08 Completed [facility] - 10:18:00 [facility] Prevnar 13 (PCV13) Prevnar 13 (PCV13) 2020-07-08 Completed [facility] - 10:18:00 [facility] Prevnar 13 (PCV13) Prevnar 13 (PCV13) 2020-07-08 Completed [facility] - 10:18:00 [facility] Prevnar 13 (PCV13) Prevnar 13 (PCV13) 2020-07-08 Completed [facility] - 10:18:00 [facility] Prevnar 13 (PCV13) Prevnar 13 (PCV13) 2020-07-08 Completed [facility] - 10:18:00 [facility] Prevnar 13 (PCV13) Prevnar 13 (PCV13) 2020-07-08 Completed [facility] - 10:18:00 [facility] Prevnar 13 (PCV13) Prevnar 13 (PCV13) 2020-07-08 Completed [facility] - 10:18:00 [facility] Prevnar 13 (PCV13) Prevnar 13 (PCV13) 2020-07-08 Completed [facility] - 10:18:00 [facility] Prevnar 13 (PCV13) Prevnar 13 (PCV13) 2020-07-08 Completed [facility] - 10:18:00 [facility] Prevnar 13 (PCV13) Prevnar 13 (PCV13) 2020-07-08 Completed [facility] - 10:18:00 [facility] Prevnar 13 (PCV13) Prevnar 13 (PCV13) 2020-07-08 Completed [facility] - 10:18:00 [facility] Prevnar 13 (PCV13) Prevnar 13 (PCV13) 2020-07-08 Completed [facility] - 10:18:00 [facility] Pneumococcal 2020-07-08 Completed [facility] Conjugate 13-Valent 00:00:00 Hospi sven Pneumococcal 2020-07-08 Completed [facility] Conjugate 13-Valent 00:00:00 Hospi sven Moderna COVID-19 Moderna COVID-19 2020-05-28 Completed [facility] - Vaccine Vaccine 13:15:00 [facility] Moderna COVID-19 Moderna COVID-19 2020-05-28 Completed [facility] - Vaccine Vaccine 13:15:00 [facility] Moderna COVID-19 Moderna COVID-19 2020-05-28 Completed [facility] - Vaccine Vaccine 13:15:00 [facility] Moderna COVID-19 Moderna COVID-19 2020-05-28 [facility] Vaccine 13:15:00 [facility] Moderna COVID-19 Moderna COVID-19 2020-05-28 Completed [facility] Vaccine Vaccine 13:15:00 [facility] Moderna COVID-19 Moderna COVID-19 2020-05-28 Completed [facility] Vaccine 13:15:00 [facility] Moderna COVID-19 Moderna COVID-19 2020-05-28 Completed [facility] Vaccine 13:15:00 [facility] Moderna COVID-19 Moderna COVID-19 2020-05-28 Completed [facility] Vaccine 13:15:00 [facility] Moderna COVID-19 Moderna COVID-19 2020-05-28 Completed [facility] Vaccine 13:15:00 [facility] Moderna COVID-19 Moderna COVID-19 2020-05-28 Completed [facility] Vaccine 13:15:00 [facility] Moderna COVID-19 Moderna COVID-19 2020-05-28 Completed [facility] Vacc[facility] Vaccine 13:15:00 [facility] Moderna COVID-19 Moderna COVID-19 2020-05-28 Completed [facility] Vaccine 13:15:00 [facility] Moderna COVID-19 Moderna COVID-19 2020-05-28 Completed [facility] Vaccine 13:15:00 [facility] Moderna COVID-19 Moderna COVID-19 2020-05-28 Completed [facility] Vacc[facility] Vaccine 13:15:00 [facility] Moderna COVID-19 Moderna COVID-19 2020-05-28 Completed [facility] Vaccine 13:15:00 [facility] Moderna COVID-19 Moderna COVID-19 2020-05-28 Completed [facility] Vaccine 13:15:00 [facility] Moderna COVID-19 Moderna COVID-19 2020-05-28 Completed [facility] Vaccine 13:15:00 [facility] Moderna COVID-19 Moderna COVID-19 2020-05-28 Completed [facility] Vacc[facility] Vaccine 13:15:00 [facility] Moderna COVID-19 Moderna COVID-19 2020-05-28 Completed [facility] Vacc[facility] Vaccine 13:15:00 [facility] Moderna COVID-19 Moderna COVID-19 2020-05-28 Completed [facility] Vaccine 13:15:00 [facility] Moderna COVID-19 Moderna COVID-19 2020-05-28 Completed [facility] Vaccine 13:15:00 [facility] Moderna COVID-19 Moderna COVID-19 2020-05-28 Completed [facility] Vaccine 13:15:00 [facility] Moderna COVID-19 Moderna COVID-19 2020-05-28 Completed [facility] Vaccine 13:15:00 [facility] Moderna COVID-19 Moderna COVID-19 2020-05-28 Completed [facility] Vaccine 13:15:00 [facility] MODERNA COVID-19 MRNA 2020-05-28 Completed [facility]:00 [facility] MODERNA COVID-19 MRNA 2020-05-28 Completed [facility]ACC[facility] 00:00:00 [facility] Shingrix Shingrix 2020-05-20 [facility]:33:00 [facility] Shingrix Shingrix 2020-05-20 [facility] 15:33:00 [facility] Shingrix Shingrix 2020-05-20 [facility] 15:33:00 [facility] Shingrix Shingrix 2020-05-20 [facility] 15:33:00 [facility] Shingrix Shingrix 2020-05-20 [facility] 15:33:00 [facility] Shingrix Shingrix 2020-05-20 [facility] 15:33:00 [facility] Shingrix Shingrix 2020-05-20 [facility] 15:33:00 [facility] Shingrix Shingrix 2020-05-20 [facility] 15:33:00 [facility] Shingrix Shingrix 2020-05-20 [facility] 15:33:00 [facility] Shingrix Shingrix 2020-05-20 [facility] 15:33:00 [facility] Shingrix Shingrix 2020-05-20 Com[facility] 15:33:00 [facility] Shingrix Shingrix 2020-05-20 Completed [facility] 15:33:00 [facility] Shingrix Shingrix 2020-05-20 Completed [facility] 15:33:00 [facility] Shingrix Shingrix 2020-05-20 [facility] 15[facility]33:00 [facility] Zoster Vaccine 2020-05-20 [facility] Zoster Vaccine 2020-05-20 [facility]pleted [facility] Recom[facility] 00:00:00 [facility] Moderna COVID-19 Moderna COVID-19 2020-05-01 Completed [facility] Vaccine 13:15:00 [facility] Moderna COVID-19 Moderna COVID-19 2020-05-01 Completed [facility] Vacc[facility] Vaccine 13:15:00 [facility] Moderna COVID-19 Moderna COVID-19 2020-05-01 Completed [facility] Vacc[facility] Vaccine 13:15:00 [facility] Moderna COVID-19 Moderna COVID-19 2020-05-01 Completed [facility] Vaccine 13:15:00 [facility] Moderna COVID-19 Moderna COVID-19 2020-05-01 Completed [facility] Vacc[facility] Vaccine 13:15:00 [facility] Moderna COVID-19 Moderna COVID-19 2020-05-01 Completed [facility] Vacc[facility] Vaccine 13:15:00 [facility] Moderna COVID-19 Moderna COVID-19 2020-05-01 Completed [facility] Vacc[facility] Vaccine 13:15:00 [facility] Moderna COVID-19 Moderna COVID-19 2020-05-01 Completed [facility] Vacc[facility] Vaccine 13:15:00 [facility] Moderna COVID-19 Moderna COVID-19 2020-05-01 Completed [facility] Vacc[facility] Vaccine 13:15:00 [facility] Moderna COVID-19 Moderna COVID-19 2020-05-01 Completed [facility] Vacc[facility] Vaccine 13:15:00 [facility] Moderna COVID-19 Moderna COVID-19 2020-05-01 Completed [facility] Vacc[facility] Vaccine 13:15:00 [facility] Moderna COVID-19 Moderna COVID-19 2020-05-01 Completed [facility] Vacc[facility] Vaccine 13:15:00 [facility] Moderna COVID-19 Moderna COVID-19 2020-05-01 Completed [facility] Vacc[facility] Vaccine 13:15:00 [facility] Moderna COVID-19 Moderna COVID-19 2020-05-01 Completed [facility] Vaccine 13:15:00 [facility] Moderna COVID-19 Moderna COVID-19 2020-05-01 Completed [facility] Vaccine 13:15:00 [facility] Moderna COVID-19 Moderna COVID-19 2020-05-01 Completed [facility] Vaccine 13:15:00 [facility] Moderna COVID-19 Moderna COVID-19 2020-05-01 Completed [facility] Vaccine 13:15:00 [facility] Moderna COVID-19 Moderna COVID-19 2020-05-01 Completed [facility] Vaccine 13:15:00 [facility] Moderna COVID-19 Moderna COVID-19 2020-05-01 Completed [facility] Vaccine 13:15:00 [facility] Moderna COVID-19 Moderna COVID-19 2020-05-01 Completed [facility] Vaccine 13:15:00 [facility] Moderna COVID-19 Moderna COVID-19 2020-05-01 Completed [facility] Vaccine 13:15:00 [facility] Moderna COVID-19 Moderna COVID-19 2020-05-01 Completed [facility] Vaccine 13:15:00 [facility] Moderna COVID-19 Moderna COVID-19 2020-05-01 Completed [facility] Vaccine 13:15:00 [facility] Moderna COVID-19 Moderna COVID-19 2020-05-01 Completed [facility] Vaccine 13:15:00 [facility] MODERNA COVID-19 MRNA 2020-05-01 Completed [facility]:00:00 [facility] MODERNA COVID-19 MRNA 2020-05-01 Completed [facility]:00 [facility] Pneumovax (PPSV23) Pneumovax (PPSV23) 2019-02-08 [facility]pleted [facility] 13:50:00 [facility] FLUZONE HIGH DOSE FLUZONE HIGH DOSE 2019-02-08 Completed [facility] - OVER 65 OVER 65 13:50:00 [facility] Pneumovax (PPSV23) Pneumovax (PPSV23) 2019-02-08 Completed [facility] 13:50:00 [facility] FLUZONE HIGH DOSE FLUZONE HIGH DOSE 2019-02-08 Completed [facility] OVER 65 OVER 65 13:50:00 [facility] Pneumovax (PPSV23) Pneumovax (PPSV23) 2019-02-08 Completed [facility] 13:50:00 [facility] FLUZONE HIGH DOSE FLUZONE HIGH DOSE 2019-02-08 Completed [facility] - OVER 65 OVER 65 13:50:00 [facility] Pneumovax (PPSV23) Pneumovax (PPSV23) 2019-02-08 Completed [facility] 13:50:00 [facility] FLUZONE HIGH DOSE FLUZONE HIGH DOSE 2019-02-08 Completed [facility] OVER 65 OVER 65 13:50:00 [facility] Pneumovax (PPSV23) Pneumovax (PPSV23) 2019-02-08 Completed [facility] 13:50:00 [facility] FLUZONE HIGH DOSE FLUZONE HIGH DOSE 2019-02-08 Completed [facility] - OVER 65 OVER 65 13:50:00 [facility] Pneumovax (PPSV23) Pneumovax (PPSV23) 2019-02-08 Completed [facility] 13:50:00 [facility] FLUZONE HIGH DOSE FLUZONE HIGH DOSE 2019-02-08 Completed [facility] - OVER 65 OVER 65 13:50:00 [facility] Pneumovax (PPSV23) Pneumovax (PPSV23) 2019-02-08 Completed [facility] 13:50:00 [facility] FLUZONE HIGH DOSE FLUZONE HIGH DOSE 2019-02-08 Completed [facility] - OVER 65 OVER 65 13:50:00 [facility] Pneumovax (PPSV23) Pneumovax (PPSV23) 2019-02-08 Completed [facility] 13:50:00 [facility] FLUZONE HIGH DOSE FLUZONE HIGH DOSE 2019-02-08 Completed [facility] - OVER 65 OVER 65 13:50:00 [facility] Pneumovax (PPSV23) Pneumovax (PPSV23) 2019-02-08 Completed [facility] 13:50:00 [facility] FLUZONE HIGH DOSE FLUZONE HIGH DOSE 2019-02-08 Completed [facility] - OVER 65 OVER 65 13:50:00 [facility] Pneumovax (PPSV23) Pneumovax (PPSV23) 2019-02-08 Completed [facility] 13:50:00 [facility] FLUZONE HIGH DOSE FLUZONE HIGH DOSE 2019-02-08 Completed [facility] - OVER 65 OVER 65 13:50:00 [facility] Pneumovax (PPSV23) Pneumovax (PPSV23) 2019-02-08 Completed [facility] 13:50:00 [facility] FLUZONE HIGH DOSE FLUZONE HIGH DOSE 2019-02-08 Completed [facility] - OVER 65 OVER 65 13:50:00 [facility] Pneumovax (PPSV23) Pneumovax (PPSV23) 2019-02-08 Completed [facility] 13:50:00 [facility] FLUZONE HIGH DOSE FLUZONE HIGH DOSE 2019-02-08 Completed [facility] - OVER 65 OVER 65 13:50:00 [facility] Pneumovax (PPSV23) Pneumovax (PPSV23) 2019-02-08 Completed [facility] 13:50:00 [facility] FLUZONE HIGH DOSE FLUZONE HIGH DOSE 2019-02-08 Completed [facility] - OVER 65 OVER 65 13:50:00 [facility] Pneumovax (PPSV23) Pneumovax (PPSV23) 2019-02-08 Completed [facility] 13:50:00 [facility] FLUZONE HIGH DOSE FLUZONE HIGH DOSE 2019-02-08 Completed [facility] - OVER 65 OVER 65 13:50:00 [facility] Pneumovax (PPSV23) Pneumovax (PPSV23) 2019-02-08 Completed [facility] 13:50:00 [facility] FLUZONE HIGH DOSE FLUZONE HIGH DOSE 2019-02-08 Completed [facility] - OVER 65 OVER 65 13:50:00 [facility] Pneumovax (PPSV23) Pneumovax (PPSV23) 2019-02-08 Completed [facility] 13:50:00 [facility] FLUZONE HIGH DOSE FLUZONE HIGH DOSE 2019-02-08 Completed [facility] - OVER 65 OVER 65 13:50:00 [facility] Pneumovax (PPSV23) Pneumovax (PPSV23) 2019-02-08 Completed [facility] 13:50:00 [facility] FLUZONE HIGH DOSE FLUZONE HIGH DOSE 2019-02-08 Completed [facility] - OVER 65 OVER 65 13:50:00 [facility] Pneumovax (PPSV23) Pneumovax (PPSV23) 2019-02-08 Completed [facility] 13:50:00 [facility] FLUZONE HIGH DOSE FLUZONE HIGH DOSE 2019-02-08 Completed [facility] - OVER 65 OVER 65 13:50:00 [facility] Pneumovax (PPSV23) Pneumovax (PPSV23) 2019-02-08 Completed [facility] 13:50:00 [facility] FLUZONE HIGH DOSE FLUZONE HIGH DOSE 2019-02-08 Completed [facility] - OVER 65 OVER 65 13:50:00 [facility] Pneumovax (PPSV23) Pneumovax (PPSV23) 2019-02-08 Completed [facility] 13:50:00 [facility] FLUZONE HIGH DOSE FLUZONE HIGH DOSE 2019-02-08 Completed [facility] - OVER 65 OVER 65 13:50:00 [facility] Pneumovax (PPSV23) Pneumovax (PPSV23) 2019-02-08 Completed [facility] 13:50:00 [facility] FLUZONE HIGH DOSE FLUZONE HIGH DOSE 2019-02-08 Completed [facility] - OVER 65 OVER 65 13:50:00 [facility] Pneumovax (PPSV23) Pneumovax (PPSV23) 2019-02-08 Completed [facility] 13:50:00 [facility] FLUZONE HIGH DOSE FLUZONE HIGH DOSE 2019-02-08 Completed [facility] - OVER 65 OVER 65 13:50:00 [facility] Pneumovax (PPSV23) Pneumovax (PPSV23) 2019-02-08 Completed [facility] 13:50:00 [facility] FLUZONE HIGH DOSE FLUZONE HIGH DOSE 2019-02-08 Completed [facility] - OVER 65 OVER 65 13:50:00 [facility] Pneumovax (PPSV23) Pneumovax (PPSV23) 2019-02-08 Completed [facility] 13:50:00 [facility] FLUZONE HIGH DOSE FLUZONE HIGH DOSE 2019-02-08 Completed [facility] - OVER 65 OVER 65 13:50:00 [facility] FLUZONE HIGH DOSE FLUZONE HIGH DOSE 2019-02-08 Completed [facility] - OVER 65 OVER 65 00:00:00 [facility] Pneumovax Pneumovax 2019-02-08 Completed [facility] 00[facility]:00 [facility] FLUZONE HIGH-DOSE PF 2019-02-08 Completed [facility] Pneumococcal 2019-02-08 [facility]pleted [facility] Polysaccharide [facility]:00 [facility] FLUZONE HIGH-DOSE PF 2019-02-08 Completed [facility]:00 [facility] Pneumococcal 2019-02-08 Completed [facility] Polys[facility] 00:[facility]:00 [facility] Vital Signs Vital Name Observation Time Observation Value Comments Source height 2022-04-27 13:00:00 63.5 [in_i] [facility] weight 2022-04-27 13:00:00 159.6 [lb_av] [facility] temperature 2022-04-27 13:00:00 98.0 [degF] [facility] bmi 2022-04-27 13:00:00 27.83 kg/m2 [facility] oximetry 2022-04-27 13:00:00 99 % [facility] respiratory rate 2022-04-27 13:00:00 16 /min Comm on [facility] blood pressure 2022-04-27 13:00:00 138 mm[Hg] [facility] - systolic [facility] blood pressure 2022-04-27 13:00:00 58 mm[Hg] [facility] - diastolic [facility] height 2022-01-29 14:40:00 63.5 [in_i] [facility] weight 2022-01-29 14:40:00 161.2 [lb_av] [facility] temperature 2022-01-29 14:40:00 97.2 [degF] [facility] bmi 2022-01-29 14:40:00 28.1 kg/m2 [facility] oximetry 2022-01-29 14:40:00 98 % [facility] respiratory rate 2022-01-29 14:40:00 16 /min [facility] on [facility] blood pressure 2022-01-29 14:40:00 130 mm[Hg] [facility] blood pressure 2022-01-29 14:40:00 60 mm[Hg] [facility] - diastolic [facility] height 2021-10-30 14:20:00 63.5 [in_i] [facility] weight 2021-10-30 14:20:00 171.6 [lb_av] [facility] temperature 2021-10-30 14:20:00 98.6 [degF] [facility] bmi 2021-10-30 14:20:00 29.92 kg/m2 [facility] oximetry 2021-10-30 14:20:00 98 % [facility] respiratory rate 2021-10-30 14:20:00 16 /min [facility] blood pressure 2021-10-30 14:20:00 136 mm[Hg] [facility] - systolic [facility] blood pressure 2021-10-30 14:20:00 63 mm[Hg] [facility] - diastolic [facility] height 2021-10-23 11:00:00 63.5 [in_i] [facility] weight 2021-10-23 11:00:00 172.6 [lb_av] [facility] - [facility] temperature 2021-10-23 11:00:00 97.2 [degF] [facility] bmi 2021-10-23 11:00:00 30.09 kg/m2 [facility] oximetry 2021-10-23 11:00:00 99 % [facility] blood pressure 2021-10-23 11:00:00 138 mm[Hg] [facility] blood pressure 2021-10-23 11:00:00 58 mm[Hg] [facility] - diastolic [facility] Systolic blood 2021-09-27 14:31:00 133 mm[Hg] [facility] Diastolic blood 2021-09-27 14:31:00 48 mm[Hg] [facility] Heart rate 2021-09-27 14:31:00 60 /min [facility] temperature 2021-09-27 14:31:00 36.56 [facility] in 2021-09-27 14:31:00 97 /min [facility] Arterial blood by [facility] Pulse oximetry [facility] height 2021-09-27 13:27:00 161.3 cm [facility] weight 2021-09-27 13:27:00 77.111 kg [facility] BMI 2021-09-27 13:27:00 29.64 kg/m2 [facility] height 2021-06-30 14:00:00 63.5 [in_i] [facility] weight 2021-06-30 14:00:00 178 [lb_av] [facility] temperature 2021-06-30 14:00:00 97.2 [degF] [facility] bmi 2021-06-30 14:00:00 31.03 kg/m2 [facility] oximetry 2021-06-30 14:00:00 98 % [facility] respiratory rate 2021-06-30 14:00:00 16 /min [facility] blood pressure 2021-06-30 14:00:00 136 mm[Hg] [facility] blood pressure 2021-06-30 14:00:00 73 mm[Hg] Common [facility] diastolic [facility] height 2021-05-07 14:20:00 63.5 [in_i] [facility] weight 2021-05-07 14:20:00 165 [lb_av] [facility] temperature 2021-05-07 14:20:00 97.1 [degF] [facility] bmi 2021-05-07 14:20:00 28.77 kg/m2 [facility] height 2021-04-09 13:00:00 63.5 [in_i] [facility] weight 2021-04-09 13:00:00 165 [lb_av] [facility] bmi 2021-04-09 13:00:00 28.77 kg/m2 [facility] height 2021-02-19 16:20:00 63.5 [in_i] [facility] weight 2021-02-19 16:20:00 173 [lb_av] [facility] bmi 2021-02-19 16:20:00 30.16 kg/m2 [facility] height 2021-01-02 13:00:00 63.5 [in_i] [facility] weight 2021-01-02 13:00:00 177.2 [lb_av] [facility] temperature 2021-01-02 13:00:00 97.0 [degF] [facility] bmi 2021-01-02 13:00:00 30.89 kg/m2 [facility] oximetry 2021-01-02 13:00:00 97 % [facility] respiratory rate 2021-01-02 13:00:00 16 /min [facility] blood pressure 2021-01-02 13:00:00 139 mm[Hg] [facility] blood pressure 2021-01-02 13:00:00 56 mm[Hg] [facility] height 2020-12-12 15:00:00 63.5 [in_i] [facility] weight 2020-12-12 15:00:00 170 [lb_av] [facility] temperature 2020-12-12 15:00:00 96.8 [degF] [facility] bmi 2020-12-12 15:00:00 29.64 kg/m2 [facility] Systolic blood 2022-08-04 14:48:00 152 mm[Hg] [facility] pressure Diastolic blood 2022-08-04 14:48:00 83 mm[Hg] [facility] pressure Heart rate 2022-08-04 14:48:00 53 /min [facility] Body temperature 2022-08-04 14:48:00 36.72 Eld[facility] Respiratory rate 2022-08-04 14:48:00 12 /min [facility] Body height 2022-08-04 14:48:00 160 cm [facility] Body weight 2022-08-04 14:48:00 73.029 kg [facility] BMI 2022-08-04 14:48:00 28.52 kg/m2 [facility] Oxygen saturation in 2021-12-12 11:00:00 97 /min [facility] Arterial blood by Pulse oximetry Systolic blood 2019-12-28 21:09:00 142 mm[Hg] [facility] pressure Diastolic blood 2019-12-28 21:09:00 61 mm[Hg] [facility] pressure Heart rate 2019-12-28 21:09:00 55 /min [facility] Body temperature 2019-12-28 21:09:00 36.5 Eld[facility] Respiratory rate 2019-12-28 21:09:00 17 /min [facility] Oxygen saturation in 2019-12-28 21:09:00 100 /min [facility] Arterial blood by Pulse oximetry Body height 2019-12-28 18:20:00 165.1 cm [facility] Body weight 2019-12-28 18:20:00 77.111 kg [facility] BMI 2019-12-28 18:20:00 28.29 kg/m2 [facility] Procedures Procedure Date / Time Performing Clinician Source Performed SURGICAL PATHOLOGY 2022-05-18 21:04:00 Marie Jeffery [facility] REQUEST Johana COLONOSCOPY AND EGD 2022-05-18 [facility] COMBO - MCE Johana BASIC METABOLIC PANEL 2021-12-11 09:07:00 Andrey [facility] CBC WITH PLATELET AND 2021-12-11 09:07:00 [place] [facility] DIFFERENTIAL ESTIMATED GFR 2021-12-11 09:07:00 Markel Balder[facility] spital CBC WITH PLATELET AND 2021-12-10 09:06:00 Juliana Graf [facility] DIFFERENTIAL BASIC METABOLIC PANEL 2021-12-10 09:06:00 Juliana Graf [facility] ESTIMATED GFR 2021-12-10 09:06:00 Juliana Graf [facility] MAGNESIUM LEVEL 2021-12-09 14:56:00 Noemy Benedict [facility] ZZCOVID-19 ANTI-SPIKE 2021-12-09 08:56:00 Konstantin [place] [facility] IGG ANTIBODY TITER Alexys CBC WITH PLATELET AND 2021-12-09 08:56[facility]00 [facility] DIFFERENTIAL BASIC METABOLIC PANEL 2021-12-09 08:56:00 Marilynjagdeep [facility] ZZCOVID-19 SEROLOGY 2021-12-09 08:56:00 Konstantin [place] [facility] PATIENT SURVEILLANCE Alexys ESTIMATED GFR 2021-12-09 08:56:00 Juliana Graf spital [facility] NEED PHYS 2021-12-08 23:57:47 Deondre Agee [facility] SKILL,DX OR RX CBC WITH PLATELET AND 2021-12-08 11:34:00 [facility] DIFFERENTIAL BASIC METABOLIC PANEL 2021-12-08 11:34:00 [facility] 2021-12-08 11:34:00 [facility] & 2021-12-08 11:32:00 MarilynJuliana gannon [facility] ANAEROBIC OCCULT BLOOD, STOOL 2021-12-08 08:44:00 [facility] BLOOD CULTURE, AEROBIC & 2021-12-08 00:53:00 [facility] ANAEROBIC COVID-19 QUALITATIVE 2021-12-07 17:58:00 [facility] RT-PCR CT ABDOMEN PELVIS W 2021-12-07 15:35:35 [facility] CONTRAST CBC WITH PLATELET AND 2021-12-07 14:48:00 [facility] DIFFERENTIAL COMPREHENSIVE METABOLIC 2021-12-07 14:48:00 [facility] PANEL URINALYSIS 2021-12-07 14:48:00 [facility] ESTIMATED GFR 2021-12-07 14:48:00 [facility] CONSENT/REFUSAL FOR 2021-09-27 05:01:00 [facility] XR ABDOMEN 1 VW 2019-12-27 15:41:[address] [facility] XR ABDOMEN 2 VW AP W 2019-12-26 23:13:11 Aziza Peter [facility] UPRIGHT AND/OR DECUBITUS [facility] COMPLETE BLD COUNT 2019-12-26 11:34:00 Leonel Yousif [facility] W/AUTO DIFF COMPREHENSIVE METABOLIC 2019-12-26 10:03:00 [facility] PANEL MAGNESIUM LEVEL 2019-12-26 10:03:00 [facility] ESTIMATED GFR 2019-12-26 10:03:00 [facility] US RENAL 2019-12-26 01:33:59 [facility] URINALYSIS SCREEN AND 2019-12-26 01:17:00 [facility] MICROSCOPY, WITH REFLEX TO CULTURE COVID-19 QUALITATIVE 2019-12-25 21:49:00 Anjel Smith [facility] RT-PCR CT ABDOMEN PELVIS W 2019-12-25 20:53:04 Anjel Smith [facility] CONTRAST URINALYSIS 2019-12-25 19:35:00 Anjel Smith [facility] COMPREHENSIVE METABOLIC 2019-12-25 19:35:00 Anjel Smith [facility] PANEL ESTIMATED GFR 2019-12-25 19:35:00 [facility] HC COMPLETE BLD COUNT 2019-12-25 19:35:00 Anjel Smith [facility] W/AUTO DIFF Plan of Care Planned Activity Planned Date Details Comments Source Future Scheduled 2022-10-07 Screening for [facility] Test 10:03:26 malignant neoplasm of colon (procedure) [code = 156915961] Future Scheduled 2022-10-07 Screening for [facility] Test 10:03:26 malignant neoplasm of colon (procedure) [code = 587844917] Future Scheduled 2022-10-07 Hepatitis C screening [facility] Test 10:03:26 (procedure) [code = 322313467] Future Scheduled 2022-10-07 BREAST CANCER [facility] Test 10:03:26 SCREENING [code = BREAST CANCER SCREENING] Future Scheduled 2022-10-07 Screening for [facility] Test 10:03:26 malignant neoplasm of colon (procedure) [code = 993975502] Future Scheduled 2022-10-07 COVID-19 [facility]ACCINE ([facility] - [facility] 10:03:26 Moderna series) [code = COVID-19 VACCINE (4 - Moderna series)] Future Scheduled 2022-10-07 [facility]INE [facility] 10:03:26 [code = INFLUENZA VACCINE] Future Scheduled 2022-10-07 [facility] Test 10:03:26 malignant neoplasm of colon (procedure) [code = 981084214] Future Scheduled 2022-10-07 [facility] for [facility] Test 10:03:26 malignant neoplasm of colon (procedure) [code = 263480281] Future Scheduled 2022-08-12 [facility] Test 10:08:23 (procedure) [code = 692771571] Future Scheduled 2022-08-12 BREAST CANCER [facility] Test 10:08:23 SCREENING [code = BREAST CANCER SCREENING] Future Scheduled 2022-08-12 COLONOSCOPY [facility]CREENING [facility] Test 10:08:23 [code = COLONOSCOPY SCREENING] Future Scheduled 2022-08-12 COVID-19 VACCINE (4 - [facility] Test 10:08:23 Booster for Moderna series) [code = COVID-19 VACCINE (4 - Booster for Moderna series)] Future Scheduled 2022-08-12 [facility]ZA [facility]ACCINE [facility] Test 10:08:23 [code = INFLUENZA VACCINE] Future Scheduled COVID-19 VACCINE (1) [facility] [code = COVID-19 VACCINE (1)] Future Scheduled [facility] C [facility] (procedure) [code = 497067529] Future Scheduled BREAST CANCER [facility] Test SCREENING [code = BREAST CANCER SCREENING] Future Scheduled COLONOSCOPY [facility]CRE[facility] [code = COLONOSCOPY SCREENING] Future Scheduled SHINGLES VACCINES [facility] (#1) [code = SHINGLES VACCINES (#1)] Future Scheduled INFLUENZA VACCINE [facility] Test [code = INFLUENZA VACCINE] Encounters Start End Encounter Admission Attending Care Care Encounter Source Date/Time Date/Time Type Type Clinicians Facility Department ID 2022-09-04 [facility] [id number] Common 09:30:00 Dionne [id number] [facility] 2022-09-02 Outpatient [place], STLMLC STLC [id number] Common 08:10:00 Dionne [id number] [facility] 2022-01-27 Outpatient [place], STLMLC STLMLC [id number] Common 09:50:01 Dionne [id number] [facility] 2021-12-29 Outpatient [place], STMARQUISELC STLMLC [id number] Common 11:41:00 Dionne [id number] [facility] 2021-07-30 Outpatient [facility] [id number] MD 12:20:24 [id number] [facility] 2021-05-14 Outpatient [place], STMARQUISELC STLC [id number] Common 14:26:43 Dionne [id number] [facility] 2021-05-14 Outpatient [place], STLMLC STLC [id number] Common 13:46:40 Dionne [id number] [facility] 2022-08-10 2022-08-10 Telephone Schiesser, 1.2.840.1 [id number] Methodi 00:00:00 00:00:00 [address]1.[address] 3.430.2.7 Hospit a .3.104086 l .8 2022-08-10 2022-08-10 Telephone Schiesser, 1.2.840.1 [id number] 2 [id number] Methodi 00:00:00 00:00:00 Marie Vincentn [address]39.1.[address] 3.430.2.7 Hospit a .3.417533 l .8 2022-08-04 2022-08-04 Office Schiesser, 1.2.840.1 [id number] Methodi 09:45:00 10:19:12 Visit Marie Vincentn 57079.1.[address] 3.430.2.7 Hospit a .3.652825 l .8 2022-08-04 2022-08-04 Office Schiesser, 1.2.840.1 [id number] [id number] Methodi 09:45:00 10:19:12 Visit Marie Vaughn 64313.1.[address] 3.430.2.7 Hospit a .3.773270 l .8 2022-08-04 2022-08-04 Travel 1.2.840.1 1.2.659.597 1786 [id number] Methodi 00:00:00 00:00:[address] 3.430.2.7 0.2.7.3.698 Ho spita .3.102720 084.8 l .8 2022-08-04 2022-08-04 Travel 1.2.840.1 1.2.839.820 1586 [id number] Methodi 00:00:00 00:00:[address] 3.430.2.7 0.2.7.3.698 Ho spita .3.008497 084.8 l .8 2022-06-23 2022-06-23 Telephone Schiesser, 1.2.840.1 [id number] 2 [id number] Methodi 00:00:00 00:00:00 Marie Vaughn 66956.1.[address] 3.430.2.7 Hospit a .3.504950 l .8 2022-06-23 2022-06-23 Telephone Schamieser, 1.2.840.1 [id number] 2 [id number] Methodi 00:00:00 00:00:00 Marie Vaughn 95098.1.[address] 3.430.2.7 Hospit a .3.275865 l .8 2022-06-22 2022-06-22 Telephone De Jesus, 1.2.840.1 [id number] [id number] Methodi 00:00:00 00:00:[address] 3.430.2.7 Hospit a .3.002671 l .8 2022-06-22 2022-06-22 Orders Hidalgo, 1.2.840.1 [id number] [id number] Methodi 00:00:00 00:00:00 Only Josiane 38306.1.[address] 3.430.2.7 Hospit a .3.407068 l .8 2022-06-22 2022-06-22 Telephone Neal, 1.2.840.1 [id number] 439 [id number] Methodi 00:00:00 00:00:[address] 3.430.2.7 Hospit a .3.800185 l .8 2022-06-22 2022-06-22 Orders Hidalgo, 1.2.840.1 [id number] 396 [id number] Methodi 00:00:00 00:00:00 Only Josiane 01304.1.[address] 3.430.2.7 Hospit a .3.847060 l .8 2022-06-12 2022-06-12 Office Dane, 1.2.840.1 [id number] [id number] Methodi 08:30:00 12:43:07 Visit Nehemias Dent 88777.1.[address] 3.430.2.7 Hospit a .3.399330 l .8 2022-06-12 2022-06-12 Office Dane, 1.2.840.1 [id number] Methodi 08:30:00 12:43:07 Visit Nehemias Dent 56831.1.[address] 3.430.2.7 Hospit a .3.680485 l .8 2022-06-12 2022-06-12 Travel 1.2.840.1 1.2.774.707 2215 [id number] Methodi 00:00:00 00:00:[address] 3.430.2.7 0.2.7.3.698 Ho spita .3.585127 084.8 l .8 2022-06-12 2022-06-12 Travel 1.2.840.1 1.2.680.980 8532 060803 Methodi 00:00:00 00:00:[address] 3.430.2.7 0.2.7.3.698 Ho spita .3.419378 084.8 l .8 2022-05-18 2022-05-18 Lab Schiesser, 1.2.840.1 [id number] Methodi 14:55:00 15:00:00 Marie Vaughn 66221.1.[address] 3.430.2.7 Hospit a .3.781890 l .8 2022-05-18 2022-05-18 Lab Schiesser, 1.2.840.1 [id number] 432 [id number] Methodi 14:55:00 15:00:00 Marie Vaughn 02215.1.[address] 3.430.2.7 Hospit a .3.948336 l .8 2022-05-08 2022-05-08 Telephone Schiesser, 1.2.840.1 [id number] 2 [id number] Methodi 00:00:00 00:00:00 Marie Vaughn [address]2264.1.[address] 3.430.2.7 Hospit a .3.108336 l .8 2022-05-08 2022-05-08 Telephone Schiesser, 1.2.840.1 [id number] 2 [id number] Methodi 00:00:00 00:00:00 Marie Vaughn 58129.1.[address] 3.430.2.7 Hospit a .3.576993 l .8 2022-05-06 2022-05-06 Telephone Schiesser, 1.2.840.1 [id number] 2 [id number] Methodi 00:00:00 00:00:00 Marie Vaughn 96270.1.[address] 3.430.2.7 Hospit a .3.103605 l .8 2022-05-06 2022-05-06 Telephone Schiesser, 1.2.840.1 [id number] 2 [id number] Methodi 00:00:00 00:00:00 Marie Vaughn 89372.1.[address] 3.430.2.7 Hospit a .3.883049 l .8 2022-04-30 2022-04-30 Office Schiesser, 1.2.840.1 [id number] 561 [id number] Methodi 14:45:00 15:58:52 Visit Marie Vaughn 20965.1.[address] 3.430.2.7 Hospit a .3.344300 l .8 2022-04-30 2022-04-30 Office Joes D, 1.2.840.1 [id number] 207 [id number] Methodi 14:45:00 15:58:52 Visit Marie Vaughn 77300.1.[address] 3.430.2.7 Hospit a .3.642524 l .8 2022-04-30 2022-04-30 Travel 1.2.840.1 1.2.981.614 0761 150751 Methodi 00:00:00 00:00:[address] 3.430.2.7 0.2.7.3.698 Ho spita .3.242871 084.8 l .8 2022-04-30 2022-04-30 Travel 1.2.840.1 1.2.678.754 2010 [id number] Methodi 00:00:00 00:00:[address] 3.430.2.7 0.2.7.3.698 Ho spita .3.033752 084.8 l .8 2022-04-27 2022-04-27 SUB ANNUAL STLMLC STLMLC [id number] Common 00:00:00 00:00:00 MCR [facility] WELLNESS - CHI VISIT [facility] 2022-04-07 2022-04-07 (TEL) STLMLC STLMLC [id number] Co mmon 00:00:00 00:00:00 Spirit - CHI [facility] 2022-01-29 2022-01-29 OFFICE STLMLC STLMLC [id number] Co mmon 00:00:00 00:00:00 VISIT Spirit ESTAB PT - CHI LEVEL 4 [facility] 2021-12-07 2021-12-12 [place] 728[address].2.840.1 [id number] Methodi 09:28:00 15:18:00 Encounter Lauren Rodríguez 35173.1.1 [address] 3.430.2.7 [facility] .3.856547 l .8 2021-12-07 2021-12-12 [facility] 1.2.840.1 [id number] Methodi 09:28:00 15:18:00 Encounter Lauren Rodríguez B 95518.1.1 [address] 3.430.2.7 [facility] .[facility]80 [facility] .8 2021-11-05 2021-11-05 (TEL) STLMLC STLMLC [id number] Co mmon 00:00:00 00:00:00 [facility] 2021-10-30 2021-10-30 OFFICE STLMLC STLMLC [id number] Co mmon 00:00:00 00:00:00 VISIT EST Spir it PT LEVEL [address] [place] [address] 2021-10-23 2021-10-23 OFFICE STLMLC STLMLC [id number] Co mmon 00:00:00 00:00:00 VISIT EST Spir it PT LEVEL [address] [place] [address] 2021-10-21 2021-10-21 (TEL) STLMLC STLMLC [id number] Co mmon 00:00:00 00:00:00 [facility] 2021-10-13 2021-10-13 (TEL) STLMLC STLMLC [id number] Co mmon 00:00:00 00:00:00 [facility] 2021-09-30 2021-09-30 (TEL) STLMLC STLMLC [id number] Co mmon 00:00:00 00:00:00 [facility] 2021-09-27 2021-09-27 Nurse Therapy, Adc Covid Infusion [facility] 1.2.840.114 [id number] [facility] 08:00:00 09:00:00 Visit Harry Riojas 350.1.13.10 [place]2.686 [place] [id number] Med [facility] [address] 2021-09-27 2021-09-27 Outpatient Brian RIOJAS [facility] [id number] Univers 08:00:00 08:00:00 HARRY ithoracio [facility] 2021-09-27 2021-09-27 Orders Doctor GARY 1.2.840.114 [id number] Univers 00:00:00 00:00:00 Only Unassigned, VON 350.1.13.10 ity [facility] 4.2.7.2.686 Jesse as [id number] [place] [address] [address] 2021-09-09 2021-09-09 Outpatient Brian HI [facility] [id number] Univers 13:30:00 13:30:00 EDDIE buschhoracio [facility] 2021-06-30 2021-06-30 OFFICE STLMLC STLMLC [id number] Co mmon 00:00:00 00:00:00 VISIT Spirit ESTAB PT - CHI LEVEL 4 [facility] 2021-05-07 2021-05-07 OFFICE STLMLC STLMLC [id number] Co mmon 00:00:00 00:00:00 VISIT EST Spir it PT LEVEL 3 - CHI [facility] 2021-05-06 2021-05-06 (TEL) STLMLC STLMLC [id number] Co mmon 00:00:00 00:00:00 Spirit - CHI [facility] 2021-04-10 2021-04-10 (TEL) STLMLC STLMLC [id number] Co mmon 00:00:00 00:00:00 Spirit - CHI [facility] 2021-04-09 2021-04-09 SUB ANNUAL STLMLC STLMLC [id number] Common 00:00:00 00:00:00 MCR [facility] WELLNESS - CHI VISIT [facility] 2021-04-04 2021-04-04 (TEL) STLMLC STLMLC [id number] Co mmon 00:00:00 00:00:00 Spirit - CHI [facility] 2021-04-02 2021-04-02 (TEL) STLMLC STLMLC [id number] Co mmon 00:00:00 00:00:00 [facility] 2021-02-19 2021-02-19 OFFICE STLMLC STLMLC [id number] Co mmon 00:00:00 00:00:00 VISIT EST Spir it PT LEVEL 3 - [facility] 2021-01-08 2021-01-08 (TEL) STLMLC STLMLC [id number] Co mmon 00:00:00 00:00:00 [facility] 2021-01-02 2021-01-02 OFFICE STLMLC STLMLC [id number] Co mmon 00:00:00 00:00:00 [facility] L[facility] 4 [facility] 2020-12-27 2020-12-27 (TEL) STLMLC STLMLC [id number] Co mmon 00:00:00 00:00:00 [facility] 2020-12-19 2020-12-19 OFFICE STLMLC STLMLC [id number] Co mmon 00:00:00 00:00:00 [facility]IT [facility] PT - CHI LEVEL 1 [facility] 2020-12-17 2020-12-17 (TEL) STLMLC STLMLC [id number] Co mmon 00:00:00 00:00:00 [facility] 2020-12-12 2020-12-12 (TEL) STLMLC STLMLC [id number] Co mmon 00:00:00 00:00:00 [facility] 2020-12-12 2020-12-12 OFFICE STLMLC STLMLC [id number] Co mmon 00:00:00 00:00:00 VISIT EST Spir it PT LEVEL 3 - [facility] 2020-11-07 2020-11-07 Outpatient STLMLC STLMLC [id number] Common 00:00:00 00:00:00 [facility] 2020-07-23 2020-07-23 Outpatient STLMLC STLMLC [id number] Common 00:00:00 00:00:00 [facility] 2020-07-16 2020-07-16 Outpatient STLMLC STLMLC [id number] Common 00:00:00 00:00:00 [facility] 2020-07-08 2020-07-08 Outpatient STLMLC STLMLC [id number] Common 00:00:00 00:00:00 [facility] 2020-07-04 2020-07-04 Outpatient STLMLC STLMLC [id number] Common 00:00:00 00:00:00 [facility] 2020-05-27 2020-05-27 Outpatient STLMLC STLMLC [id number] Common 00:00:00 00:00:00 [facility] 2020-02-02 2020-02-02 Outpatient STLMLC STLMLC [id number] Common 00:00:00 00:00:00 [facility] 2020-02-01 2020-02-01 Outpatient STLMLC STLMLC [id number] Common 00:00:00 00:00:00 [facility] 2020-01-09 2020-01-09 Outpatient STLMLC STLMLC [id number] Common 00:00:00 00:00:00 [facility] 2020-01-04 2020-01-04 [facility] [id number] Common 17:58:00 17:58:00 [facility] 2020-01-02 2020-01-02 [facility] [id number] Common 14:18:00 14:18:00 [facility] 2020-01-02 2020-01-02 [facility] [id number] Common 10:40:00 10:40:00 [facility] 2019-12-28 2019-12-28 Emergency Atilio, 1.2.840.1 [id number] Methodi 16:08:46 16:10:00 Maria G 13928.1.1 160 [facility] 3.430.2.7 Hospi ta .3.349323 l .8 2019-12-28 2019-12-28 Patient Kailee Guo 1.2.840.1 [id number] Methodi 00:00:00 00:00:[address] 3.430.2.7 Hospit a .3.354188 l .8 2019-12-28 2019-12-28 Travel 1.2.840.1 1.2.849.678 3914 [id number] Methodi 00:00:00 00:00:[address] 3.430.2.7 0.2.7.3.698 Ho spita .3.736720 084.8 l .8 2019-12-25 2019-12-27 Hospital Anjel Smith Chung 1.2.840.1 [id number] Methodi 14:14:32 16:34:00 Encounter Lauren Rodríguez 36677.1.[address] Leonel Yousif E. 3.430.2.7 [facility] .3.710996 l .8 2019-08-23 2019-08-23 [facility] [id number] Common 13:00:00 13:00:00 [address] [facility] [address] [facility] 2019-07-13 2019-07-13 Out[facility] [id number] Common 13:00:00 13:00:00 t [facility] [address] [facility] 2019-07-12 2019-07-12 Out[facility] [id number] Common 15:58:00 15:58:00 t [facility] [address] [facility] 2019-02-13 2019-02-13 Out[facility] [id number] Common 13:00:00 13:00:00 t [facility] [address] [facility] 2019-02-08 2019-02-08 [facility] [id number] Common 13:00:00 13:00:00 t [facility] [address] [facility] 2019-01-23 2019-01-23 [facility] [id number] Common 11:20:00 11:20:00 t [address] [facility] 2018-08-11 2018-08-11 Out[facility] [id number] Common 09:01:00 09:01:00 t [place] [address] [facility] 2018-08-10 2018-08-10 Outpatient [facility] [id number] Common 13:00:00 13:00:00 t [place] [address] [facility] 2018-06-21 2018-06-21 [facility] [id number] Common 10:00:00 10:00:00 t [place] [address] [facility] 2018-05-24 2018-05-24 [facility] [id number] Common 14:30:00 14:30:00 t [place] [address] [facility] 2018-04-08 2018-04-08 [facility] [id number] Common 10:00:00 10:00:00 t [place] [address] [facility] 2017-12-07 2017-12-07 [facility] [id number] Common 15:50:00 15:50:00 t [place] [address] [facility] 2017-12-02 2017-12-02 [facility] [id number] Common 14:00:00 14:00:00 t [place] [address] [facility] 2017-12-01 2017-12-01 Out[facility] [id number] Common 10:15:00 10:15:00 t [place] [address] [facility] 2017-11-22 2017-11-22 Outpatient [facility] [id number] Common 16:47:00 16:47:00 t [place] [address] [facility] 2017-11-16 2017-11-16 [facility] [id number] Common 13:00:00 13:00:00 t [place] [address] [facility] 2017-08-27 2017-08-27 Outpatient [facility] [id number] Common 11:54:00 11:54:00 t [facility] [address] [facility] 2017-08-24 2017-08-24 [facility] [id number] Common 10:00:00 10:00:00 t [facility] [address] [facility] 2017-07-28 2017-07-28 Outpatient [facility] [id number] Common 09:21:00 09:21:00 t [facility] [address] [facility] 2017-07-07 2017-07-07 Outpatient [facility] [id number] Common 15:00:00 15:00:00 t [facility] [address] [facility] Results Test Description Test Time Test Comments Results Result Comments Source Surgical pathology request 2022-05-20 01:03:44 Test Item Value Reference Range Interpretation Comme nts Case number (test code = 4296730) [id number] Surgical pathology report (test code = See link below for PDF Lab R eport 2255) Result status (test code = 6416822) This is Final Report for [id number] [facility] [id number] 01:03:44 Test Item Value Reference Range Interpretation Comments Case number (test code = [id number]) Surgical pathology See link below for report (test code = PDF Lab Report 2255) Result status (test code This is Final Report = [id number]) for [id number] [facility] ([facility] RNA [Presence] in Respiratory specimen by NEHAL with probe [id number] 19:11:48 Test Item Value Reference Range Interpretation Comments SARS-CoV-2 (COVID-19) RNA Not detected [Presence] in Respiratory specimen by NEHAL with probe detection (test code = 61943-6) Whether patient is employed in a Unknown healthcare setting (test code = 60929-2) Whether the patient has symptoms Unknown related to condition of interest (test code = 24374-0) Whether the patient was Unknown hospitalized for condition of interest (test code = 55561-6) Whether the patient was admitted Unknown to intensive care unit (ICU) for condition of interest (test code = 28779-8) Whether patient resides in a Unknown congregate care setting (test code = 86448-7) status (test code = Unknown 75962-2) Date and time of symptom onset Unknown (test code = 96744-2) [facility][id number] 00:00:00 Test Item Value Reference Range Interpretation Comments SARS-CoV-2 INTERPRETATION (test NEGATIVE SEE NOTE code = 79264-7) SOURCE (test code = 56601-7) NOT SPECIFIED XR Abdomen 1 [id number] 15:43:52EXAM: XR ABDOMEN 1 VW CLINICAL: constipation COMPARISON: 12/26/2019 IMPRESSION: 1.Gaseous distention of loops of small bowel and colon similar to prior exam, nonspecific, possible ileus.2.Degenerative jason nges in the lower lumbar spine. [facility]-[id number] Interface, Radiology Results Incoming 12/27/201910:47 AM CDT EXAM: XR ABDOMEN 1 VWCLINICAL: constipationCOMPARISON: 12/26/2019IMPRESSION: 1.Gaseous distention of loops of small bowel and colon similar to prior exam, nonspecific, possible ileus.2.Degenerative changes in the lower lumbar spine.[facility]-[id number] HospitalXR Abdomen 2 Vw Ap W Upright And/Or [id number] 23:18:30EXAMINATION: XR ABDOMEN 2 VW AP W [...] lung bases are clear . Interface, Radiology ResultsIncoming - 12/26/2019 6:21 PM CDT EXAMINATION: XR [...] are within normal limitsThe lung bases are clear.Jazmin Byrd [id number] 01:49:31EXAMINATION: US RENAL CLINICAL HISTORY: Flank pain [...] echogenicity: Within normal limits. 9. Other Findings:None [facility]-[id number] Interface, Radiology Results - 12/25/2019 8:52 PM CDT [...] abnormalities.8. Renal echogenicity: Within normal limits.9. Other Findings:None[facility]-[id number] HospitalKS Abdomen Pelvis W [id number] 21:01:55EXAMINATION: CT ABDOMEN PELVIS W CONTRAST CLINICAL [...] colon compatible constipation.3.Other findings as described above. [facility]-[id number] Interface, Radiology Results Incoming - 12/25/2019 4:04 [...] ksenia tible constipation.3.Other findings as described above. [facility]-[id number] HospitalSARS-COV 2 AntigenSARS-COV 2 Antigen
[2022-10-08] MEDS ORDERED: NA CHLORIDE 0.9% 1,000 ML ONE (16:45)
[2022-10-08] MEDS ORDERED: FAMOTIDINE 20 MG/2 ML VIAL IV ONE (16:45)
[2022-10-08] MEDS ORDERED: ONDANSETRON 4 MG/2 ML VIAL ONE (16:45)
[2022-10-08 16:46] LABS: Hematocrit 42.2 % (36.0-45.0); Lymphocytes % 30.9 % (15.3-44.8); MCV 95.8 fL (80-100); MPV 8.4 fL (7.6-11.3); RBC Red Blood Cell Count 4.41 M/uL (3.86-4.86)
[2022-10-08 17:50] LABS: Albumin 3.2 g/dL (3.4-5.0); Bilirubin Total 0.5 mg/dL (0.2-1.0); Potassium 3.5 mEq/L (3.5-5.1)
--- NOTE | 2022-10-08 18:16 | RAD REPORT ---
EXAM DESCRIPTION: CTAbdomen Pelvis W Contrast - 10/08/2022 6:06 pm CLINICAL HISTORY: Abdominal pain. ABD PAIN COMPARISON: <Comparisons> TECHNIQUE: Biphasic CT imaging of the abdomen and pelvis was performed with 100 ml non-ionic IV cont rast. All CT scans are performed using dose optimization technique as appropriate and may include automated exposure control or mA/KV adjustment according to patient size. FINDINGS: The lung bases are clear. The liver, spleen, pancreas, adrenal glands and kidneys are within normal limits. No bowel obstruction, free air, free fluid or abscess. There is mild to moderate inflammation of the majority of the colon visualized. Nonvisualized appendix. No evidence of significant lymphadenopathy . Moderate lumbar degenerative changes. IMPRESSION: Mild to moderate colitis pattern is seen.
[2022-10-08 18:17] LABS: Specific Gravity 1.005 (1.005-1.030); Urine Bacteria <20 /HPF (<20); Urine Bilirubin NEGATIVE (Negative); Urine Blood Negative (Negative); Urine Clarity Clear (Clear); Urine Color Colorless (Yellow); Urine Crystals Unidentified Few /HPF (None Seen); Urine Glucose NEGATIVE (Negative); Urine Mucus Slight /HPF (None Seen); Urine Protein NEGATIVE (Negative); Urine RBC <5 /HPF (None Seen); Urine Urobilinogen Normal (Normal)
--- NOTE | 2022-10-08 18:27 | EDPHYS ---
Physician Documentation [facility] Name: Daisy Mcfadden Age: 72 yrs Sex: Female : 1950 Arrival Date: 10/08/2022 Time: 15:19 Bed 19 Private MD: ED Physician Facundo Sands HPI: 10/08 16:38 This 72 yrs old Female presents to ER via Ambulatory with complaints of kb Nausea/Vomiting/Diarrhea. 16:38 The patient presents to the emergency department with nausea, vomiting, diarrhea, kb abdominal pain. Onset: The symptoms/episode began/occurred 5 day(s) ago. Possible causes: unknown. The symptoms are aggravated by nothing. The symptoms are alleviated by nothing. Associated signs and symptoms: Pertinent positives: abdominal pain, diarrhea, nausea, vomiting. Severity of symptoms: At their worst the symptoms were moderate in the emergency department the symptoms are unchanged. The patient has not experienced similar symptoms in the past. The patient has been recently seen by a physician: virtual visit with GI today, recommended she come in for hydration. Pt reports diarrhea and nausea for 5 days, vomited once today. Reports generalized abd pain that has resolved at this time. Historical: - Allergies: 15:36 Erythromycin; cm10 15:36 Ibuprofen; cm10 15:36 Morphine; cm10 15:36 Reglan; cm10 15:36 Lisinopril; cm10 - PMHx: 15:37 Hyperlipidemia; Hypertension; Sjogrens; cm10 - Immunization history:: Adult Immunizations unknown. - Social history:: Smoking status: Patient denies any tobacco usage or history of. ROS: 16:38 Constitutional: Negative for fever, chills, and weight loss. kb 16:38 Abdomen/GI: Positive for abdominal pain, nausea, vomiting, and diarrhea. 16:38 All other systems are negative. Exam: 16:38 Constitutional: This is a well developed, well nourished patient who is awake, alert, kb and in no acute distress. Head/Face: Normocephalic, atraumatic. ENT: Moist Mucous membranes Cardiovascular: Regular rate and rhythm with a normal S1 and S2. No gallops, murmurs, or rubs. No pulse deficits. Respiratory: Respirations even and unlabored. No increased work of breathing. Talking in full sentences Abdomen/GI: Soft, non-tender. No distention Skin: Warm, dry with normal turgor. Normal color. MS/ Extremity: Pulses equal, no cyanosis. Neurovascular intact. Full, normal range of motion. Neuro: Awake and alert, GCS 15, oriented to person, place, time, and situation. Moves all extremities. Normal gait. Vital Signs: 15:33 BP 116 / 64; Pulse 69; Resp 16; Temp 98.3(O); Pulse Ox 100% on R/A; Weight 70.31 kg; cm10 Height 5 ft. 3 in. ; Pain 0/10; 18:33 BP 122 / 68; Pulse 74; Resp 18; Pulse Ox 99% ; ko1 15:33 Body Mass Index 27.46 (70.31 kg, 160.02 cm) cm10 15:33 Pain Scale: Adult cm10 MDM: 15:38 Patient medically screened. kb 16:41 Data reviewed: vital signs, nurses notes. kb 16:41 Differential diagnosis: Nonspecific abd pain, gastritis, diverticulitis, viral kb gastroenteritis. 18:21 Counseling: I had a detailed discussion with the patient and/or guardian regarding: the kb historical points, exam findings, and any diagnostic results supporting the discharge/admit diagnosis, lab results, radiology results, the need for outpatient follow up, a family practitioner, to return to the emergency department if symptoms worsen or persist or if there are any questions or concerns that arise at home. 10/08 15:48 Order name: CBC with Diff; Complete Time: 16:54 kb 10/08 15:48 Order name: CMP; Complete Time: 17:54 kb 10/08 15:48 Order name: Lipase; Complete Time: 17:54 kb 10/08 15:48 Order name: Urinalysis w/ reflexes; Complete Time: 18:19 kb 10/08 15:48 Order name: CT Abd/Pelvis - IV Contrast Only; Complete Time: 18:19 kb 10/08 15:48 Order name: IV Saline Lock; Complete Time: 15:59 kb 10/08 15:48 Order name: Labs collected and sent; Complete Time: 15:59 kb Administered Medications: 16:46 Drug: NS 0.9% IV 1000 ml Route: IV; Rate: 1000 ml; Site: left wrist; ko1 16:46 Drug: Ondansetron IVP 4 mg Route: IVP; Site: left wrist; ko1 16:48 Drug: Famotidine IVP 20 mg Route: IVP; Site: left wrist; ko1 Disposition: 10/09 09:59 Co-signature as Attending Physician, Facundo Sands MD I reviewed the patient's care rt provided by the Advanced Practice Provider and agree with the diagnosis and treatment plan. Disposition Summary: 10/08/22 18:26 Discharge Ordered Location: Home kb Condition: Stable kb Diagnosis - Colitis kb Followup: kb - With: Emergency Department - When: As needed - Reason: Worsening of condition Followup: kb - With: Private Physician - When: 2 - 3 days - Reason: Recheck today's complaints, Continuance of care, Re-evaluation by your physician Discharge Instructions: - Discharge Summary Sheet kb - Colitis kb Forms: - Medication Reconciliation Form kb - Thank You Letter kb - Antibiotic Education kb - Prescription Opioid Use kb Prescriptions: - Cipro 500 mg Oral Tablet - take 1 tablet by ORAL route every 12 hours for 10 days; 20 tablet; Refills: 0, kb Product Selection Permitted - Flagyl 500 mg Oral Tablet - take 1 tablet by ORAL route every 8 hours for 10 days; 30 tablet; Refills: 0, kb Product Selection Permitted - Zofran 4 mg Oral Tablet - take 1 tablet by ORAL route every 6 hours As needed; 12 tablet; Refills: 0, kb Product Selection Permitted Signatures: Dispatcher [employer] Kitty Cerrato, KEISHA-C HADOOP DEVELOPER-Patsy August, RN RN ko1 Facundo Sands MD MD rt Jina Win RN RN cm10 Corrections: (The following items were deleted from the chart) 10/08 16:41 16:38 The patient has been recently seen by a physician: virtual visit with GI today, [email or web address]
--- NOTE | 2022-10-08 18:27 | ER ---
Nurse's Notes [facility] Name: Daisy Mcfadden Age: 72 yrs Sex: Female : 1950 Arrival Date: 10/08/2022 Time: 15:19 Bed 19 Private MD: Diagnosis: Colitis Presentation: 10/08 15:33 Chief complaint: Patient states: has had diarrhea since Wednesday. Pt states she called cm10 Dr. Driscoll today and was prescribed Hyoscyamine and that seems to help with the diarrhea. Patient states that she took it at 10 this morning and has only had 1 episode since. Pt states that she feels weak and nauseous and is having some abdominal pain. Coronavirus screen: Vaccine status: Patient reports receiving the 2nd dose of the covid vaccine. Ebola Screen: No symptoms or risks identified at this time. Initial Sepsis Screen: Does the patient meet any 2 criteria? No. Patient's initial sepsis screen is negative. Does the patient have a suspected source of infection? No. Patient's initial sepsis screen is negative. Risk Assessment: Do you want to hurt yourself or someone else? Patient reports no desire to harm self or others. Onset of symptoms was October 04, 2022. 15:33 Method Of Arrival: Ambulatory cm10 15:33 Acuity: SILVANA 3 cm10 Historical: - Allergies: 15:36 Erythromycin; cm10 15:36 Ibuprofen; cm10 15:36 Morphine; cm10 15:36 Reglan; cm10 15:36 Lisinopril; cm10 - PMHx: 15:37 Hyperlipidemia; Hypertension; Sjogrens; cm10 - Immunization history:: Adult Immunizations unknown. - Social history:: Smoking status: Patient denies any tobacco usage or history of. Screenin:45 [facility] ED Fall Risk Assessment (Adult) History of falling in the last 3 months, ko1 including since admission No falls in past 3 months (0 pts) Confusion or Disorientation No (0 pts) Intoxicated or Sedated No (0 pts) Impaired Gait No (0 pts) Mobility Assist Device Used No (0 pt) Altered Elimination No (0 pt) Score/Fall Risk Level 0 - 2 = Low Risk Oriented to surroundings, Maintained a safe environment, Educated pt \T\ family on fall prevention, incl call for assistance when getting out of bed, Assessed \T\ reinforced patient's understanding of fall precautions, Provided non-skid footwear, Hourly rounding (assess needs \T\ fall precautionary measures) done, Used ambulatory aids as needed (educated on \T\ assisted with), Used gait belt as appropriate. Abuse screen: Denies threats or abuse. Denies injuries from another. Nutritional screening: No deficits noted. Tuberculosis screening: No symptoms or risk factors identified. Assessment: 16:45 General: Appears in no apparent distress. comfortable, Behavior is calm, cooperative, ko1 appropriate for age. Pain: Complains of pain in abdomen. Neuro: No deficits noted. Cardiovascular: No deficits noted. Respiratory: No deficits noted. GI: Reports diarrhea, nausea, vomiting. : No deficits noted. EENT: No deficits noted. Derm: No deficits noted. Musculoskeletal: No deficits noted. Vital Signs: 15:33 BP 116 / 64; Pulse 69; Resp 16; Temp 98.3(O); Pulse Ox 100% on R/A; Weight 70.31 kg; cm10 Height 5 ft. 3 in. ; Pain 0/10; 18:33 BP 122 / 68; Pulse 74; Resp 18; Pulse Ox 99% ; ko1 15:33 Body Mass Index 27.46 (70.31 kg, 160.02 cm) cm10 15:33 Pain Scale: Adult cm10 ED Course: 15:22 Patient arrived in ED. rg4 15:36 Triage completed. cm10 15:36 Kitty Salguero FNP-C [facility]. kb 15:36 Facundo Sands MD is Attending Physician. kb 15:37 Arm band placed on Patient placed in waiting room. cm10 16:33 Patsy Rick, FREDIS is Primary Nurse. ko1 16:42 Inserted saline lock: 22 gauge in left wrist, using aseptic technique. Blood collected. ss 16:45 Patient has correct armband on for positive identification. Bed in low position. Call ko1 light in reach. Side rails up X 1. Client placed on continuous cardiac and pulse oximetry monitoring. NIBP monitoring applied. unix systems administrator on. Door closed. Noise minimized. Lights dimmed. Warm blanket given. Pillow given. 16:48 CBC with Diff Sent. ko1 16:48 CMP Sent. ko1 16:48 Lipase Sent. ko1 18:08 CT Abd/Pelvis - IV Contrast Only In Process Unspecified. EDMS 18:33 No provider procedures requiring assistance completed. IV discontinued, intact, ko1 bleeding controlled, No redness/swelling at site. Pressure dressing applied. Administered Medications: 16:46 Drug: NS 0.9% IV 1000 ml Route: IV; Rate: 1000 ml; Site: left wrist; ko1 16:46 Drug: Ondansetron IVP 4 mg Route: IVP; Site: left wrist; ko1 16:48 Drug: Famotidine IVP 20 mg Route: IVP; Site: left wrist; ko1 Medication: 18:33 VIS not applicable for this client. ko1 Outcome: 18:26 Discharge ordered by MD. kb 18:34 Discharged to home ambulatory, with family. ko1 18:34 Condition: improved 18:34 Discharge instructions given to patient, Instructed on discharge instructions, follow up and referral plans. medication usage, Demonstrated understanding of instructions, follow-up care, medications, Prescriptions given X 3. 18:58 Patient left the ED. zm Signatures: Dispatcher [employer] EDMS Kitty Salguero, MOLD LAMINATOR-C MOLD LAMINATOR-CkZofia Peters, RN Ann Gil4 Natali Win Kathy, FREDIS RN ko1 Jina Win RN RN cm10
[2022-10-08 19:12] VITALS: TEMP 98.3
[2022-10-08 19:14] VITALS: BP 122/68; O2SAT 99
== END 2022-10-08 18:58 | disposition home or self-care (01) ==
LOC: ER 15:19
DX: K52.9 Noninfective gastroenteritis and colitis, unspecified (principal); I10 Essential (primary) hypertension; M35.00 Sjogren syndrome, unspecified; E78.5 Hyperlipidemia, unspecified; Z88.3 Allergy status to other anti-infective agents; Z88.5 Allergy status to narcotic agent; Z88.6 Allergy status to analgesic agent; Z88.8 Allergy status to other drugs, medicaments and biological substances
CPT/HCPCS: 85025; 81001; 36415; 83690; 80053; 74177; 96375; 96374; 99285; Q9967; J2405; J7030

== ENCOUNTER 2022-12-03 17:08 | Emergency (ER) | payer OTHER ==
--- OUTSIDE RECORDS SUMMARY | 2022-12-03 17:45 | XMS REPORT | Continuity of Care Document ---
:1950 Author Organization [facility] t Address [address] [place] [address] [place] [id number] Care Team Providers Name Role Phone Dionne Goodwin Primary Care Physician Dionne Goodwin Attending Clinician Unavailable Marie Jeffery MD Attending Clinician [phone] Stefanie De Jesus Attending Clinician Unavailable Josiane Hidalgo MA Attending Clinician Unavailable Nehemias Vela MD Attending Clinician Fam OSUNA, Herb Springer Attending Clinician Lauren Rodríguez MD Attending Clinician Juliana Graf MD Attending Clinician Noemy Benedict MD Attending Clinician Therapy, [facility] Attending Clinician Unavailable Harry Riojas MD Attending Clinician HARRY RIOJAS Attending Clinician Unavailable Doctor Unassigned, Nicasio Attending Clinician Unavailable EDDIE HI Attending Clinician Unavailable Maria G Trimble MD Attending Clinician [phone] Sari MCNEAL, Kailee Attending Clinician Unavailable Anjel Smith DO Attending Clinician Benja OSUNA, Leonel Villanueva Attending Clinician Kayla OSUNA, Poly Hodges Attending Clinician NOEMY BENEDICT Admitting Clinician Unavailable MD LAUREN RODRÍGUEZ Admitting Clinician Unavailable Payers Payer Name Policy Type Policy Number Effective Date Expiration Date S narciso MEDICARE MB [id number] 2013 [facility] NOVITAS 00:00:00 [facility] AETNA C1 [id number] [facility] MEDICARE MB [id number] 2013 [facility] NOVITAS 00:00:00 [facility] AETNA C1 [id number] [facility] MEDICARE MB [id number] 2013 [facility] NOVITAS 00:00:00 [facility] AETNA C1 [id number] [facility] MEDICARE MB [id number] 2013 [facility] NOVITAS 00:00:00 [facility] AETNA C1 [id number] [facility] AETNA C1 [id number] [facility] MEDICARE MB [id number] 2013 [facility] NOVITAS 00:00:00 [facility] AETNA C1 [id number] [facility] MEDICARE MB [id number] 2013 [facility] NOVITAS 00:00:00 [facility] MEDICARE MB [id number] 2013 [facility] NOVITAS 00:00:00 [facility] AETNA C1 [id number] [facility] AETNA C1 [id number] [facility] MEDICARE MB [id number] 2013 [facility] NOVITAS 00:00:00 - [facility] Problems Condition Condition Condition Status Onset Resolution [...] and 00:00: Hospita vomiting vomiting 00 l [id number] Bronchitis Problem Com mon [facility] - [facility] [id number] Slow Problem Common transit [facility] constipati - [facility] on [facility] [id number] Sjogren Problem Common syndrome [facility] with - [facility] dental [facility] [id number] Nondiabeti Problem Com mon c [facility] gastropare - [facility] sis [facility] [id number] Post Problem Common COVID-19 [facility] condition, - [facility] unspecifie [facility] [id number] Stage 2 Problem Commo n chronic [facility] kidney - [facility] disease [facility] Vitamin D Vitamin D Problem Com mon deficiency insufficie Sp tung ncy - [facility] Terminal Terminal Problem Commo n insomnia insomnia [facility] Anxiety Anxiety Problem [facility] Osteopenia Osteopenia Problem C ommon [facility] Seasonal Allergic Problem Commo n allergic rhinitis, Spiri t rhinitis seasonal - [facility] Hypertensi Hypertensi Problem C ommon on on [facility] Gastro-eso Gastro-eso Problem C ommon phageal phageal Spirit reflux reflux - [facility] disease disease [facility] esophagiti esophagiti [facility] Restless Restless Problem Commo n legs leg Spirit syndrome syndrome - [facility] Degenerati Macular Problem Comm on ve degenerati Spirit disorder on - [facility] of macula [facility] [id number] Abnormal Problem Comm on laboratory [facility] test - [facility] result [facility] [id number] Nausea Problem Common alone Spirit [facility] Chronic Chronic Problem Common constipati constipati Sp tung on on - [facility] [id number] Other Problem Common chronic [facility] pain - [facility] Mixed Hyperlipid Problem Commo n hyperlipid emia, Spirit emia mixed - [facility] [id number] Sinusitis Problem Comm on chronic, [facility] frontal [facility] [id number] Osteoarthr Problem Co mmon itis of [facility] cervical - [facility], [facility] itis complicati on status [id number] Seasonal Problem Commo n allergic [facility] rhinitis - [facility] due to [facility] [id number] Disseminat Problem Com mon ed herpes [facility] zoster - [facility] Allergies, Adverse Reactions, Alerts Allergy Allergy Status [...] erythrom erythrom Active rash Common ycin ycin [facility] 6335 Drug Active diarrha Common allergy [facility] morphine morphine Active tachycardia C ommon [facility] lisinopr lisinopr Active leg swelling Common il il [facility] Family History Family Member Diagnosis Comments Start Date Stop Date Source Natural father Dementia [facility] Natural mother Vasculitis [facility] Natural sister Heart disease [facility] Social History Social Habit Start Date Stop Date Quantity Comments Source History of Tobacco Common [facility] - Use [facility] Gender identity [facility] Sexual orientation [facility] History SDOH [facility] Alcohol Std Drinks Hospit al History SDOH [facility] Alcohol Binge Hospital Alcohol intake 2022-08-04 2022-08-04 Lifetime [facility] 00:00:00 00:00:00 non-drinker Hospital (finding) History of Social 2022-08-04 2022-08-[address] function 00:00:00 00:00:00 Hospital Tobacco use and 2021-12-07 2021-12-07 Smokeless [facility] exposure 00:00:00 00:00:00 tobacco non-user Hospital History SDOH 2019-12-28 2019-12-28 1 [facility] Alcohol Frequency 00:00:00 00:00:00 Hospita l Sex Assigned At [birth year] [facility] 00:00:00 00:00:00 Hospital Smoking Status Start Date Stop Date Source Unknown if ever smoked [facility] Never Smoker [facility] nter Ex-smoker 2021-12-07 00:00:00 2021-[facility] F[facility] Start Stop Current Ordering [...] release 12 hr cevimeline 2022-0 Yes 30mg Q.[id number] Take 1 [facility] (EVOXAC) 30 4-[id number] mg capsule 09:50: 3D (30 mg Hospi ta 48 total) by l mouth 3 (three) times a day. vit 3-0 Yes Q.5D Take by [facility] C/E/Zn/chino 4-18 [...] Hospita (THERAGRAN) 48 daily. l tablet cholecalcif 2022-0 Yes 1000U QD Take 1 Met hodi [...] release 12 hr cevimeline 0 Yes 30mg Q.[id number] Take 1 [facility] (EVOXAC) 30 4-[id number] mg capsule 09:50: 3D (30 [...] 48 by mouth l as needed. coenzyme 0 Yes 1 capsule Meth carlo Q10 200 mg [address] capsule 09:50: meal Hospita 48 l pantoprazol 0 Yes TAKE 1 Meth carlo e 4-[address] (PROTONIX) 09:50: MOUTH Hospit a 40 MG EC 48 TWICE A l tablet DAY ondansetron 0 Yes Q8H every 8 Met hodi (ZOFRAN) 4 4-18 (eight) st MG tablet 09:50: hours as Hosp isabelle 48 needed. l naproxen 0 Yes 500mg 1 tablet Meth carlo (NAPROSYN) 18 ([address] 500 MG 09:50: total). [...] l mcg/actuati DAILY on nasal spray atorvastati 2023-0 Yes 10mg QD 1 tablet Me thodi n (LIPITOR) 4-18 ([address] 10 mg 09:50: total) Hospita tablet 48 daily. l amLODIPine 2022-0 Yes 1 tablet Met hodi (NORVASC) 4-18 st 10 mg 09:50: Hospita tablet 48 l ALPRAZolam 2022-0 Yes (Schedule Me thodi (XANAX) 1 4-18 [...] release 12 hr cevimeline 2022-0 Yes 30mg Q.[id number] Take 1 [facility] (EVOXAC) 30 4-[id number] mg capsule 09:50: 3D (30 mg Hospi ta 48 total) by l mouth 3 (three) times a day. vit 2023-0 Yes Q.5D Take by Method[facility] C/E/Zn/chino 4-[address] r/lutein/ze 09:50: (two) Hospi ta axan 48 times a l (PRESERVISI day. ON AREDS-2 ORAL) rOPINIRole 2022-0 Yes 1mg Take 1 Metho di (REQUIP) 1 4-18 tablet (1 st MG tablet 09:50: mg total) Hos sara 48 by mouth l as needed. Lactobacill 2022-0 2023- No 1g QD Take 1 Met hodi us 4-18 04-[address] acidoph-L.b 09:42: 00:00 mouth Hosp isabelle ulgar 42 :00 daily. l (LACTINEX) 100 million cell tablet Lactobacill 2022-0 2022- No 1g QD Take 1 Met hodi us 4-18 04-[address] acidoph-L.b 09:42: 00:00 mouth Hosp isabelle ulgar 42 :00 daily. l (LACTINEX) 100 million cell tablet Lactobacill 2022-0 202- No 1g QD Take 1 Met hodi us 4-18 04-[address] acidoph-L.b 09:42: 00:00 mouth Hosp isabelle ulgar 42 :00 daily. l (LACTINEX) 100 million cell tablet garlic 2022-0 2023- No 2000mg QD Take 2,000 Me thodi 1,000 mg 4-18 04-[address] capsule 09:42: 00:00 mouth Hospita 38 :00 daily. l garlic 2023-0 2023- No 2000mg QD Take 2,000 Me thodi 1,000 mg 4-18 04-[address] capsule 09:42: 00:00 mouth Hospita 38 :00 daily. l garlic 2023-0 2023- No 2000mg QD Take 2,000 Me thodi 1,000 mg 4-18 04-[address] capsule 09:42: 00:00 mouth Hospita 38 :00 daily. l sulfamethox 2022-0 2023- No [id number] 1{tbl} Q.5D Take 1 [facility] azole-trime 4-18 04-[address] thoprim 00:00: 04:59 mouth 2 Hospit a (Bactrim 00 :00 (two) l DS) 800-160 times a mg per day for 10 tablet days. sulfamethox 2022-0 3- No [id number] 1{tbl} Q.5D Take 1 [facility] azole-trime 4-08-[address] thoprim 00:00: 04:59 mouth 2 Hospit a (Bactrim 00 :00 (two) l DS) 800-160 times a mg per day for 10 tablet days. sulfamethox 2022- No [id number] 1{tbl} Q.5D Take 1 [facility] azole-trime -18 08-[address] thoprim 00:00: 04:59 mouth 2 Hospit a (Bactrim 00 :00 (two) l DS) 800-160 times a mg per day for 10 tablet days. riFAXimin 2022- No [id number] 550mg Q.87831618 Take 1 [facility] (XIFAXAN) 06-22- [id number] tablet s t 550 mg 00:00: 04:59 3D (550 mg Hospita tablet 00 :00 total) by l mouth 3 (three) times a day for 14 days. riFAXimin 2022- No [id number] 550mg Q.[id number] Take 1 [facility] (XIFAXAN) 06-22 [id number] tablet s t 550 mg 00:00: 04:59 3D (550 mg Hospita tablet 00 :00 total) by l mouth 3 (three) times a day for 14 days. riFAXimin No [id number] 550mg Q.20623846 Take 1 [facility] (XIFAXAN) 06-22 [id number] tablet s t 550 mg 00:00: 04:59 3D (550 mg Hospita tablet 00 :00 total) by l mouth 3 (three) times a day for 14 days. sodium,pota 2022- No [id number] Use as Methodi ssium,mag 04-[address] sulfates 00:00: 00:00 Hospita (Suprep 00 :00 l Bowel Prep Kit) 17.5-3.13-1 .6 gram recon soln sodium,pota 2022- No [id number] Use as Methodi ssium,mag 04-[address] sulfates 00:00: 00:00 Hospita (Suprep 00 :00 l Bowel Prep Kit) 17.5-3.13-1 .6 gram recon soln sodium,pota 2022- No [id number] Use as Methodi ssium,mag 04-30 04-[address] sulfates 00:00: 00:00 Hospita (Suprep 00 :00 l Bowel Prep Kit) 17.5-3.13-1 .6 gram recon soln linaCLOtide 2022-0 Yes QD daily. Meth carlo (Linzess) 8 st 290 mcg 15:18: Hospita capsule 44 l linaCLOtide 2022-0 Yes QD daily. Meth carlo (Linzess) 8 st 290 mcg 15:18: Hospita capsule 44 l linaCLOtide 2022-0 Yes QD daily. Meth carlo (Linzess) 8 st 290 mcg 15:18: Hospita capsule 44 l sucralfate 2021- No 1g Q.25D Take 1 Met hodi (CARAFATE) 12-12 tablet (1 st 1 gram 00:00: 04:59 g total) Hospit a tablet 00 :00 by mouth 4 l (four) times a day with meals and nightly for 30 days. ondansetron 2021-2021- No 4mg Q8H Take 1 Met hodi (Zofran) 4 12-12 tablet (4 st MG tablet 00:00: 04:59 mg total) Ho spita 00 :00 by mouth l every 8 (eight) hours as needed for nausea or vomiting for up to 30 days. sucralfate 2021-2021- No 1g Q.25D Take 1 Met hodi (CARAFATE) 12-12 tablet (1 st 1 gram 00:00: 04:59 g total) Hospit a tablet 00 :00 by mouth 4 l (four) times a day with meals and nightly for 30 days. ondansetron 2021-2021- No 4mg Q8H Take 1 Met hodi (Zofran) 4 12-12 tablet (4 st MG tablet 00:00: 04:59 mg total) Ho spita 00 :00 by mouth l every 8 (eight) hours as needed for nausea or vomiting for up to 30 days. sucralfate 2021- No 1g Q.25D Take 1 [...] for 5 days. metroNIDAZO 2021- No 500mg Q.[id number] Take 1 [facility] LE (FlagyL) 12-[id number] 500 MG 00:00: 04:59 3D (500 mg Hospita tablet 00 :00 total) by l mouth 3 (three) times a day for 5 days. ALPRAZolam 2021- No .5mg Q.[id number] Take 1 [facility] (Xanax) 0.5 12-[id number] MG tablet 00:00: 04:59 3D (0.5 mg Hosp isabelle 00 :00 total) by l mouth 3 (three) times a day as needed for anxiety for up to 5 days. ciprofloxac 0 2021- No 500mg Q.5D Take 1 Me thodi in (Cipro) 12-[address] 500 MG 00:00: 04:59 (500 mg Hospita tablet 00 :00 total) by l mouth 2 (two) times a day for 5 days. metroNIDAZO 2021-0 2021- No 500mg Q.[id number] Take 1 [facility] LE (FlagyL) 12-[id number] 500 MG 00:00: 04:59 3D (500 mg Hospita tablet 00 :00 total) by l mouth 3 (three) times a day for 5 days. ALPRAZolam 2021-0 2021- No .5mg Q.[id number] Take 1 [facility] (Xanax) 0.5 12-[id number] MG tablet 00:00: 04:59 3D (0.5 mg Hosp isabelle 00 :00 total) by l mouth 3 (three) times a day as needed for anxiety for up to 5 days. ciprofloxac 2021- No 500mg Q.5D Take 1 Me thodi in (Cipro) 12-[address] 500 MG 00:00: 04:59 (500 mg Hospita tablet 00 :00 total) by l mouth 2 (two) times a day for 5 days. metroNIDAZO 2021-2021- No 500mg Q.[id number] Take 1 [facility] LE (FlagyL) 12-[id number] 500 MG 00:00: 04:59 3D (500 mg Hospita tablet 00 :00 total) by l mouth 3 (three) times a day for 5 days. ALPRAZolam 2021- No .5mg Q.[id number] Take 1 [facility] (Xanax) 0.5 12-[id number] MG tablet 00:00: 04:59 3D (0.5 mg Hosp isabelle 00 :00 total) by l mouth 3 (three) times a day as needed for anxiety for up to 5 days. rOPINIRole 2021-0 2021- No 1 TABLET 1 [facility] (REQUIP) 1 12-07-[address] MG tablet 09:48: 00:00 BEFORE Hospi ta 11 :00 BEDTIME l ONCE A DAY ORALLY 30 rOPINIRole 2022-0 2021- No 1 TABLET 1 [facility] (REQUIP) 1 12-07 08-[address] MG tablet 09:48: 00:00 BEFORE Hospi ta 11 :00 BEDTIME l ONCE A DAY ORALLY 30 rOPINIRole 2022-0 2021- No 1 TABLET 1 [facility] (REQUIP) 1 12-07-[address] MG tablet 09:48: 00:00 BEFORE Hospi ta 11 :00 BEDTIME l ONCE A DAY ORALLY 30 biotin 10 2021- No 1 tablet Met hodi mg tablet 12-07 09:46: 00:00 Hospita 38 :00 l biotin 10 2021- No 1 tablet Met hodi mg tablet 12-07 09:46: 00:00 Hospita 38 :00 l biotin 10 2021- No 1 tablet Met hodi mg tablet 12-07 09:46: 00:00 Hospita 38 :00 l Metoclopram Metoclopram 2021-0 No 1{table TID Metoclopra [...] 00:00: e_meals MG 00 } Amoxicillin Amoxicillin 2021-0 2- No 1{table BID Amoxicilli -Pot -Pot 1-19 -29 t} n-Pot Clavulanate Clavulanate 00:00: 00:00 Clavulanat [...] 1{puff_ 6xD Albuterol Sulfate HFA Sulfate HFA 12-12 as_need Sulfate 108 (90 108 (90 00:00: [...] 00:00: 00:00 MG 00 :00 methylPREDN methylPREDN 0 2020- No methylPRED ISolone 4 ISolone 4 12-12 NISolone 4 MG MG 00:00: 00:00 MG 00 :00 Pregabalin Pregabalin 2019-0 Yes Dionne 1 capsule Common 01-03 [facility] 00:00: - [facility] 00 [facility] biotin 10 2019-0 Yes 1 tablet Meth [...] l ONCE A DAY ORALLY 30 pantoprazol 2019-0 Yes TAKE 1 Meth carlo e 12-26 [...] release 12 hr cevimeline 2020-0 Yes 30mg Q.[id number] Take 30 mg [facility] (EVOXAC) 30 12-26 [id number] by mouth 3 st mg capsule 21:34: 3D (three) Hosp isabelle 15 times a l day. polyethylen 2019-0 2020- No 17g QD Take 17 g Methodi e glycol 12-26 10-[address] (MIRALAX) 00:00: 04:59 daily for Ho spita 17 gram 00 :00 30 days. l packet HYDROcodone 2019-0 2020- [place] [id number] 1{tbl} Q6H Take 1 Methodi -acetaminop 12-26 0915 tablet by hen (NORCO) 00:00: 04:59 mouth Hosp isabelle 5-325 mg 00 :00 every 6 l per tablet (six) hours as needed for moderate pain for up to 5 days .acute pain. Max Daily Amount: 4 tablets Metoprolol Metoprolol No 1{table QD Metoprolol Succinate [...] le_as_n Sodium 100 MG MG eeded} MG Omeprazole Omeprazole No QD Omeprazole 40 MG 40 MG 40 MG Docusate Docusate No 1{capsu BID Docusate Sodium 100 Sodium 100 le_as_n Sodium 100 MG MG eeded} MG Losartan Losartan No Losartan Potassium Potassium Potassium 50 MG 50 MG 50 MG Ipratropium Ipratropium No Ipratropiu -Albuterol -Albuterol m-Albutero 0.5-2.5 (3) 0.5-2.5 (3) l 0.5-2.5 MG/3ML MG/3ML (3) MG/3ML Acidophilus Acidophilus No Acidophilu - - s - Fluticasone Fluticasone No Fluticason Propionate Propionate e 50 MCG/ACT 50 MCG/ACT Propionate 50 MCG/ACT Albuterol Albuterol No Albuterol Sulfate HFA Sulfate HFA Sulfate 108 (90 108 (90 HFA 108 Base) Base) (90 Base) MCG/ACT MCG/ACT MCG/ACT Linzess 290 Linzess 290 No Linzess MCG MCG 290 MCG amLODIPine amLODIPine No amLODIPine Besylate 10 Besylate 10 Besylate MG MG 10 MG Metoprolol Metoprolol No 1{table QD Metoprolol Succinate Succinate t} Succinate ER 100 MG ER 100 MG ER 100 MG Famotidine Famotidine No 1{table QD Famotidine 20 MG 20 MG t_at_be 20 MG dtime_a s_neede d} Cevimeline Cevimeline No Cevimeline HCl 30 MG HCl 30 MG HCl 30 MG Co Q-10 200 Co Q-10 200 No 1{capsu QD Co Q-10 MG MG le_with 200 MG _a_meal } ALPRAZolam ALPRAZolam No ALPRAZolam 1 MG 1 MG 1 MG Aspir-81 Aspir-81 No Aspir-81 Aspir-81 Aspir-81 No Aspir-81 Atorvastati Atorvastati No Atorvastat n Calcium n Calcium in Calcium 40 MG 40 MG 40 MG Garlic 100 Garlic 100 No Garlic 100 MG MG MG Naproxen Naproxen No Naproxen 500 MG 500 MG 500 MG Fluticasone Fluticasone No Fluticason Propionate Propionate e 50 MCG/ACT 50 MCG/ACT Propionate 50 MCG/ACT Pantoprazol Pantoprazol No Pantoprazo e Sodium 40 e Sodium 40 le Sodium MG MG 40 MG Montelukast Montelukast No Montelukas Sodium 10 Sodium 10 t Sodium MG MG 10 MG Vitamin D3 Vitamin D3 No 1{table QD Vitamin D3 1000 UNIT 1000 UNIT t} 1000 UNIT rOPINIRole rOPINIRole No rOPINIRole HCl 1 MG HCl 1 MG HCl 1 MG Co Q-10 200 Co Q-10 200 No 1{capsu QD Co Q-10 MG MG le_with 200 MG _a_meal } Evoxac 30 Evoxac 30 No 1{capsu TID Evoxac 30 MG MG le} MG Omeprazole Omeprazole No QD Omeprazole 40 MG 40 MG 40 MG Docusate Docusate No 1{capsu BID Docusate Sodium 100 Sodium 100 le_as_n Sodium 100 MG MG eeded} MG Losartan Losartan No Losartan Potassium Potassium Potassium 50 MG 50 MG 50 MG Ipratropium Ipratropium No Ipratropiu -Albuterol -Albuterol m-Albutero 0.5-2.5 (3) 0.5-2.5 (3) l 0.5-2.5 MG/3ML MG/3ML (3) MG/3ML Acidophilus Acidophilus No Acidophilu - - s - Albuterol Albuterol No Albuterol Sulfate HFA Sulfate HFA Sulfate 108 (90 108 (90 HFA 108 Base) Base) (90 Base) MCG/ACT MCG/ACT MCG/ACT Linzess 290 Linzess 290 No Linzess MCG MCG 290 MCG amLODIPine amLODIPine No amLODIPine Besylate 10 Besylate 10 Besylate MG MG 10 MG Metoprolol Metoprolol No 1{table QD Metoprolol Succinate Succinate t} Succinate ER 100 MG ER 100 MG ER 100 MG Famotidine Famotidine No 1{table QD Famotidine 20 MG 20 MG t_at_be 20 MG dtime_a s_neede d} Cevimeline Cevimeline No Cevimeline HCl 30 MG HCl 30 MG HCl 30 MG Co Q-10 200 Co Q-10 200 No 1{capsu QD Co Q-10 MG MG le_with 200 MG _a_meal } ALPRAZolam ALPRAZolam No ALPRAZolam 1 MG 1 MG 1 MG Aspir-81 Aspir-81 No Aspir-81 Atorvastati Atorvastati No Atorvastat n Calcium n Calcium in Calcium 40 MG 40 MG 40 MG Garlic 100 Garlic 100 No Garlic 100 MG MG MG Naproxen Naproxen No Naproxen 500 MG 500 MG 500 MG Fluticasone Fluticasone No Fluticason Propionate Propionate e 50 MCG/ACT 50 MCG/ACT Propionate 50 MCG/ACT Pantoprazol Pantoprazol No Pantoprazo e Sodium 40 e Sodium 40 le Sodium MG MG 40 MG Montelukast Montelukast No Montelukas Sodium 10 Sodium 10 t Sodium MG MG 10 MG Vitamin D3 Vitamin D3 No 1{table QD Vitamin D3 1000 UNIT 1000 UNIT t} 1000 UNIT rOPINIRole rOPINIRole No rOPINIRole HCl 1 MG HCl 1 MG HCl 1 MG Zofran 4 MG Zofran 4 MG [...] Aspir-81 Ipratropium Ipratropium No 2.5{ml} TID Ipratropiu Jefferson Jefferson m Jefferson 0.02 % 0.02 % 0.02 % Co [...] (3) l 0.5-2.5 MG/3ML MG/3ML (3) MG/3ML Naproxen Naproxen 2022- No QD Naproxen 500 [...] Spirit - OVER 65 OVER 65 15:08:00 [facility] FLUZONE HIGH DOSE FLUZONE HIGH DOSE 2022-01-29 Completed [facility] - OVER 65 OVER 65 15:08:00 [facility] FLUZONE HIGH DOSE FLUZONE HIGH DOSE 2022-01-29 Completed [facility] - OVER 65 OVER 65 15:08:00 [facility] FLUZONE HIGH DOSE FLUZONE HIGH DOSE 2022-01-29 Completed [facility] - OVER 65 OVER 65 15:08:00 [facility] FLUZONE HIGH DOSE FLUZONE HIGH DOSE 2022-01-29 Completed [facility] - OVER 65 OVER 65 15:08:00 [facility] 2021-09-27 Completed [facility] 2021-09-27 Completed [facility] 00:[facility] 2021-09-27 Completed [facility] 00:00:00 [facility] 2021-09-27 Com[facility] BEBTELOVIMAB 2021-09-27 Completed [facility] 00:00:00 [facility] FLUZONE HIGH DOSE FLUZONE HIGH DOSE 2021-06-30 Completed [facility] - OVER 65 OVER 65 14:47:00 [facility] FLUZONE HIGH DOSE FLUZONE HIGH DOSE 2021-06-30 Completed [facility] - OVER 65 OVER 65 14:47:00 [facility] FLUZONE HIGH DOSE FLUZONE HIGH DOSE 2021-06-30 Completed [facility] - OVER 65 OVER 65 14:47:00 [facility] FLUZONE HIGH DOSE FLUZONE HIGH DOSE 2021-06-30 Completed [facility] - OVER 65 OVER 65 14:47:00 [facility] FLUZONE HIGH DOSE FLUZONE HIGH DOSE 2021-06-30 Completed [facility] - OVER 65 OVER 65 14:47:00 [facility] FLUZONE HIGH DOSE FLUZONE HIGH DOSE 2021-06-30 Completed [facility] - OVER 65 OVER 65 14:47:00 [facility] FLUZONE HIGH DOSE FLUZONE HIGH DOSE 2021-06-30 Completed [facility] - OVER 65 OVER 65 14:47:00 [facility] FLUZONE HIGH DOSE FLUZONE HIGH DOSE 2021-06-30 Completed [facility] - OVER 65 OVER 65 14:47:00 [facility] FLUZONE HIGH DOSE FLUZONE HIGH DOSE 2021-06-30 Completed [facility] - OVER 65 OVER 65 14:47:00 [facility] FLUZONE HIGH DOSE FLUZONE HIGH DOSE 2021-06-30 Completed [facility] - OVER 65 OVER 65 14:47:00 [facility] FLUZONE HIGH DOSE FLUZONE HIGH DOSE 2021-06-30 Completed [facility] - OVER 65 OVER 65 14:47:00 [facility] FLUZONE HIGH DOSE FLUZONE HIGH DOSE 2021-06-30 Completed [facility] - OVER 65 OVER 65 14:47:00 [facility] FLUZONE HIGH-DOSE PF 2021-06-30 Completed [facility] odist 00:00:00 Hospital FLUZONE HIGH-DOSE PF 2021-06-30 Completed [facility]ist 00:00:00 Hospital FLUZONE HIGH-DOSE PF 2021-06-30 Completed [facility] 00:00:00 Hospital MODERNA COVID-19 MRNA 2021-02-21 Completed [facility]ist VACCINATION 00:00:00 Hospital MODERNA COVID-19 MRNA 2021-02-21 Completed [facility] VACCINATION 00:00:00 Hospital MODERNA COVID-19 MRNA 2021-02-21 Completed [facility] VACCINATION 00:00:00 Hospital Zoster Vaccine 2020-09-07 Completed [facility] Recombinant 00:00:00 Hospital Zoster Vaccine 2020-09-07 Completed [facility] Recombinant 00:00:00 Hospital Zoster Vaccine 2020-09-07 Completed [facility] Recombinant 00:00:00 Hospital Prevnar 13 (PCV13) Prevnar 13 (PCV13) 2020-07-08 Completed [facility] 10:18:00 [facility] Prevnar 13 (PCV13) Prevnar 13 (PCV13) 2020-07-08 Completed [facility] 10:18:00 [facility] Prevnar 13 (PCV13) Prevnar 13 (PCV13) 2020-07-08 Completed [facility] 10:18:00 [facility] Prevnar 13 (PCV13) Prevnar 13 (PCV13) 2020-07-08 Completed [facility] 10:18:00 [facility] Prevnar 13 (PCV13) Prevnar 13 (PCV13) 2020-07-08 Completed [facility] 10:18:00 [facility] Prevnar 13 (PCV13) Prevnar 13 (PCV13) 2020-07-08 Completed [facility] 10:18:00 [facility] Prevnar 13 (PCV13) Prevnar 13 (PCV13) 2020-07-08 Completed [facility] - 10:18:00 [facility] Prevnar 13 (PCV13) Prevnar 13 (PCV13) 2020-07-08 [facility]:00 [facility] Prevnar 13 (PCV13) Prevnar 13 (PCV13) 2020-07-08 [facility]:18:00 [facility] Prevnar 13 (PCV13) Prevnar 13 (PCV13) 2020-07-08 [facility] - 10:18:00 [facility] Prevnar 13 (PCV13) Prevnar 13 (PCV13) 2020-07-08 [facility]pleted [facility] - 10:18:00 [facility] Prevnar 13 (PCV13) Prevnar 13 (PCV13) 2020-07-08 [facility] - 10:18:00 [facility] Prevnar 13 (PCV13) Prevnar 13 (PCV13) 2020-07-08 [facility] 10:18:00 [facility] Prevnar 13 (PCV13) Prevnar 13 (PCV13) 2020-07-08 [facility]pleted [facility] 10:18:00 [facility] Prevnar 13 (PCV13) Prevnar 13 (PCV13) 2020-07-08 [facility] 10:18:00 [facility] Prevnar 13 (PCV13) Prevnar 13 (PCV13) 2020-07-08 [facility]pleted [facility] - 10:18:00 [facility] Prevnar 13 (PCV13) Prevnar 13 (PCV13) 2020-07-08 [facility]pleted [facility] - 10:18:00 [facility] Prevnar 13 (PCV13) Prevnar 13 (PCV13) 2020-07-08 [facility]pleted [facility] - 10:18:00 [facility] Prevnar 13 (PCV13) Prevnar 13 (PCV13) 2020-07-08 [facility]pleted [facility] 10:18:00 [facility] Prevnar 13 (PCV13) Prevnar 13 (PCV13) 2020-07-08 [facility]pleted [facility] - 10:18:00 [facility] Prevnar 13 (PCV13) Prevnar 13 (PCV13) 2020-07-08 [facility]pleted [facility] - 10:18:00 [facility] Prevnar 13 (PCV13) Prevnar 13 (PCV13) 2020-07-08 [facility]pleted [facility] - 10:18:00 [facility] Prevnar 13 (PCV13) Prevnar 13 (PCV13) 2020-07-08 [facility]pleted [facility] - 10:18:00 [facility] Prevnar 13 (PCV13) Prevnar 13 (PCV13) 2020-07-08 [facility]pleted [facility] 10:18:00 [facility] Prevnar 13 (PCV13) Prevnar 13 (PCV13) 2020-07-08 [facility]pleted [facility] - 10:18:00 [facility] Prevnar 13 (PCV13) Prevnar 13 (PCV13) 2020-07-08 [facility]pleted [facility] - 10:18:00 [facility] Pneumococcal 2020-07-08 Completed [facility] Conjugate 13-[facility]ent [facility]:00:[facility] P[facility] 2020-07-08 Completed [facility] Conjugate 13-Valent 00:00:00 [facility] Pneumococcal 2020-07-08 Completed [facility] Conjugate 13-Valent 00[facility]00:00 [facility] Moderna COVID-19 Moderna COVID-19 2020-05-28 [facility] 13:15:00 [facility] Moderna COVID-19 Moderna COVID-19 2020-05-28 Completed [facility] Vaccine 13:15:00 [facility] Moderna COVID-19 Moderna COVID-19 2020-05-28 Completed [facility] Vaccine 13:15:00 [facility] Moderna COVID-19 Moderna COVID-19 2020-05-28 Completed [facility] Vaccine 13:15:00 [facility] Moderna COVID-19 Moderna COVID-19 2020-05-28 Completed [facility] Vaccine 13:15:00 [facility] Moderna COVID-19 Moderna COVID-19 2020-05-28 Completed [facility] Vaccine 13:15:00 [facility] Moderna COVID-19 Moderna COVID-19 2020-05-28 Completed [facility] Vaccine 13:15:00 [facility] Moderna COVID-19 Moderna COVID-19 2020-05-28 Completed [facility] Vaccine 13:15:00 [facility] Moderna COVID-19 Moderna COVID-19 2020-05-28 Completed [facility] Vacc[facility] Vaccine 13:15:00 [facility] Moderna COVID-19 Moderna COVID-19 2020-05-28 Completed [facility] Vacc[facility] Vaccine 13:15:00 [facility] Moderna COVID-19 Moderna COVID-19 2020-05-28 Completed [facility] Vacc[facility] Vaccine 13:15:00 [facility] Moderna COVID-19 Moderna COVID-19 2020-05-28 Completed [facility] Vacc[facility] Vaccine 13:15:00 [facility] Moderna COVID-19 Moderna COVID-19 2020-05-28 Completed [facility] Vacc[facility] Vaccine 13:15:00 [facility] Moderna COVID-19 Moderna COVID-19 2020-05-28 Completed [facility] Vacc[facility] Vaccine 13:15:00 [facility] Moderna COVID-19 Moderna COVID-19 2020-05-28 Completed [facility] Vaccine 13:15:00 [facility] Moderna COVID-19 Moderna COVID-19 2020-05-28 Completed [facility] Vaccine 13:15:00 [facility] Moderna COVID-19 Moderna COVID-19 2020-05-28 Completed [facility] Vaccine 13:15:00 [facility] Moderna COVID-19 Moderna COVID-19 2020-05-28 Completed [facility] Vacc[facility] Vaccine 13:15:00 [facility] Moderna COVID-19 Moderna COVID-19 2020-05-28 Completed [facility] Vacc[facility] Vaccine 13:15:00 [facility] Moderna COVID-19 Moderna COVID-19 2020-05-28 Completed [facility] Vaccine Vaccine 13:15:00 [facility] Moderna COVID-19 Moderna COVID-19 2020-05-28 Completed [facility] Vacc[facility] Vaccine 13:15:00 [facility] Moderna COVID-19 Moderna COVID-19 2020-05-28 Completed [facility] Vacc[facility] Vaccine 13:15:00 [facility] Moderna COVID-19 Moderna COVID-19 2020-05-28 Completed [facility] Vacc[facility] Vaccine 13:15:00 [facility] Moderna COVID-19 Moderna COVID-19 2020-05-28 Completed [facility] Vaccine 13:15:00 [facility] Moderna COVID-19 Moderna COVID-19 2020-05-28 Completed [facility] Vaccine 13:15:00 [facility] Moderna COVID-19 Moderna COVID-19 2020-05-28 Completed [facility] Vaccine 13:15:00 [facility] MODERNA COVID-19 MRNA 2020-05-28 [facility]pleted [facility]:00:00 [facility] MODERNA COVID-19 MRNA 2020-05-28 Completed [facility]:00 [facility] MODERNA COVID-19 MRNA 2020-05-28 Completed [facility]:00 Hospital Shingrix Shingrix 2020-05-20 Completed [facility] - 15:33:00 [facility] Shingrix Shingrix 2020-05-20 Completed [facility] - 15:33:00 [facility] Shingrix Shingrix 2020-05-20 Completed [facility] - 15:33:00 [facility] Shingrix Shingrix 2020-05-20 Completed [facility] - 15:33:00 [facility] Shingrix Shingrix 2020-05-20 Completed [facility] - 15:33:00 [facility] Shingrix Shingrix 2020-05-20 Completed [facility] - 15:33:00 [facility] Shingrix Shingrix 2020-05-20 Completed [facility] - 15:33:00 [facility] Shingrix Shingrix 2020-05-20 Completed [facility] - 15:33:00 [facility] Shingrix Shingrix 2020-05-20 Completed [facility] - 15:33:00 [facility] Shingrix Shingrix 2020-05-20 Completed [facility] - 15:33:00 [facility] Shingrix Shingrix 2020-05-20 Completed [facility] - 15:33:00 [facility] Shingrix Shingrix 2020-05-20 Completed [facility] - 15:33:00 [facility] Shingrix Shingrix 2020-05-20 Completed [facility] - 15:33:00 [facility] Shingrix Shingrix 2020-05-20 Completed [facility] - 15:33:00 [facility] Shingrix Shingrix 2020-05-20 Completed [facility] - 15:33:00 [facility] Shingrix Shingrix 2020-05-20 Completed [facility] - 15:33:00 [facility] Zoster Vaccine 2020-05-20 Completed [facility] Recombinant 00:00:00 [facility] Zoster Vaccine 2020-05-20 Completed [facility] Recombinant 00:00:00 [facility] Zoster Vaccine 2020-05-20 Completed [facility] Recombinant 00:00:00 Hospital Moderna COVID-19 Moderna COVID-19 2020-05-01 Completed [facility] Vaccine 13:15:00 [facility] Moderna COVID-19 Moderna COVID-19 2020-05-01 Completed [facility] Vaccine Vaccine 13:15:00 [facility] Moderna COVID-19 Moderna COVID-19 2020-05-01 Completed [facility] Vaccine Vaccine 13:15:00 [facility] Moderna COVID-19 Moderna COVID-19 2020-05-01 Completed [facility] Vaccine Vaccine 13:15:00 [facility] Moderna COVID-19 Moderna COVID-19 2020-05-01 Completed [facility] Vaccine Vaccine 13:15:00 [facility] Moderna COVID-19 Moderna COVID-19 2020-05-01 Completed [facility] Vaccine Vaccine 13:15:00 [facility] Moderna COVID-19 Moderna COVID-19 2020-05-01 Completed [facility] Vacc[facility] Vaccine 13:15:00 [facility] Moderna COVID-19 Moderna COVID-19 2020-05-01 Completed [facility] Vaccine Vaccine 13:15:00 [facility] Moderna COVID-19 Moderna COVID-19 2020-05-01 Completed [facility] Vaccine Vaccine 13:15:00 [facility] Moderna COVID-19 Moderna COVID-19 2020-05-01 Completed [facility] Vaccine Vaccine 13:15:00 [facility] Moderna COVID-19 Moderna COVID-19 2020-05-01 Completed [facility] Vaccine Vaccine 13:15:00 [facility] Moderna COVID-19 Moderna COVID-19 2020-05-01 Completed [facility] Vaccine Vaccine 13:15:00 [facility] Moderna COVID-19 Moderna COVID-19 2020-05-01 Completed [facility] Vaccine Vaccine 13:15:00 [facility] Moderna COVID-19 Moderna COVID-19 2020-05-01 Completed [facility] Vaccine Vaccine 13:15:00 [facility] Moderna COVID-19 Moderna COVID-19 2020-05-01 Completed [facility] Vaccine Vaccine 13:15:00 [facility] Moderna COVID-19 Moderna COVID-19 2020-05-01 Completed [facility] Vaccine Vaccine 13:15:00 [facility] Moderna COVID-19 Moderna COVID-19 2020-05-01 Completed [facility] Vaccine Vaccine 13:15:00 [facility] Moderna COVID-19 Moderna COVID-19 2020-05-01 Completed [facility] Vaccine Vaccine 13:15:00 [facility] Moderna COVID-19 Moderna COVID-19 2020-05-01 Completed [facility] Vaccine Vaccine 13:15:00 [facility] Moderna COVID-19 Moderna COVID-19 2020-05-01 Completed [facility] Vaccine Vaccine 13:15:00 [facility] Moderna COVID-19 Moderna COVID-19 2020-05-01 Completed [facility] Vaccine Vaccine 13:15:00 [facility] Moderna COVID-19 Moderna COVID-19 2020-05-01 Completed [facility] Vaccine Vaccine 13:15:00 [facility] Moderna COVID-19 Moderna COVID-19 2020-05-01 Completed [facility] Vaccine Vaccine 13:15:00 [facility] Moderna COVID-19 Moderna COVID-19 2020-05-01 Completed [facility] Vaccine Vaccine 13:15:00 [facility] Moderna COVID-19 Moderna COVID-19 2020-05-01 Completed [facility] Vaccine Vaccine 13:15:00 [facility] Moderna COVID-19 Moderna COVID-19 2020-05-01 Completed [facility] Vacc[facility] Vaccine 13:15:00 [facility] MODERNA COVID-19 MRNA 2020-05-01 Completed [facility]ACC[facility]:00:00 [facility] COVID-19 MRNA 2020-05-01 Completed [facility] VACC[facility] 00:00:00 [facility] COVID-19 MRNA 2020-05-01 Completed [facility]:00:00 Hospital Pneumovax (PPSV23) Pneumovax (PPSV23) 2019-02-08 Completed [facility] - 13:50:00 [facility] FLUZONE HIGH DOSE FLUZONE HIGH DOSE 2019-02-08 Completed [facility] - OVER 65 OVER 65 13:50:00 [facility] Pneumovax (PPSV23) Pneumovax (PPSV23) 2019-02-08 Completed [facility] - 13:50:00 [facility] FLUZONE HIGH DOSE FLUZONE HIGH DOSE 2019-02-08 Completed [facility] - OVER 65 OVER 65 13:50:00 [facility] Pneumovax (PPSV23) Pneumovax (PPSV23) 2019-02-08 Completed [facility] - 13:50:00 [facility] FLUZONE HIGH DOSE FLUZONE HIGH DOSE 2019-02-08 Completed [facility] - OVER 65 OVER 65 13:50:00 [facility] Pneumovax (PPSV23) Pneumovax (PPSV23) 2019-02-08 Completed [facility] - 13:50:00 [facility] FLUZONE HIGH DOSE FLUZONE HIGH DOSE 2019-02-08 Completed [facility] - OVER 65 OVER 65 13:50:00 [facility] Pneumovax (PPSV23) Pneumovax (PPSV23) 2019-02-08 Completed [facility] - 13:50:00 [facility] FLUZONE HIGH DOSE FLUZONE HIGH DOSE 2019-02-08 Completed [facility] - OVER 65 OVER 65 13:50:00 [facility] Pneumovax (PPSV23) Pneumovax (PPSV23) 2019-02-08 Completed [facility] - 13:50:00 [facility] FLUZONE HIGH DOSE FLUZONE HIGH DOSE 2019-02-08 Completed [facility] - OVER 65 OVER 65 13:50:00 [facility] Pneumovax (PPSV23) Pneumovax (PPSV23) 2019-02-08 Completed [facility] - 13:50:00 [facility] FLUZONE HIGH DOSE FLUZONE HIGH DOSE 2019-02-08 Completed [facility] - OVER 65 OVER 65 13:50:00 [facility] Pneumovax (PPSV23) Pneumovax (PPSV23) 2019-02-08 Completed [facility] - 13:50:00 [facility] FLUZONE HIGH DOSE FLUZONE HIGH DOSE 2019-02-08 Completed [facility] - OVER 65 OVER 65 13:50:00 [facility] Pneumovax (PPSV23) Pneumovax (PPSV23) 2019-02-08 Completed [facility] - 13:50:00 [facility] FLUZONE HIGH DOSE FLUZONE HIGH DOSE 2019-02-08 Completed [facility] - OVER 65 OVER 65 13:50:00 [facility] Pneumovax (PPSV23) Pneumovax (PPSV23) 2019-02-08 Completed [facility] - 13:50:00 [facility] FLUZONE HIGH DOSE FLUZONE HIGH DOSE 2019-02-08 Completed [facility] - OVER 65 OVER 65 13:50:00 [facility] Pneumovax (PPSV23) Pneumovax (PPSV23) 2019-02-08 Completed [facility] - 13:50:00 [facility] FLUZONE HIGH DOSE FLUZONE HIGH DOSE 2019-02-08 Completed [facility] - OVER 65 OVER 65 13:50:00 [facility] Pneumovax (PPSV23) Pneumovax (PPSV23) 2019-02-08 Completed [facility] - 13:50:00 [facility] FLUZONE HIGH DOSE FLUZONE HIGH DOSE 2019-02-08 Completed [facility] - OVER 65 OVER 65 13:50:00 [facility] Pneumovax (PPSV23) Pneumovax (PPSV23) 2019-02-08 Completed [facility] - 13:50:00 [facility] FLUZONE HIGH DOSE FLUZONE HIGH DOSE 2019-02-08 Completed [facility] - OVER 65 OVER 65 13:50:00 [facility] Pneumovax (PPSV23) Pneumovax (PPSV23) 2019-02-08 Completed [facility] - 13:50:00 [facility] FLUZONE HIGH DOSE FLUZONE HIGH DOSE 2019-02-08 Completed [facility] - OVER 65 OVER 65 13:50:00 [facility] Pneumovax (PPSV23) Pneumovax (PPSV23) 2019-02-08 Completed [facility] - 13:50:00 [facility] FLUZONE HIGH DOSE FLUZONE HIGH DOSE 2019-02-08 Completed [facility] - OVER 65 OVER 65 13:50:00 [facility] Pneumovax (PPSV23) Pneumovax (PPSV23) 2019-02-08 Completed [facility] - 13:50:00 [facility] FLUZONE HIGH DOSE FLUZONE HIGH DOSE 2019-02-08 Completed [facility] - OVER 65 OVER 65 13:50:00 [facility] Pneumovax (PPSV23) Pneumovax (PPSV23) 2019-02-08 Completed [facility] - 13:50:00 [facility] FLUZONE HIGH DOSE FLUZONE HIGH DOSE 2019-02-08 Completed [facility] - OVER 65 OVER 65 13:50:00 [facility] Pneumovax (PPSV23) Pneumovax (PPSV23) 2019-02-08 Completed [facility] - 13:50:00 [facility] FLUZONE HIGH DOSE FLUZONE HIGH DOSE 2019-02-08 Completed [facility] - OVER 65 OVER 65 13:50:00 [facility] Pneumovax (PPSV23) Pneumovax (PPSV23) 2019-02-08 Completed [facility] - 13:50:00 [facility] FLUZONE HIGH DOSE FLUZONE HIGH DOSE 2019-02-08 Completed [facility] - OVER 65 OVER 65 13:50:00 [facility] Pneumovax (PPSV23) Pneumovax (PPSV23) 2019-02-08 Completed [facility] - 13:50:00 [facility] FLUZONE HIGH DOSE FLUZONE HIGH DOSE 2019-02-08 Completed [facility] - OVER 65 OVER 65 13:50:00 [facility] Pneumovax (PPSV23) Pneumovax (PPSV23) 2019-02-08 Completed [facility] - 13:50:00 [facility] FLUZONE HIGH DOSE FLUZONE HIGH DOSE 2019-02-08 Completed [facility] - OVER 65 OVER 65 13:50:00 [facility] Pneumovax (PPSV23) Pneumovax (PPSV23) 2019-02-08 Completed [facility] - 13:50:00 [facility] FLUZONE HIGH DOSE FLUZONE HIGH DOSE 2019-02-08 Completed [facility] - OVER 65 OVER 65 13:50:00 [facility] Pneumovax (PPSV23) Pneumovax (PPSV23) 2019-02-08 Completed [facility] - 13:50:00 [facility] FLUZONE HIGH DOSE FLUZONE HIGH DOSE 2019-02-08 Completed [facility] - OVER 65 OVER 65 13:50:00 [facility] Pneumovax (PPSV23) Pneumovax (PPSV23) 2019-02-08 Completed [facility] - 13:50:00 [facility] FLUZONE HIGH DOSE FLUZONE HIGH DOSE 2019-02-08 Completed [facility] - OVER 65 OVER 65 13:50:00 [facility] Pneumovax (PPSV23) Pneumovax (PPSV23) 2019-02-08 Completed [facility] - 13:50:00 [facility] FLUZONE HIGH DOSE FLUZONE HIGH DOSE 2019-02-08 Completed [facility] - OVER 65 OVER 65 13:50:00 [facility] Pneumovax (PPSV23) Pneumovax (PPSV23) 2019-02-08 Completed [facility] - 13:50:00 [facility] FLUZONE HIGH DOSE FLUZONE HIGH DOSE 2019-02-08 Completed [facility] - OVER 65 OVER 65 13:50:00 [facility] FLUZONE HIGH DOSE FLUZONE HIGH DOSE 2019-02-08 Completed [facility] - OVER 65 OVER 65 00:00:00 [facility] Pneumovax Pneumovax 2019-02-08 Completed [facility] 00:00:00 [facility] FLUZONE HIGH-DOSE PF 2019-02-08 Completed [facility] 00:[facility]:00 [facility] Pneumococcal 2019-02-08 Completed [facility] Polysaccharide 00:00:00 Hospital FLUZONE HIGH-DOSE PF 2019-02-08 Completed [facility] 00:[facility]:00 Hospital Pneumococcal 2019-02-08 Completed [facility] Polysaccharide 00:00:00 [facility] FLUZONE HIGH-DOSE PF 2019-02-08 Completed [facility] 00:00:00 Hospital Pneumococcal 2019-02-08 Completed [facility] Polysaccharide 00:00:00 Hospital Vital Signs Vital Name Observation Time Observation Value Comments Source height 2022-04-27 13:00:00 63.5 [in_i] [facility] weight 2022-04-27 13:00:00 159.6 [lb_av] [facility] temperature 2022-04-27 13:00:00 98.0 [degF] [facility] bmi 2022-04-27 13:00:00 27.83 kg/m2 [facility] oximetry 2022-04-27 13:00:00 99 % [facility] respiratory rate 2022-04-27 13:00:00 16 /min [facility] blood pressure 2022-04-27 13:00:00 138 mm[Hg] [facility] - systolic [facility] blood pressure 2022-04-27 13:00:00 58 mm[Hg] [facility] - diastolic [facility] height 2022-01-29 14:40:00 63.5 [in_i] [facility] weight 2022-01-29 14:40:00 161.2 [lb_av] [facility] temperature 2022-01-29 14:40:00 97.2 [degF] [facility] bmi 2022-01-29 14:40:00 28.1 kg/m2 [facility] oximetry 2022-01-29 14:40:00 98 % [facility] respiratory rate 2022-01-29 14:40:00 16 /min [facility] blood pressure 2022-01-29 14:40:00 130 mm[Hg] [facility] - systolic [facility] blood pressure 2022-01-29 14:40:00 60 mm[Hg] [facility] diastolic [facility] height 2021-10-30 14:20:00 63.5 [in_i] [facility] weight 2021-10-30 14:20:00 171.6 [lb_av] [facility] temperature 2021-10-30 14:20:00 98.6 [degF] [facility] bmi 2021-10-30 14:20:00 29.92 [facility]m2 [facility] 2021-10-30 14:20:00 98 % [facility] respiratory rate 2021-10-30 14:20:00 16 /min [facility] blood pressure 2021-10-30 14:20:00 136 mm[Hg] [facility] - systolic [facility] blood pressure 2021-10-30 14:20:00 63 mm[Hg] [facility] - diastolic [facility] height 2021-10-23 11:00:00 63.5 [in_i] [facility] weight 2021-10-23 11:00:00 172.6 [lb_av] [facility] temperature 2021-10-23 11:00:00 97.2 [degF] [facility] bmi 2021-10-23 11:00:00 30.09 kg/m2 [facility] oximetry 2021-10-23 11:00:00 99 % [facility] blood pressure 2021-10-23 11:00:00 138 mm[Hg] [facility] - systolic [facility] blood pressure 2021-10-23 11:00:00 58 mm[Hg] [facility] - diastolic [facility] height 2021-10-14 14:20:00 63.5 [in_i] [facility] weight 2021-10-14 14:20:00 175.2 [lb_av] [facility] temperature 2021-10-14 14:20:00 97.3 [degF] [facility] bmi 2021-10-14 14:20:00 30.55 kg/m2 [facility] oximetry 2021-10-14 14:20:00 99 % [facility] respiratory rate 2021-10-14 14:20:00 16 /min [facility] blood pressure 2021-10-14 14:20:00 130 mm[Hg] [facility] - systolic [facility] blood pressure 2021-10-14 14:20:00 70 mm[Hg] [facility] - diastolic [facility] Systolic blood 2021-09-27 14:31:00 133 mm[Hg] [facility] Di[facility] 2021-09-27 14:31:00 48 mm[Hg] [facility] Heart rate 2021-09-27 14:31:00 60 /min [facility] Body temperature 2021-09-27 14:31:00 [facility]56 [facility] 2021-09-27 14:31:00 97 /min [facility] blood by [facility] Pulse oximetry [facility] height 2021-09-27 13:27:00 161.3 cm [facility] Body weight 2021-09-27 13:27:00 77.111 kg [facility] BMI 2021-09-27 13:27:00 29.64 kg/m2 [facility] height 2021-06-30 14:00:00 63.5 [in_i] [facility] weight 2021-06-30 14:00:00 178 [lb_av] [facility] temperature 2021-06-30 14:00:00 97.2 [degF] [facility] bmi 2021-06-30 14:00:00 31.03 kg/m2 [facility] oximetry 2021-06-30 14:00:00 98 % [facility] respiratory rate 2021-06-30 14:00:00 16 /min [facility] blood pressure 2021-06-30 14:00:00 136 mm[Hg] [facility] - systolic [facility] blood pressure 2021-06-30 14:00:00 73 mm[Hg] [facility] - diastolic [facility] height 2021-05-07 14:20:00 63.5 [in_i] [facility] weight 2021-05-07 14:20:00 165 [lb_av] [facility] temperature 2021-05-07 14:20:00 97.1 [degF] [facility] bmi 2021-05-07 14:20:00 28.77 kg/m2 [facility] height 2021-04-09 13:00:00 63.5 [in_i] [facility] weight 2021-04-09 13:00:00 165 [lb_av] [facility] bmi 2021-04-09 13:00:00 28.77 kg/m2 [facility] height 2021-02-19 16:20:00 63.5 [in_i] [facility] weight 2021-02-19 16:20:00 173 [lb_av] [facility] bmi 2021-02-19 16:20:00 30[facility]16 [facility] height 2021-01-02 13:00:00 63.5 [in_i] [facility] weight 2021-01-02 13:00:00 177.2 [lb_av] [facility] temperature 2021-01-02 13:00:00 97.0 [degF] [facility] bmi 2021-01-02 13:00:00 30.89 kg/m2 [facility] oximetry 2021-01-02 13:00:00 97 % [facility] respiratory rate 2021-01-02 13:00:00 16 /min Comm on [facility] blood pressure 2021-01-02 13:00:00 139 mm[Hg] [facility] - systolic [facility] blood pressure 2021-01-02 13:00:00 56 mm[Hg] [facility] - diastolic [facility] height 2020-12-12 15:00:00 63.5 [in_i] [facility] weight 2020-12-12 15:00:00 170 [lb_av] [facility] temperature 2020-12-12 15:00:00 96.8 [degF] [facility] bmi 2020-12-12 15:00:00 29.64 kg/m2 [facility] Systolic blood 2022-08-04 14:48:00 152 mm[Hg] Method [facility] pressure Diastolic blood 2022-08-04 14:48:00 83 mm[Hg] [facility] pressure Heart rate 2022-08-04 14:48:00 53 /min [facility] Body temperature 2022-08-04 14:48:00 36.72 [place] [facility] Respiratory rate 2022-08-04 14:48:00 12 /min [facility] Body height 2022-08-04 14:48:00 160 cm [facility] Body weight 2022-08-04 14:48:00 73.029 kg [facility] BMI 2022-08-04 14:48:00 28.52 kg/m2 [facility] Oxygen saturation in 2021-12-12 11:00:00 97 /min [facility] Arterial blood by Pulse oximetry Systolic blood 2019-12-28 21:09:00 142 mm[Hg] [facility] pressure Diastolic blood 2019-12-28 21:09:00 61 mm[Hg] [facility] pressure Heart rate 2019-12-28 21:09:00 55 /min [facility] Body temperature 2019-12-28 21:09:00 36.5 [facility] Respiratory rate 2019-12-28 21:09:00 17 /min [facility] Oxygen saturation in 2019-12-28 21:09:00 100 /min [facility] Arterial blood by Pulse oximetry Body height 2019-12-28 18:20:00 165.1 cm [facility] Body weight 2019-12-28 18:20:00 77.111 kg [facility] BMI 2019-12-28 18:20:00 28.29 kg/m2 [facility] Procedures Procedure Date / Time Performing Clinician Source Performed SURGICAL PATHOLOGY 2022-05-18 21:04:00 [facility] Johana COLONOSCOPY AND EGD 2022-05-18 20:07:29 Jose D [facility] COMBO - MCE Johana BASIC METABOLIC PANEL 2021-12-11 09:07[facility] WITH PLATELET AND 2021-12-11 09:07:00 [facility] DIFFERENTIAL ESTIMATED GFR 2021-12-11 09:07:00 Markel Balderas Ho spital CBC WITH PLATELET AND 2021-12-10 09:06:00 [facility]FFER[facility] BASIC METABOLIC PANEL 2021-12-10 09:06:00 [facility] ESTIMATED GFR 2021-12-10 09:06:00 Juliana Graf Ho spital MAGNESIUM LEVEL 2021-12-09 14:56:00 Noemy Benedict Ho spital ZZCOVID-19 ANTI-SPIKE 2021-12-09 08:56:00 Tonny [facility] IGG ANTIBODY TITER Alexys CBC WITH PLATELET AND 2021-12-09 08:56:00 [facility] DIFFERENTIAL BASIC METABOLIC PANEL 2021-12-09 08:56:00 Homar [facility] ZZCOVID-19 SEROLOGY 2021-12-09 08:56:00 Konstantin Lancaster [facility] PATIENT SURVEILLANCE Alexys ESTIMATED GFR 2021-12-09 08:56:00 Juliana Graf Ho spital VENIPUNC NEED PHYS 2021-12-08 23:57:47 Deondre Agee [facility] SKILL,DX OR RX CBC WITH PLATELET AND 2021-12-08 11:34:00 [facility] DIFFERENTIAL BASIC METABOLIC PANEL 2021-12-08 11:34:00 [facility] ESTIMATED GFR 2021-12-08 11:34:00 [facility] spital BLOOD CULTURE, AEROBIC & 2021-12-08 11:32:00 [facility] ANAEROBIC OCCULT BLOOD, STOOL 2021-12-08 08:44:00 [facility] BLOOD CULTURE, AEROBIC & 2021-12-08 00:53:00 [facility] ANAEROBIC COVID-19 QUALITATIVE 2021-12-07 17:58:00 [facility] RT-PCR CT ABDOMEN PELVIS W 2021-12-07 15:35:35 [facility] CONTRAST CBC WITH PLATELET AND 2021-12-07 14:48:00 [facility] DIFFERENTIAL COMPREHENSIVE METABOLIC 2021-12-07 14:48:00 [facility] PANEL URINALYSIS 2021-12-07 14:48:00 [facility] ESTIMATED GFR 2021-12-07 14:48:00 [facility] CONSENT/REFUSAL FOR 2021-09-27 05:01:00 Doctor Unassigned, [facility] Name [facility] XR ABDOMEN 1 VW 2019-12-27 15:41:22 Poly Garza [facility] XR ABDOMEN 2 VW AP W 2019-12-26 23:13:11 Aziza Peter [facility] UPRIGHT AND/OR DECUBITUS [facility] COMPLETE BLD COUNT 2019-12-26 11:34:00 [facility]AUTO DIFF COMPREHENSIVE METABOLIC 2019-12-26 10:03:00 Lexi Bustamante [facility] PANEL MAGNESIUM LEVEL 2019-12-26 10:03:00 [facility] ESTIMATED GFR 2019-12-26 10:03:00 [facility] US RENAL 2019-12-26 01:33:59 [facility] URINALYSIS SCREEN AND 2019-12-26 01:17:00 [facility] MICROSCOPY, WITH REFLEX TO CULTURE COVID-19 QUALITATIVE 2019-12-25 21:49:00 Anjel Smith [facility] RT[facility]PCR CT ABDOMEN PELVIS W 2019-12-25 20:53:04 Anjel Smith [facility] CONTRAST URINALYSIS 2019-12-25 19:35:00 Anjel Smith [facility] COMPREHENSIVE METABOLIC 2019-12-25 19:35:00 Anjel Smith [facility] PANEL ESTIMATED GFR 2019-12-25 19:35:00 Anjel Smith [facility] HC COMPLETE BLD COUNT 2019-12-25 19:35:00 Anjel Smith [facility] W/AUTO DIFF Plan of Care Planned Activity Planned Date Details Comments Source Future Scheduled 2022-12-03 Screening for [facility] Test 14:39:30 malignant neoplasm of colon (procedure) [code = 498583433] Future Scheduled 2022-12-03 Screening for [facility] Test 14:39:30 malignant neoplasm of colon (procedure) [code = 554536649] Future Scheduled 2022-12-03 Hepatitis C screening [facility] Test 14:39:30 (procedure) [code = 313421378] Future Scheduled 2022-12-03 BREAST CANCER [facility] Test 14:39:30 SCREENING [code = BREAST CANCER SCREENING] Future Scheduled 2022-12-03 Screening for [facility] Test 14:39:30 malignant neoplasm of colon (procedure) [code = 710437602] Future Scheduled 2022-12-03 COVID-19 VACCINE (4 - [facility] Test 14:39:30 Moderna series) [code = COVID-19 VACCINE (4 - Moderna series)] Future Scheduled 2022-12-03 Screening for [facility] Test 14:39:30 malignant neoplasm of colon (procedure) [code = 181970303] Future Scheduled 2022-12-03 Screening for [facility] Test 14:39:30 malignant neoplasm of colon (procedure) [code = 361991065] Future Scheduled 2022-12-03 INFLUENZA VACCINE [facility] Test 14:39:30 [code = INFLUENZA VACCINE] Future Scheduled 2022-10-07 Screening for [facility] Test 10:03:26 malignant neoplasm of colon (procedure) [code = 897623661] Future Scheduled 2022-10-07 Screening for [facility] Test 10:03:26 malignant neoplasm of colon (procedure) [code = 779508064] Future Scheduled 2022-10-07 Hepatitis C screening [facility] Test 10:03:26 (procedure) [code = 109788299] Future Scheduled 2022-10-07 BREAST CANCER [facility] Test 10:03:26 SCREENING [code = BREAST CANCER SCREENING] Future Scheduled 2022-10-07 Screening for [facility] Test 10:03:26 malignant neoplasm of colon (procedure) [code = 478518970] Future Scheduled 2022-10-07 COVID-19 VACCINE (4 - [facility] Test 10:03:26 Moderna series) [code = COVID-19 VACCINE (4 - Moderna series)] Future Scheduled 2022-10-07 INFLUENZA VACCINE [facility] Test 10:03:26 [code = INFLUENZA VACCINE] Future Scheduled 2022-10-07 Screening for [facility] Test 10:03:26 malignant neoplasm of colon (procedure) [code = 694771328] Future Scheduled 2022-10-07 Screening for [facility] Test 10:03:26 malignant neoplasm of colon (procedure) [code = 128760823] Future Scheduled 2022-08-12 Hepatitis C screening [facility] Test 10:08:23 (procedure) [code = 358999599] Future Scheduled 2022-08-12 BREAST CANCER [facility] Test 10:08:23 SCREENING [code = BREAST CANCER SCREENING] Future Scheduled 2022-08-12 COLONOSCOPY SCREENING [facility] Test 10:08:23 [code = COLONOSCOPY SCREENING] Future Scheduled 2022-08-12 COVID-19 VACCINE (4 - [facility] Test 10:08:23 Booster for Moderna series) [code = COVID-19 VACCINE (4 - Booster for Moderna series)] Future Scheduled 2022-08-12 INFLUENZA VACCINE [facility] Test 10:08:23 [code = INFLUENZA VACCINE] Future Scheduled COVID-19 VACCINE (1) [facility] Test [code = COVID-19 VACCINE (1)] Future Scheduled Hepatitis C screening [facility] Test (procedure) [code = 971041717] Future Scheduled BREAST CANCER [facility] Test SCREENING [code = BREAST CANCER SCREENING] Future Scheduled COLONOSCOPY SCREENING [facility] Test [code = COLONOSCOPY SCREENING] Future Scheduled SHINGLES VACCINES [facility] Test (#1) [code = SHINGLES VACCINES (#1)] Future Scheduled INFLUENZA VACCINE [facility] Test [code = INFLUENZA VACCINE] Encounters Start End Encounter Admission Attending Care Care Encounter Source Date/Time Date/Time Type Type Clinicians Facility Department ID 2022-09-04 Outpatient Childress, [facility] [id number] Common 09:30:00 Dionne [id number] [facility] 2022-09-02 Outpatient Childress, [facility]LMLC [facility] [id number] Common 08:10:00 Dionne [id number] [facility] 2022-01-27 Outpatient Childress, STLMLC [facility] [id number] Common 09:50:01 Dionne [id number] [facility] 2021-12-29 Outpatient Childress, STLMLC [facility] [id number] Common 11:41:00 Dionne [id number] [facility] 2021-07-30 Outpatient [facility] [id number] [place] 12:20:24 [id number] [facility] 2021-05-14 Outpatient Childress, STLMLC STLC [id number] Common 14:26:43 Idonne [id number] [facility] 2021-05-14 Outpatient Childress, STLMLC [facility] [id number] Common 13:46:40 Dionne [id number] [facility] 2022-08-10 2022-08-10 Telephone Jose D 1.2.840.1 [id number] 2 [id number] Methodi 00:00:00 00:00:00 Marie Vaughn 67101.1.1 943 3.430.2.7 Hospit a .3.584110 l .8 2022-08-10 2022-08-10 Telephone Schiesser, 1.2.840.1 [id number] 2 [id number] Methodi 00:00:00 00:00:00 Marie Vaughn 34532.1.[address] 3.430.2.7 Hospit a .3.905160 l .8 2022-08-04 2022-08-04 Office Schiesser, 1.2.840.1 [id number] 732 [id number] Methodi 09:45:00 10:19:12 Visit Marie Vaughn 97525.1.[address] 3.430.2.7 Hospit a .3.192244 l .8 2022-08-04 2022-08-04 Office Schiesser, 1.2.840.1 [id number] 057 [id number] Methodi 09:45:00 10:19:12 Visit Marie Vaughn 28199.1.[address] 3.430.2.7 Hospit a .3.786777 l .8 2022-08-04 2022-08-04 Travel 1.2.840.1 1.2.436.903 6569 [id number] Methodi 00:00:00 00:00:[address] 3.430.2.7 0.2.7.3.698 Ho spita .3.253742 084.8 l .8 2022-08-04 2022-08-04 Travel 1.2.840.1 1.2.235.653 8581 [id number] Methodi 00:00:00 00:00:[address] 3.430.2.7 0.2.7.3.698 Ho spita .3.138467 084.8 l .8 2022-06-23 2022-06-23 Telephone Schiesser, 1.2.840.1 [id number] 2 [id number] Methodi 00:00:00 00:00:00 Marie Vaughn 25089.1.[address] 3.430.2.7 Hospit a .3.479122 l .8 2022-06-23 2022-06-23 Telephone Jose D, 1.2.840.1 [id number] 2 [id number] Methodi 00:00:00 00:00:00 Marie Vaughn [address].1.[address] 3.430.2.7 Hospit a .3.993369 l .8 2022-06-22 2022-06-22 Telephone Neal, 1.2.840.1 [id number] 063 [id number] Methodi 00:00:00 00:00:[address] 3.430.2.7 Hospit a .3.322442 l .8 2022-06-22 2022-06-22 Orders Rocky, 1.2.840.1 [id number] Methodi 00:00:00 00:00:00 Only Josiane 69306.1.[address] 3.430.2.7 Hospit a .3.411830 l .8 2022-06-22 2022-06-22 Telephone Neal, 1.2.840.1 [id number] Methodi 00:00:00 00:00:[address] 3.430.2.7 Hospit a .3.877977 l .8 2022-06-22 2022-06-22 Orders Rocky, 1.2.840.1 [id number] Methodi 00:00:00 00:00:00 Only Josiane 54334.1.[address] 3.430.2.7 Hospit a .3.815852 l .8 2022-06-12 2022-06-12 Office Dane, 1.2.840.1 [id number] Methodi 08:30:00 12:43:07 Visit Nehemias JerzyAlla 61957.1.[address] 3.430.2.7 Hospit a .3.909000 l .8 2022-06-12 2022-06-12 Office Dane, 1.2.840.1 [id number] 00546 [id number] Methodi 08:30:00 12:43:07 Visit Nehemias Detn 38826.1.[address] 3.430.2.7 Hospit a .3.303923 l .8 2022-06-12 2022-06-12 Travel 1.2.840.1 1.2.295.171 0280 [id number] Methodi 00:00:00 00:00:[address] 3.430.2.7 0.2.7.3.698 Ho spita .3.771794 084.8 l .8 2022-06-12 2022-06-12 Travel 1.2.840.1 1.2.399.059 4693 [id number] Methodi 00:00:00 00:00:[address] 3.430.2.7 0.2.7.3.698 Ho spita .3.095402 084.8 l .8 2022-05-18 2022-05-18 Lab Schiesser, 1.2.840.1 [id number] Methodi 14:55:00 15:00:00 Marie Johana 16891.1.[address] 3.430.2.7 Hospit a .3.491373 l .8 2022-05-18 2022-05-18 Lab Schiesser, 1.2.840.1 [id number] Methodi 14:55:00 15:00:00 Marie Johana 99270.1.[address] 3.430.2.7 Hospit a .3.338685 l .8 2022-05-08 2022-05-08 Telephone Schiesser, 1.2.840.1 [id number] 2 [id number] Methodi 00:00:00 00:00:00 Marie Johana 56744.1.[address] 3.430.2.7 Hospit a .3.101233 l .8 2022-05-08 2022-05-08 Telephone Schiesser, 1.2.840.1 [id number] 2 [id number] Methodi 00:00:00 00:00:00 Marie Johana [address]223.1.[address] 3.430.2.7 Hospit a .3.829720 l .8 2022-05-06 2022-05-06 Telephone Schiesser, 1.2.840.1 [id number] 2 [id number] Methodi 00:00:00 00:00:00 Marie Vaughn 65064.1.[address] 3.430.2.7 Hospit a .3.848154 l .8 2022-05-06 2022-05-06 Telephone Schiesser, 1.2.840.1 [id number] 2 [id number] Methodi 00:00:00 00:00:00 Marie Vaughn 86790.1.[address] 3.430.2.7 Hospit a .3.187103 l .8 2022-04-30 2022-04-30 Office Schiesser, 1.2.840.1 [id number] Methodi 14:45:00 15:58:52 Visit Marie Vaughn 32961.1.[address] 3.430.2.7 Hospit a .3.517144 l .8 2022-04-30 2022-04-30 Office Schiesser, 1.2.840.1 [id number] Methodi 14:45:00 15:58:52 Visit Marie Vaughn 28319.1.[address] 3.430.2.7 Hospit a .3.267329 l .8 2022-04-30 2022-04-30 Travel 1.2.840.1 1.2.942.052 3162 [id number] Methodi 00:00:00 00:00:[address] 3.430.2.7 0.2.7.3.698 Ho spita .3.225621 084.8 l .8 2022-04-30 2022-04-30 Travel 1.2.840.1 1.2.469.728 1071 [id number] Methodi 00:00:00 00:00:[address] 3.430.2.7 0.2.7.3.698 [facility] 084.8 l .8 2022-04-27 2022-04-27 SUB ANNUAL STLMLC STLMLC [id number] Common 00:00:00 00:00:00 MCR Spirit WELLNESS - CHI VISIT [facility] 2022-04-07 2022-04-07 (TEL) STLMLC STLMLC [id number] Co mmon 00:00:00 00:00:00 Spirit - CHI [facility] 2022-01-29 2022-01-29 OFFICE STLMLC STLMLC [id number] Co mmon 00:00:00 00:00:00 VISIT [facility] ESTAB PT - CHI LEVEL 4 [facility] 2021-12-07 2021-12-12 [facility] C. 1.2.840.1 [id number] Methodi 09:28:00 15:18:00 Encounter Lauren Rodríguez 09870.1.1 400 [facility] .[facility]70 l .8 2021-12-07 2021-12-12 [facility] C 1.2.840.1 [id number] Methodi 09:28:00 15:18:00 Encounter Lauren Rodríguez B 48540.1.1 400 [facility] Biancafiya 3.430.2.7 [facility] .3.792732 l .8 2021-11-05 2021-11-05 (TEL) STLMLC STLMLC [id number] Co mmon 00:00:00 00:00:00 Spirit - CHI [facility] 2021-10-30 2021-10-30 OFFICE STLMLC STLMLC [id number] Co mmon 00:00:00 00:00:00 VISIT EST Spir it PT LEVEL 3 - CHI [facility] 2021-10-28 2021-10-28 (TEL) STLMLC STLMLC [id number] Co mmon 00:00:00 00:00:00 Spirit - CHI [facility] 2021-10-23 2021-10-23 OFFICE STLMLC STLMLC [id number] Co mmon 00:00:00 00:00:00 VISIT EST Spir it PT LEVEL 3 - CHI [facility] 2021-10-21 2021-10-21 (TEL) STLMLC STLMLC [id number] Co mmon 00:00:00 00:00:00 [facility] 2021-10-14 2021-10-14 OFFICE STLMLC STLMLC [id number] Co mmon 00:00:00 00:00:00 VISIT Spirit ESTAB PT - CHI LEVEL 4 [facility] 2021-10-13 2021-10-13 (TEL) STLMLC STLMLC [id number] Co mmon 00:00:00 00:00:00 [facility] 2021-09-30 2021-09-30 (TEL) STLMLC STLMLC [id number] Co mmon 00:00:00 00:00:00 [facility] 2021-09-27 2021-09-27 Nurse Therapy, Adc Covid Infusion [facility] 1.2.840.114 [id number] Univers 08:00:00 09:00:00 Visit Harry Riojas 350.1.13.10 ity [facility] 4.2.7.2.[id number] [place] [address] 2021-09-27 2021-09-27 Outpatient Brian RIOJAS [facility] [id number] Univers 08:00:00 08:00:[address] [facility] 2021-09-27 2021-09-27 Orders Doctor VEGA 1.2.840.114 [id number] Univers 00:00:00 00:00:00 Only Unassigned, VON 350.1.13.[address] [facility] 4.2.7.2.686 Jesse as [id number] [place] [address] [place] 2021-09-09 2021-09-09 Outpatient Brian HI [facility] [id number] Univers 13:30:00 13:30:[address] [facility] 2021-06-30 2021-06-30 OFFICE STLMLC STLMLC [id number] Co mmon 00:00:00 00:00:00 VISIT [facility] ESTAB PT - CHI LEVEL 4 [facility] 2021-05-07 2021-05-07 OFFICE STLMLC STLMLC [id number] Co mmon 00:00:00 00:00:00 VISIT EST Spir it PT LEVEL 3 - CHI [facility] 2021-05-06 2021-05-06 (TEL) STLMLC STLMLC [id number] Co mmon 00:00:00 00:00:00 [facility] 2021-04-10 2021-04-10 (TEL) STLMLC STLMLC [id number] Co mmon 00:00:00 00:00:00 [facility] 2021-04-09 2021-04-09 SUB ANNUAL STLMLC STLMLC [id number] Common 00:00:00 00:00:00 MCR [facility] WELLNESS - [facility] VISIT [facility] 2021-04-04 2021-04-04 (TEL) STLMLC STLMLC [id number] Co mmon 00:00:00 00:00:00 [facility] 2021-04-02 2021-04-02 (TEL) STLMLC STLMLC [id number] Co mmon 00:00:00 00:00:00 [facility] 2021-02-19 2021-02-19 OFFICE STLMLC STLMLC [id number] Co mmon 00:00:00 00:00:00 VISIT EST Spir it PT LEVEL 3 - CHI [facility] 2021-01-08 2021-01-08 (TEL) STLMLC STLMLC [id number] Co mmon 00:00:00 00:00:00 [facility] 2021-01-02 2021-01-02 OFFICE STLMLC STLMLC [id number] Co mmon 00:00:00 00:00:00 VISIT [facility] ESTAB PT - CHI LEVEL 4 [facility] 2020-12-27 2020-12-27 (TEL) STLMLC STLMLC [id number] Co mmon 00:00:00 00:00:00 [facility] 2020-12-19 2020-12-19 OFFICE STLMLC STLMLC [id number] Co mmon 00:00:00 00:00:00 VISIT [facility] ESTAB PT - [facility] LEVEL 1 [facility] 2020-12-17 2020-12-17 (TEL) STLMLC STLMLC [id number] Co mmon 00:00:00 00:00:00 [facility] 2020-12-12 2020-12-12 (TEL) STLMLC STLMLC [id number] Co mmon 00:00:00 00:00:00 [facility] 2020-12-12 2020-12-12 OFFICE STLMLC STLMLC [id number] Co mmon 00:00:00 00:00:00 VISIT EST Spir it PT LEVEL 3 [facility] 2020-11-07 2020-11-07 Outpatient STLMLC STLMLC [id number] Common 00:00:00 00:00:00 [facility] 2020-07-23 2020-07-23 Outpatient STLMLC STLMLC [id number] Common 00:00:00 00:00:00 [facility] 2020-07-16 2020-07-16 Outpatient STLMLC STLMLC [id number] Common 00:00:00 00:00:00 [facility] 2020-07-08 2020-07-08 Outpatient STLMLC STLMLC [id number] Common 00:00:00 00:00:00 [facility] 2020-07-04 2020-07-04 Outpatient STLMLC STLMLC [id number] Common 00:00:00 00:00:00 [facility] 2020-05-27 2020-05-27 Outpatient STLMLC STLMLC [id number] Common 00:00:00 00:00:00 [facility] 2020-02-02 2020-02-02 Outpatient STLMLC STLMLC [id number] Common 00:00:00 00:00:00 [facility] 2020-02-01 2020-02-01 Outpatient STLMLC STLMLC [id number] Common 00:00:00 00:00:00 [facility] 2020-01-09 2020-01-09 Outpatient STLMLC STLMLC [id number] Common 00:00:00 00:00:00 [facility] 2020-01-04 2020-01-04 Outpatient Brazfrancesca Homart [id number] Common 17:58:00 17:58:[address] [facility] [address] [facility] 2020-01-02 2020-01-02 [facility] [id number] Common 14:18:00 14:18:00 t [address] [facility] 2020-01-02 2020-01-02 Out[facility] [id number] Common 10:40:00 10:40:[address] [facility] [address] [facility] 2019-12-28 2019-12-28 Emergency Atilio, 1.2.840.1 [id number] Methodi 16:08:46 16:10:00 Maria G 34004.1.[address] [facility] 3.430.2.7 Hospi ta .3.670317 l .8 2019-12-28 2019-12-28 Patient Kailee Guo 1.2.840.1 [id number] Methodi 00:00:00 00:00:[address] 3.430.2.7 Hospit a .3.581205 l .8 2019-12-28 2019-12-28 Travel 1.2.840.1 1.2.793.007 3550 [id number] Methodi 00:00:00 00:00:[address] 3.430.2.7 0.2.7.3.698 Ho spita .3.945434 084.8 l .8 2019-12-25 2019-12-27 Hospital Anjel Smith 1.2.840.1 [id number] Methodi 14:14:32 16:34:00 Encounter Lauren Rodríguez 77301.1.[address] Leonel Yousif E. 3.430.2.7 [facility] Poly Garza .3.538183 l .8 2019-08-23 2019-08-23 [facility] [id number] Common 13:00:00 13:00:00 t [place] [address] [facility] 2019-07-13 2019-07-13 Out[facility] [id number] Common 13:00:00 13:00:00 t [place] [address] [facility] 2019-07-12 2019-07-12 [facility] [id number] Common 15:58:00 15:58:00 t [place] [address] [facility] 2019-02-13 2019-02-13 [facility] [id number] Common 13:00:00 13:00:00 t [address] [facility] 2019-02-08 2019-02-08 [facility] [id number] Common 13:00:00 13:00:00 [address] [facility] 2019-01-23 2019-01-23 [facility] [id number] Common 11:20:00 11:20:00 [address] [facility] 2018-08-11 2018-08-11 [facility] [id number] Common 09:01:00 09:01:00 [address] [facility] 2018-08-10 2018-08-10 [facility] [id number] Common 13:00:00 13:00:00 [address] [facility] 2018-06-21 2018-06-21 [facility] [id number] Common 10:00:00 10:00:00 [address] [facility] 2018-05-24 2018-05-24 [facility] [id number] Common 14:30:00 14:30:00 [address] [facility] 2018-04-08 2018-04-08 [facility] [id number] Common 10:00:00 10:00:00 [address] [facility] 2017-12-07 2017-12-07 [facility] [id number] Common 15:50:00 15:50:00 [address] [facility] 2017-12-02 2017-12-02 [facility] [id number] Common 14:00:00 14:00:00 [address] [facility] 2017-12-01 2017-12-01 [id number] Common 10:15:00 10:15:[address] [facility] 2017-11-22 2017-11-22 [facility] [id number] Common 16:47:00 16:47:00 t [address] [facility] 2017-11-16 2017-11-16 [facility] [id number] Common 13:00:00 13:00:00 t [address] [facility] 2017-08-27 2017-08-27 [facility] [id number] Common 11:54:00 11:54:00 t [address] [facility] 2017-08-24 2017-08-24 [facility] [id number] Common 10:00:00 10:00:00 t [address] [facility] 2017-07-28 2017-07-28 [facility] [id number] Common 09:21:00 09:21:00 t [address] [facility] 2017-07-07 2017-07-07 [facility] [id number] Common 15:00:00 15:00:00 t [address] [facility] Results Test Description Test Time Test Comments Results Result Comments Source Surgical pathology request 2022-05-20 01:03:44 Test Item Value Reference Range Interpretation Comme nts Case number (test code = [id number]) [id number] Surgical pathology report (test code = See link below for PDF Lab R eport 2255) Result status (test code = 7164477) This is Final Report [facility] [id number] [id number] 01:03:44 Test Item Value Reference Range Interpretation Comments Case number (test code = [id number]) Surgical pathology See link below for report (test code = PDF Lab Report 2255) Result status (test code This is Final Report = [id number]) for [id number] [facility] [id number] 01:03:44 Test Item Value Reference Range Interpretation Comments Case number (test code = [id number]) Surgical pathology See link below for report (test code = PDF Lab Report 2255) Result status (test code This is Final Report = [id number]) [facility] [id number] [facility] RNA [Presence] in Respiratory specimen by NEHAL with probe [id number] 19:11:48 Test Item Value Reference Range Interpretation Comments SARS-CoV-2 (COVID-19) RNA Not detected [Presence] in Respiratory specimen by NEHAL with probe detection (test code = 22748-1) Whether patient is employed in a Unknown healthcare setting (test code = 64580-8) Whether the patient has symptoms Unknown related to condition of interest (test code = 54213-5) Whether the patient was Unknown hospitalized for condition of interest (test code = 89386-0) Whether the patient was admitted Unknown to intensive care unit (ICU) for condition of interest (test code = 63279-0) Whether patient resides in a Unknown congregate care setting (test code = 14866-6) status (test code = Unknown 57757-9) Date and time of symptom onset Unknown (test code = 60384-9) [facility][id number] 00:00:00 Test Item Value Reference Range Interpretation Comments SARS-CoV-2 INTERPRETATION (test NEGATIVE SEE NOTE code = 48492-4) SOURCE (test code = 23430-2) NOT SPECIFIED XR Abdomen 1 [id number] 15:43:52EXAM: XR ABDOMEN 1 VW CLINICAL: constipation COMPARISON: 12/26/2019 IMPRESSION: 1.Gaseous distention of loops of small bowel and colon similar to prior exam, nonspecific, possible ileus.2.Degenerative jason nges in the lower lumbar spine. [facility]-[id number] Interface, Radiology Results Incoming 12/27/201910:47 AM CDT EXAM: XR ABDOMEN 1 VWCLINICAL: constipationCOMPARISON: 12/26/2019IMPRESSION: 1.Gaseous distention of loops of small bowel and colon similar to prior exam, nonspecific, possible ileus.2.Degenerative changes in the lower lumbar spine.[facility]-[id number] HospitalXR Abdomen 2 Vw Ap W Upright And/Or [id number] 23:18:30EXAMINATION: XR ABDOMEN 2 VW AP W [...] normal limitsThe lung bases are clear.Jazmin Byrd [id number] 01:49:31EXAMINATION: US RENAL CLINICAL HISTORY: Flank pain [...] echogenicity: Within normal limits. 9. Other Findings:None [facility]-[id number] Interface, Radiology Results Incoming - 12/25/2019 8:52 PM CDT EXAMINATION: US [...] abnormalities.8. Renal echogenicity: Within normal limits.9. Other Findings:[id number] HospitalCT Abdomen Pelvis W [id number] 21:01:55EXAMINATION: CT ABDOMEN PELVIS W CONTRAST CLINICAL [...] colon compatible constipation.3.Other findings as described above. [facility]-[id number] Interface, Radiology Results Incoming - 12/25/2019 4:04 [...] ksenia tible constipation.3.Other findings as described above. [facility]-[id number] State HospitalARS-COV 2 AntigenSARS-COV 2 Antigen
[2022-12-03] MEDS ORDERED: ONDANSETRON 4 MG/2 ML VIAL ONE ×2 (17:54→21:31)
[2022-12-03] MEDS ORDERED: NA CHLORIDE 0.9% 1,000 ML ONE (17:55)
[2022-12-03] MEDS ORDERED: FAMOTIDINE 20 MG/2 ML VIAL IV ONE (17:55)
[2022-12-03 18:33] LABS: Absolute Lymphocytes (CBC) 1.2 K/uL (0.7-4.9); Hematocrit 37.7 % (36.0-45.0); Lymphocytes % 22.9 % (15.3-44.8); MCV 93.1 fL (80-100); Platelets 237 thou/uL (152-406); RBC Red Blood Cell Count 4.05 M/uL (3.86-4.86)
[2022-12-03 18:56] LABS: Albumin 3.3 g/dL (3.4-5.0); Bilirubin Total 0.5 mg/dL (0.2-1.0); Potassium 3.1 mEq/L (3.5-5.1); Protein, Total 7.1 g/dL (6.4-8.2)
--- NOTE | 2022-12-03 19:59 | RAD REPORT ---
EXAM DESCRIPTION: CTAbdomen Pelvis W Contrast - 12/03/2022 7:34 pm CLINICAL HISTORY: ABD PAIN COMPARISON: Abdomen Pelvis W Contrast dated 10/08/2022; Abdomen Pelvis W Contrast dated 08/12/2022 ; Abdomen Pelvis W Contrast dated 01/08/2017; CT ABD PELVIS W CONTRAST dated 03/16/2013 TECHNIQUE: CT of the abdomen and pelvis was performed with IV contrast. All CT scans are performed using dose optimization technique as appropriate and may include automated exposure control or mA/KV adjustment according to patient size. FINDINGS: Lower chest: No acute abnormality. Liver: No acute abnormality or suspicious lesions. Too small to characterize liver lesions which are likely benign. Biliary: No biliary ductal dilatation. Stomach: No significant focal abnormality. Duodenum: No significant focal abnormality. Pancreas: No significant abnormality. Spleen: No significant abnormality. Adrenal: No suspicious lesions. Kidney/ureter: No hydronephrosis. No renal calculi. Retroperitoneum: No retroperitoneal adenopathy. Vascular: No aneurysm. Bowel: Partial colectomy. No bowel obstruction.. Peritoneum: No ascites or free air. Bladder: Grossly unremarkable. Reproductive: No adnexal masses. Hysterectomy. Bones: No acute fracture. Severe disc height loss at L5-S1 . Other: n/a IMPRESSION: No acute intra-abdominal or pelvic finding.
[2022-12-03] MEDS ORDERED: POTASSIUM 25 MEQ EFFERV TAB ONE (20:22)
[2022-12-03] MEDS ORDERED: LOPERAMIDE HCL 2 MG CAPSULE ONE (20:33)
--- NOTE | 2022-12-03 20:37 | ER ---
Nurse's Notes [facility] Name: Daisy Mcfadden Age: 72 yrs Sex: Female : 1950 Arrival Date: 12/03/2022 Time: 17:08 Bed 20 Private MD: Diagnosis: Diarrhea, unspecified;Vomiting, unspecified Presentation: 12/03 17:17 Chief complaint: Patient states: vomiting and diarrhea X4 days. Pt reports 20 episodes cm10 of diarrhea today, but no vomiting. Pt was recently diagnosed with Collagenous colitis and placed on medication and it had the diarrhea under control, but Wednesday the diarrhea came back. Pt took Imodium today with relief of symptoms. Coronavirus screen: Vaccine status: Patient reports receiving the 2nd dose of the covid vaccine. Client denies travel out of the [place] in the last 14 days. Ebola Screen: Patient denies travel to an Ebola-affected area in the 21 days before illness onset. No symptoms or risks identified at this time. Initial Sepsis Screen: Does the patient meet any 2 criteria? No. Patient's initial sepsis screen is negative. Does the patient have a suspected source of infection? No. Patient's initial sepsis screen is negative. Risk Assessment: Do you want to hurt yourself or someone else? Patient reports no desire to harm self or others. Onset of symptoms was November 30, 2022. 17:17 Method Of Arrival: Ambulatory cm10 17:17 Acuity: SILVANA 3 cm10 Historical: - Allergies: 17:19 Erythromycin; cm10 17:19 Ibuprofen; cm10 17:19 Lisinopril; cm10 17:19 Morphine; cm10 17:19 Reglan; cm10 - PMHx: 17:19 Hyperlipidemia; Hypertension; Sjogrens; Collagenous Colitits; cm10 - Immunization history:: Adult Immunizations unknown. - Social history:: Smoking status: Patient denies any tobacco usage or history of. Screenin:30 [facility] ED Fall Risk Assessment (Adult) Score/Fall Risk Level 0 - 2 = Low Risk. Abuse eh3 screen: Denies threats or abuse. Denies injuries from another. Nutritional screening: No deficits noted. Tuberculosis screening: No symptoms or risk factors identified. Assessment: 17:30 General: Appears in no apparent distress. uncomfortable, Behavior is calm, cooperative, eh3 appropriate for age. Pain: Complains of pain in abdomen. Neuro: Level of Consciousness is awake, alert, obeys commands, Oriented to person, place, time, situation. Cardiovascular: Capillary refill < 3 seconds Patient's skin is warm and dry. Respiratory: Airway is patent Respiratory effort is even, unlabored, Respiratory pattern is regular, symmetrical. GI: Abdomen is round non-distended. Derm: Skin with poor turgor Skin is pink, warm \T\ dry. Musculoskeletal: Circulation, motion, and sensation intact. 18:30 Reassessment: Patient appears in no apparent distress at this time. Patient and/or eh3 family updated on plan of care and expected duration. Pain level reassessed. Patient is alert, oriented x 3, equal unlabored respirations, skin warm/dry/pink. Vital Signs: 17:17 BP 152 / 64; Pulse 58; Resp 16; Temp 98.1; Pulse Ox 100% ; Weight 69.4 kg; Height 5 ft. cm10 3 in. ; Pain 0/10; 17:17 Body Mass Index 27.10 (69.40 kg, 160.02 cm) cm10 17:17 Pain Scale: Adult cm10 ED Course: 17:11 Patient arrived in ED. ts1 17:15 Lillian Bunch PA-C is PHCP. sb4 17:15 Facundo Sands MD is Attending Physician. sb4 17:19 Triage completed. cm10 17:21 Arm band placed on. cm10 17:30 Patient has correct armband on for positive identification. Bed in low position. Call eh3 light in reach. Side rails up X2. Provided Education on: Use of call hanks. Pulse ox on. NIBP on. Door closed. Noise minimized. Lights dimmed. Warm blanket given. Pillow given. 17:30 Missed attempt(s): 20 gauge in right antecubital area. Bleeding controlled, band aid eh3 applied, catheter tip intact. 17:34 Justa Henao, FREDIS is Primary Nurse. eh3 18:26 Inserted saline lock: 22 gauge in left antecubital area, using aseptic technique. Blood bp collected. 18:59 PHCP role handed off by Lillian Bunch PA-C cp 18:59 Donnie Chang PA is PHCP. cp 19:36 CT Abd/Pelvis - IV Contrast Only In Process Unspecified. EDMS 20:35 Alexys Stewart MD is Referral Physician. cp 21:26 No provider procedures requiring assistance completed. IV discontinued, intact, eh3 bleeding controlled, No redness/swelling at site. Pressure dressing applied. Administered Medications: 18:00 Drug: NS 0.9% IV 1000 ml Route: IV; Rate: 1 bolus; Site: left forearm; eh3 20:00 Follow up: IV Status: Completed infusion; IV Intake: 1000ml eh3 18:00 Drug: Famotidine IVP 20 mg Route: IVP; Site: left forearm; eh3 19:00 Follow up: Response: No adverse reaction eh3 18:00 Drug: Ondansetron IVP 4 mg Route: IVP; Site: left forearm; eh3 19:00 Follow up: Response: No adverse reaction eh3 20:18 Drug: Potassium PO Effervescent Tablet 50 mEq Route: PO; eh3 21:00 Follow up: Response: No adverse reaction eh3 20:25 Drug: Loperamide PO 2 mg Route: PO; eh3 21:00 Follow up: Response: No adverse reaction eh3 21:26 Drug: Ondansetron IVP 4 mg Route: IVP; Site: left antecubital; eh3 21:26 Follow up: Response: Medication administered at discharge. eh3 21:46 Follow up: Response: Medication administered at discharge. eh3 Medication: 21:26 VIS not applicable for this client. eh3 Intake: 20:00 IV: 1000ml; Total: 1000ml. eh3 Outcome: 20:36 Discharge ordered by MD. cp 21:26 Discharged to home ambulatory, with family. eh3 21:26 Condition: stable 21:26 Discharge instructions given to patient, Instructed on discharge instructions, follow up and referral plans. medication usage, Demonstrated understanding of instructions, follow-up care, medications, Prescriptions given X 2. 21:27 Patient left the ED. eh3 Signatures: Dispatcher [employer] EDIA Donnie Chang PA PA cp Peltier, Brian, RN RN bp Hall, Erin, RN RN eh3 Lillian Bunch, PA-C PA-C sb4 Lolly Saxena PAS PAS ts1 Jina Win RN RN cm10 Corrections: (The following items were deleted from the chart) 17:20 17:17 Chief complaint: Patient states: vomiting and diarrhea X4 days. Pt reports 20 cm10 episodes of diarrhea today, but no vomiting. Pt was recently diagnosed with Collagenous colitis and placed on medication and it had the diarrhea under control, but Wednesday the diarrhea came back. cm10
--- NOTE | 2022-12-03 20:37 | EDPHYS ---
Physician Documentation [facility] Name: Daisy Mcfadden Age: 72 yrs Sex: Female : 1950 Arrival Date: 12/03/2022 Time: 17:08 Bed 20 Private MD: ED Physician Facundo Sands HPI: 12/03 17:28 This 72 yrs old Female presents to ER via Ambulatory with complaints of sb4 Vomiting/Diarrhea. 17:28 The patient presents to the emergency department with nausea, vomiting, diarrhea. sb4 Onset: The symptoms/episode began/occurred 4 day(s) ago. Possible causes: flare up of bowel problem, collagenous colitis. The symptoms are aggravated by food , The symptoms are alleviated by nothing. Associated signs and symptoms: Pertinent positives: nausea, vomiting, Pertinent negatives: dysuria, fever, GI bleeding, hematuria, vaginal discharge. The patient has experienced similar episodes in the past, several times. 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 18:38 had a colonoscopy with biopsy a few weeks ago and diagnosed with collagenous colitis. sb4 she was prescribed mesalamine, which she reports taking regularly, and was controlling her symptoms. however, 4 days ago, diarrhea began and has been persistent. she called her GI who prescribed her budesonide yesterday. she states she has still been having excessive diarrhea and has been vomiting anytime she tries to eat/drink anything. denies any blood or mucus in her stool. Historical: - Allergies: 17:19 Erythromycin; cm10 17:19 Ibuprofen; cm10 17:19 Lisinopril; cm10 17:19 Morphine; cm10 17:19 Reglan; cm10 - PMHx: 17:19 Hyperlipidemia; Hypertension; Sjogrens; Collagenous Colitits; cm10 - Immunization history:: Adult Immunizations unknown. - Social history:: Smoking status: Patient denies any tobacco usage or history of. ROS: 17:28 Constitutional: Negative for fever, chills, and weight loss. sb4 17:28 Abdomen/GI: Positive for nausea, vomiting, and diarrhea. 17:28 All other systems are negative. Exam: 17:28 Constitutional: This is a well developed, well nourished patient who is awake, alert, sb4 and in no acute distress. Head/Face: Normocephalic, atraumatic. Eyes: Extra-ocular motions intact. Periorbital areas with no swelling, redness, or edema. ENT: Mucous membranes moist. Cardiovascular: Regular rate and rhythm with a normal S1 and S2. Respiratory: Lungs have equal breath sounds bilaterally, clear to auscultation and percussion. No rales, rhonchi or wheezes noted. No increased work of breathing, no retractions or nasal flaring. Skin: Warm, dry with normal turgor. Normal color with no rashes, no lesions, and no evidence of cellulitis. MS/ Extremity: Pulses equal, no cyanosis. Neurovascular intact. Full, normal range of motion. Neuro: Awake and alert, GCS 15, oriented to person, place, time, and situation. Cranial nerves II-XII grossly intact. Motor strength 5/5 in all extremities. Sensory grossly intact. Cerebellar exam normal. Normal gait. 17:28 Abdomen/GI: Inspection: abdomen appears normal, Bowel sounds: diminished, in all quadrants, Palpation: abdomen is soft and non-tender, in all quadrants. Vital Signs: 17:17 BP 152 / 64; Pulse 58; Resp 16; Temp 98.1; Pulse Ox 100% ; Weight 69.4 kg; Height 5 ft. cm10 3 in. ; Pain 0/10; 17:17 Body Mass Index 27.10 (69.40 kg, 160.02 cm) cm10 17:17 Pain Scale: Adult cm10 MDM: 17:15 Patient medically screened. sb4 17:28 Differential diagnosis: gastritis, pancreatitis, diverticulitis, viral gastroenteritis, sb4 gastroenteritis, colitis, cdiff. 19:01 Transition of care: After a detail discussion of the patient's case, care is sb4 transferred to Donnie DIAZ. 20:35 Data reviewed: vital signs, nurses notes, lab test result(s), radiologic studies, CT cp scan. 20:35 Consideration of Admission/Observation Escalation of care including cp admission/observation considered. I considered the following discharge prescriptions or medication management in the emergency department Medications were administered in the Emergency Department. See MAR. Care significantly affected by the following chronic conditions: Hypertension. Counseling: I had a detailed discussion with the patient and/or guardian regarding the historical points, exam findings, and any diagnostic results supporting the discharge/admit diagnosis, lab results, radiology results, the need for outpatient follow up, a sample dye mixer, to return to the emergency department if symptoms worsen or persist or if there are any questions or concerns that arise at home. Response to treatment: the patient's symptoms have mildly improved after treatment, and as a result, I will discharge patient. ED course: VSS. Results of today's testing reviewed and discussed. Patient appears non-toxic, tolerating po. Will discharge to home for continued monitoring. 12/03 17:26 Order name: CBC with Diff; Complete Time: 18:43 sb4 12/03 17:26 Order name: CMP; Complete Time: 18:57 sb4 12/03 20:04 Interpretation: Normal except: K 3.1; GFR 78; ALB 3.3; GLOB 3.8; A/G 0.9. cp 12/03 17:26 Order name: Lipase; Complete Time: 18:57 sb4 12/03 19:00 Order name: Lactate w/ 2H reflex if indic.; Complete Time: 20:16 cp 12/03 17:26 Order name: CT Abd/Pelvis - IV Contrast Only; Complete Time: 20:02 sb4 12/03 17:26 Order name: IV Saline Lock; Complete Time: 18:27 sb4 12/03 17:26 Order name: Labs collected and sent; Complete Time: 18:27 sb4 Administered Medications: 18:00 Drug: NS 0.9% IV 1000 ml Route: IV; Rate: 1 bolus; Site: left forearm; eh3 20:00 Follow up: IV Status: Completed infusion; IV Intake: 1000ml eh3 18:00 Drug: Famotidine IVP 20 mg Route: IVP; Site: left forearm; eh3 19:00 Follow up: Response: No adverse reaction eh3 18:00 Drug: Ondansetron IVP 4 mg Route: IVP; Site: left forearm; eh3 19:00 Follow up: Response: No adverse reaction eh3 20:18 Drug: Potassium PO Effervescent Tablet 50 mEq Route: PO; eh3 21:00 Follow up: Response: No adverse reaction eh3 20:25 Drug: Loperamide PO 2 mg Route: PO; eh3 21:00 Follow up: Response: No adverse reaction eh3 21:26 Drug: Ondansetron IVP 4 mg Route: IVP; Site: left antecubital; eh3 21:26 Follow up: Response: Medication administered at discharge. 3 21:46 Follow up: Response: Medication administered at discharge. eh3 Disposition Summary: 12/03/22 20:36 Discharge Ordered Location: Home cp Problem: an ongoing problem cp Symptoms: have improved cp Condition: Stable cp Diagnosis - Diarrhea, unspecified cp - Vomiting, unspecified cp Followup: cp - With: Alexys Stewart MD - When: 2 - 3 days - Reason: Recheck today's complaints Discharge Instructions: - Discharge Summary Sheet cp - Food Choices to Help Relieve Diarrhea, Adult cp - Diarrhea, Adult cp - Vomiting, Adult cp Forms: - Medication Reconciliation Form cp - Thank You Letter cp - Antibiotic Education cp - Prescription Opioid Use cp - Patient Portal Instructions cp - Leadership Thank You Letter cp Prescriptions: - loperamide 2 mg Oral capsule - take 1 capsule by ORAL route every 8-12 hours As needed as needed for loose cp stool; 20 capsule; Refills: 0, Product Selection Permitted - Zofran 4 mg Oral Tablet - take 1 tablet by ORAL route every 12 hours As needed; 20 tablet; Refills: 0, cp Product Selection Permitted Addendum: 12/06/2022 20:38 Co-signature as Attending Physician, Facundo Sands MD I reviewed the patient's care r t provided by the Advanced Practice Provider and agree with the diagnosis and treatment plan. Signatures: Dispatcher [employer] EDSC Donnie Chang PA PA cp Hall, Erin, FREDIS RN eh3 Lillian Bunch PA-C PARolf sb4 Facundo Sands MD MD rt Jina Win RN RN cm10
[2022-12-03 21:57] VITALS: BP 152/64; TEMP 98.1; O2SAT 100
== END 2022-12-03 21:27 | disposition home or self-care (01) ==
LOC: ER 17:08
DX: R19.7 Diarrhea, unspecified (principal); R11.2 Nausea with vomiting, unspecified; K52.831 Collagenous colitis; I10 Essential (primary) hypertension; E78.5 Hyperlipidemia, unspecified; Z88.3 Allergy status to other anti-infective agents; Z88.5 Allergy status to narcotic agent; Z88.6 Allergy status to analgesic agent; Z88.8 Allergy status to other drugs, medicaments and biological substances
CPT/HCPCS: 85025; 36415; 83605; 83690; 80053; 74177; 99284; Q9967; J2405 ×2; J7030